=== PATIENT | female | born 1970 | race Caucasian/White ===

== ENCOUNTER 2023-07-18 08:03 | Outpatient (OUT) | payer BC, SELFPAY ==
--- NOTE | 2023-07-18 08:52 | CA_ITS ---
Patient Name: KWAKU VEGA MR#: [id number] : 1970 Exam Date: 07/18/2023 Ordering Doctor: VISHAL GALAVIZ CNP ECHOCARDIOGRAM REPORT PROCEDURE: CA ECHO DOPPLER COMPLETE INDICATIONS: Palpitations, aortic insufficiency, diabetes COMPARISON: None. DESCRIPTION: COMPLETE ECHOCARDIOGRAM Real-time transthoracic echocardiography with 2D, M-mode, spectral and color flow Doppler performed. QUALITY: Technical quality was good. 63 , 130#, BSA LEFT VENTRICLE: Normal chamber size. Normal left ventricular wall thickness. LV EF: Global left ventricular systolic function is hyperdynamic; visually estimated ejection fraction 65 to 70%. No segmental wall motion abnormalities. DIASTOLIC: Normal diastolic function. ATRIAL SEPTUM: Visually appears intact. LEFT ATRIUM: Normal chamber size. RIGHT ATRIUM: Normal chamber size. RIGHT VENTRICLE: Normal chamber size. Normal right ventricular systolic function. TRICUSPID VALVE: Normal mobility and thickness. No stenosis with trivial regurgitation. No evidence of pulmonary hypertension. RVSP 21 mmHg MITRAL VALVE: Mildly thickened with normal mobility. No evidence of mitral valve stenosis. There is no mitral annular calcification. No mitral regurgitation. AORTIC VALVE: Normal trileaflet appearance. No visible sclerosis. Normal leaflet mobility. No evidence of aortic valve stenosis. Trivial to mild aortic regurgitation. AORTIC ROOT: Normal diameter and appearance. PULMONIC VALVE: Normal thickness and mobility. No stenosis. Trivial regurgitation. PERICARDIUM: No evidence of pericardial effusion. IVC: Collapses with inspirations. IVC is normal in size. CONCLUSION: 1. Global left ventricular systolic function is hyperdynamic; visually estimated ejection fraction 65 to 70% 2. Normal right ventricular size and systolic function 3. Normal diastolic function 4. Trivial to mild aortic valve regurgitation Adult Echocardiography Procedure Report Left Ventricle LVEDD (3.7 - 5.6 cm): 3.42 cm LVESD (2.2 - 4.0 cm): 2.54 cm LVIVS thickness (0.6 - 1.2 cm): 1.12 cm LVPW thickness (0.5 - 1.0 cm): 0.74 cm e': 0.13 m/s E - e': 4.75 LVOT Max Gradient: 2.88 mm[Hg] LVOT Area (cm2): 0.85 m/s Peak Velocity (LVOT): 0.85 m/s Mean Velocity (LVOT): 0.60 m/s LVOT Diameter 2.04 cm Left Atrium LA Volume Index (2D A2C): 21.82 ml/m2 Left Atrium Systolic Dimension: 3.05 cm Mitral Valve MV E to A Ratio: 0.74 Mitral Valve A-Wave Peak Velocity: 0.81 m/s Mitral Valve E-Wave Peak Velocity: 0.60 m/s Right Ventricle Aorta AO Root Diam: 2.96 cm Ascending Ao Diam: 2.59 cm Aortic Valve AoV Area (Peak Real): 1.63 cm2, 1.63 cm2 AoV Area (VTI): 2.08 cm2, 2.08 cm2 Peak Velocity(Antegrade Flow): 1.69 m/s Peak Gradient(Antegrade Flow): 11.43 mm[Hg] Mean Velocity(Antegrade Flow): 1.18 m/s Mean Gradient(Antegrade Flow): 6.36 mm[Hg] Velocity Time Integral: 31.23 cm Tricuspid Valve Peak Velocity (Regurgitant Flow): 2.15 m/s Pulmonic Valve Peak Velocity: 1.10 m/s Peak Gradient: 4.68 mm[Hg], 4.94 mm[Hg] Right Atrium Dictated by: Jessica Clark M.D. on 07/18/2023 at 12:53 Approved by: Jessica Clark M.D. on 07/18/2023 at 12:56
== END 2023-07-18 08:04 | disposition home or self-care (01) ==
LOC: CARD 08:06
PROVIDERS: PCP Family Medicine; Visit Provider Nurse Practitioner Family
DX: R00.2 Palpitations (principal); I35.1 Nonrheumatic aortic (valve) insufficiency
CPT/HCPCS: 93306

== ENCOUNTER 2023-08-12 07:23 | Outpatient (OUT) | payer BC, SELFPAY ==
--- OUTSIDE RECORDS SUMMARY | 2023-08-12 07:27 | XMS_ITS | CCD ---
Author Name Unknown Address [address] [place] [address] Organization [facility] Care Team Providers Care Anthropology And Archeology Instructor Name Role Phone MAGNORON MARTINS Attending Unavailable MOMO HAMPTON Primary Care Unavailable PHYSICIAN, DEFAULT Admitting Unavailable PHYSICIAN, DEFAULT Attending Unavailable PHYSICIAN, DEFAULT Admitting Unavailable PHYSICIAN, DEFAULT Attending Unavailable Aisha Acevedo Unavailable Momo Hampton DO Momo Hampton. Primary Care Provider DO Momo Hampton. Attending Provider DR LIZBET FUENTES V Consulting Unavailable ELAYNE, DR COTTON Admitting Unavailable ELAYNE, DR COTTON Attending Unavailable MEMO, DR MOMO Cervantes Primary Care Unavailable ELAYNE, DR COTTON Consulting Unavailable MEMO, DR MOMO Cervantes Attending Unavailable MEMO, DR MOMO Cervantes Admitting Unavailable MEMO, DR MOMO Cervantes Primary Care Unavailable ZIEBER, DR GOLDEN Johnson Consulting Unavailable MEMO, DR MOMO Cervantes Consulting Unavailable MEMO, DR MOMO Cervantes Attending Unavailable MEMO, DR MOMO Cervantes Admitting Unavailable ZIEBER, DR GOLDEN Johnson Consulting Unavailable MEMO, DR MOMO Cervantes Primary Care Unavailable MEMO, DR MOMO Cervantes Consulting Unavailable MEMO, DR MOMO Cervantes Primary Care Unavailable MISC, DR GUERRA Admitting Unavailable MISC, DR GUERRA Attending Unavailable MOMO HAMPTON Primary Care Physician DO Momo Hampton Primary Care Provider DO Momo Hampton Attending Provider [phone] Memo, Momo M. Admitting Unavailable Memo, Momo M. Primary Care Unavailable Memo, Momo M. Attending Unavailable ChaRobert guilloryal Admitting Unavailable Chaban Kamal Attending Unavailable Memo, Momo M. Primary Care Unavailable Memo, Momo M. Admitting Unavailable Memo, Momo M. Primary Care Unavailable Memo, Momo M. Attending Unavailable ELLIS VAUGHN Attending Unavailable VISHAL GALAVIZ Attending Unavailable Spasic, Maik VBryce Attending UnavailDev Natarajan Attending Unavailable WITHELLIS BRANTLEY Admitting Unavailable ELLIS VAUGHN Attending Unavailable BERODERICK Denny Attending Unavailable BERODERICK Denny Admitting Unavailable Spasic, Maik V. Admitting Unavailabl e Dejuansic, Maik VBryce Attending UnavailLEE Guaman Attending UnavailNisha Lei Attending Unavailable Leroy Storey Attending Unavailable LEE DELONG Attending Unavailabl pilar Allergies Allergy Classification Reported Allergen(s) Allergy Type Date of Onset Reaction(s) Facility (20 sources) Dust Propensity to adverse reactions Unknown [employer] [facility] Other (20 sources) Sulfamethoxazole / Trimethoprim Drug Allergy rash [employer] Other (20 sources) Sulfonamides (Antibiotic) Drug allergy hives [employer] [facility] [employer] Other (20 sources) dogs, cats, mold Propensity to adverse reactions Unknown [employer] Other (4 sources) Sulfonamides (Antibiotic); Translations: [Sulfa (Sulfonamide Antibiotics)] Allergy to substance 02-14-20 03 [facility] (2 sources) Sulfonamides (Antibiotic) Drug allergy (disorder) 11-22-19 15 [facility] Repository (9 sources) Sulfamethoxazole; Translations: [sulfamethoxazole] Drug Allergy Eruption of skin (disorder) [facility] (1 source) SULFOIL; Translations: [SULFOIL] Propensity to adverse reactions to drug (disorder) 11-10-19 23 [facility] Repository Medications Current Medications Medication Drug Class(es) Dates Sig (Normalized) Sig (Original) 24 hr amphetamine aspartate 5 mg / amphetamine sulfate 5 mg / dextroamphetamine saccharate 5 mg / dextroamphetamine sulfate 5 mg extended release oral capsule (20 sources) Central Nervous System Stimulant Start: 12-20-2022 Adderall XR 20 MG 1 capsule every morning Orally Once a day for 30 days Jul, Active Start: 02-02-2022 take 1 capsule by [facility] every twenty-four hours Amphetamine-Dextroamphet ER 20 MG 1 capsule in the morning Orally Once a day for 30 days Mar, Not-Taking Start: 01-07-2022 Adderall XR 20 MG 1 capsule every morning Orally Once a day for 30 days Jan, Active Start: 12-07-2021 Adderall XR 20 MG 1 capsule every morning Orally Once a day for 30 days December, Active Start: 11-10-2021 Adderall XR 20 MG 1 capsule every morning Orally Once a day for 30 days Nov, Active Start: 10-09-2021 Adderall XR 20 MG 1 capsule every morning Orally Once a day for 30 days Oct, Active Start: 09-14-2021 Adderall XR 20 MG 1 capsule every morning Orally Once a day for 30 days Sep, Active Start: 08-11-2021 Adderall XR 20 MG 1 capsule every morning Orally Once a day for 30 days Aug, Active Start: 07-13-2021 Adderall XR 20 MG 1 capsule every morning Orally Once a day for 30 days Jul, Active Start: 06-16-2021 Adderall XR 20 MG 1 capsule every morning Orally Once a day for 30 days Jun, Active Ascorbic Acid (9 sources) Vitamin C Start: 05-26-2019 Vitamin C 50 m g, Chewed, Daily, 500mg, Refills(s) 0, Prophylaxis Start Date: 05/26/19 Status: Ordered take 1 capsule by [facility] every twenty-four hours Vitamin C 500 MG 1 capsule Orally daily Active atorvastatin 20 mg oral tablet (20 sources) HMG-CoA Reductase Inhibitor Start: 05-26-2019 take 1 tablet by mouth once daily atorvastatin 20 mg Tab 20 mg = 1 tab(s), Oral, Daily, Refills(s) 0, High cholesterol Start Date: 05/26/19 Status: Ordered clobetasol propionate 0.25 mg/ml topical cream (8 sources) Corticosteroid Start: 11-17-2020 clobetasol 0.025% topical cream Topical, BID, Refill(s) 0 Start Date: 11/17/20 Status: Ordered 24 hr dexmethylphenidate hydrochloride 15 mg extended release oral capsule (10 sources) Central Nervous System Stimulant Start: 01-26-2023 take 1 capsule by mouth every twenty-four hours Focalin XR 15 MG 1 capsule in the morning Orally Once a day for 30 days Jan, Active Start: 12-30-2022 take 1 capsule by mo [facility] every twenty-four hours Focalin XR 15 MG 1 capsule in the morning Orally Once a day for 30 days December, Active Elderberry preparation (20 sources) Start: 12-20-2022 elderberry Ref ill(s) 0 Start Date: 12/20/22 Status: Ordered Elderberry Activ e eletriptan 40 mg oral tablet (8 sources) Serotonin-1b and Serotonin-1d Receptor Agonist Start: 05-26-2019 Relpax 40 mg Tab 40 mg = 1 tab(s), Oral, Refills(s) 0, Prophylaxis Start Date: 05/26/19 Status: Ordered estradiol 0.1 mg/ml vaginal cream (8 sources) Estrogen Start: 11-09-2021 estradiol 0.1 mg/g Vag Crm 1 gm, Vaginal, MonThu, 42.5 gm, Refill(s) 3, [facility], 160, cm, 11/09/21 16:31:00 EDT, Height/Length Dosing, 58, kg, 11/09/21 16:31:00 EDT, Weight Dosing Start Date: 11/09/21 Status: Ordered fluconazole 150 mg oral tablet (20 sources) Azole Antifungal Start: 12-20-2022 Diflucan 150 mg Tab Oral, Refills(s) 0 Start Date: 12/20/22 Status: Ordered Start: 10-26-2013 take 1 tablet by keo every twenty-four hours Diflucan 150 MG 1 tablet Orally Once a day for 2 day(s) Oct, Active fluticasone propionate 0.05 mg/actuat metered dose nasal spray (20 sources) Corticosteroid Start: 12-20-2022 fluticasone Na alan 0.05 mg/inh [place] Refill(s) 0, Nasal Start Date: 12/20/22 Status: Ordered Start: 04-26-2014 take 2 spray(s) nasa l route once daily as needed Fluticasone Propionate 50 MCG/ACT 2 spray in each nostril Nasally Once a day prn for 30 days Apr, Active Start: 04-26-2014 take 2 spray(s) nasa l route once daily as needed Fluticasone Propionate 50 MCG/ACT 2 spray in each nostril Nasally Once a day prn for 30 days Apr, Active fluticasone 0.05 mg/inh Nasal [place] (8 sources) Start: 11-17-2020 fluticasone 0.05 mg/inh Nasal [place] Daily, Refill(s) 0 Start Date: 11/17/20 Status: Ordered lisinopril 2.5 mg oral tablet (20 sources) Angiotensin Converting Enzyme Inhibitor Start: 05-26-2019 take 1 tablet by mouth once daily lisinopril 2.5 mg Tab See Instructions, tab(s) mg Oral Daily, Refills(s) 0, High blood pressure Start Date: 05/26/19 Status: Ordered Magnesium (20 sources) take 1 tablet by mouth twice daily Magnesium 500 MG 1 tablet with a meal Orally BID for 30 day(s) Active magnesium oxide 250 mg oral tablet (8 sources) Start: 05-26-2019 take 2 tablets by mouth once daily magnesium oxide 250 mg oral tablet 500 mg = 2 tab(s), Oral, Daily, Refills(s) 0, Prophylaxis Start Date: 05/26/19 Status: Ordered metFORMIN hydrochloride 1000 mg oral tablet (20 sources) Biguanide Start: 05-26-2019 take 1 tablet by mouth twice daily metformin 1000 mg Tab 1,000 mg = 1 tab(s), Oral, BID, Refills(s) 0, Blood glucose Start Date: 05/26/19 Status: Ordered 24 hr methylphenidate hydrochloride 27 mg extended release oral tablet (10 sources) Central Nervous System Stimulant Start: 12-20-2022 Start: 12-20-2022 take 1 tablet by keo th once daily in the morning methylphenidate 27 mg/24 hr ER Tab 30 EA, TAKE 1 TABLET BY MOUTH EVERY DAY IN THE MORNING FOR 30 DAYS, Refills(s) 0 Start Date: 12/20/22 Status: Ordered Start: 12-07-2022 take 1 tablet by keo th every twenty-four hours Concerta 27 MG 1 tablet in the morning Orally Once a day for 30 days December, Active Start: 11-10-2022 take 1 tablet by keo th every twenty-four hours Concerta 27 MG 1 tablet in the morning Orally Once a day for 30 days Nov, Active Start: 10-14-2022 take 1 tablet by keo th every twenty-four hours Concerta 27 MG 1 tablet in the morning Orally Once a day for 30 days Oct, Active methylPREDNISolone 4 mg oral tablet (1 source) Corticosteroid Start: 12-20-2022 End: 12-26-2022 Medrol Dosepack 4 mg Tab = 1 packet(s), Oral, As Directed, as directed on package labeling, X 6 day(s), # 21 tab(s), Refills(s) 0, Pharmacy: [facility]/pharmacy #[id number], 161, cm, 12/20/22 12:08:00 EDT, Height/Length Dosing, 56, kg, 12/20/22 12:08:00 EDT, Weight Dosing Start Date: 12/20/22 Stop Date: 12/26/22 Status: Ordered montelukast 10 mg oral tablet (20 sources) Leukotriene Receptor Antagonist Start: 12-20-2011 take 1 tablet by mouth once daily Singulair 10 mg Tab 10 mg = 1 tab(s), Oral, Daily, Refills(s) 0, Allergy symptoms Start Date: 05/26/19 Status: Ordered Multivitamin preparation (3 sources) take 1 tablet by mouth once daily Multivitamin - 1 tablet Orally Once a day Active Multivitamins and Minerals (8 sources) Start: 05-26-2019 take 1 tablet by mouth once daily Multivitamins and Minerals 1 tab, Oral, Daily, Refill(s) 0, Prophylaxis Start Date: 05/26/19 Status: Ordered naproxen 500 mg delayed release oral tablet (1 source) Nonsteroidal Anti-inflammatory Drug Start: 12-20-2022 End: 01-04-2023 take 1 tablet by mouth twice daily naproxen 500 mg oral enteric coated tablet 500 mg = 1 tab(s), Oral, BID, may sub non ec if needed, X 15 day(s), # 30 tab(s), Refills(s) 0, Pharmacy: [facility]/pharmacy #[id number], 161, cm, 12/20/22 12:08:00 EDT, Height/Length Dosing, 56, kg, 12/20/22 12:08:00 EDT, Weight Dosing Start Date: 12/20/22 Stop Date: 01/04/23 Status: Ordered predniSONE 20 mg oral tablet (3 sources) Start: 02-26-2015 predniSONE 20 MG as directed with food or milk Orally 3 poq day x 3 days, 2 po qday x 3 days, 1 po qday x 3 days for 9 day(s) Feb, Active suvorexant 10 mg oral tablet (20 sources) Orexin Receptor Antagonist Start: 11-07-2020 take 1 tablet by mouth once daily at bedtime Belsomra 10 mg oral tablet 10 mg = 1 tab(s), Oral, Once a day (at bedtime), Refills(s) 0 Start Date: 11/07/20 Status: Ordered topiramate 200 mg oral tablet (20 sources) Start: 12-14-2019 take 1 tablet by mouth twice daily Topamax 200 MG 1 tablet Orally twice daily for 90 day(s) December, Active Start: 05-26-2019 take 2 tablets by [facility] twice daily Topamax 100 mg Tab 200 mg, Oral, BID, Refills(s) 0, Migraine headache Start Date: 05/26/19 Status: Ordered Vitamin C 500 MG (20 sources) take 1 capsule by [facility] once daily Vitamin C 500 MG 1 capsule Orally daily Active Vitamin C 500 MG Orally Active Vitamin D 125 MCG (5000 UT) (20 sources) Vitamin D 125 MC G (5000 UT) as directed Orally daily Active Vitamin D 125 MC G (5000 UT) as directed Orally Active Completed/Discontinued Medications Medication Drug Class(es) Dates Sig (Normalized) Sig (Original) [id number] 200 actuat albuterol 0.09 mg/actuat metered dose inhaler (20 sources) beta2-Adrenergic Agonist take 1 puff(s) by inhalation every four hours as needed Albuterol Sulfate HFA 108 (90 Base) MCG/ACT 1 puff as needed Inhalation every 4 hrs Not-Taking take 1 puff(s) by in halation every four hours as needed Albuterol Sulfate HFA 108 (90 Base) MCG/ACT 1 puff as needed Inhalation every 4 hrs Not-Taking 1.5 ml fremanezumab-vfrm 150 mg/ml prefilled syringe (20 sources) inject 1.5 mL by subcutaneous injection every month Ajovy 225 MG/1.5ML 1.5 ml Subcutaneous monthly Not-Taking Advil (20 sources) Nonsteroidal Anti-inflammatory Drug Start: 2015 Advil 200 mg, Oral, 2-3 tabs prn, Refills(s) 0, Pain Start Date: 10/01/15 Status: Ordered take 1 tablet by keo th three times daily at mealtime as needed Ibuprofen 200 MG 1 tablet with food or milk as needed Orally Three times a day Active promethazine hydrochloride 25 mg oral tablet (20 sources) Phenothiazine take 1 tablet by mouth every four to six hours as needed for nausea Promethazine HCl 25 MG 1 tablet Orally q 4-6 hrs. prn/nausea for 90 day(s) Not-Taking take 1 tablet by keo th every four to six hours as needed for nausea Promethazine HCl 25 MG 1 tablet Orally q 4-6 hrs. prn/nausea for 90 day(s) Not-Taking triamcinolone acetonide 40 mg/ml injectable suspension (15 sources) Corticosteroid Start: 11-22-2022 Kenalog-40 Nov, 40 mg vitamin b12 100 mg extended release oral tablet (20 sources) Vitamin B12 Start: 05-26-2019 take 100 mg by mouth once daily Vitamin B12 1,000 mcg, Oral, Daily, 100mg, Refills(s) 0 Start Date: 05/26/19 Status: Ordered take 1 mL under the tongue once daily Vitamin B12 3000 MCG/ML 1 ML Sublingual Once a day Active take 1 mL under the tongue once daily Vitamin B12 3000 MCG/ML 1 ML Sublingual Daily Active Problems Active Problems Problem Classification Problem Date Documented Date Episodic/Chronic Abdominal pain (16 sources) Abdominal pain; Translations: [Pain in female pelvis] 11-09-2021 Episodic Anxiety disorders (20 sources) Mixed anxiety and depressive disorder; Translations: [Other specified anxiety disorders] Chronic Benign neoplasm of uterus (8 sources) Uterine leiomyoma 02-11-2014 Episodic Cardiac dysrhythmias (2 sources) Cardiac arrhythmia, unspecified; Translations: [Cardiac arrhythmia, unspecified] Onset: 06-22-2023 Chronic Cardiac dysrhythmias (2 sources) Palpitations; Translations: [Palpitations] Onset: 06-22-2023 Episodic Conditions associated with dizziness or vertigo (2 sources) Dizziness and giddiness; Translations: [Dizziness and giddiness] Onset: 06-22-2023 Episodic Diabetes mellitus without complication (20 sources) Type 2 diabetes mellitus well controlled; Translations: [Type 2 diabetes mellitus without complications] Onset: 09-14-2021 Resolved: 01-14-2022 Chronic Disorders of lipid metabolism (10 sources) Hyperlipidemia; Translations: [Mixed hyperlipidemia] Onset: 11-04-2022 11-17-2020 Chronic Disorders usually diagnosed in infancy, childhood, or adolescence (20 sources) Disorders of attention and motor control; Translations: [Other specified behavioral and emotional disorders with onset usually occurring in childhood and adolescence] Onset: 08-11-2021 Resolved: 02-02-2022 Chronic Esophageal disorders (20 sources) Gastroesophageal reflux disease; Translations: [Gastro-esophageal reflux disease without esophagitis] Chronic Genitourinary symptoms and ill-defined conditions (9 sources) History of urinary tract infection; Translations: [Personal history of urinary (tract) infections] Onset: 11-15-2022 Episodic Headache; including migraine (20 sources) Migraine without aura, not refractory ; Translations: [Migraine without aura, not intractable, without status migrainosus] Onset: 09-14-2021 Resolved: 10-02-2021 Chronic Heart valve disorders (3 sources) Nonrheumatic aortic (valve) insufficiency; Translations: [Nonrheumatic aortic (valve) insufficiency] Onset: 09-19-2018 Chronic Heart valve disorders (8 sources) Heart murmur 05-26-2019 Episodic Immunizations and screening for infectious disease (1 source) Encounter for immunization Episodic Malaise and fatigue (2 sources) Other fatigue; Translations: [Other fatigue] Onset: 06-22-2023 Episodic Neoplasms of unspecified nature or uncertain behavior (8 sources) Neoplasm of pituitary gland 02-11-2014 Episodic Other and unspecified benign neoplasm (1 source) Melanocytic nevi, unspecified; Translations: [Melanocytic nevi, unspecified] Onset: 05-16-2023 Episodic Other ear and sense organ disorders (1 source) Otalgia, left ear; Translations: [Otalgia of left ear] Onset: 04-04-2023 Episodic Other female genital disorders (1 source) Superficial pain on intercourse; Translations: [Superficial (introital) dyspareunia] Onset: 11-15-2022 Chronic Other female genital disorders (8 sources) Dyspareunia 11-09-2021 Chronic Other lower respiratory disease (20 sources) Nodule of lung; Translations: [Solitary pulmonary nodule] Episodic Other lower respiratory disease (1 source) Other nonspecific abnormal finding of lung field Episodic Other nervous system disorders (8 sources) H/O: migraine 02-11-2014 Episodic Other nutritional; endocrine; and metabolic disorders (1 source) Overweight in adulthood with body mass index of 25 or more but less than 30; Translations: [Body mass index (BMI) 25.0-25.9, adult] Onset: 08-03-2023 Episodic Other screening for suspected conditions (not mental disorders or infectious disease) (10 sources) Abnormal findings on diagnostic imaging of heart and coronary circulation; Translations: [Encounter for screening for osteoporosis] Onset: 09-19-2018 Episodic Other skin disorders (1 source) Actinic keratosis Episodic Other upper respiratory disease (20 sources) Seasonal allergy; Translations: [Other seasonal allergic rhinitis] Chronic Other upper respiratory disease (2 sources) Other seasonal allergic rhinitis Onset: 03-25-2022 Resolved: 03-25-2022 Chronic Residual codes; unclassified (20 sources) Sleep apnea; Translations: [Sleep apnea, unspecified] Chronic Residual codes; unclassified (20 sources) Insomnia; Translations: [Insomnia, unspecified] Episodic Residual codes; unclassified (7 sources) Insomnia, unspecified Onset: 08-06-2021 Resolved: 02-09-2022 Episodic Spondylosis; intervertebral disc disorders; other back problems (1 source) Lumbago with sciatica; Translations: [Lumbago with sciatica, right side] Onset: 12-20-2022 Episodic Unclassified (1 source) Family hx of ischem heart dis and oth dis of the circ sys Onset: 09-19-2018 Unclassified (1 source) Pain in left shoulder; Translations: [Pain in left shoulder] Onset: 08-19-2022 Viral infection (1 source) Viral disease; Translations: [Viral infection, unspecified] Onset: 08-03-2023 Episodic Past or Other Problems Problem Classification Problem Date Documented Da te Episodic/Chronic Complications of surgical procedures or medical care (2 sources) Hypotension due to drugs; Translations: [Hypotension due to drugs] Onset: 11-09-2022 Episodic Other lower respiratory disease (2 sources) Solitary pulmonary nodule; Translations: [Solitary pulmonary nodule] Onset: 06-30-2021 Resolved: 06-30-2021 Episodic Other lower respiratory disease (1 source) Shortness of breath Onset: 08-27-2021 Resolved: 08-27-2021 Episodic Other non-traumatic joint disorders (5 sources) Pain in right elbow; Translations: [PAIN IN RIGHT ELBOW] Onset: 03-03-2022 Resolved: 03-03-2022 Episodic Other non-traumatic joint disorders (4 sources) Pain in left shoulder; Translations: [PAIN IN LEFT SHOULDER] Onset: 08-02-2022 Episodic Residual codes; unclassified (1 source) Family history of malignant neoplasm of breast; Translations: [FAMILY HX MALIG NEOPLASM OF BREAST] Onset: 01-18-2022 Episodic Residual codes; unclassified (1 source) Family history of malignant neoplasm of trachea, bronchus and lung; Translations: [FAM HX MALIG NEOPLSM TRACH BRON LNG] Onset: 01-18-2022 Episodic Unclassified (3 sources) Attention Deficit Disorder 314.00 Viral infection (1 source) COVID-19 Onset: 08-27-2021 Resolved: 08-27-2021 Results Test Name Value Interpretation Reference Range Facility Family Medicine Office/Clini c Noteon 08-03-2023 Family Medicine Office/Clinic Note Chief Complaint Current pt cough, sore throat, BA, LOMBARDO, fatigue, Left ear pain, Sinus congestion HPI Staff Sue, 53 yo female here today with sore throat, body aches Symptoms began yesterday Complains of cough, sore throat, body aches, headache, runny/stuffy nose, left ear pain, fatigue, 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 Substitutions may have occurred due to the inherent limitations of voice recognition and artificial intelligence software. Staff hpi reviewed. rm 4 PT is a 53yoF complaint of cough sore throat and body aches s/s began yesterday. Took vitamin C. was an outbreak of RSV at the correction she works at [employer] before quarantine due to spreading. [facility] was also exposed to COVID and strep at work. Patient has no other complaints or concerns. Patient with allergy to sulfa. Review of Systems PHQ Score Initial Depression Screen Score: 0 SCORE Physical Exam Vitals & Measurements T: 36.5 ?C(Oral) HR: 78(Peripheral) BP: 110/70 SpO2: 98% HT: 63 in HT: 159 cm WT: 64 kg WT: 140.8 lb BMI: 25.32 General - alert no acute distress Skin - warm dry Head -normocephalic atraumatic ENT-TMs clear pearly pérez-white bilaterally no pharyngeal erythema or exudates Cardiovascular - regular rate regular rhythm Respiratory - lungs clear to auscultation, non-labored respirations, breath sounds equal Assessment/Plan 1. Viral illness (B34.9: Viral infection, unspecified) Pt tested negative for both strep and covid. Discussed findings are consistent with a viral illness. Patient was provided with a work note. 2. Sore throat (J02.9: Acute pharyngitis, unspecified) Same as above. 3. Viral URI with cough (J06.9: Acute upper respiratory infection, unspecified) Same as above. Ordered: Group A Strep by PCR 4. BMI 25.0-25.9,adult (Z68.25: Body mass index [BMI] 25.0-25.9, adult) The standard range for ages 18 and older is >=18.5 and < 25 kg/m2. Your BMI today was above this range, this falls in the overweight to obese category and there are medical benefits to weight loss. We can offer counselling, referral, and/or medical support in addressing this problem. Your BMI and weight management will be followed at subsequent visits. Follow-up With When Contact Information MOMO HAMPTON DO, [facility] [address] [place] [address]- Additional Instructions: Patient Education Upper Respiratory Infection, Adult, Usda-su-Mehh Problem List/Past Medical History Ongoing Abdominal pain in female Diabetes--NIDDM Dyspareunia Female pelvic pain H/O: migraine Heart murmur History of recurrent UTI (urinary tract infection) Hyperlipidemia Pituitary tumor Uterine fibroids Historical Migraine Procedure/Surgical History Cystoscopy (12/16/2020), Colonoscopy (11/07/2020), breast biopsy, left (11/2018), robotic assisted hysterectomy, bilateral salpingectomy (02/22/2014), section, D&C - Dilatation and curettage, LUMBAR FUSION, Tonsillectomy. Medications Adderall XR 20 mg Cap-ER Advil, 200 mg, Oral atorvastatin 20 mg Tab, 20 mg= 1 tab(s), Oral, Daily Belsomra 10 mg oral tablet, 10 mg= 1 tab(s), Oral, Once a day (at bedtime) clobetasol 0.025% topical cream, Topical, BID elderberry estradiol 0.1 mg/g Vag Crm, 1 gm, Vaginal, MonThu, 3 refills fluticasone 0.05 mg/inh Nasal [place], Daily, Not taking fluticasone Nasal 0.05 mg/inh [place], Not taking magnesium oxide 250 mg oral tablet, 500 mg= 2 tab(s), Oral, Daily metformin 1000 mg Tab, 1000 mg= 1 tab(s), Oral, BID Multivitamins and Minerals, 1 tab, Oral, Daily Relpax 40 mg Tab, 40 mg= 1 tab(s), Oral Singulair 10 mg Tab, 10 mg= 1 tab(s), Oral, Daily Topamax 100 mg Tab, 200 mg, Oral, BID Vitamin B12, 1000 mcg, Oral, Daily Vitamin C, 50 mg, Chewed, Daily Allergies sulfamethoxazole (Rash) Social History Alcohol - Denies Alcohol Use, 02/11/2014 Substance Abuse - Denies Substance Abuse, 02/11/2014 Tobacco - Denies Tobacco Use, 02/11/2014 Never (less than 100 in lifetime) Tobacco Use:. Never Smokeless Tobacco Use:., 08/03/2023 Never (less than 100 in lifetime) Tobacco Use:., 10/16/2020 Never (less than 100 in lifetime) Tobacco Use:. Never Smokeless Tobacco Use:., 10/12/2020 Never (less than 100 in lifetime) Tobacco Use:. Ready to change: No. Household tobacco concerns: No., 05/26/2019 Family History Alcoholism: Father and Brother. Diabetes mellitus type 1: Mother. Hypertension: Mother and Father. Lung cancer: Mother. Immunizations Vaccine Date Status influenza virus vaccine, inactivated 05/16/2023 Recorded influenza virus vaccine, inactivated 06/05/2022 Recorded zoster vaccine, inactivated 03/25/2022 Recorded zoster vaccine, inactiva (more content not included)... Normal [facility] Comment on above: Result Comment: Elec tronically Signed By: Maik Yoon PA-C, V.\.sugar\Date and Time Signed: 08/03/23 09:57 EST Grp A Strp PCRon 08-03-2023 Grp A Strp Intrl Ctrl Pass Normal Fis her [facility] Comment on above: Performed By: #### 1 [id number] ####[facility] [id number] [place] [address] S. pyogenes DNA ZUNILDA+probe Ql (Throat) Negative Normal [facility] Comment on above: Result Comment: Test ing performed using DNA amplification. Performed By: #### 1 [id number] ####[facility] [id number] [place] [address] Patient Educationon 08-03-20 23 Patient Education Infectious Disease Upper Respiratory Infection, Adult An upper respiratory infection (URI) affects the nose, throat, and upper airways that lead to the lungs. The most common type of URI is often called the common cold. URIs usually get better on their own, without medical treatment. What are the causes? A URI is caused by a germ (virus). You may catch these germs by: ? Breathing in droplets from an infected person's cough or sneeze. ? Touching something that has the germ on it (is contaminated) and then touching your mouth, nose, or eyes. What increases the risk? You are more likely to get a URI if: ? You are very young or very old. ? You have close contact with others, such as at work, school, or a health care facility. ? You smoke. ? You have long-term (chronic) heart or lung disease. ? You have a weakened disease-fighting system (immune system). ? You have nasal allergies or asthma. ? You have a lot of stress. ? You have poor nutrition. What are the signs or symptoms? ? Runny or stuffy (congested) nose. ? Cough. ? Sneezing. ? Sore throat. ? Headache. ? Feeling tired (fatigue). ? Fever. ? Not wanting to eat as much as usual. ? Pain in your forehead, behind your eyes, and over your cheekbones (sinus pain). ? Muscle aches. ? Redness or irritation of the eyes. ? Pressure in the ears or face. How is this treated? URIs usually get better on their own within 7?10 days. Medicines cannot cure URIs, but your doctor may recommend certain medicines to help relieve symptoms, such as: ? Axmd-nre-vfjlsax cold medicines. ? Medicines to reduce coughing (cough suppressants). Coughing is a type of defense against infection that helps to clear the nose, throat, windpipe, and lungs (respiratory system). Take these medicines only as told by your doctor. ? Medicines to lower your fever. Follow these instructions at home: Activity ? Rest as needed. ? If you have a fever, stay home from work or school until your fever is gone, or until your doctor says you may return to work or school. ? You should stay home until you cannot spread the infection anymore (you are not contagious). ? Your doctor may have you wear a face mask so you have less risk of spreading the infection. Relieving symptoms ? Rinse your mouth often with salt water. To make salt water, dissolve ??1 tsp (3?6 g) of salt in 1 cup (237 mL) of warm water. ? Use a cool-mist humidifier to add moisture to the air. This can help you breathe more easily. Eating and drinking ? Drink enough fluid to keep your pee (urine) pale yellow. ? Eat soups and other clear broths. General instructions ? Take fkvj-wit-isppsob and prescription medicines only as told by your doctor. ? Do not smoke or use any products that contain nicotine or tobacco. If you need help quitting, ask your doctor. ? Avoid being where people are smoking (avoid secondhand smoke). ? Stay up to date on all your shots (immunizations), and get the flu shot every year. ? Keep all follow-up visits. How to prevent the spread of infection to others ? Wash your hands with soap and water for at least 20 seconds. If you cannot use soap and water, use hand blasting machine operator. ? Avoid touching your mouth, face, eyes, or nose. ? Cough or sneeze into a tissue or your sleeve or elbow. Do not cough or sneeze into your hand or into the air. Contact a doctor if: ? You are getting worse, not better. ? You have any of these: ? A fever or chills. ? Brown or red mucus in your nose. ? Yellow or brown fluid (discharge)coming from your nose. ? Pain in your face, especially when you bend forward. ? Swollen neck glands. ? Pain when you swallow. ? White areas in the back of your throat. Get help right away if: ? You have shortness of breath that gets worse. ? You have very bad or constant: ? Headache. ? Ear pain. ? Pain in your forehead, behind your eyes, and over your cheekbones (sinus pain). ? Chest pain. ? You have long-lasting (chronic) lung disease along with any of these: ? Making high-pitched whistling sounds when you breathe, most often when you breathe out (wheezing). ? Long-lasting cough (more than 14 days). ? Coughing up blood. ? A change in your usual mucus. ? You have a stiff neck. ? You have changes in your: ? Vision. ? Hearing. ? Thinking. ? Mood. These symptoms may be an emergency. Get help right away. Call 911. ? Do not wait to see if the symptoms will go away. ? Do not drive yourself to the hospital. Summary ? An upper respiratory infection (URI) is caused by a germ (virus). The most common type of URI is often called the common cold. ? URIs usually get better within 7?10 days. ? Take cwsy-csf-pvnxahb and prescription medicines only as told by your doctor. This information is not intended to replace advice given to you by your health care (more content not included)... Normal [facility] Patient Letter FTon 2022 Patient Letter [facility] [address], [place] [address] August 03, 2023 SUE SALCIDO [address] [place] [address] : 1970 Please excuse SUE SALCIDO from work . Date and/or Time of Absence: From: 08/03 To: 08/05 May return to work on: 08/06 Restrictions: None Comments: Please excuse due to an acute illness. Provider Signature: Raymond Yoon PA-C [facility] [address] [place] [address] [facility] 36on 07-23-2023 36 Please let patient know her ECHO showed no significant findings for a cause for her sx's. She may be a little on the dry side, encourage her to increase her fluid intake. Her aortic valve is mildly Leaky . Follow-up as planned. Thanks Arleen [facility] Telephoneon 07-23-2023 Telephone [id number] Soni Salcidoody 1970 F Date Provider Department Center 07/23/2023 VISHAL ROSENBERG [facility]. No family history on file [facility] A1C HEMOGLOBINon 07-15-2023 HbA1c (Bld) [Mass fraction] 5.5 % [employer] Other HbA1c (Bld) [Mass fraction]o n 07-15-2023 A1C HEMOGLOBIN [facility] Other Office Visiton 06-22-2023 Follow-up visit [id number] GarySue 1970 F Date Provider Department [place] 06/22/2023 VISHAL ROSENBERG TY Maldonado [facility] No family history on file Level of Service:54525 [place] OFFICE/OUTPATIENT ESTABLISHED MOD MDM 30-39 MIN Reason for Visit and Comments: Follow-up [092372] - Blood pressure. Heart rate racing. Fatigued, fast heart rate, dizziness. Normal [facility] Ralf 05-16-2023 L Specimen: [id number] Received: 05/17/23 Status: TEMITOPE Rutledge Num: [id number] Spec Type: Surgical Subm Dr: Momo Hampton DO Tissues: A Skin-Other than Cyst, tag, debridement or plastic repair (RT KNEE) Procedures: Darrin WEKES/Ata L4 Age/ Patient Sex Location Account Attending Physician Sue Salcido 53/F OR [id number] Momo Hampton DO SPEC NUM: [id number] RECD: 05/17/23 STATUS: TEMITOPE PAULSONJose NUM: [id number] BRENDAN: 05/16/[address]: Momo Hampton DO ENTERED: 05/17/[address]: SPEC TYPE: Surgical DEPT: S ORDERED: MICKY Gross/Micro L4 ORDERED: MICKY Gross/Micro L4 Pathological Diagnosis Skin, medial right knee, punch biopsy: - Chronic and small verruca vulgaris - No evidence of malignancy, active viral activity, or any high-grade squamous dysplasia identified Clinical Information Mole medial right knee Gross Description Received in formalin labeled with the patient's name, date of and mole Punch medial right knee is a 0.5 x 0.5 x 0.2 cm serrano-white skin with a central 0.4 x 0.3 cm serrano-white papilliferous lesion. The specimen is inked and bisected. Entirely submitted in one cassette labeled A1. Microscopic Description One H E slide reviewed. The microscopic examination confirms the diagnosis. Specimen: [id number] Received: 05/17/23 Status: TEMITOPE [place]ledge Num: [id number] Spec Type: Surgical Subm Dr: Momo Hampton DO Tissues: A Skin-Other than Cyst, tag, debridement or plastic repair (RT KNEE) Procedures: Darrin WEEKS/Micro L4 Patient: Sue Salcido [id number] (Continued) Specimen: [id number] Received: 05/17/23 (Continued) Signed (signatur e on file) Craig House MD 05/18/23 1512 Specimen: [id number] Received: 05/17/23 Status: TEMITOPE Paulsonjose Num: [id number] Spec Type: Surgical Subm Dr: Momo Hampton DO Tissues: A Skin-Other than Cyst, tag, debridement or plastic repair (RT KNEE) Procedures: Darrin WEEKS/Ata Kumar Patient: Sue Salcido [id number] (Continued) Specimen: [id number] Received: 05/17/23 (Continued) CPT Codes 59376 Specimen: [id number] Received: 05/17/23 Status: TEMITOPE Aamir Num: [id number] Spec Type: Surgical Subm Dr: Momo Hampton DO Tissues: A Skin-Other than Cyst, tag, debridement or plastic repair (RT KNEE) Procedures: Darrin WEEKS/Ata L4 Patient: Sue Salcido [id number] (Continued) Signed (signatur e on file) Craig House MD 05/18/23 5547 [facility] Family Medicine Office/Clini c Noteon 04-04-2023 Family Medicine Office/Clinic Note Chief Complaint EST left ear pain HPI Staff 53 year old female presents with left side ear pain Fevers: no Sinus congestion: yes Sneezing: no Ear pain: left Ear itching, popping, fullness, ringing, muffled hearing:popping Ear drainage: no Sore throat: no Ear pain worse with chewing: yes DIfficulty hearing: yes History of Present Illness I have reviewed and verified the staff HPI to be accurate for this encounter. Portions of this record have been created with voice recognition software. Occasional wrong-word or ?tvmkm-g-gowx? substitutions may have occurred due to the inherent limitations of voice recognition software. 53 yo female presents with cc of ear pain. Pt states left ear pain. Patient states that she was coloring her hair x3 days ago on Tuesday at home. States she has colored her hair for several years. [place] that she got some color in the top of the external ear in which she states she had washed out with a washcloth. She states after that she felt maybe she got some water in the left ear in which she stated discomfort she noted on Tuesday. She states today more left ear pain and discomfort and popping when she is chewing and muffled hearing. She denies any draining from the left ear fever or chills. She denies any other URI symptoms such as rhinorrhea congestion or sore throat. She denies sticking any Q-tips in your ears. She states she did put some hydrogen peroxide in the left ear without relief. She has no other concerns at this time. Review of Systems PHQ Score Initial Depression Screen Score: 0 ROS negative unless otherwise stated in HPI. Physical Exam Vitals & Measurements T: 36.4 ?C(Oral) HR: 76(Peripheral) BP: 100/78 SpO2: 99% HT: 63 in HT: 159 cm WT: 61 kg WT: 134.2 lb BMI: 24.13 General: Well developed, well nourished, in no acute distress Eyes: not assessed Ears: Bilateral tympanic membranes are within normal limits no erythema or bulging. There is minimal clear fluid behind the left TM. Bilateral external auditory canals are within normal limits no erythema or edema. Nose: No deformity, discharge, inflammation, or lesions Mouth: No tonsillar erythema or exudate. No signs of peritonsillar abscess. No trismus or drooling. Neck: not assessed Lungs: Lung sounds are clear bilaterally. No wheezing rhonchi or crackles on exam. Cardio: S1, S2, regular rhythm. No murmurs gallops or rubs. Abdomen: not assessed Musculoskeletal: not assessed Extremity: not assessed Neurologic: not assessed Skin: No rashes, ulcerations, or suspicious lesions Mental Status: Alert and oriented x3. Normal mood and affect Assessment/Plan I spoke with patient regarding the possible eustachian tube dysfunction discussed use of fluticasone or Flonase. Patient notes that she does have a generic nasal spray at home that she would prefer to use. Discussed close follow-up and return if needed for any worsening or concerning symptoms. 1. Otalgia of left ear (H92.02: Otalgia, left ear) Please follow closely with your primary care provider in 3 to 5 days. Contact their office for morning to schedule follow-up appointment. You were seen and evaluated in convenient care today in regards to left-sided ear pain. No concern for infection at this time you may continue txim-nlg-jkowkwv nasal spray at home such as fluticasone or rsdp-fgj-fuwxval Flonase to see if this helps with eustachian tube dysfunction. And continue to monitor. Develop any worsening left-sided ear pain drainage from the left ear fever or any other worsening or concerning symptoms he should call the primary care provider or return for reevaluation. Follow-up With When Contact Information MOMO HAMPTON DO, [address] [place] [address] [address]- Additional Instructions: Patient Education Earache, Adult Problem List/Past Medical History Ongoing Abdominal pain in female Diabetes--NIDDM Dyspareunia Female pelvic pain H/O: migraine Heart murmur History of recurrent UTI (urinary tract infection) Hyperlipidemia Pituitary tumor Uterine fibroids Historical Migraine Procedure/Surgical History Cystoscopy (12/16/2020), Colonoscopy (11/07/2020), breast biopsy, left (11/2018), robotic assisted hysterectomy, bilateral salpingectomy (02/22/2014), section, D&C - Dilatation and curettage, LUMBAR FUSION, Tonsillectomy. Medications Adderall XR 20 mg Cap-ER Advil, 200 mg, Oral atorvastatin 20 mg Tab, 20 mg= 1 tab(s), Oral, Daily Belsomra 10 mg oral tablet, 10 mg= 1 tab(s), Oral, Once a day (at bedtime) clobetasol 0.025% topical cream, Topical, BID Concerta 27 mg/24 hr Tab-ER Diflucan 150 mg Tab elderberry estradiol 0.1 mg/g Vag Crm, 1 gm, Vaginal, MonThu, 3 refills fluticasone 0.05 mg/inh Nasal [place], Daily fluticasone Nasal 0.05 mg/inh [place] magnesium oxide 250 mg oral tablet, 500 mg= 2 tab(s), Oral, Daily metformin 1000 mg Tab, 1000 mg= 1 tab(s), Oral, BID methylphenidate 27 mg/24 hr ER Tab Multivita (more content not included)... Normal [facility] Comment on above: Result Comment: Elec tronically Signed By: Raleigh HOWARD, Leroy Pham\.br\Date and Time Signed: 04/04/23 17:43 EDT Patient Educationon 04-04-20 Patient Education ENT Earache, Adult An earache, or ear pain, can be caused by many things, including: ? An infection. ? Ear wax buildup. ? Ear pressure. ? Something in the ear that should not be there (foreign body). ? A sore throat. ? Tooth problems. ? Jaw problems. Treatment of the earache will depend on the cause. If the cause is not clear or cannot be determined, you may need to watch your symptoms until your earache goes away or until a cause is found. Follow these instructions at home: Medicines ? Take or apply qlgg-neu-ujnfteb and prescription medicines only as told by your health care provider. ? If you were prescribed an antibiotic medicine, use it as told by your health care provider. Do not stop using the antibiotic even if you start to feel better. ? Do not put anything in your ear other than medicine that is prescribed by your health care provider. Managing pain If directed, apply heat to the affected area as often as told by your health care provider. Use the heat source that your health care provider recommends, such as a moist heat pack or a heating pad. ? Place a towel between your skin and the heat source. ? Leave the heat on for 20?30 minutes. ? Remove the heat if your skin turns bright red. This is especially important if you are unable to feel pain, heat, or cold. You may have a greater risk of getting burned. If directed, put ice on the affected area as often as told by your health care provider. To do this: ? Put ice in a plastic bag. ? Place a towel between your skin and the bag. ? Leave the ice on for 20 minutes, 2?3 times a day. General instructions ? Pay attention to any changes in your symptoms. ? Try resting in an upright position instead of lying down. This may help to reduce pressure in your ear and relieve pain. ? Chew gum if it helps to relieve your ear pain. ? Treat any allergies as told by your health care provider. ? Drink enough fluid to keep your urine pale yellow. ? It is up to you to get the results of any tests that were done. Ask your health care provider, or the department that is doing the tests, when your results will be ready. ? Keep all follow-up visits as told by your health care provider. This is important. Contact a health care provider if: ? Your pain does not improve within 2 days. ? Your earache gets worse. ? You have new symptoms. ? You have a fever. Get help right away if you: ? Have a severe headache. ? Have a stiff neck. ? Have trouble swallowing. ? Have redness or swelling behind your ear. ? Have fluid or blood coming from your ear. ? Have hearing loss. ? Feel dizzy. Summary ? An earache, or ear pain, can be caused by many things. ? Treatment of the earache will depend on the cause. Follow recommendations from your health care provider to treat your ear pain. ? If the cause is not clear or cannot be determined, you may need to watch your symptoms until your earache goes away or until a cause is found. ? Keep all follow-up visits as told by your health care provider. This is important. This information is not intended to replace advice given to you by your health care provider. Make sure you discuss any questions you have with your health care provider. Document Revised: 02/29/2020 Document Reviewed: 03/01/2020 [employer] Patient Education ? 2022 [employer] [facility] A1C HEMOGLOBINon 01-14-2023 HbA1c (Bld) [Mass fraction] 5.4 % [employer] Other HbA1c (Bld) [Mass fraction]o n 01-14-2023 A1C HEMOGLOBIN [employer] Other Family Medicine Office/Clini c Noteon 12-20-2022 Family Medicine Office/Clinic Note Chief Complaint EST back/hip pain right side HPI Staff Pt 52 yo female presents with back/hip pain Symptoms began: yesterday Injury?- planting veliz twisted back Location- right side Characteristics- shooting, sharp pain Aggravators- taking deep breathe, moving Relief- when sitting Severity- 05/17 Hx of back issues- yes had back surgery Numbness/Tingling- no Weakness- no Treatment- advil this morning, ice History of Present Illness I have reviewed and verified the staff HPI to be accurate for this encounter. Patient presents in office for concern of right lower back pain. Symptoms started yesterday. Patient states she was planting veliz and twisted her back causing pain. Pain is sharp at times with movement. Pain is better with sitting. Denies numbness or tingling to extremities. Denies loss of bowel or bladder control. Patient has been using Advil, last dose this morning with mild improvement. Has also been using ice. Hx of lumbar fusion. Complains of sharp shooting pain down the right buttock and thigh Review of Systems PHQ Score Initial Depression Screen Score: 0 Physical Exam Vitals & Measurements T: 36.6 ?C(Oral) HR: 68(Peripheral) BP: 116/68 SpO2: 97% HT: 63 in HT: 161 cm WT: 56 kg WT: 123.2 lb BMI: 21.6 General: Well developed, well nourished, in no acute distress Lungs: Normal respiratory effort and clear to auscultation Cardio: regular rate and rhythm, no murmur Musculoskeletal: Patient complains of moderate right lower back pain with palpation. Complains of pain radiating down right buttock and thigh. Positive straight leg raise to right side. No pain over right hip joint. No increased pain with internal and external rotation of hip, abduction. Patient has about 25% decrease in spinal flexion, however this is chronic. Patient denies any significant increased back pain with spinal flexion, extension, lateral rotation/twisting motion. Extremity: No LE edema, normal ROM to extremities x 4. Neurologic: Normal strength to extremities x 4 Skin: No rashes, ulcerations, or suspicious lesions Mental Status: Alert and oriented x3. Normal mood and affect Assessment/Plan 1. Right-sided low back pain with sciatica (M54.41: Lumbago with sciatica, right side) Will treat with naproxen BID, medrol dose pack. Take with food. Do not use with other NSAIDs. May use Tylenol in between if needed. May try heat and gentle stretching as tolerated, topical muscle rub. Avoid strenuous activity until symptoms have completely resolved. Follow-up with PCP if not gradually improving over the next week. Patient verbalized understanding of treatment plan. Orders: methylPREDNISolone, = 1 packet(s), Oral, As Directed, as directed on package labeling, X 6 day(s), # 21 tab(s), Refills(s) 0, Pharmacy: [facility]/pharmacy #[id number], 161, cm, 12/20/22 12:08:00 EDT, Height/Length Dosing, 56, kg, 12/20/22 12:08:00 EDT, Weight Dosing naproxen, 500 mg = 1 tab(s), Oral, BID, may sub non ec if needed, X 15 day(s), # 30 tab(s), Refills(s) 0, Pharmacy: [facility]/pharmacy #[id number], 161, cm, 12/20/22 12:08:00 EDT, Height/Length Dosing, 56, kg, 12/20/22 12:08:00 EDT, Weight Dosing Follow-up With When Contact Information MOMO HAMPTON DO, [facility] [address], [facility] [address] [place] [address]- Additional Instructions: Patient Education Sciatica, Xmtn-xe-Qfmy Problem List/Past Medical History Ongoing Abdominal pain in female Diabetes--NIDDM Dyspareunia Female pelvic pain H/O: migraine Heart murmur History of recurrent UTI (urinary tract infection) Hyperlipidemia Pituitary tumor Uterine fibroids Historical Migraine Procedure/Surgical History Cystoscopy (12/16/2020), Colonoscopy (11/07/2020), breast biopsy, left (11/2018), robotic assisted hysterectomy, bilateral salpingectomy (02/22/2014), section, D&C - Dilatation and curettage, LUMBAR FUSION, Tonsillectomy. Medications Adderall XR 20 mg Cap-ER Advil, 200 mg, Oral atorvastatin 20 mg Tab, 20 mg= 1 tab(s), Oral, Daily Belsomra 10 mg oral tablet, 10 mg= 1 tab(s), Oral, Once a day (at bedtime) clobetasol 0.025% topical cream, Topical, BID Concerta 27 mg/24 hr Tab-ER Diflucan 150 mg Tab elderberry estradiol 0.1 mg/g Vag Crm, 1 gm, Vaginal, MonThu, 3 refills fluticasone 0.05 mg/inh Nasal [place], Daily fluticasone Nasal 0.05 mg/inh [place] magnesium oxide 250 mg oral tablet, 500 mg= 2 tab(s), Oral, Daily Medrol Dosepack 4 mg Tab, 1 packet(s), Oral, As Directed metformin 1000 mg Tab, 1000 mg= 1 tab(s), Oral, BID methylphenidate 27 mg/24 hr ER Tab Multivitamins and Minerals, 1 tab, Oral, Daily naproxen 500 mg oral enteric coated tablet, 500 mg= 1 tab(s), Oral, BID Relpax 40 mg Tab, 40 mg= 1 tab(s), Oral Singulair 10 mg Tab, 10 mg= 1 tab(s), Oral, Daily Topamax 100 mg Tab, 200 mg, Oral, BID Vitamin B12, 1000 mcg, Oral, Daily Vitamin C, 50 mg, Chewed, Daily Allergies sulfamethoxazole (Rash) Social History Alcohol - Denies Alcohol Use, (more content not included)... Normal [facility] Comment on above: Result Comment: Elec tronically Signed By: MAT THRASHER, Nisha Cervantes\.br\Date and Time Signed: 12/20/22 12:51 EDT Patient Educationon 12-21-19 23 Patient Education Orthopedics Sciatica Sciatica is pain, weakness, tingling, or loss of feeling (numbness) along the sciatic nerve. The sciatic nerve starts in the lower back and goes down the back of each leg. Sciatica usually goes away on its own or with treatment. Sometimes, sciatica may come back (recur). What are the causes? This condition happens when the sciatic nerve is pinched or has pressure put on it. This may be the result of: ? A disk in between the bones of the spine bulging out too far (herniated disk). ? Changes in the spinal disks that occur with aging. ? A condition that affects a muscle in the butt. ? Extra bone growth near the sciatic nerve. ? A break (fracture) of the area between your hip bones (pelvis). ? . ? Tumor. This is rare. What increases the risk? You are more likely to develop this condition if you: ? Play sports that put pressure or stress on the spine. ? Have poor strength and ease of movement (flexibility). ? Have had a back injury in the past. ? Have had back surgery. ? Sit for long periods of time. ? Do activities that involve bending or lifting over and over again. ? Are very overweight (obese). What are the signs or symptoms? Symptoms can vary from mild to very bad. They may include: ? Any of these problems in the lower back, leg, hip, or butt: ? Mild tingling, loss of feeling, or dull aches. ? Burning sensations. ? Sharp pains. ? Loss of feeling in the back of the calf or the sole of the foot. ? Leg weakness. ? Very bad back pain that makes it hard to move. These symptoms may get worse when you cough, sneeze, or laugh. They may also get worse when you sit or stand for long periods of time. How is this treated? This condition often gets better without any treatment. However, treatment may include: ? Changing or cutting back on physical activity when you have pain. ? Doing exercises and stretching. ? Putting ice or heat on the affected area. ? Medicines that help: ? To relieve pain and swelling. ? To relax your muscles. ? Shots (injections) of medicines that help to relieve pain, irritation, and swelling. ? Surgery. Follow these instructions at home: Medicines ? Take kwlx-uix-ntviami and prescription medicines only as told by your doctor. ? Ask your doctor if the medicine prescribed to you: ? Requires you to avoid driving or using heavy machinery. ? Can cause trouble pooping (constipation). You may need to take these steps to prevent or treat trouble pooping: ? Drink enough fluids to keep your pee (urine) pale yellow. ? Take hlkv-leq-lwgedce or prescription medicines. ? Eat foods that are high in fiber. These include beans, whole grains, and fresh fruits and vegetables. ? Limit foods that are high in fat and sugar. These include fried or sweet foods. Managing pain ? If told, put ice on the affected area. ? Put ice in a plastic bag. ? Place a towel between your skin and the bag. ? Leave the ice on for 20 minutes, 2?3 times a day. ? If told, put heat on the affected area. Use the heat source that your doctor tells you to use, such as a moist heat pack or a heating pad. ? Place a towel between your skin and the heat source. ? Leave the heat on for 20?30 minutes. ? Remove the heat if your skin turns bright red. This is very important if you are unable to feel pain, heat, or cold. You may have a greater risk of getting burned. Activity ? Return to your normal activities as told by your doctor. Ask your doctor what activities are safe for you. ? Avoid activities that make your symptoms worse. ? Take short rests during the day. ? When you rest for a long time, do some physical activity or stretching between periods of rest. ? Avoid sitting for a long time without moving. Get up and move around at least one time each hour. ? Exercise and stretch regularly, as told by your doctor. ? Do not lift anything that is heavier than 10 lb (4.5 kg) while you have symptoms of sciatica. ? Avoid lifting heavy things even when you do not have symptoms. ? Avoid lifting heavy things over and over. ? When you lift objects, always lift in a way that is safe for your body. To do this, you should: ? Bend your knees. ? Keep the object close to your body. ? Avoid twisting. General instructions ? Stay at a healthy weight. ? Wear comfortable shoes that support your feet. Avoid wearing high heels. ? Avoid sleeping on a mattress that is too soft or too hard. You might have less pain if you sleep on a mattress that is firm enough to support your back. ? Keep all follow-up visits as told by your doctor. This is important. Contact a doctor if: ? You have pain that: ? Wakes you up when you are sleeping. ? Gets worse when you lie down. ? Is worse than the pain you have had in the past. ? Lasts longer than (more content not included)... Normal [facility] T3 Totalon 05-14-2023 T3 [Mass/Vol] 98 ng/dL Invalid Interpretation Code [id number] [facility] [place] Comment on above: Result Comment: Perf ormed at: [facility] [address] [id number] PhD Henny Larios Performed By: #### 1 [id number] ####[facility] [address] [place] [address] Auto Diffon 12-18-2022 Basophils/100 WBC (Bld) 0.7 % Normal 0.0-2.0 [facility] Comment on above: Order Comment: Order Added by Discern Expert. Performed By: #### 2 424564, 9175399, 04101776, 7849907, 2335449, [id number] ####[address] [address] Basophils/Leukocytes Auto (Bld) [Pure # fraction] 0.0 E9/L Normal 0.0-0.2 [facility] Comment on above: Order Comment: Order Added by Discern Expert. Performed By: #### 2 789256, 0101608, 32722030, 1823367, 4505123, [id number] ####[address] [address] Eosinophils/100 WBC (Bld) 5.6 % Normal 0.0-8.0 [facility] Comment on above: Order Comment: Order Added by Discern Expert. Performed By: #### 2 218730, 3373598, 25816746, 0294749, 5339724, 339404600 ####[facility] [address] [place] [address] Eosinophils/Leukocyte s Auto (Bld) [Pure # fraction] 0.2 E9/L Normal 0.0-0.5 [facility] Comment on above: Order Comment: Order Added by Discern Expert. Performed By: #### 2 548092, 4570663, 95345100, 6822506, 5749605, 491054127 ####[address] [address] Lymphocytes/100 WBC (Bld) 24.7 % Normal 14.0-50.0 [facility] [place] Comment on above: Order Comment: Order Added by Discern Expert. Performed By: #### 2 127241, 0817365, 79664419, 2495543, 5336763, 270855188 ####[address] [place] [address] Lymphocytes/Leukocyte s Auto (Bld) [Pure # fraction] 1.0 E9/L Normal 1.0-4.0 [facility] [place] Comment on above: Order Comment: Order Added by Discern Expert. Performed By: #### 2 651371, 5323120, 98133969, 6430430, 9256972, 602039129 ####[address] [address] Monocytes/100 WBC (Bld) 9.5 % Normal 4.0-14.0 [facility] [place] Comment on above: Order Comment: Order Added by Discern Expert. Performed By: #### 2 758721, 7300268, 81556850, 4176595, 3274672, 085925810 ####[address] [address] Monocytes/Leukocytes Auto (Bld) [Pure # fraction] 0.4 E9/L Normal 0.2-1.0 [facility] [place] Comment on above: Order Comment: Order Added by Discern Expert. Performed By: #### 2 144360, 2481132, 62730153, 2307340, 9017010, 024733721 ####[address] [place] [address] Neutrophils/100 WBC (Bld) 59.5 % Normal 36.0-75.0 [facility] [place] Comment on above: Order Comment: Order Added by Discern Expert. Performed By: #### 2 175877, 7797251, 72606303, 5072668, 3493149, 076164226 ####[address] [address] Neutrophils/Leukocyte s Auto (Bld) [Pure # fraction] 2.5 E9/L Normal 2.0-7.5 [facility] [place] Comment on above: Order Comment: Order Added by Discern Expert. Performed By: #### 2 767540, 0163179, 50382625, 0174764, 7728367, 203267626 ####[address] [place] [address] CBC w/ Auto Diffon 3 Erythrocyte distribution width (RBC) [Ratio] 16.9 % High 10.9-14.2 [facility] Comment on above: Performed By: #### 2 349402, 0269428, 87300127, 2661444, 6985371, 954328657 ####[address] [place] [address] Hematocrit (Bld) [Volume fraction] 34.4 % Normal 34.0-46.0 [facility] Comment on above: Performed By: #### 2 340119, 4351148, 46664601, 0003152, 9798677, 007364925 ####[address] [place] [address] Hemoglobin (Bld) [Mass/Vol] 10.9 g/dL Low 12.0-16.0 [facility] Comment on above: Performed By: #### 2 066774, 4523232, 07366039, 5174820, 6563934, 176162585 ####[address] [address] MCH (RBC) [Entitic mass] 25.2 pg Low 27.0-34.0 [facility] Comment on above: Performed By: #### 2 587650, 7650214, 88971227, 2514219, 6013426, 858847986 ####[address] [place] [address] MCHC (RBC) [Mass/Vol] 31.7 g/dL Normal 31.4-36.[address] [facility] Comment on above: Performed By: #### 2 910724, 1251731, 32490597, 1809896, 5334266, 067681075 ####[address] [place] [address] MCV (RBC) [Entitic vol] 79.5 fL Low 80.0-100.0 [facility] Comment on above: Performed By: #### 2 890252, 3858128, 70709318, 8533260, 6339359, 130086533 ####[address] [address] Platelet mean volume (Bld) [Entitic vol] 7.2 fL Normal 6.4-10.8 [facility] Comment on above: Performed By: #### 2 380146, 6453327, 57154506, 4738740, 7625698, 504747051 ####[address] [address] Platelets (Bld) [#/Vol] 308.0 E9/L Normal 150.0-500.0 [facility] [place] Comment on above: Performed By: #### 2 897305, 1293729, 28955871, 9838290, 1727617, 305434532 ####[address] [address] RBC (Bld) [#/Vol] 4.3 E12/L Normal 4.3-5.9 [facility] Comment on above: Performed By: #### 2 505373, 7619088, 47076612, 8000604, 2248166, 619609795 ####[address] [address] WBC corrected for nucl RBC Auto (Bld) [#/Vol] 4.2 E9/L Normal 4.0-11.0 [facility] Comment on above: Performed By: #### 2 381200, 1781469, 59630664, 7898897, 3416551, 278208117 ####[address] [address] CHEMISTRYOrdered By: SYSTEM SYSTEM on 12-18-2022 Albumin [Mass/Vol] 4.4 g/dL Normal 3.3 - 5.0 gm/dL [facility] Albumin/Globulin [Mass ratio] 1.6 {ratio} Normal 1.1 - 2.2 [facility] ALP [Catalytic activity/Vol] 72 [iU]/d Normal 21 - 98 Int._Unit/L [facility] ALT No additional P-5'-P [Catalytic activity/Vol] 28 [iU]/d Normal 6 - 46 Int._Unit/L [facility] Anion gap [Moles/Vol] 8 mmol/L Normal 6 - 16 mEq/L [facility] AST [Catalytic activity/Vol] 28 [iU]/d Normal 5 - 43 Int._Unit/L [facility] Bilirubin [Mass/Vol] 0.2 mg/dL Normal 0.0 - 1 .1 mg/dL [facility] Calcium [Mass/Vol] 9.2 mg/dL Normal 8.9 - 11. 1 mg/dL [facility] Chloride [Moles/Vol] 112 mmol/L High 101 - 1 11 mmol/L [facility] Cholesterol [Mass/Vol] 161 mg/dL Normal 120 - 200 mg/dL [facility] Cholesterol in HDL [Mass/Vol] 73 mg/dL Invalid Interpretation Code [facility] Cholesterol in LDL [Mass/Vol] 68 mg/dL Normal <=129mg/dL [facility] Cholesterol in VLDL [Mass/Vol] 19 mg/dL Normal 7 - 40 mg/dL [facility] CO2 [Moles/Vol] 26 mmol/L Normal 21 - 31 mmol/L [facility] Creatinine [Mass/Vol] 0.7 mg/dL Normal 0.5 - 1.3 mg/dL [facility] Free T4 [Mass/Vol] 0.75 ng/dL Normal 0.58 - 1. 64 ng/dL [facility] GFR/1.73 sq M.predicted among non-blacks MDRD (S/P/Bld) [Vol rate/Area] 103 mL/min/1.73 m2 Normal >=59mL/min/1 .73 m2 [facility] Chem S Globulin (S) [Mass/Vol] 2.8 g/dL Normal 1.4 - 4.0 gm/dL [facility] Glucose [Mass/Vol] 87 mg/dL Normal 55 - 199 mg/dL [facility] Potassium [Moles/Vol] 3.7 mmol/L Normal 3.5 - 5.3 mmol/L [facility] Prolactin [Mass/Vol] 14.03 ng/mL Normal 2.74 - 19.64 ng/mL [facility] Protein [Mass/Vol] 7.2 g/dL Normal 6.0 - 7.8 gm/dL [facility] Sodium [Moles/Vol] 142 mmol/L Normal 135 - 145 mmol/L [facility] Triglyceride [Mass/Vol] 97 mg/dL Normal <=149mg/dL [facility] TSH Qn 2.35 m[IU]/L Normal 0.34 - 5.60 mcIU/mL [facility] Urea nitrogen [Mass/Vol] 14 mg/dL Normal 5 - 21 mg/dL [facility] Urea nitrogen/Creatinine [Mass ratio] 20 mg/mg Normal 10 - 20 [facility] CHEMISTRYOrdered By: Pasha Gray on 12-18-2022 HbA1c (Bld) [Mass fraction] 5.6 % Normal <=5.9% [facility] ChemAutoSS CMPon 12-18-2022 Albumin [Mass/Vol] 4.4 g/dL Normal 3.3-5.0 [facility] Comment on above: Performed By: #### 2 226286, 5406349, 88097640, 4832442, 1867018, 587011055 ####[facility] [address] [place] [address] Albumin/Globulin (S) [Mass conc ratio] 1.6 Normal 1.1-2.2 [facility] Comment on above: Performed By: #### 2 779183, 4644842, 24767482, 9158122, 9225693, 294182574 ####[facility] [address] [place] [address] ALP [Catalytic activity/Vol] 72 Int._Unit/L Normal 21-98 [facility] Comment on above: Performed By: #### 2 194386, 4129099, 50221882, 3744080, 1182192, 053904351 ####[facility] [address] [place] [address] ALT No additional P-5'-P [Catalytic activity/Vol] 28 Int._Unit/L Normal 6-46 [facility] Comment on above: Performed By: #### 2 536159, 9360198, 38112982, 6893548, 9571009, 254183289 ####[facility] [address] [place] [address] Anion gap [Moles/Vol] 8 mmol/L Normal 6-[address] [facility] Comment on above: Performed By: #### 2 540856, 1797588, 58500164, 1937575, 2877972, 337247472 ####[facility] [address] [place] [address] AST [Catalytic activity/Vol] 28 Int._Unit/L Normal 5-43 [facility] Comment on above: Performed By: #### 2 997205, 7932777, 54854771, 6201648, 7367598, 104554149 ####[facility] [address] [place] [address] Bilirubin [Mass/Vol] 0.2 mg/dL Normal 0.0-1.1 [facility] Comment on above: Performed By: #### 2 424630, 9124441, 11816923, 7959081, 0750071, 062990881 ####[facility] [address] [place] [address] Calcium [Mass/Vol] 9.2 mg/dL Normal 8.9-11.1 [facility] Comment on above: Performed By: #### 2 868468, 9487837, 14421563, 8265929, 2457499, 305038630 ####[facility] [address] [place] [address] Chloride [Moles/Vol] 112 mmol/L High 101-111 [facility] Comment on above: Performed By: #### 2 873238, 0514338, 86160744, 1593837, 7860550, 376584819 ####[facility] [address] [place] [address] CO2 [Moles/Vol] 26 mmol/L Normal 21-31 [facility] Comment on above: Performed By: #### 2 171378, 6723222, 32951185, 2009647, 0417126, 985056635 ####[facility] [address] [place] [address] Creatinine [Mass/Vol] 0.7 mg/dL Normal 0.5-1.[address] [facility] Comment on above: Performed By: #### 2 582623, 8018432, 21042104, 3468303, 8523506, 710229386 ####[facility] [address] [place] [address] Globulin (S) [Mass/Vol] 2.8 g/dL Normal 1.4-4.0 [facility] Comment on above: Performed By: #### 2 431913, 1080619, 99049995, 8352885, 3990973, 975462336 ####[facility] [address] [place] [address] Glucose [Mass/Vol] 87 mg/dL Normal 55-199 [facility] Comment on above: Result Comment: If t his glucose result represents a fasting glucose, interpretation should refer to the following reference range: 55-99 mg/dL Performed By: #### 2 599962, 7279894, 12624241, 2888486, 6143718, 991984842 ####[facility] [address] [place] [address] Potassium [Moles/Vol] 3.7 mmol/L Normal 3.5-5.[address] [facility] Comment on above: Performed By: #### 2 239473, 1198726, 40414462, 7330014, 9783178, 527382971 ####[facility] [address] [place] [address] Protein [Mass/Vol] 7.2 g/dL Normal 6.0-7.8 [facility] Comment on above: Performed By: #### 2 553164, 3467159, 06695050, 4073319, 3611292, 521680739 ####[facility] [address] [place] [address] Sodium [Moles/Vol] 142 mmol/L Normal 135-145 [facility] Comment on above: Performed By: #### 2 035147, 2755764, 02826058, 1520993, 0271331, 599741387 ####[facility] [address] [place] [address] Urea nitrogen [Mass/Vol] 14 mg/dL Normal 5-21 [facility] Comment on above: Performed By: #### 2 425165, 8163544, 21068507, 9788258, 4568850, 992965715 ####[facility] [address] [place] [address] Urea nitrogen/Creatinine [Mass ratio] 20 No Units Normal 10-20 [facility] Comment on above: Performed By: #### 2 941342, 2648376, 41429043, 8176007, 2811408, 689841251 ####[facility] [address] [place] [address] Consent for Treatmenton 12-06 Consent for Treatment [id number]:127 Normal [facility] Consent for Treatment [id number]:127 Normal [facility] Free T4on 12-18-2022 Free T4 [Mass/Vol] 0.75 ng/dL Normal 0.58-1.64 [facility] Comment on above: Performed By: #### 2 699592, 4596036, 9723842 ####[facility] [address] [place] [address] HEMATOLOGYOrdered By: SYSTEM SYSTEM on 12-18-2022 Basophils/100 WBC (Bld) 0.7 % Normal 0.0 - 2.0 % [facility] HemeAutoSS Basophils/Leukocytes Auto (Bld) [Pure # fraction] 0.0 E9/L Normal 0.0 - 0.2 E9/L [facility] HemeAutoSS Eosinophils/100 WBC (Bld) 5.6 % Normal 0.0 - 8.0 % [facility] HemeAutoSS Eosinophils/Leukocyte s Auto (Bld) [Pure # fraction] 0.2 E9/L Normal 0.0 - 0.5 E9/L [facility] HemeAutoSS Lymphocytes/100 WBC (Bld) 24.7 % Normal 14.0 - 50.0 % [facility] HemeAutoSS Lymphocytes/Leukocyte s Auto (Bld) [Pure # fraction] 1.0 E9/L Normal 1.0 - 4.0 E9/L [facility] HemeAutoSS Monocytes/100 WBC (Bld) 9.5 % Normal 4.0 - 14.0 % [facility] HemeAutoSS Monocytes/Leukocytes Auto (Bld) [Pure # fraction] 0.4 E9/L Normal 0.2 - 1.0 E9/L [facility] HemeAutoSS Neutrophils/100 WBC (Bld) 59.5 % Normal 36.0 - 75.0 % [facility] HemeAutoSS Neutrophils/Leukocyte s Auto (Bld) [Pure # fraction] 2.5 E9/L Normal 2.0 - 7.5 E9/L [facility] HemeAutoSS HEMATOLOGYOrdered By: Sonia Tomlin on 12-18-2022 Erythrocyte distribution width (RBC) [Ratio] 16.9 % High 10.9 - 14.2 % [facility] HemeAutoSS Hematocrit (Bld) [Volume fraction] 34.4 % Normal 34.0 - 46.0 % [facility] HemeAutoSS Hemoglobin (Bld) [Mass/Vol] 10.9 g/dL Low 12.0 - 16.0 gm/dL [facility] HemeAutoSS MCH (RBC) [Entitic mass] 25.2 pg Low 27.0 - 34.0 pg [facility] HemeAutoSS MCHC (RBC) [Mass/Vol] 31.7 g/dL Normal 31.4 - 36.0 gm/dL [facility] HemeAutoSS MCV (RBC) [Entitic vol] 79.5 fL Low 80.0 - 100.0 fL [facility] HemeAutoSS Platelet mean volume (Bld) [Entitic vol] 7.2 fL Normal 6.4 - 10.8 fL [facility] HemeAutoSS Platelets (Bld) [#/Vol] 308.0 E9/L Normal 150.0 - 500.0 E9/L [facility] HemeAutoSS RBC (Bld) [#/Vol] 4.3 E12/L Normal 4.3 - 5.9 E12/L [facility] HemeAutoSS WBC corrected for nucl RBC Auto (Bld) [#/Vol] 4.2 E9/L Normal 4.0 - 11.0 E9/L [facility] HemeAutoSS [id number] 12-18-2022 HbA1c (Bld) [Mass fraction] 5.6 % Normal <=5.9 [facility] Comment on above: Performed By: #### 2 778614, 9498666, 50568201, 0517580, 2079108, 777322325 ####[facility] [address] [place] [address] Lipid Panelon 12-18-2022 Cholesterol [Mass/Vol] 161 mg/dL Normal 120-200 [facility] Comment on above: Performed By: #### 2 212560, 3349423, 54139700, 9411943, 9351838, 161244862 ####[facility] [address] [place] [address] Cholesterol in HDL [Mass/Vol] 73 mg/dL Invalid Interpretation Code [facility] Comment on above: Result Comment: HDL > or equal to 60 mg/dL: Low cardiovascular risk HDL < 40 mg/dL : High cardiovascular risk Performed By: #### 2 575253, 1038907, 13871951, 9063886, 0750746, 212447437 ####[facility] [address] [place] [address] Cholesterol in LDL [Mass/Vol] 68 mg/dL Normal <=129 [facility] Comment on above: Performed By: #### 2 938181, 0871637, 35070452, 8108748, 9587160, 333075809 ####[facility] [address] [place] [address] Cholesterol in VLDL [Mass/Vol] 19 mg/dL Normal 7-40 [facility] Comment on above: Performed By: #### 2 322821, 5637404, 79199516, 5625212, 1076728, 667513822 ####[facility] [address] [place] [address] Triglyceride [Mass/Vol] 97 mg/dL Normal <=149 [facility] Comment on above: Performed By: #### 2 293096, 1154141, 16087849, 7846814, 7128353, 471217137 ####[facility] [address] [place] [address] Physician Orderon 12-18-2022 Physician Order [id number] [id number]:127 Normal [facility] Physician Order [id number]:127 Normal [facility] Prolactinon 12-18-2022 Prolactin [Mass/Vol] 14.03 ng/mL Normal 2.74-19.[address] [facility] [address] [facility] Comment on above: Performed By: #### 2 [id number], [id number], [id number] ####[facility] [address] [place] [address] TSHon 12-18-2022 TSH Qn 2.35 m[IU]/L Normal 0.34-5.60 [facility] Comment on above: Performed By: #### 2 [id number], [id number], [id number] ####[facility] [address] [place] [address] eGFRon 12-18-2022 GFR/1.73 sq M.predicted among non-blacks MDRD (S/P/Bld) [Vol rate/Area] 103 mL/min/1.73 m2 Normal >=59 [facility] Comment on above: Order Comment: Order added by Discern Expert. Result Comment: Director Voice david kidney disease could be indicated at eGFR's of less than 60 mL/min/1.73m2. Kidney failure is indicated at less than 15 mL/min/1.73m2. Performed By: #### 2 [id number], [id number], [id number], [id number] ####[facility] [address] [place] [address] Office Visiton 11-09-2022 Follow-up visit [id number] Sue Salcido 1970 F Date Provider Department Center 11/09/2022 ELLIS LICONA C[facility] No family history on file Level of Service:30741 [place] OFFICE/OUTPATIENT ESTABLISHED MOD MDM 30-39 MIN Reason for Visit and Comments: Follow-up [804642] Normal [facility] CT chest wo conon 06-18-2022 CT chest wo con [facility] [place] [address] [place], [place] [id number] CT Scan Report Signed Patient: Sue Salcido MR#: [id number] : 1970 Acct:[id number] Age/Sex: 52 / F ADM Date: 06/18/22 Loc: CT Room: Type: [facility] Attending Dr: Aisha Acevedo MD Copies to: Aisha Acevedo MD Ordering Provider: Aisha Acevedo MD Date of Service: 06/18/22 CT/CT chest wo con: F/U NODULES CT chest withoutcontrast TECHNIQUE: Axial imaging with 2-D reconstruction. The CT exam was performed using one or more the following dose reduction techniques: Automated exposure control, adjustment of the MA and/or Kv according to patient size, or use of the iterative reconstruction technique. History: Follow-up bilateral lung nodules. COMPARISON: 06/20/21 No thyroid abnormality Central airway is patent. No esophageal abnormality identified. Heart is not enlarged. No pericardial effusion is seen. Nonenlarged mediastinal lymph nodes identified. No hilar mass or adenopathy is seen. No thoracic aortic aneurysm is seen. Multiple nodular densities of the lungs redemonstrated. 7 mm nodular density of the base of the RIGHT lung base unchanged. No new lung nodules identified. No infiltrate or congestion identified. No pleural effusion identified. No pneumothorax seen. No chest wall abnormality seen. Thoracic spondylosis identified. Images of the upper abdomen are noncontributory. CT/CT chest wo con IMPRESSION: Stable bilateral lung nodules. Impression dictated by: Jae Gorman M.D.06/18/2022 7:48 PM Dictation Location: [place] [address] Transcribed By: [facility] 06/18/221947 Dictated By: Jae Gorman DO 06/18/221942 Signed By: 06/18/221947 [facility] A1C HEMOGLOBINon 01-14-2022 HbA1c (Bld) [Mass fraction] 5.5 % [employer] Other HbA1c (Bld) [Mass fraction]o n 01-14-2022 A1C HEMOGLOBIN [facility] Other MG MAMM SCREEN 3D EDITH CADon 01-14-2022 MG MAMM SCREEN 3D EDITH CAD Patient: SUE SALCIDO Exam Date: 01/14/2022 : 1970 Gender:F Ordering : DR YURY HOLLY [facility] Admission #: [id number] Family : Order #: [id number] CLICK HERE TO VIEW EXAM RADIOLOGY REPORT PROCEDURE: MAMMOGRAM SCREENING 3D BILATERAL CAD COMPARISON: MG MAMM SCREEN 3D EDITH CAD, 09/15/2019. MG MAMM SCREEN 3D EDITH CAD, 11/06/2020. INDICATIONS: Screening mammography Calculator Name NCI Breast Cancer Risk Assessment Tool 5 Year Breast Cancer Risk 1.40% Lifetime Breast Cancer Risk 11.20% Personal Breast Cancer No Personal Ovarian Cancer No Treatments None Family Cancers Aunt-maternal with breast cancer at age 55; Mother with lung cancer at age 65. LOCATION: [facility] BREAST COMPOSITION: Heterogeneously dense,which may obscure small masses. FINDINGS: DIAGNOSTIC CATEGORY 1--NEGATIVE. NO CHANGE FROM COMPARISON ASSESSMENT. Scattered benign-appearing calcifications are present. Scattered benign-appearing lymph nodes are present. RIGHT BREAST: No significant suspicious finding. LEFT BREAST: No significant suspicious finding. RECOMMENDATIONS: ROUTINE MAMMOGRAM AND CLINICAL EVALUATION IN 12 MONTHS. PLEASE NOTE: A NORMAL MAMMOGRAM DOES NOT EXCLUDE THE POSSIBILITY OF BREAST CANCER. A CLINICALLY SUSPICIOUS PALPABLE LUMP SHOULD BE BIOPSIED. Dictated by: Lizbet Fuentes MD on 01/15/2022 at 08:09 Approved by: Lizbet Fuentes MD on 01/15/2022 at 11:10 Normal [facility] XR DEXA BONE DENSITYon 01-14 XR DEXA BONE DENSITY EXAMINATION: XR DEXA BONE DENSITY, 01/14/2022 10:01 AM EDT HISTORY: Screening for osteoporosis COMPARISON: None. TECHNIQUE: Dual-energy X-ray absorptiometry (DEXA) bone density study performed for the axial skeleton. FINDINGS: Total femoral mean bone mineral density measures 1.207 g/sq cm. T score 1.6. WHO classification: Normal Lowest bone mineral density right femoral trochanter measuring 0.868 g/sq cm. T score 0.1. WHO classification: Normal IMPRESSION: Normal bone mineral density. Low fracture risk Electronically authenticated by: LIZBET FUENTES Date: 2022-01-14 12:06 Normal [facility] Q - PROLACTINon 11-27-2021 PROLACTIN 6.6 ng/mL Normal [facility] Manager Comment on above: Order Comment: [facility] Testing performed at: [facility], [address] [place] [address], [address] [place] [address], [phone], Inventory Control Specialist: Hamilton Singh MD [facility] Collection Date/Time: [facility] Results Received Date/Time: [facility] Reported Date/Time: FASTING: UNKNOWN Result Comment: Refe rence Range Males 2.0-18.0 Females Non- 3.0-30.0 10.0-209.0 Postmenopausal 2.0-20.0 Performed By: #### 8 59X, 746X, 3128 #### [facility] [address] [place] [address] Q - T3 TOTALon 11-27-2021 T3, TOTAL 93 ng/dL Normal 76-181 [facility] Manager Comment on above: Order Comment: [facility] performed at: [facility], [address] [place] [address], [address] [place] [address], [phone], Inventory Control Specialist: Hamilton Singh MD [facility] Collection Date/Time: [facility] Results Received Date/Time: [facility] Reported Date/Time: FASTING: UNKNOWN Result Comment: Your request to have a duplicate copy faxed has been acknowledged. Jerrodued to: [id number] Performed By: #### 8 59X, 746X, 3128 #### [facility] [address] [place] [address] Q - TSH and T4,FREEon 2021 Free T4 [Mass/Vol] 1.1 ng/dL Normal 0.8-1.8 [facility] Clearance [facility] Manager Comment on above: Order Comment: [facility] performed at: [employer] [facility], [address] [facility], [address] [place] [address], [phone], Inventory Control Specialist: Hamilton Singh MD [facility] Collection Date/Time: [facility] Results Received Date/Time: [facility] Reported Date/Time: FASTING: UNKNOWN Performed By: #### 8 59X, 746X, 3128 #### [facility] [address] [place] [address] TSH Qn 1.88 m[IU]/L Normal 0.40-4.50 [facility]ance Center Manager Comment on above: Order Comment: [facility] performed at: [employer] [facility], [address] [facility], [address] [place] [address], [address] [place] [address], Inventory Control Specialist: Hamilton Singh MD [facility] Collection Date/Time: [facility] Results Received Date/Time: [facility] Reported Date/Time: FASTING: UNKNOWN Performed By: #### 8 59X, 746X, 3128 #### [facility] [address] [place] [address] A1C HEMOGLOBINon 09-14-2021 HbA1c (Bld) [Mass fraction] 5.5 % [employer] Other HbA1c (Bld) [Mass fraction]o n 09-14-2021 A1C HEMOGLOBIN [facility] Other OBSOLETEon 03-08-2021 OBSOLETE Refill (ENDPMN) ---- SUE SALCIDO ([id number]) 1970 F Date Time Provider Department 03/08/21 STALIN GARCÍA During your visit today, we recorded the following information about you: Karolina Stapleton Ma 03/09/2021 8:02 AM Signed Please advise in coming pharmacy requested refill. Karolina García MD 03/09/2021 8:11 AM Signed Refill NOT appropriate. This was one time medication for dexamethasone suppression test. No need for patient to remain on this medication. Order has been discontinued. Stalin García MD Allergies As of Date: 03/08/2021 Noted Allergy Reaction SULFA (SULFONAMIDE ANTIBIOTICS) 02/13/2003 2 - Rash Date Reviewed: 01/27/2021 Reviewed by: Stalin García MD - Fully Assessed Reason for Visit: Refill Request [94] Prescriptions as of 03/09/2021 - BELSOMRA 10 mg tab Take 1 tablet by mouth at bedtime as needed. - promethazine (PHENERGAN) 25 mg tablet Take 1 tablet by mouth every 8 hours as needed. for nausea. - blood sugar diagnostic (ONE TOUCH ULTRA TEST) test strip by IN VITRO route. - eletriptan (RELPAX) 40 mg tablet Take 1 tablet by mouth as needed. may repeat in 2 hours if necessary - ascorbic acid (VITAMIN C) 500 mg tablet Take 500 mg by mouth once daily. - topiramate (TOPAMAX) 100 mg tablet Take 200 mg by mouth twice daily. - metFORMIN 1,000 mg ORAL tablet Take by mouth. Take one(1) tablet twice daily. - montelukast (SINGULAIR) 10 mg ORAL tablet Take 1 tablet by mouth daily at bedtime. - lancets(ONE TOUCH ULTRASOFT LANCETS) test twice a day Meds Comments as of 07/27/2010: Symbrax 6mg/50mg one time daily PT. STATES SHE NEEDS REFILLS TODAY 07/27/10 NC Problem List As Of Date 03/08/2021 Noted Resolved 1.1 Migraine without aura, not intractable [346*06/17/2008 1.5.1 Chronic migraine [346.71] [G43.719] 06/17/2008 09/23/2008 8.2.5 Combination-analges ic overuse headache [F*06/17/2008 09/23/2008 13.8 Occipital neuralgia [G52.80] [723.8] [M5*06/17/2008 CERVICALGIA [M54.2] 09/23/2008 SLEEP DISTURBANCE NOS [G47.9] 09/23/2008 1.1 Migraine without aura [346.11] [G43.019] 12/11/2008 BENIGN JALEEL PITUITARY [D35.2, D35.3] 12/11/2008 Diabetes mellitus type 2, controlled, without c*06/05/2009 Insomnia [G47.00] 03/24/2010 Elevated blood pressure [URG9509] 03/24/2011 Hyperlipidemia [E78.5] 03/24/2011 Pituitary adenoma [D35.2] 08/15/2013 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] 10/12/2013 Migraines [G43.909] Diabetes (HCC) [E11.9] Pituitary tumor [D49.7] Pain of right sacroiliac joint [M53.3] 09/15/2015 Bilateral low back pain without sciatica [M54.5]09/15/2015 Dry eye syndrome of bilateral lacrimal glands [*12/19/2015 Hyperprolactinemia (HCC) [E22.1] 05/26/2016 Medications Discontinued During This Encounter Prescriptions - dexAMETHasone (DECADRON) 1 mg tablet (Discontinued) Take once at 11 PM for dexamethasone suppression test Encounter Status:Closed by STALIN GARCÍA on 03/09/21 [facility] 02-11-2021 [facility] Telephone ([facility]) ---- SUE SALCIDO ([id number]) 1970 F Date Time Provider Department 02/11/21 STALIN GARCÍA During your visit today, we recorded the following information about you: Rosario Verde 02/11/2021 3:09 PM Signed Received outside labs from Yuriy Duarte Collected/Completed 01/31/21 Scanned directly in to chart from [employer] Available for your review under labs Dated 02/11/21 Last OV: 01/27/21 Future OV: Not scheduled at this time Allergies As of Date: 02/11/2021 Noted Allergy Reaction SULFA (SULFONAMIDE ANTIBIOTICS) 02/13/2003 2 - Rash Date Reviewed: 01/27/2021 Reviewed by: Stalin García MD - Fully Assessed Reason for Visit: Outside Lab Results [753] Prescriptions as of 02/11/2021 - BELSOMRA 10 mg tab Take 1 tablet by mouth at bedtime as needed. - dexAMETHasone (DECADRON) 1 mg tablet Take once at 11 PM for dexamethasone suppression test - promethazine (PHENERGAN) 25 mg tablet Take 1 tablet by mouth every 8 hours as needed. for nausea. - blood sugar diagnostic (ONE TOUCH ULTRA TEST) test strip by IN VITRO route. - eletriptan (RELPAX) 40 mg tablet Take 1 tablet by mouth as needed. may repeat in 2 hours if necessary - ascorbic acid (VITAMIN C) 500 mg tablet Take 500 mg by mouth once daily. - topiramate (TOPAMAX) 100 mg tablet Take 200 mg by mouth twice daily. - metFORMIN 1,000 mg ORAL tablet Take by mouth. Take one(1) tablet twice daily. - montelukast (SINGULAIR) 10 mg ORAL tablet Take 1 tablet by mouth daily at bedtime. - lancets(ONE TOUCH ULTRASOFT LANCETS) test twice a day Meds Comments as of 07/27/2010: Symbrax 6mg/50mg one time daily PT. STATES SHE NEEDS REFILLS TODAY 07/27/10 NC Problem List As Of Date 02/11/2021 Noted Resolved 1.1 Migraine without aura, not intractable [346*06/17/2008 1.5.1 Chronic migraine [346.71] [G43.719] 06/17/2008 09/23/2008 8.2.5 Combination-analges ic overuse headache [F*06/17/2008 09/23/2008 13.8 Occipital neuralgia [G52.80] [723.8] [M5*06/17/2008 CERVICALGIA [M54.2] 09/23/2008 SLEEP DISTURBANCE NOS [G47.9] 09/23/2008 1.1 Migraine without aura [346.11] [G43.019] 12/11/2008 BENIGN JALEEL PITUITARY [D35.2, D35.3] 12/11/2008 Diabetes mellitus type 2, controlled, without c*06/05/2009 Insomnia [G47.00] 03/24/2010 Elevated blood pressure [DSN3018] 03/24/2011 Hyperlipidemia [E78.5] 03/24/2011 Pituitary adenoma [D35.2] 08/15/2013 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] 10/12/2013 Migraines [G43.909] Diabetes (HCC) [E11.9] Pituitary tumor [D49.7] Pain of right sacroiliac joint [M53.3] 09/15/2015 Bilateral low back pain without sciatica [M54.5]09/15/2015 Dry eye syndrome of bilateral lacrimal glands [*12/19/2015 Hyperprolactinemia (HCC) [E22.1] 05/26/2016 Encounter Status:Closed by ROSARIO VERDE on 02/11/21 [facility] 02-02-2021 [facility] ---- SUE SALCIDO ([id number]) 1970 F Date Time Provider Department 02/02/21 STALIN GARCÍA [facility] During your visit today, we recorded the following information about you: Rosario Verde 02/02/2021 4:45 PM Signed Received outside labs from Yuriy Duarte Collected/Completed 01/31/21 Scanned directly in to chart from [employer] Available for your review under labs Dated 02/02/21 Last OV: 01/27/21 Future OV: Not scheduled at this time Stalin García MD 02/03/2021 7:57 AM Signed Rosario Ammon 02/04/2021 10:59 AM Signed Additional lab received. Scanned under labs dated 02/03/21 Stalin García MD 02/04/2021 2:59 PM Signed Allergies As of Date: 02/02/2021 Noted Allergy Reaction SULFA (SULFONAMIDE ANTIBIOTICS) 02/13/2003 2 - Rash Date Reviewed: 01/27/2021 Reviewed by: Stalin García MD - Fully Assessed Reason for Visit: Outside Lab Results [753] Prescriptions as of 02/02/2021 Sig: BELSOMRA 10 MG TABLET Take 1 tablet by mouth at bed* DEXAMETHASONE 1 MG TABLET Take once at 11 PM for dexame* PROMETHAZINE 25 MG TABLET Take 1 tablet by mouth every * BLOOD SUGAR DIAGNOSTIC STRIPS by IN VITRO route. ELETRIPTAN 40 MG TABLET Take 1 tablet by mouth as nee* ASCORBIC ACID (VITAMIN C) 500* Take 500 mg by mouth once anna* TOPIRAMATE 100 MG TABLET Take 200 mg by mouth twice da* METFORMIN 1,000 MG TABLET Take by mouth. Take one(1) t* MONTELUKAST 10 MG TABLET Take 1 tablet by mouth daily * ONETOUCH ULTRASOFT LANCETS test twice a day Problem List As Of Date 02/02/2021 Noted Resolved 1.1 Migraine without aura, not intractable [346*06/17/2008 1.5.1 Chronic migraine [346.71] [G43.719] 06/17/2008 09/23/2008 8.2.5 Combination-analges ic overuse headache [F*06/17/2008 09/23/2008 13.8 Occipital neuralgia [G52.80] [723.8] [M5*06/17/2008 CERVICALGIA [M54.2] 09/23/2008 SLEEP DISTURBANCE NOS [G47.9] 09/23/2008 1.1 Migraine without aura [346.11] [G43.019] 12/11/2008 BENIGN JALEEL PITUITARY [D35.2, D35.3] 12/11/2008 Diabetes mellitus type 2, controlled, without c*06/05/2009 Insomnia [G47.00] 03/24/2010 Elevated blood pressure [RSF0139] 03/24/2011 Hyperlipidemia [E78.5] 03/24/2011 Pituitary adenoma [D35.2] 08/15/2013 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] 10/12/2013 Migraines [G43.909] Diabetes (HCC) [E11.9] Pituitary tumor [D49.7] Pain of right sacroiliac joint [M53.3] 09/15/2015 Bilateral low back pain without sciatica [M54.5]09/15/2015 Dry eye syndrome of bilateral lacrimal glands [*12/19/2015 Hyperprolactinemia (HCC) [E22.1] 05/26/2016 Encounter Status:Closed by ROSARIO VERDE on 02/02/21 [facility] CNCOon 01-27-2021 CNCO Letter Text Normal [facility] CNOVon 01-27-2021 CNOV Office Visit (ENDPMN) ---- SUE SALCIDO ([id number]) 1970 F Date Time Provider Department 01/27/21 11:20 AM STALIN GARCÍA ENDPMN During your visit today, we recorded the following information about you: Temperature Pulse Respiration Blood pressure 98.3 degrees 69/minute 18/minute 95/60 Weight Height 57.2 kg 1.626 m Tania Sierra LPN 01/27/2021 11:26 AM Signed Additional intake questions: Has the patient had fever, nausea, vomiting, diarrhea, constipation, fatigue for > 1 week? No Does the patient have a decreased appetite? No Does patient want to see a Body Shop Mechanic? No (yes to any of above refer patient to schedulers for dietitian appointment) ) Does patient have any new or increased numbness or tingling of extremities? No Is patient interested in fertility information? No Does patient need any prescription refills? No Does patient have an advanced directive in place? No, Patient refused referral to Social Work or Resource Center Electronically Signed By: MALIKA Ochoa MD 01/27/2021 12:00 PM Signed Endocrinology Pituitary Initial Assessment REQUESTING PHYSICIAN: Roderick Dunlap (Ibrahima) [address] [place] [facility] [address] [facility] [id number] My final recommendations will be communicated back to the requesting physician by way of shared Medical record or letter via US mail. Chief Complaint: Pituitary adenoma History of Present Illness Ms. Sue Salcido is a 50 year old female with a past medical history significant for a lung nodule, type 2 DM, HTN and migraines coming today for evaluation of pituitary adenoma. LV with Dr. Ridley in 05/2016. She has a history of pituitary adenoma diagnosed in 1996. She was initially diagnosed when she was unable to get and was found to have prolactin levels in the 90s (no records). Had 1 miscarriage prior to successful then had 2 more first trimester miscarriages. Was found to have a 6 mm pituitary adenoma in 2016. The lesion has grown over the years. More recently, had pituitary 12/29/2020 MRI compared to 10/12/19. Was found to have an enhancing lesion within the right side of the pituitary gland measuring 5 x 8 x 12 mm slightly incresed in size compared to prior study. No suprasella extension or mass effect upon the optic chiasm. Patient Also described the following: Headaches:Yes, visual defects:Yes, blurry vision, increased thirst or urination:Yes,Noctu deondre: Yes, discharge from breast:No, painful breast: No, Breast swelling:No, increased head/hand or shoe size:No Darkening of skin/gums:No, salt craving:No, skin stretch carter:No, easy bruising:No, excess hair growth over face/chin/chest/or abdomen:No,difficul ty raising arms overhead, difficulty getting up from a seated position:No Also has history of type 2 DM: Has type 2 DM and is on metformin. Checks sugars 3 times a week. HbA1c 5.7%. Controlled, no complications Past History, Medications, Allergies Past medical, surgical, family and social histories reviewed with the following changes: Yes. Previous Pituitary Surgery: No Previous Radiotherapy: No Current Outpatient Medications Medication Sig Dispense Refill - BELSOMRA 10 mg tab Take 1 tablet by mouth at bedtime as needed. - promethazine (PHENERGAN) 25 mg tablet Take 1 tablet by mouth every 8 hours as needed. for nausea. - blood sugar diagnostic (ONE TOUCH ULTRA TEST) test strip by IN VITRO route. - eletriptan (RELPAX) 40 mg tablet Take 1 tablet by mouth as needed. may repeat in 2 hours if necessary 27 tablet 3 - ascorbic acid (VITAMIN C) 500 mg tablet Take 500 mg by mouth once daily. - topiramate (TOPAMAX) 100 mg tablet Take 200 mg by mouth twice daily. - metFORMIN 1,000 mg ORAL tablet Take by mouth. Take one(1) tablet twice daily. 180 tablet 4 - montelukast (SINGULAIR) 10 mg ORAL tablet Take 1 tablet by mouth daily at bedtime. 0 - lancets(ONE TOUCH ULTRASOFT LANCETS) test twice a day 3 month supply 12 - zolpidem (AMBIEN) 10 mg Tab Take 10 mg by mouth as needed. (Patient not taking: Reported on 01/27/2021) 0 No current facility-administer ed medications for this visit. ALLERGIES Allergen Reactions - Sulfa (Sulfonamide * Rash Review of Systems PITUITARY:See HPI SYSTEMIC: No fatigue, weight has been stable EYES: Blurry vision Voice: normal HEAD AND NECK: Migraines, headaches RESPIRATORY: normal CARDIOVASCULAR: normal GASTRO-INTESTINAL: normal NEUROLOGICAL: normal MUSCULOSKELETAL: No joint pain, stiffness, swelling, cramping or weakness SKIN: normal PSYCHIATRIC: normal LIBIDO: normal SEXUAL-REPRODUCTIVE : LMP had hysterectomy Easy Bruising See HPI Physical examination BP 95/60 (BP Site: Left Arm, BP Position: Sitting, BP Cuff Size: Regular Adult) Pulse 69 Temp 36.8 ?C (98.3 ?F) (Oral) Resp 18 Ht 162 (more content not included)... Normal [facility] 01-27-2021 [facility] Telephone ([facility] ---- SUE SALCIDO ([id number]) 1970 F Date Time Provider Department 01/27/21 STALIN GARCÍA During your visit today, we recorded the following information about you: Rosario Verde 01/27/2021 2:16 PM Signed Faxed office note to Roderick Dunlap MD at [phone] Allergies As of Date: 01/27/2021 Noted Allergy Reaction SULFA (SULFONAMIDE ANTIBIOTICS) 02/13/2003 2 - Rash Date Reviewed: 01/27/2021 Reviewed by: Stalin García MD - Fully Assessed Reason for Visit: Release Of Medical Records [2017] Cmt: office note to referring physician Prescriptions as of 01/27/2021 Sig: BELSOMRA 10 MG TABLET Take 1 tablet by mouth at bed* DEXAMETHASONE 1 MG TABLET Take once at 11 PM for dexame* PROMETHAZINE 25 MG TABLET Take 1 tablet by mouth every * BLOOD SUGAR DIAGNOSTIC STRIPS by IN VITRO route. ELETRIPTAN 40 MG TABLET Take 1 tablet by mouth as nee* ASCORBIC ACID (VITAMIN C) 500* Take 500 mg by mouth once anna* TOPIRAMATE 100 MG TABLET Take 200 mg by mouth twice da* METFORMIN 1,000 MG TABLET Take by mouth. Take one(1) t* MONTELUKAST 10 MG TABLET Take 1 tablet by mouth daily * ONETOUCH ULTRASOFT LANCETS test twice a day Problem List As Of Date 01/27/2021 Noted Resolved 1.1 Migraine without aura, not intractable [346*06/17/2008 1.5.1 Chronic migraine [346.71] [G43.719] 06/17/2008 09/23/2008 8.2.5 Combination-analges ic overuse headache [F*06/17/2008 09/23/2008 13.8 Occipital neuralgia [G52.80] [723.8] [M5*06/17/2008 CERVICALGIA [M54.2] 09/23/2008 SLEEP DISTURBANCE NOS [G47.9] 09/23/2008 1.1 Migraine without aura [346.11] [G43.019] 12/11/2008 BENIGN JALEEL PITUITARY [D35.2, D35.3] 12/11/2008 Diabetes mellitus type 2, controlled, without c*06/05/2009 Insomnia [G47.00] 03/24/2010 Elevated blood pressure [XQK5602] 03/24/2011 Hyperlipidemia [E78.5] 03/24/2011 Pituitary adenoma [D35.2] 08/15/2013 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] 10/12/2013 Migraines [G43.909] Diabetes (HCC) [E11.9] Pituitary tumor [D49.7] Pain of right sacroiliac joint [M53.3] 09/15/2015 Bilateral low back pain without sciatica [M54.5]09/15/2015 Dry eye syndrome of bilateral lacrimal glands [*12/19/2015 Hyperprolactinemia (HCC) [E22.1] 05/26/2016 Encounter Status:Closed by ROSARIO VERDE on 01/27/21 Normal [facility] OTHER SURGICAL IMAGE -NBNRon 12-29-2020 OTHER SURGICAL IMAGE -NBNR Photographic digital images obtained during surgery [id number] Normal [facility] Vital Signs Date Time Vital Sign Value Performing Clinician Facility 08-03-2023 09:22-0500 Blood Pressure Location ESMOND DELONG [facility] 08-03-2023 09:22-0500 Body temperature 97.7 [degF] ESMOND DELONG [facility] 08-03-2023 09:22-0500 Diastolic blood pressure 70 mm[facility]Hg[facility] [facility] 08-03-2023 09:22-0500 Heart rate 78 /min [facility] 08-03-2023 09:22-0500 SaO2% (BldA) [Mass fraction] 98 % [facility] 08-03-2023 09:22-0500 Systolic blood pressure 110 mm[Hg] KATRINA DELONG [facility] 07-15-2023 08:00-0500 Body height 160.02 cm Momo Memo Other [employer] Other 07-15-2023 08:00-0500 Body mass index (BMI) [Ratio] 24.44 kg/m2 Momo Memo Other [employer] Other 07-15-2023 08:00-0500 Body temperature 98 [degF] Momo Memo Other [employer] Other 07-15-2023 08:00-0500 Body weight 62.6 kg Momo Memo Other [employer] Other 07-15-2023 08:00-0500 Diastolic blood pressure 78 mm[Hg] Momo Memo Other [employer] Other 07-15-2023 08:00-0500 Respiratory rate 20 /min Momo Memo Other [employer] Other 07-15-2023 08:00-0500 SaO2% (BldA) [Mass fraction] 97 % Momo Memo Other [employer] Other 07-15-2023 08:00-0500 Systolic blood pressure 128 mm[Hg] Momo Memo Other [employer] Other 05-16-2023 08:15-0400 Body height 160.02 cm Momo Memo Other [employer] Other 05-16-2023 08:15-0400 Body mass index (BMI) [Ratio] 24.44 kg/m2 Momo Memo Other [employer] Other 05-16-2023 08:15-0400 Body temperature 96.9 [degF] Momo Memo Other [employer] Other 05-16-2023 08:15-0400 Body weight 62.6 kg Momo Memo Other [employer] Other 05-16-2023 08:15-0400 Diastolic blood pressure 70 mm[Hg] Momo Memo Other [employer] Other 05-16-2023 08:15-0400 Respiratory rate 20 /min Momo Memo Other [employer] Other 05-16-2023 08:15-0400 SaO2% (BldA) [Mass fraction] 99 % Momo Meom Other [employer] Other 05-16-2023 08:15-0400 Systolic blood pressure 106 mm[Hg] Momo Memo Other [employer] Other 04-04-2023 17:28-0400 Blood Pressure Location Leroy Raleigh [facility] 04-04-2023 17:28-0400 Body temperature 97.52 [degF] Leroy Raleigh [facility] 04-04-2023 17:28-0400 Diastolic blood pressure 78 mm[Hg] Leroy Raleigh [facility] 04-04-2023 17:28-0400 Heart rate 76 /min Leroy Storey [facility] 04-04-2023 17:28-0400 SaO2% (BldA) [Mass fraction] 99 % Leroy Storey [facility] 04-04-2023 17:28-0400 Systolic blood pressure 100 mm[Hg] Leroy Storey [facility] 01-14-2023 08:00-0400 Body height 160.02 cm Momo Memo Other [employer] Other 01-14-2023 08:00-0400 Body mass index (BMI) [Ratio] 23.56 kg/m2 Momo Memo Other [employer] Other 01-14-2023 08:00-0400 Body temperature 97.2 [degF] Momo Memo Other [employer] Other 01-14-2023 08:00-0400 Body weight 60.33 kg Momo Memo Other [employer] Other 01-14-2023 08:00-0400 Diastolic blood pressure 60 mm[Hg] Momo Memo Other [employer] Other 01-14-2023 08:00-0400 Respiratory rate 20 /min Momo Memo Other [employer] Other 01-14-2023 08:00-0400 SaO2% (BldA) [Mass fraction] 96 % Momo Memo Other [employer] Other 01-14-2023 08:00-0400 Systolic blood pressure 90 mm[Hg] Momo Hampton Other [employer] [facility] [employer] Other 12-20-2022 12:04-0400 Blood Pressure Location Nisha RIVERO [facility] 12-20-2022 12:04-0400 Body temperature 97.88 [degF] Nisha RIVERO [facility] 12-20-2022 12:04-0400 Diastolic blood pressure 68 mm[Hg] Nisha RIVERO [facility] 12-20-2022 12:04-0400 Heart rate 68 /min Nisha RIVERO [facility] 12-20-2022 12:04-0400 SaO2% (BldA) [Mass fraction] 97 % Nisha RIVERO [facility] 12-20-2022 12:04-0400 Systolic blood pressure 116 mm[Hg] Nisha RIVERO [facility] 06-29-2022 10:15-0500 Body height 160.02 cm Aisha Diazkahlil Other [employer] Other 06-29-2022 10:15-0500 Body mass index (BMI) [Ratio] 23.38 kg/m2 Aisha Acevedo Other [employer] Other 06-29-2022 10:15-0500 Body temperature 97.4 [degF] Aisha Acevedo Other [employer] Other 06-29-2022 10:15-0500 Body weight 59.88 kg Aisha Acevedo Other [employer] Other 06-29-2022 10:15-0500 Diastolic blood pressure 64 mm[Hg] Aisha Acevedo Other [employer] Other 06-29-2022 10:15-0500 Respiratory rate 20 /min Aisha Acevedo Other [employer] Other 06-29-2022 10:15-0500 SaO2% (BldA) [Mass fraction] 100 % Aisha Acevedo Other [employer] Other 06-29-2022 10:15-0500 Systolic blood pressure 100 mm[Hg] Aisha Acevedo Other [employer] Other 01-14-2022 09:00-0400 Body height 160.02 cm Momo Memo Other [employer] Other 01-14-2022 09:00-0400 Body mass index (BMI) [Ratio] 23.03 kg/m2 Momo Memo Other [employer] Other 01-14-2022 09:00-0400 Body temperature 98.4 [degF] Momo Memo Other [employer] Other 01-14-2022 09:00-0400 Body weight 58.97 kg Momo Memo Other [employer] Other 01-14-2022 09:00-0400 Diastolic blood pressure 64 mm[Hg] Momo Memo Other [employer] Other 01-14-2022 09:00-0400 Respiratory rate 20 /min Momo Memo Other [employer] Other 01-14-2022 09:00-0400 SaO2% (BldA) [Mass fraction] 98 % Momo Memo Other [employer] Other 01-14-2022 09:00-0400 Systolic blood pressure 98 mm[Hg] Momo Memo Other [employer] Other 09-14-2021 10:00-0500 Body height 160.02 cm Momo Memo Other [employer] Other 09-14-2021 10:00-0500 Body mass index (BMI) [Ratio] 23.73 kg/m2 Momo Memo Other [employer] Other 09-14-2021 10:00-0500 Body temperature 97.7 [degF] Momo Memo Other [employer] Other 09-14-2021 10:00-0500 Body weight 60.78 kg Momo Memo Other [employer] Other 09-14-2021 10:00-0500 Diastolic blood pressure 56 mm[Hg] Momo Memo Other [employer] Other 09-14-2021 10:00-0500 Respiratory rate 20 /min Momo Memo Other [employer] Other 09-14-2021 10:00-0500 SaO2% (BldA) [Mass fraction] 99 % Momo Memo Other [employer] Other 09-14-2021 10:00-0500 Systolic blood pressure 90 mm[Hg] Momo Memo Other [employer] Other 08-27-2021 11:30-0500 Body height 160.02 cm Momo Memo Other [employer] Other 08-27-2021 11:30-0500 Body mass index (BMI) [Ratio] 23.56 kg/m2 Momo Memo Other [employer] Other 08-27-2021 11:30-0500 Body temperature 97.2 [degF] Momo Memo Other [employer] Other 08-27-2021 11:30-0500 Body weight 60.33 kg Momo Memo Other [employer] Other 08-27-2021 11:30-0500 Diastolic blood pressure 64 mm[Hg] Momo Memo Other [employer] Other 08-27-2021 11:30-0500 Respiratory rate 20 /min Momo Memo Other [employer] Other 08-27-2021 11:30-0500 SaO2% (BldA) [Mass fraction] 95 % Momo Memo Other [employer] Other 08-27-2021 11:30-0500 Systolic blood pressure 92 mm[Hg] Momo Memo Other [employer] Other 06-30-2021 10:15-0500 Body height 160.02 cm Aisha Acevedo Other [employer] Other 06-30-2021 10:15-0500 Body mass index (BMI) [Ratio] 23.31 kg/m2 Aisha Acevedo Other [employer] Other 06-30-2021 10:15-0500 Body temperature 96.8 [degF] Aisha Acevedo Other [employer] Other 06-30-2021 10:15-0500 Body weight 59.69 kg Aisha Acevedo Other [employer] Other 06-30-2021 10:15-0500 Diastolic blood pressure 72 mm[Hg] Aisha Acevedo Other [employer] Other 06-30-2021 10:15-0500 Respiratory rate 20 /min Aisha Acevedo Other [employer] Other 06-30-2021 10:15-0500 SaO2% (BldA) [Mass fraction] 99 % Aisha Aecvedo Other [employer] Other 06-30-2021 10:15-0500 Systolic blood pressure 108 mm[Hg] Aisha Acevedo Other [employer] Other Encounters Encounter Date Encounter Type Care Provider Facility Start: 08-03-2023 End: 08-04-2023 ambulatory Maik V. Spasic [facility] Start: 08-03-2023 End: 08-03-2023 Lab Drop off Maik V. Spasic [facility] Start: 08-03-2023 End: 08-03-2023 Patient encounter procedure KATRINA DELONG [facility] Start: 07-15-2023 End: 07-15-2023 ambulatory Momo Memo Other [employer] Other Start: 07-15-2023 Office outpatient visit 15 minutes Momo Memo [facility] Start: 06-22-2023 End: 06-22-2023 ambulatory [facility] Start: 06-15-2023 End: 06-15-2023 ambulatory Momo Memo Other [employer] Other Start: 06-15-2023 Telephone encounter Momo Memo [facility] Start: 05-16-2023 Patient encounter procedure Momo Memo [facility] Start: 05-16-2023 End: 05-16-2023 ambulatory DO Momo M. Memo Work Phone: [employer] Other Start: 05-16-2023 End: 05-16-2023 Departed Referred DO Momo Memo Work Phone: [facility] [place] Work Phone: Start: 05-09-2023 End: 05-09-2023 ambulatory Momo Memo Other [employer] Other Start: 05-09-2023 Telephone encounter Momo Memo [facility] Start: 05-05-2023 End: 05-05-2023 ambulatory Momo Memo Other [employer] Other Start: 05-05-2023 Telephone encounter Momo Memo [facility] Start: 04-27-2023 End: 04-27-2023 ambulatory Momo Memo Other [employer] Other Start: 04-27-2023 Telephone encounter Momo Memo [facility] Start: 04-25-2023 End: 04-25-2023 ambulatory Momo Memo Other [employer] Other Start: 04-25-2023 Telephone encounter Momo Memo [facility] Start: 04-18-2023 End: 04-18-2023 ambulatory Momo Memo Other [employer] Other Start: 04-18-2023 Telephone encounter Momo Memo [facility] Start: 04-04-2023 End: 04-05-2023 ambulatory Leroy Storey Facility:[facility] Start: 04-04-2023 End: 04-04-2023 Patient encounter procedure Leroy Storey [facility] Start: 03-18-2023 End: 03-18-2023 ambulatory Momo Memo Other [employer] Other Start: 03-18-2023 Telephone encounter Momo Memo [facility] Start: 02-21-2023 End: 02-21-2023 ambulatory Momo Memo Other [employer] Other Start: 02-21-2023 Telephone encounter Momo Memo [facility] Start: 02-07-2023 End: 02-07-2023 ambulatory Momo Memo Other [employer] Other Start: 02-07-2023 Telephone encounter Momo Memo [facility] Start: 01-26-2023 End: 01-26-2023 ambulatory Momo Memo Other [employer] Other Start: 01-26-2023 Telephone encounter Momo Memo [facility] Start: 01-14-2023 End: 01-14-2023 ambulatory Momo Memo Other [employer] Other Start: 01-14-2023 Office outpatient visit 15 minutes Momo Memo [facility] Start: 12-20-2022 End: 12-21-2022 ambulatory Nisha RIVERO Facility:[facility] Start: 12-20-2022 End: 12-20-2022 Patient encounter procedure Nisha Helen [facility] Start: 12-18-2022 End: 12-19-2022 ambulatory RODERICK D BEJ Facility[facility] Start: 12-18-2022 End: 12-18-2022 Patient encounter procedure RODERICK D BEJ [facility] Start: 12-07-2022 End: 12-07-2022 ambulatory Momo Memo Other [employer] Other Start: 12-07-2022 Telephone encounter Momo Memo [facility] Start: 11-22-2022 End: 11-22-2022 ambulatory Momo Memo Other [employer] Other Start: 11-22-2022 Telephone encounter Momo Memo [facility] Start: 11-15-2022 End: 11-16-2022 ambulatory Dev MOORE Facility:[facility] Start: 11-15-2022 End: 11-15-2022 Patient encounter procedure Dev MOORE [facility] Start: 11-10-2022 End: 11-10-2022 ambulatory Momo Memo Other [employer] Other Start: 11-10-2022 Telephone encounter Momo Memo [facility] Start: 11-09-2022 End: 11-09-[address] MOMO M MEMO Facility: Start: 10-15-2022 End: 10-15-2022 ambulatory Momo Memo Other [employer] Other Start: 10-15-2022 Telephone encounter Momo Memo [facility] Start: 10-14-2022 End: 10-14-2022 ambulatory Momo Memo Other [employer] Other Start: 10-14-2022 Telephone encounter Momo Memo [facility] Start: 10-11-2022 End: 10-11-2022 ambulatory Momo Memo Other [employer] Other Start: 10-11-2022 Telephone encounter Momo Memo [facility] Start: 09-07-2022 End: 09-07-2022 ambulatory Momo Memo Other [employer] Other Start: 09-07-2022 Telephone encounter Momo Memo [facility] Start: 09-06-2022 End: 09-06-2022 ambulatory Momo Memo Other [employer] Other Start: 09-06-2022 Telephone encounter Momo Memo [facility] Start: 08-19-2022 End: 08-19-2022 ambulatory DO Momo M. Memo Work Phone: [facility] Work Phone: Start: 08-19-2022 End: 08-19-2022 Discharged Recurring DO Momo Memo Work Phone: [facility] Work Phone: Start: 08-13-2022 End: 08-13-2022 ambulatory Momo Memo Other [employer] Other Start: 08-13-2022 Telephone encounter Momo Memo [facility] Start: 08-11-2022 End: 08-11-2022 ambulatory Momo Memo Other [employer] Other Start: 08-11-2022 Telephone encounter Momo Memo [facility] Start: 08-06-2022 End: 08-06-2022 ambulatory Momo Memo Other [employer] Other Start: 08-06-2022 Telephone encounter Momo Memo [facility] Start: 08-02-2022 End: 08-03-[address] MOMO M MEMO Facility: Start: 07-07-2022 End: 07-07-2022 ambulatory Momo Memo Other [employer] Other Start: 07-07-2022 Telephone encounter Momo Memo [facility] Start: 06-29-2022 End: 06-29-2022 ambulatory Kamal Chaban Other [employer] Other Start: 06-29-2022 Office outpatient visit 15 minutes Kamal Chaban [facility] Start: 06-18-2022 End: 06-18-2022 ambulatory Kamal Chaban Facility:[facility] Start: 06-08-2022 End: 06-08-2022 ambulatory Momo Memo Other [employer] Other Start: 06-08-2022 Telephone encounter Momo Memo [facility] Start: 05-10-2022 End: 05-10-2022 ambulatory Momo Memo Other [employer] Other Start: 05-10-2022 Telephone encounter Momo Memo [facility] Start: 04-06-2022 End: 04-06-2022 ambulatory Momo Memo Other [employer] Other Start: 04-06-2022 Telephone encounter Momo Memo [facility] Start: 03-25-2022 End: 03-25-2022 ambulatory Momo Memo Other [employer] Other Start: 03-25-2022 Telephone encounter Momo Memo [facility] Start: 03-11-2022 End: 03-11-2022 ambulatory Momo Memo Other [employer] Other Start: 03-11-2022 Telephone encounter Momo Memo [facility] Start: 03-05-2022 End: 03-05-2022 ambulatory Momo Memo Other [employer] Other Start: 03-05-2022 Telephone encounter Momo Memo [facility] Start: 03-04-2022 End: 03-05-[address] MOMO M MEMO Facility: Start: 03-03-2022 End: 03-03-2022 ambulatory Momo Memo Other [employer] Other Start: 03-03-2022 Telephone encounter Momo Memo [facility] Start: 02-09-2022 End: 02-09-2022 ambulatory Momo Memo Other [employer] Other Start: 02-09-2022 Telephone encounter Momo Memo [facility] Start: 02-02-2022 End: 02-02-2022 ambulatory Momo Memo Other [employer] Other Start: 02-02-2022 Telephone encounter Momo Memo [facility] Start: 01-14-2022 Office outpatient visit 15 minutes Momo Memo [facility] Start: 01-14-2022 End: 01-15-[address] LIZBET Ivey WHITTIER [employer] Other Start: 01-07-2022 End: 01-07-2022 ambulatory Momo Memo Other [employer] Other Start: 01-07-2022 Telephone encounter Momo Memo [facility] Start: 12-07-2021 End: 12-07-2021 ambulatory Momo Memo Other [employer] Other Start: 12-07-2021 Telephone encounter Momo Memo [facility] Start: 11-10-2021 End: 11-10-2021 ambulatory Momo Memo Other [employer] Other Start: 11-10-2021 Telephone encounter Momo Memo [facility] Start: 10-09-2021 End: 10-09-2021 ambulatory Momo Memo Other [employer] Other Start: 10-09-2021 Telephone encounter Momo Memo [facility] Start: 10-02-2021 End: 10-02-2021 ambulatory Momo Memo Other [employer] Other Start: 10-02-2021 Telephone encounter Momo Memo [facility] Start: 09-14-2021 End: 09-14-2021 ambulatory Momo Memo Other [employer] Other Start: 09-14-2021 Office outpatient visit 25 minutes Momo Memo [facility] Start: 08-27-2021 End: 08-27-2021 ambulatory Momo Memo Other [employer] Other Start: 08-27-2021 Office outpatient visit 15 minutes Momo Memo [facility] Start: 08-26-2021 End: 08-26-2021 ambulatory Momo Memo Other [employer] Other Start: 08-26-2021 Telephone encounter Momo Memo [facility] Start: 08-25-2021 End: 08-25-2021 ambulatory Momo Memo Other [employer] Other Start: 08-25-2021 Telephone encounter Momo Memo [facility] Start: 08-11-2021 End: 08-11-2021 ambulatory Momo Memo Other [employer] Other Start: 08-11-2021 Telephone encounter Momo Memo [facility] Start: 08-06-2021 End: 08-06-2021 ambulatory Momo Memo Other [employer] Other Start: 08-06-2021 Telephone encounter Momo Memo [facility] Start: 06-30-2021 End: 06-30-2021 ambulatory Kamal Chaban Other [employer] Other Start: 06-30-2021 Office outpatient visit 15 minutes Kamal Chaban [facility] Start: 11-06-2018 End: 11-07-2018 Patient encounter procedure DEFAULT PHYSICIAN Facility:[facility] Start: 10-30-2018 End: 10-31-2018 Patient encounter procedure DEFAULT PHYSICIAN Facility:[facility] Start: 09-19-2018 Patient encounter procedure RON GRACIA Facility:[id number] Procedures Date Procedure Procedure Detail Performing Clinician Start: 12-16-2020 Cystoscopy Dev STEPHENSON Start: 11-07-2020 Colonoscopy Dev STEPHENSON Start: 11-06-2018 breast biopsy, left Rhonda MOORE Start: 02-22-2014 robotic assisted hysterectomy, bilateral salpingectomy Dev MOORE section Dev GUTIERREZ Dilation and curetta ge of uterus Dev MOORE Comment on above: X2 LUMBAR FUSION Dev MOORE Tonsillectomy Dev MOORE Immunizations Immunization Date Immunization Notes Care Provider Fa viry 05-16-2023 influenza virus vaccine, unspecified formulation KATRINA DELONG [facility] 05-16-2023 influenza, injectabl e, quadrivalent, contains preservative Momo Memo Other [employer] Other 06-05-2022 influenza virus vaccine, unspecified formulation KATRINA SINDI [facility] 06-05-2022 influenza, injectabl e, quadrivalent, preservative free Momo Memo Other [employer] Other 03-25-2022 zoster vaccine recombinant KATRINA SINDI [facility] 01-22-2022 COVID-19 Pfizer Kamal Chaban Other [employer] Other 01-22-2022 SARS-CoV-2 mRNA (pmtarhnhsdw-smym-vlnuc se) vaccine KATRINA DELONG [facility] 01-22-2022 zoster vaccine recombinant KATRINA DELONG [facility] 07-01-2021 Do not use COVID-19 Pfizer 2 dose Momo Memo Other [facility] 06-08-2021 SARS-CoV-2 (COVID-19 ) Ad26 vaccine, recombinant Dev MOORE [facility] 05-22-2021 influenza virus vaccine, unspecified formulation KATRINA DELONG [facility] 05-22-2021 influenza, injectabl e, quadrivalent, contains preservative Momo Memo Other [employer] Other 10-01-2020 COVID-19 Vaccine Pfi zer - Documentation Purposes Only Kamal Chaban Other [facility] 09-10-2020 COVID-19 Vaccine Pfi zer - Documentation Purposes Only Kamal Chaban Other [facility] 05-27-2020 influenza virus vaccine, unspecified formulation KATRINA DELONG [facility] 05-16-2019 influenza virus vaccine, unspecified formulation KATRINA DELONG [facility] 05-16-2019 influenza, injectabl e, quadrivalent, contains preservative Kamal Chaban Other [employer] Other 05-08-2018 influenza, injectabl e, quadrivalent, contains preservative Kamal Chaban Other [employer] Other 05-08-2018 influenza virus vaccine, unspecified formulation KATRINA DELONG [facility] 06-09-2017 influenza virus vaccine, unspecified formulation KATRINA DELONG [facility] 06-09-2017 influenza, injectabl e, quadrivalent, contains preservative Kamal Chaban Other [employer] Other 07-05-2016 influenza virus vaccine, unspecified formulation KATRINA SINDI [facility] 07-05-2016 pneumococcal polysaccharide vaccine, 23 valent KATRINA DELONG [facility] 05-22-2016 pneumococcal conjuga te vaccine, 13 valent Kamal Chaban Other [facility] 05-22-2016 influenza, injectabl e, quadrivalent, contains preservative Kamal Chaban Other [employer] Other 05-22-2016 influenza virus vaccine, unspecified formulation ESMOND SINDI [facility] Payers Date Payer Category Payer Self-pay [id number] 1970 Unknown [id number] 2.16.8 [id number] 1970 Unknown [id number] 2.16.8 [id number] 1969 Unknown [id number] 2.16.8 [id number] 1969 Unknown [id number] 2.16.84 [id number] 1969 Unknown [id number] 2.16.84 [id number] 1969 Unknown [id number] 2.16.84 [id number] 1969 Unknown [id number] 2.16.84 0.1.182770.3.579.2.593 1969 Unknown [id number] 2.16.8 [id number] 1969 Unknown [id number] 2.16.8 40.1.141065.3.579.2.727 1969 Unknown [id number] 2.16.8 40.1.309674.3.579.2.727 1969 Unknown [id number] 2.16.8 40.1.813016.3.579.2.727 1969 Unknown [id number] 2.16.8 40.1.582932.3.579.2.727 1969 Unknown [id number] 2.16.8 40.1.131471.3.579.2.727 1969 Unknown [id number] 2.16.8 40.1.542151.3.579.2.727 1969 Unknown [id number] 2.16.8 40.1.273018.3.579.2.727 1969 Unknown [id number] 2.16.8 40.1.609641.3.579.2.727 1960 Self-pay [id number] 1960 Unknown [id number] Unknown Unknown [id number] 2.16.8 40.1.593260.3.579.2.531 Unknown [id number] 2.16.8 40.1.440193.3.579.2.531 Unknown [id number] 2.16.8 [id number] Social History Date Type Detail Facility Unknown if ever smoked [employer] Other Sex Assigned At [facility] Start: 1970 Sex Assigned At Female [facility] Start: 11-17-2020 End: 08-03-2023 Tobacco smoking status Never smoked tobacco (finding) [facility] Tobacco smoking status Never Robert [facility] Medical Equipment Procedure Code Equipment Code Equipment Origin al Text Equipment Identifier Dates Test Strips as directed Start: 10-14-2020 Functional Status Date Assessment Result Facility 08-03-2023 Functional Status N/A [facility] 04-04-2023 Functional Status N/A [facility] 12-20-2022 Functional Status N/A [facility] Clinical Notes 01-27-2021 to 08-03-2023 Note Date & Type Note Facility 08-03-2023 Hospital Discharg e instructions Patient Education 08/03/2023 09:56:59 Upper Respiratory Infection, Adult, Aapp-si-Nglp Upper Respiratory Infection, Adult An upper respiratory infection (URI) affects the nose, throat, and upper airways that lead to the lungs. The most common type of URI is often called the common cold. URIs usually get better on their own, without medical treatment. What are the causes? A URI is caused by a germ (virus). You may catch these germs by: Breathing in droplets from an infected person's cough or sneeze. Touching something that has the germ on it (is contaminated) and then touching your mouth, nose, or eyes. What increases the risk? You are more likely to get a URI if: You are very young or very old. You have close contact with others, such as at work, school, or a health care facility. You smoke. You have long-term (chronic) heart or lung disease. You have a weakened disease-fighting system (immune system). You have nasal allergies or asthma. You have a lot of stress. You have poor nutrition. What are the signs or symptoms? Runny or stuffy (congested) nose. Cough. Sneezing. Sore throat. Headache. Feeling tired (fatigue). Fever. Not wanting to eat as much as usual. Pain in your forehead, behind your eyes, and over your cheekbones (sinus pain). Muscle aches. Redness or irritation of the eyes. Pressure in the ears or face. How is this treated? URIs usually get better on their own within 7 10 days. Medicines cannot cure URIs, but your doctor may recommend certain medicines to help relieve symptoms, such as: Etaj-xej-jeklprp cold medicines. Medicines to reduce coughing (cough suppressants). Coughing is a type of defense against infection that helps to clear the nose, throat, windpipe, and lungs (respiratory system). Take these medicines only as told by your doctor. Medicines to lower your fever. Follow these instructions at home: Activity Rest as needed. If you have a fever, stay home from work or school until your fever is gone, or until your doctor says you may return to work or school. ?You should stay home until you cannot spread the infection anymore (you are not contagious). ?Your doctor may have you wear a face mask so you have less risk of spreading the infection. Relieving symptoms Rinse your mouth often with salt water. To make salt water, dissolve 1 tsp (3 6 g) of salt in 1 cup (237 mL) of warm water. Use a cool-mist humidifier to add moisture to the air. This can help you breathe more easily. Eating and drinking Drink enough fluid to keep your pee (urine) pale yellow. Eat soups and other clear broths. General instructions Take bzpc-drg-vepwqdq and prescription medicines only as told by your doctor. Do not smoke or use any products that contain nicotine or tobacco. If you need help quitting, ask your doctor. Avoid being where people are smoking (avoid secondhand smoke). Stay up to date on all your shots (immunizations), and get the flu shot every year. Keep all follow-up visits. How to prevent the spread of infection to others Wash your hands with soap and water for at least 20 seconds. If you cannot use soap and water, use hand blasting machine operator. Avoid touching your mouth, face, eyes, or nose. Cough or sneeze into a tissue or your sleeve or elbow. Do not cough or sneeze into your hand or into the air. Contact a doctor if: You are getting worse, not better. You have any of these: ?A fever or chills. ?Brown or red mucus in your nose. ?Yellow or brown fluid (discharge)coming from your nose. ?Pain in your face, especially when you bend forward. ?Swollen neck glands. ?Pain when you swallow. ?White areas in the back of your throat. Get help right away if: You have shortness of breath that gets worse. You have very bad or constant: ?Headache. ?Ear pain. ?Pain in your forehead, behind your eyes, and over your cheekbones (sinus pain). ?Chest pain. You have long-lasting (chronic) lung disease along with any of these: ?Making high-pitched whistling sounds when you breathe, most often when you breathe out (wheezing). ?Long-lasting cough (more than 14 days). ?Coughing up blood. ?A change in your usual mucus. You have a stiff neck. You have changes in your: ?Vision. ?Hearing. ?Thinking. ?Mood. These symptoms may be an emergency. Get help right away. Call 911. Do not wait to see if the symptoms will go away. Do not drive yourself to the hospital. Summary An upper respiratory infection (URI) is caused by a germ (virus). The most common type of URI is often called the common cold. URIs usually get better within 7 10 days. Take nckk-orb-tizncub and prescription medicines only as told by your doctor. This information is not intended to replace advice given to you by your health care provider. Make sure you discuss any questions you have with your health care provider. Document Revised: 02/24/2022 Document Reviewed: 02/24/2022 [employer] Patient Education 2022 [employer]. Follow Up Care 08/03/2023 08:09:22 With:MOMO HAMPTON DO [facility] Address: [address] [place] [phone]- When: Unknown [facility] 07-15-2023 Evaluation note Encounter Date Diagnosis Assessment Notes Jul, Diabetes type 2, controlled (ICD-10 - E11.9) Jul, Attention deficit disorder (ICD-10 - F98.8) [facility] Jul, Other The goal for diabetes is always to maintain an A1c below 7.0, and to be compliant with medication. Of course continue to monitor diet and increase exercise is always suggested. We will continue to monitor. [employer] Other 11-15-[address] [facility] SUBJECTIVE Chief Complaint Patient presents with Follow-up Blood pressure. Heart rate racing. Fatigued, fast heart rate, dizziness. Sue Salcido is a 53 y.o. female here for follow-up. HPI PMHx: AO valve regurg, DM type II, HLD, She c/o worsening fatigue and dizziness/LH. Her HR was running elevated since last week. Symptoms started when she was sitting reading and her HR jumped up to the 135bpm. It came down to 120s, but this lasted for a few hours. Accompanied sx's of palpitations, fatigue, lightheadedness. BP at home running 120s/70s. HR has been running in the 100s on average. She can feel her heart beating faster. Her watch tells her that her heart rhythm is irregular. She denies CP, orthopnea, PND, LE edema, syncope. 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) Sleep disturbance, unspecified Pseudopapilledema Pituitary tumor Pituitary adenoma (CMS/HCC) Pain of right sacroiliac joint Other syndromes affecting cervical region Migraines Abdominal pain in female Abnormal blood chemistry Ataxic gait B12 deficiency Cerebellar tonsillar ectopia (CMS/HCC) Dyspareunia Female pelvic pain Heart murmur History of migraine History of recurrent UTI (urinary tract infection) Intractable migraine without aura and with status migrainosus Uterine leiomyoma Nonrheumatic aortic valve insufficiency Past Medical History: Diagnosis Date Diabetes mellitus type 2, controlled, without complications (CMS/HCC) 06/05/2009 Hyperlipidemia 03/24/2011 Nonrheumatic aortic valve insufficiency 06/22/2023 No family history on file. Social History Tobacco Use Smoking status: Never Smokeless tobacco: Never Substance Use Topics Alcohol use: Never Drug use: Never Allergies Allergen Reactions Sulfa (Sulfonamide Antibiotics) Rash Sulfoil Unknown Review of Systems Constitutional: Positive for malaise/fatigue. Negative for decreased appetite and weight gain. Cardiovascular: Positive for irregular heartbeat and palpitations. Negative for chest pain, dyspnea on exertion, leg swelling, near-syncope, orthopnea, paroxysmal nocturnal dyspnea and syncope. Neurological: Positive for dizziness. OBJECTIVE Visit Vitals BP 124/76 Pulse 99 Ht 1.6 m (5' 3 ) Wt 62.1 kg (136 lb 12.8 oz) SpO2 98% BMI 24.23 kg/m??? Smoking Status Never BSA 1.66 m??? Medications: Current Outpatient Medications: amphetamine-dextroamphetamine XR (Adderall XR) 20 mg 24 hr capsule, TAKE 1 CAPSULE BY MOUTH ONCE DAILY IN THE MORNING, Disp: , Rfl: ascorbic acid (Vitamin C) 100 mg tablet, Take 100 mg by mouth in the morning., Disp: , Rfl: atorvastatin (Lipitor) 20 mg tablet, Take 1 tablet (20 mg) by mouth in the morning., Disp: 90 tablet, Rfl: 3 Belsomra 10 mg tablet, TAKE 1 TABLET BY MOUTH EVERY DAY AT BEDTIME NEEDED FOR 30 DAYS, Disp: , Rfl: calcium citrate-vitamin D2 250 mg-2.5 mcg (100 unit) tablet, Take 1 tablet by mouth in the morning and at bedtime., Disp: , Rfl: clobetasoL 0.025 % cream, Apply topically., Disp: , Rfl: cyanocobalamin/folic acid (vitamin T05-iecsu acid) 1,000-400 mcg lozenge, in the morning., Disp: , Rfl: eletriptan (Relpax) 40 mg tablet, 1 tab PRN migraine, may repeat in 2 hours. No more than 2 per LOMBARDO or 4 per week or 9 per 30 days., Disp: , Rfl: fluticasone (Flonase) 50 mcg/actuation nasal spray, Refill(s) 0, Nasal, Disp: , Rfl: magnesium oxide (Mag-Ox) 250 mg magnesium tablet, Take 500 mg by mouth., Disp: , Rfl: metFORMIN (Glucophage) 1,000 mg tablet, , Disp: , Rfl: montelukast (Singulair) 10 mg tablet, Singulair 10 mg tablet Take 1 tablet as needed by oral route., Disp: , Rfl: tiZANidine (Zanaflex) 4 mg tablet, Take 4 mg by mouth every 6 (six) hours if needed for muscle spasms., Disp: , Rfl: topiramate (Topamax) 100 mg tablet, Take 100 mg by mouth in the morning and at bedtime., Disp: , Rfl: vitamin D3-vitamin K2 5,500-200 unit-mcg tablet, Take 1 tablet by mouth in the morning., Disp: , Rfl: estradiol (Estrace) 0.01 % (0.1 mg/gram) vaginal cream, Insert 1 g into the vagina., Disp: , Rfl: Physical Exam Vitals reviewed. Constitutional: Appearance: Normal appearance. She is normal weight. HENT: Head: Normocephalic and atraumatic. Right Ear: External ear normal. Left Ear: External ear normal. Eyes: Extraocular Movements: Extraocular movements intact. Conjunctiva/sclera: Conjunctivae normal. Pupils: Pupils are equal, round, and reactive to light. Neck: Vascular: No carotid bruit. Cardiovascular: Rate and Rhythm: Normal rate and regul (more content not included)...[facility]11-08-2023 Evaluation note* Encounter Date Diagnosis Assessment Notes Treatment Notes Treatment Clinical Notes Jun, Attention deficit disorder (ICD-10 - F98.8) [facility] [employer] Other 10-09-2023 Evaluation note* Encounter Date Diagnosis Assessment Notes Treatment Notes Treatment Clinical Notes May, Flu vaccine need (ICD-10 - Z23) May, Actinic keratosis (ICD-10 - L57.0) See procedure note [employer] Other 09-18-2023 Evaluation note* Encounter Date Diagnosis Assessment Notes Treatment Notes Treatment Clinical Notes Apr, Seasonal allergies (ICD-10 - J30.2) [employer] Other 09-11-2023 Evaluation note* Encounter Date Diagnosis Assessment Notes Treatment Notes Treatment Clinical Notes Apr, Attention deficit disorder (ICD-10 - F98.8) [employer] Other 08-28-2023 Hospital Discharge instructions Patient Education 04/04/2023 17:43:35 Earache, Adult Earache, Adult An earache, or ear pain, can be caused by many things, including: An infection. Ear wax buildup. Ear pressure. Something in the ear that should not be there (foreign body). A sore throat. Tooth problems. Jaw problems. Treatment of the earache will depend on the cause. If the cause is not clear or cannot be determined, you may need to watch your symptoms until your earache goes away or until a cause is found. Follow these instructions at home: Medicines Take or apply cqya-cdw-xluprlu and prescription medicines only as told by your health care provider. If you were prescribed an antibiotic medicine, use it as told by your health care provider. Do not stop using the antibiotic even if you start to feel better. Do not put anything in your ear other than medicine that is prescribed by your health care provider. Managing pain If directed, apply heat to the affected area as often as told by your health care provider. Use theheat source that your health care provider recommends, such as a moist heat pack or a heating pad. Place a towel between your skin and the heat source. Leave the heat on for 20 30 minutes. Remove the heat if your skin turns bright red. This is especially important if you are unable to feel pain, heat, or cold. You may have a greater risk of getting burned. If directed, put ice on the affected area as often as told by your health care provider. To do this: Put ice in a plastic bag. Place a towel between your skin and the bag. Leave the ice on for 20 minutes, 2 3 times a day. General instructions Pay attention to any changes in your symptoms. Try resting in an upright position instead of lying down. This may help to reduce pressure in your ear and relieve pain. Chew gum if it helps to relieve your ear pain. Treat any allergies as told by your health care provider. Drink enough fluid to keep your urine pale yellow. It is up to you to get the results of any tests that were done. Ask your health care provider, or the department that is doing the tests, when your results will be ready. Keep all follow-up visits as told by your health care provider. This is important. Contact a health care provider if: Your pain does not improve within 2 days. Your earache gets worse. You have new symptoms. You have a fever. Get help right away if you: Have a severe headache. Have a stiff neck. Have trouble swallowing. Have redness or swelling behind your ear. Have fluid or blood coming from your ear. Have hearing loss. Feel dizzy. Summary An earache, or ear pain, can be caused by many things. Treatment of the earache will depend on the cause. Follow recommendations from your health care provider to treat your ear pain. If the cause is not clear or cannot be determined, you may need to watch your symptoms until your earache goes away or until a cause is found. Keep all follow-up visits as told by your health care provider. This is important. This information is not intended to replace advice given to you by your health care provider. Make sure you discuss any questions you have with your health care provider. Document Revised: 02/29/2020 Document Reviewed: 03/01/2020 [employer] Patient Education 2022 [employer]. Follow Up Care 04/04/2023 17:04:30 With:MOMO HAMPTON DO, FAM Address: [address] [place] [address] [phone]- When: Unknown [facility] 08-11-2023 Evaluation note* Encounter Date Diagnosis Assessment Notes Treatment Notes Treatment Clinical Notes Mar, Attention deficit disorder (ICD-10 - F98.8) [employer] Other 07-17-2023 Evaluation note* Encounter Date Diagnosis Assessment Notes Treatment Notes Treatment Clinical Notes Feb, Attention deficit disorder (ICD-10 - F98.8) [employer] Other 07-03-2023 Evaluation note* Encounter Date Diagnosis Assessment Notes Treatment Notes Treatment Clinical Notes Feb, Insomnia (ICD-10 - G47.00) [employer] Other 06-21-2023 Evaluation note* Encounter Date Diagnosis Assessment Notes Treatment Notes Treatment Clinical Notes Jan, Attention deficit disorder (ICD-10 - F98.8) [employer] Other 06-09-2023 Evaluation note* Encounter Date Diagnosis Assessment Notes Treatment Notes Treatment Clinical Notes Jan, Diabetes type 2, controlled (ICD-10 - E11.9) Jan, Other The goal for diabetes is always to maintain an A1c below 7.0, and to be compliant with medication. Of course continue to monitor diet and increase exercise is always suggested. We will continue to monitor. [employer] Other 05-15-2023 Hospital Discharge instructions Patient Education 12/20/2022 12:50:20 Sciatica, Ftvw-xc-Fsva Sciatica Sciatica is pain, weakness, tingling, or loss of feeling (numbness) along the sciatic nerve. The sciatic nerve starts in the lower back and goes down the back of each leg. Sciatica usually goes away on its own or with treatment. Sometimes, sciatica may come back (recur). What are the causes? This condition happens when the sciatic nerve is pinched or has pressure put on it. This may be theresult of: A disk in between the bones of the spine bulging out too far (herniated disk). Changes in the spinal disks that occur with aging. A condition that affects a muscle in the butt. Extra bone growth near the sciatic nerve. A break (fracture) of the area between your hip bones (pelvis). . Tumor. This is rare. What increases the risk? You are more likely to develop this condition if you: Play sports that put pressure or stress on the spine. Have poor strength and ease of movement (flexibility). Have had a back injury in the past. Have had back surgery. Sit for long periods of time. Do activities that involve bending or lifting over and over again. Are very overweight (obese). What are the signs or symptoms? Symptoms can vary from mild to very bad. They may include: Any of these problems in the lower back, leg, hip, or butt: ?Mild tingling, loss of feeling, or dull aches. ?Burning sensations. ?Sharp pains. Loss of feeling in the back of the calf or the sole of the foot. Leg weakness. Very bad back pain that makes it hard to move. These symptoms may get worse when you cough, sneeze, or laugh. They may also get worse when you sitor stand for long periods of time. How is this treated? This condition often gets better without any treatment. However, treatment may include: Changing or cutting back on physical activity when you have pain. Doing exercises and stretching. Putting ice or heat on the affected area. Medicines that help: ?To relieve pain and swelling. ?To relax your muscles. Shots (injections) of medicines that help to relieve pain, irritation, and swelling. Surgery. Follow these instructions at home: Medicines Take rbac-iro-uguckby and prescription medicines only as told by your doctor. Ask your doctor if the medicine prescribed to you: ?Requires you to avoid driving or using heavy machinery. ?Can cause trouble pooping (constipation). You may need to take these steps to prevent or treat trouble pooping: ?Drink enough fluids to keep your pee (urine) pale yellow. ?Take koxn-uzf-pwwjelm or prescription medicines. ?Eat foods that are high in fiber. These include beans, whole grains, and fresh fruits and vegetables. ?Limit foods that are high in fat and sugar. These include fried or sweet foods. Managing pain If told, put ice on the affected area. ?Put ice in a plastic bag. ?Place a towel between your skin and the bag. ?Leave the ice on for 20 minutes, 2 3 times a day. If told, put heat on the affected area. Use the heat source that your doctor tells you to use, suchas a moist heat pack or a heating pad. ?Place a towel between your skin and the heat source. ?Leave the heat on for 20 30 minutes. ?Remove the heat if your skin turns bright red. This is very important if you are unable to feel pain, heat, or cold. You may have a greater risk of getting burned. Activity Return to your normal activities as told by your doctor. Ask your doctor what activities are safe for you. Avoid activities that make your symptoms worse. Take short rests during the day. ?When you rest for a long time, do some physical activity or stretching between periods of rest. ?Avoid sitting for a long time without moving. Get up and move around at least one time each hour. Exercise and stretch regularly, as told by your doctor. Do not lift anything that is heavier than 10 lb (4.5 kg) while you have symptoms of sciatica. ?Avoid lifting heavy things even when you do not have symptoms. ?Avoid lifting heavy things over and over. When you lift objects, always lift in a way that is safe for your body. To do this, you should: ?Bend your knees. ?Keep the object close to your body. ?Avoid twisting. General instructions Stay at a healthy weight. Wear comfortable shoes that support your feet. Avoid wearing high heels. Avoid sleeping on a mattress that is too soft or too hard. You might have less pain if you sleep clarissa mattress that is firm enough to support your back. Keep all follow-up visits as told by your doctor. This is important. Contact a doctor if: You have pain that: ?Wakes you up when you are sleeping. ?Gets worse when you lie down. ?Is worse than the pain you have had in the past. ?Lasts longer than 4 weeks. You lose weight without trying. Get help right away if: You cannot control when you pee (urinate) or poop (have a bowel movement). You have weakness in any of these areas and it gets worse: ?Lower back. ?The area between your hip bones. ?Butt. ?Legs. You have redness or swelling of your back. You have a burning feeling when you pee. Summary Sciatica is pain, weakness, tingling, or loss of feeling (numbness) along the sciatic nerve. This condition happens when the sciatic nerve is pinched or has pressure put on it. Sciatica can cause pain, tingling, or loss of feeling (numbness) in the lower back, legs, hips, andbutt. Treatment often includes rest, exercise, medicines, and putting ice or heat on the affected area. This information is not intended to replace advice given to you by your health care provider. Make sure you discuss any questions you have with your health care provider. Document Revised: 08/13/2019 Document Reviewed: 08/13/2019 [employer] Patient Education 2022 [employer]. Follow Up Care 12/20/2022 11:22:57 With:MOMO HAMPTON DO [facility] Address: [address] [place] [phone]- When: Unknown [facility] 05-13-2023 Evaluation + Plan note Diagnostic Tests Pending * T3 Total 12/18/22 [facility]05-02-2023 Evaluation note* Encounter Date Diagnosis Assessment Notes Treatment Notes Treatment Clinical Notes December, Attention Deficit Disorder (ICD9-CM - 314.00) [employer] Other 04-10-2023 Hospital Discharge instructions Patient Education 11/15/2022 08:45:10 COVID-19 Frequently Asked Questions COVID-19 Frequently Asked Questions COVID-19 (coronavirus disease) is an infection that is caused by a large family of viruses. Some viruses cause illness in people and others cause illness in animals like camels, cats, and bats. In some cases, the viruses that cause illness in animals can spread to humans. Where did the coronavirus come from? In July 2019, [place] told the World Health Organization (WHO) of several cases of lung disease (human respiratory illness). These cases were linked to an open seafood and livestock market in the city of [facility]. The link to the seafood and livestock market suggests that the virus may have spread from animals to humans. However, since that first outbreak in July, the virus has also been shownto spread from person to person. What is the name of the disease and the virus? Disease name Early on, this disease was called novel coronavirus. This is because scientists determined that thedisease was caused by a new (novel) respiratory virus. The World Health Organization (WHO) has now named the disease COVID-19, or coronavirus disease. Virus name The virus that causes the disease is called severe acute respiratory syndrome coronavirus 2 (SARS-CoV-2). More information on disease and virus naming World Health Organization (WHO): www.who.int/emergencies/diseases/ffgfk-ijvagerhcoa-8997/technical-g uidance/jzhrhs-pwb-weagymozirf-disease-(covid-2019)-lhk-igb-hnrxe-agfa-ntnbwr-xw Who is at risk for complications from coronavirus disease? Some people may be at higher risk for complications from coronavirus disease. This includes older adults and people who have chronic diseases, such as heart disease, diabetes, and lung disease. If you are at higher risk for complications, take these extra precautions: Avoid close contact with people who are sick or have a fever or cough. Stay at least 3 6 ft (1 2 m)away from them, if possible. Wash your hands often with soap and water for at least 20 seconds. Avoid touching your face, mouth, nose, or eyes. Keep supplies on hand at home, such as food, medicine, and cleaning supplies. Stay home as much as possible. Avoid social gatherings and travel. How does coronavirus disease spread? The virus that causes coronavirus disease spreads easily from person to person (is contagious). There are also cases of community-spread disease. This means the disease has spread to: People who have no known contact with other infected people. People who have not traveled to areas where there are known cases. It appears to spread from one person to another through droplets from coughing or sneezing. Can I get the virus from touching surfaces or objects? There is still a lot that we do not know about the virus that causes coronavirus disease. Scientists are basing a lot of information on what they know about similar viruses, such as: Viruses cannot generally survive on surfaces for long. They need a human body (host) to survive. It is more likely that the virus is spread by close contact with people who are sick (direct contact), such as through: ?Shaking hands or hugging. ?Breathing in respiratory droplets that travel through the air. This can happen when an infected person coughs or sneezes on or near other people. It is less likely that the virus is spread when a person touches a surface or object that has the virus on it (indirect contact). The virus may be able to enter the body if the person touches a surface or object and then touches his or her face, eyes, nose, or mouth. Can a person spread the virus without having symptoms of the disease? It may be possible for the virus to spread before a person has symptoms of the disease, but this ismost likely not the main way the virus is spreading. It is more likely for the virus to spread by being in close contact with people who are sick and breathing in the respiratory droplets of a sick person's cough or sneeze. What are the symptoms of coronavirus disease? Symptoms vary from person to person and can range from mild to severe. Symptoms may include: Fever. Cough. Tiredness, weakness, or fatigue. Fast breathing or feeling short of breath. These symptoms can appear anywhere from 2 to 14 days after you have been exposed to the virus. If you develop symptoms, call your health care provider. People with severe symptoms may need hospital care. If I am exposed to the virus, how long does it take before symptoms start? Symptoms of coronavirus disease may appear anywhere from 2 to 14 days after a person has been exposed to the virus. If you develop symptoms, call your health care provider. Should I be tested for this virus? Your health care provider will decide whether to test you based on your symptoms, history of exposure, and your risk factors. How does a health care provider test for this virus? Health care providers will collect samples to send for testing. Samples may include: Taking a swab of fluid from the nose. Taking fluid from the lungs by having you cough up mucus (sputum) into a sterile cup. Taking a blood sample. Taking a stool or urine sample. Is there a treatment or vaccine for this virus? Currently, there is no vaccine to prevent coronavirus disease. Also, there are no medicines like antibiotics or antivirals to treat the virus. A person who becomes sick is given supportive care, which means rest and fluids. A person may also relieve his or her symptoms by using suhi-ber-ldnpiyi medicines that treat sneezing, coughing, and runny nose. These are the same medicines that a person takes for the common cold. If you develop symptoms, call your health care provider. People with severe symptoms may need hospital care. What can I do to protect myself and my family from this virus? You can protect yourself and your family by taking the same actions that you would take to prevent the spread of other viruses. Take the following actions: Wash your hands often with soap and water for at least 20 seconds. If soap and water are not available, use alcohol-based hand blasting machine operator. Avoid touching your face, mouth, nose, or eyes. Cough or sneeze into a tissue, sleeve, or elbow. Do not cough or sneeze into your hand or the air. ?If you cough or sneeze into a tissue, throw it away immediately and wash your hands. Disinfect objects and surfaces that you frequently touch every day. Avoid close contact with people who are sick or have a fever or cough. Stay at least 3 6 ft (1 2 m)away from them, if possible. Stay home if you are sick, except to get medical care. Call your health care provider before you get medical care. Make sure your vaccines are up to date. Ask your health care provider what vaccines you need. What should I do if I need to travel? Follow travel recommendations from your local health authority, the CDC, and WHO. Travel information and advice Centers for Disease Control and Prevention (CDC): www.cdc.gov/coronavirus/2019-ncov/travelers/index.html World Health Organization (WHO): www.who.int/emergencies/diseases/apxit-uvegbfqupwy-6972/travel-advice Know the risks and take action to protect your health You are at higher risk of getting coronavirus disease if you are traveling to areas with an outbreak or if you are exposed to travelers from areas with an outbreak. Wash your hands often and practice good hygiene to lower the risk of catching or spreading the virus. What should I do if I am sick? General instructions to stop the spread of infection Wash your hands often with soap and water for at least 20 seconds. If soap and water are not available, use alcohol-based hand blasting machine operator. Cough or sneeze into a tissue, sleeve, or elbow. Do not cough or sneeze into your hand or the air. If you cough or sneeze into a tissue, throw it away immediately and wash your hands. Stay home unless you must get medical care. Call your health care provider or local health authority before you get medical care. Avoid public areas. Do not take public transportation, if possible. If you can, wear a mask if you must go out of the house or if you are in close contact with someonewho is not sick. Keep your home clean Disinfect objects and surfaces that are frequently touched every day. This may include: ?Counters and tables. ?Doorknobs and light switches. ?Sinks and faucets. ?Electronics such as phones, remote controls, keyboards, computers, and tablets. Wash dishes in hot, soapy water or use a undercollar maker. Air-dry your dishes. Wash laundry in hot water. Prevent infecting other household members Let healthy household members care for children and pets, if possible. If you have to care for children or pets, wash your hands often and wear a mask. Sleep in a different bedroom or bed, if possible. Do not share personal items, such as razors, toothbrushes, deodorant, xie, brushes, towels, and washcloths. Where to find more information Centers for Disease Control and Prevention (CDC) Information and news updates: www.cdc.gov/coronavirus/2019-ncov World Health Organization (WHO) Information and news updates: www.who.int/emergencies/diseases/gkars-wixkjiwfrtm-3772 Coronavirus health topic: www.who.int/health-topics/coronavirus Questions and answers on COVID-19: www.who.int/news-room/q-a-detail/l-c-ejdsmmvestijo Global tracker: [employer] (AAP) Information for families: www.healthychildren.org/[place]/health-issues/conditions/chest-lungs/Pages /6607-Rixaj-Hguvsemxjfy.aspx The coronavirus situation is changing rapidly. Check your local health authority website or the [facility]and WHO websites for updates and news. When should I contact a health care provider? Contact your health care provider if you have symptoms of an infection, such as fever or cough, andyou: ?Have been near anyone who is known to have coronavirus disease. ?Have come into contact with a person who is suspected to have coronavirus disease. ?Have traveled outside of the country. When should I get emergency medical care? Get help right away by calling your local emergency services (911 in the [place] if you have: ?Trouble breathing. ?Pain or pressure in your chest. ?Confusion. ?Blue-tinged lips and fingernails. ?Difficulty waking from sleep. ?Symptoms that get worse. Let the emergency medical personnel know if you think you have coronavirus disease. Summary A new respiratory virus is spreading from person to person and causing COVID-19 (coronavirus disease). The virus that causes COVID-19 appears to spread easily. It spreads from one person to another through droplets from coughing or sneezing. Older adults and those with chronic diseases are at higher risk of disease. If you are at higher risk for complications, take extra precautions. There is currently no vaccine to prevent coronavirus disease. There are no medicines, such as antibiotics or antivirals, to treat the virus. You can protect yourself and your family by washing your hands often, avoiding touching your face, and covering your coughs and sneezes. This information is not intended to replace advice given to you by your health care provider. Make sure you discuss any questions you have with your health care provider. Document Released: 11/20/2019 Document Revised: 11/20/2019 Document Reviewed: 11/20/2019 [employer] Patient Education 2019 [employer] Follow Up Care 11/09/2021 17:07:47 With:TERESA JIMENEZ, Dev Johnson, URL Address: [facility] [address] [place]án [place] [address]- When: Unknown [facility] [place] 04-10-2023 NotePulmonary Medicine COVID-19 Frequently Asked Questions COVID-19 (coronavirus disease) is an infection that is caused by a large family of viruses. Some viruses cause illness in people and others cause illness in animals like camels, cats, and bats. In some cases, the viruses that cause illness in animals can spread to humans. Where did the coronavirus come from? In July 2019, [place] told the World Health Organization (WHO) of several cases of lung disease (human respiratory illness). These cases were linked to an open seafood and livestock market in the city of [facility]. The link to the seafood and livestock market suggests that the virus may have spread from animals to humans. However, since that first outbreak in July, the virus has also been shownto spread from person to person. What is the name of the disease and the virus? Disease name Early on, this disease was called novel coronavirus. This is because scientists determined that thedisease was caused by a new (novel) respiratory virus. The World Health Organization (WHO) has now named the disease COVID-19, or coronavirus disease. Virus name The virus that causes the disease is called severe acute respiratory syndrome coronavirus 2 (SARS-CoV-2). More information on disease and virus naming World Health Organization (WHO): www.who.int/emergencies/diseases/ufkmc-pdmjcjybzrk-5410/technical-g uidance/kkizat-hya-qdwnvjvswuc-disease-(covid-2019)-xpo-dsh-pqjsk-btql-bmfgna-xz Who is at risk for complications from coronavirus disease? Some people may be at higher risk for complications from coronavirus disease. This includes older adults and people who have chronic diseases, such as heart disease, diabetes, and lung disease. If you are at higher risk for complications, take these extra precautions: ? Avoid close contact with people who are sick or have a fever or cough. Stay at least 3?6 ft (1?2 m) away from them, if possible. ? Wash your hands often with soap and water for at least 20 seconds. ? Avoid touching your face, mouth, nose, or eyes. ? Keep supplies on hand at home, such as food, medicine, and cleaning supplies. ? Stay home as much as possible. ? Avoid social gatherings and travel. How does coronavirus disease spread? The virus that causes coronavirus disease spreads easily from person to person (is contagious). There are also cases of community-spread disease. This means the disease has spread to: ? People who have no known contact with other infected people. ? People who have not traveled to areas where there are known cases. It appears to spread from one person to another through droplets from coughing or sneezing. Can I get the virus from touching surfaces or objects? There is still a lot that we do not know about the virus that causes coronavirus disease. Scientists are basing a lot of information on what they know about similar viruses, such as: ? Viruses cannot generally survive on surfaces for long. They need a human body (host) to survive. ? It is more likely that the virus is spread by close contact with people who are sick (direct contact), such as through: ? Shaking hands or hugging. ? Breathing in respiratory droplets that travel through the air. This can happen when an infected person coughs or sneezes on or near other people. ? It is less likely that the virus is spread when a person touches a surface or object that has thevirus on it (indirect contact). The virus may be able to enter the body if the person touches a surface or object and then touches his or her face, eyes, nose, or mouth. Can a person spread the virus without having symptoms of the disease? It may be possible for the virus to spread before a person has symptoms of the disease, but this ismost likely not the main way the virus is spreading. It is more likely for the virus to spread by being in close contact with people who are sick and breathing in the respiratory droplets of a sick person's cough or sneeze. What are the symptoms of coronavirus disease? Symptoms vary from person to person and can range from mild to severe. Symptoms may include: ? Fever. ? Cough. ? Tiredness, weakness, or fatigue. ? Fast breathing or feeling short of breath. These symptoms can appear anywhere from 2 to 14 days after you have been exposed to the virus. If you develop symptoms, call your health care provider. People with severe symptoms may need hospital care. If I am exposed to the virus, how long does it take before symptoms start? Symptoms of coronavirus disease may appear anywhere from 2 to 14 days after a person has been exposed to the virus. If you develop symptoms, call your health care provider. Should I be tested for this virus? Your health care provider will decide whether to test you based on your symptoms, history of exposure, and your risk factors. How does a health care provider test for this virus? Health care providers will collect samples to send for testing. Samples may in (more content not included)...[facility] [place]04-05-2023 Evaluation note* Encounter Date Diagnosis Assessment Notes Treatment Notes Treatment Clinical Notes Nov, Insomnia (ICD-10 - G47.00) Nov, Attention Deficit Disorder (ICD9-CM - 314.00) [employer] Other 04-04-2023 NoteCardiology Clinic Note Subjective Sue Salcido is a 52 y.o. year old female patient being seen follow-up hyperlipidemia, type 2 diabetes mellitus, and mild aortic valve regurgitation, seen in follow-up. She reports she is doing well without specific cardiac concerns. She is hypertensive here today, home blood pressure log reviewed, systolic running in the 90s to low 100s. Reports occasional lightheadedness, attributed to diabetes and usually drinks orange juice. Denies chest pain, dyspnea on exertion, palpitations or extremity edema. 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) Sleep disturbance, unspecified Pseudopapilledema Pituitary tumor Pituitary adenoma (CMS/HCC) Pain of right sacroiliac joint Other syndromes affecting cervical region Migraines No family history on file. HPI Ms. Salcido is a 51 yo with known AO valve regurg, DM. She presents to cardiology clinic for routine follow-up. Patient states that she has not been doing well from a cardiac standpoint. She adamantly denies any chest pain or shortness of breath. She denies any lower extreme edema, orthopnea, or paroxysmal nocturnal dyspnea. Patient states that she had COVID in July 2021. She had some residual shortness of breath shortly thereafter, but that has completely resolved. ROS Objective Visit Vitals BP 87/59 (BP Location: Left arm, Patient Position: Sitting, BP Cuff Size: Adult) Pulse 71 Wt 60.3 kg (133 lb) SpO2 96% BMI 23.56 kg/m??? BSA 1.64 m??? Physical Exam General: Awake, alert, inNAD Pulm: Breath sounds clear to ascultation bilaterally with no wheeze, crackles or rhonchi Cards: Regular rate and rhythm, S1, S2. No S3 or S4 gallop. Murmur: none Abd: Soft, Nontender, physiologic bowel sounds are present Extr: Lower extremity edema: None. DP pulses:2+ Skin: warm, dry, well perfused Neuro: A&Ox3, No gross deficits Allergies Allergies Allergen Reactions Sulfoil Medications Current Outpatient Medications: amphetamine-dextroamphetamine XR (Adderall XR) 20 mg 24 hr capsule, TAKE 1 CAPSULE BY MOUTH ONCE DAILY IN THE MORNING, Disp: , Rfl: ascorbic acid (Vitamin C) 100 mg tablet, Take 100 mg by mouth in the morning., Disp: , Rfl: atorvastatin (Lipitor) 20 mg tablet, , Disp: , Rfl: Belsomra 10 mg tablet, TAKE 1 TABLET BY MOUTH EVERY DAY AT BEDTIME NEEDED FOR 30 DAYS, Disp: , Rfl: calcium citrate-vitamin D2 250 mg-2.5 mcg (100 unit) tablet, Take 1 tablet by mouth in the morning and at bedtime., Disp: , Rfl: metFORMIN (Glucophage) 1,000 mg tablet, , Disp: , Rfl: tiZANidine (Zanaflex) 4 mg tablet, Take 4 mg by mouth every 6 (six) hours if needed for muscle spasms., Disp: , Rfl: topiramate (Topamax) 100 mg tablet, Take 100 mg by mouth in the morning and at bedtime., Disp: , Rfl: vitamin D3-vitamin K2 5,500-200 unit-mcg tablet, Take 1 tablet by mouth in the morning., Disp: , Rfl: Recent Labs No recent labs, obtain labs. Imaging and other tests Echo: 05/27/2021 Left ventricle: Normal chamber size. Normal left ventricular wall thickness. No regional wall motion abnormalities. Visual LVEF 60 to 65%. Normal diastolic function. Atrial septum: Inadequately seen Left atrium: Normal chamber size Right atrium: Normal chamber size. Right ventricle: Normal chamber size. Normal right ventricular systolic function. Tricuspid valve: Normal mobility and thickness. No stenosis with trivial regurgitation. No evidence of pulmonary pretension. RVSP 24 mmHg. Mitral valve: Mildly thickened with normal mobility. No evidence of mitral valve stenosis. Trivial mitral regurgitation. Aortic valve: Normal trileaflet appearance. No evidence of aortic valve stenosis. Aortic valve is mildly sclerotic. Jet/LVOT ratio 22%, vena contractor 0.3 cm. Mild aortic regurgitation. Aortic root: Normal diameter and appearance. Pulmonic valve: Normal thickness and mobility. No stenosis. Trivial regurgitation. Pericardium: No evidence of pericardial effusion Echo: 06/26/2019 Left Ventricle: Global left ventricular systolic function is normal (Visually estimated EF 55%). Normal diastolic function. The left ventricle is normal size. No regional wall motion abnormality. Left ventricular wall thickness is normal. Right Ventricle: The right ventricle is normal in size. Normal right ventricular systolic function. Doppler studies suggest normal right sided pressures. Left Atrium: The left atrium is normal in size. Right Atrium: The right atrium is normal in size. The IVC is normal sized. There is inspiratory collapse of the IVC. Mitral Valve: Th (more content not included)...[facility]04-04-2023 NotePt is here for year F/U pt has no Concerns at this time. Review of Systems Neurological: Positive for headaches. All other systems reviewed and are negative.[facility] 10-14-2022 Evaluation note* Encounter Date Diagnosis Assessment Notes Treatment Notes Treatment Clinical Notes Oct, Attention Deficit Disorder (ICD9-CM - 314.00) [employer] Other 03-06-2023 Evaluation note* Encounter Date Diagnosis Assessment Notes Treatment Notes Treatment Clinical Notes Oct, Attention deficit disorder (ICD-10 - F98.8) [employer] Other 01-31-2023 Evaluation note* Encounter Date Diagnosis Assessment Notes Treatment Notes Treatment Clinical Notes Aug, Migraine without aura and without status migrainosus, not intractable (ICD-10 - G43.009) [employer] Other 01-30-2023 Evaluation note* Encounter Date Diagnosis Assessment Notes Treatment Notes Treatment Clinical Notes Aug, Attention deficit disorder (ICD-10 - F98.8) [employer] Other 01-04-2023 Evaluation note* Encounter Date Diagnosis Assessment Notes Treatment Notes Treatment Clinical Notes Aug, Insomnia (ICD-10 - G47.00) [employer] Other 12-30-2022 Evaluation note* Encounter Date Diagnosis Assessment Notes Treatment Notes Treatment Clinical Notes Jul, Attention deficit disorder (ICD-10 - F98.8) [employer] Other 12-26-2022 NotePROCEDURE: XR SHOULDER LT 2V or > HISTORY: Pain of left shoulder joint after falling COMPARISON: None. FINDINGS: BONES:No fracture, acute abnormality, or significant arthropathy. SOFT TISSUES:No visible soft tissue swelling. EFFUSION:None visible. OTHER: Negative. IMPRESSION: 1. No acute bone abnormality or significant degenerative changes. Electronically authenticated by: GOLDEN ZAVALA Date: 2022-08-02 16:[address] [place], [place] [address]-30-2022 Evaluation note* Encounter Date Diagnosis Assessment Notes Treatment Notes Treatment Clinical Notes Jun, Attention deficit disorder (ICD-10 - F98.8) [employer] Other 11-22-2022 Evaluation note* Encounter Date Diagnosis Assessment Notes Treatment Notes Treatment Clinical Notes Jun, Lung nodules (ICD-10 - R91.8) Discussed CT findings, the stability noted over 2-year follow-up, and asked her to report any new onset and persistent respiratory symptoms including persistent cough, low-grade fevers, night sweats, hemoptysis, pleuritic pain, etc. otherwise no need for routine CT at this point will follow-up as needed [employer] Other 11-01-2022 Evaluation note* Encounter Date Diagnosis Assessment Notes Treatment Notes Treatment Clinical Notes Jun, Attention deficit disorder (ICD-10 - F98.8) [employer] Other 10-03-2022 Evaluation note* Encounter Date Diagnosis Assessment Notes Treatment Notes Treatment Clinical Notes May, Insomnia (ICD-10 - G47.00) [employer] Other 10-03-2022 Evaluation note* Encounter Date Diagnosis Assessment Notes Treatment Notes Treatment Clinical Notes May, Insomnia (ICD-10 - G47.00) May, Attention deficit disorder (ICD-10 - F98.8) [employer] Other 08-18-2022 Evaluation note* Encounter Date Diagnosis Assessment Notes Treatment Notes Treatment Clinical Notes Mar, Seasonal allergies (ICD-10 - J30.2) [employer] Other 07-29-2022 NotePROCEDURE: XR ELBOW RT MIN 3 VIEWS HISTORY: Pain of right elbow joint since falling 3 days ago COMPARISON: None. FINDINGS: BONES:No fracture, acute abnormality, or significant arthropathy. SOFT TISSUES:No visible soft tissue swelling. EFFUSION:None visible. OTHER: Negative. IMPRESSION: 1. No acute bone abnormality. Electronically authenticated by: GOLDEN ZAVALA Date: 2022-03-05 08:14[facility]07-27-2022 Evaluation note* Encounter Date Diagnosis Assessment Notes Treatment Notes Treatment Clinical Notes Feb, Right elbow pain (ICD-10 - M25.521) [employer] Other 07-05-2022 Evaluation note* Encounter Date Diagnosis Assessment Notes Treatment Notes Treatment Clinical Notes Feb, Insomnia (ICD-10 - G47.00) [employer] Other 06-28-2022 Evaluation note* Encounter Date Diagnosis Assessment Notes Treatment Notes Treatment Clinical Notes Jan, Attention deficit disorder (ICD-10 - F98.8) [employer] Other 06-09-2022 Evaluation note* Encounter Date Diagnosis Assessment Notes Treatment Notes Treatment Clinical Notes Jan, Diabetes type 2, controlled (ICD-10 - E11.9) Jan, Other The goal for diabetes is always to maintain an A1c below 7.0, and to be compliant with medication. Of course continue to monitor diet and increase exercise is always suggested. We will continue to monitor. [employer] Other 06-02-2022 Evaluation note* Encounter Date Diagnosis Assessment Notes Treatment Notes Treatment Clinical Notes Jan, Attention deficit disorder (ICD-10 - F98.8) [employer] Other 05-02-2022 Evaluation note* Encounter Date Diagnosis Assessment Notes Treatment Notes Treatment Clinical Notes December, Attention deficit disorder (ICD-10 - F98.8) [employer] Other 04-05-2022 Evaluation note* Encounter Date Diagnosis Assessment Notes Treatment Notes Treatment Clinical Notes Nov, Attention deficit disorder (ICD-10 - F98.8) [employer] Other 03-04-2022 Evaluation note* Encounter Date Diagnosis Assessment Notes Treatment Notes Treatment Clinical Notes Oct, Attention deficit disorder (ICD-10 - F98.8) [employer] Other 02-25-2022 Evaluation note* Encounter Date Diagnosis Assessment Notes Treatment Notes Treatment Clinical Notes Sep, Migraine without aura and without status migrainosus, not intractable (ICD-10 - G43.009) [employer] Other 02-07-2022 Evaluation note* Encounter Date Diagnosis Assessment Notes Treatment Notes Treatment Clinical Notes Sep, Diabetes type 2, controlled (ICD-10 - E11.9) Continued excellent control. No other change today. Sep, Attention deficit disorder (ICD-10 - F98.8) E Rx sent. No other change today. Sep, Migraine without aura and without status migrainosus, not intractable (ICD-10 - G43.009) Pt to call Neuro for review of site reaction with migraine injection. I do not know if there is a potential for site reaction issues with this medication. This is something that really needs to be discussed with neurology. She voices agreement and understanding. Sep, Other The goal for diabetes is always to maintain an A1c below 7.0, and to be compliant with medication. Of course continue to monitor diet and increase exercise is always suggested. We will continue to monitor. [employer] Other 01-20-2022 Evaluation note* Encounter Date Diagnosis Assessment Notes Treatment Notes Treatment Clinical Notes Aug, COVID (ICD-10 - U07.1) She wonders how long this is going to potentially last, this shortness of breath. I described the patient that this is very unclear, and could last for days if not weeks. Aug, Shortness of breath (ICD-10 - R06.02) Lengthy discussion with patient today. Certainly I feel that the ER did an excellent job with their work-up. Therefore, since her work is ok with surgical mask (vs N95) then will write note to allow just that - continue with albuterol moving forward. Certainly call with any change. Any further significant shortness of breath, especially if sudden onset, would necessitate return to the ER. [employer] Other 01-04-2022 Evaluation note* Encounter Date Diagnosis Assessment Notes Treatment Notes Treatment Clinical Notes Aug, Attention deficit disorder (ICD-10 - F98.8) [employer] Other 12-30-2021 Evaluation note* Encounter Date Diagnosis Assessment Notes Treatment Notes Treatment Clinical Notes Jul, Insomnia (ICD-10 - G47.00) [employer] Other 11-23-2021 Evaluation note* Encounter Date Diagnosis Assessment Notes Treatment Notes Treatment Clinical Notes Jun, Nodule of right lung (ICD-10 - R91.1) Discussed CT findings at length again today, we we will obtain another follow-up CT in a year and if that shows no change she will need no further routine surveillance CT testing. [employer] Other 06-22-2021 NoteHNO ID: [id number] Author: Stalin García MD Service: ? Author Type: Physician Type: Progress Notes Filed: 01/27/2021 12:00 PM Note Text: Endocrinology Pituitary Initial Assessment REQUESTING PHYSICIAN: Roderick Dunlap (Joan) [address] [place] [address] My final recommendations will be communicated back to the requesting physician by way of shared Medical record or letter via US mail. Chief Complaint: Pituitary adenoma History of Present Illness Ms. Sue Salcido is a 50 year old female with a past medical history significant for a lung nodule, type 2 DM, HTN and migraines coming today for evaluation of pituitary adenoma. LV with Dr. Ridley in 05/2016. She has a history of pituitary adenoma diagnosed in 1996. She was initially diagnosed when she was unable to get and was found to have prolactin levels in the 90s (no records). Had 1 miscarriage prior to successful then had 2 more first trimester miscarriages. Was found to have a 6 mm pituitary adenoma in 2016. The lesion has grown over the years. More recently, had pituitary 12/29/2020 MRI compared to 10/12/19. Was found to have an enhancing lesion within the right side of the pituitary gland measuring 5 x 8 x 12 mm slightly incresed in size compared to prior study. No suprasella extension or mass effect upon the optic chiasm. Patient Also described the following: Headaches:Yes, visual defects:Yes, blurry vision, increased thirst or urination:Yes,Nocturia: Yes, discharge from breast:No, painful breast: No, Breast swelling:No, increased head/hand or shoe size:No Darkening of skin/gums:No, salt craving:No, skin stretch carter:No, easy bruising:No, excess hair growth over face/chin/chest/or abdomen:No,difficulty raising arms overhead, difficulty getting up from a seated position:No Also has history of type 2 DM: Has type 2 DM and is on metformin. Checks sugars 3 times a week. HbA1c 5.7%. Controlled, no complications Past History, Medications, Allergies Past medical, surgical, family and social histories reviewed with the following changes: Yes. Previous Pituitary Surgery: No Previous Radiotherapy: No Current Outpatient Medications Medication Sig Dispense Refill - BELSOMRA 10 mg tab Take 1 tablet by mouth at bedtime as needed. - promethazine (PHENERGAN) 25 mg tablet Take 1 tablet by mouth every 8 hours as needed. for nausea. - blood sugar diagnostic (ONE TOUCH ULTRA TEST) test strip by IN VITRO route. - eletriptan (RELPAX) 40 mg tablet Take 1 tablet by mouth as needed. may repeat in 2 hours if necessary 27 tablet 3 - ascorbic acid (VITAMIN C) 500 mg tablet Take 500 mg by mouth once daily. - topiramate (TOPAMAX) 100 mg tablet Take 200 mg by mouth twice daily. - metFORMIN 1,000 mg ORAL tablet Take by mouth. Take one(1) tablet twice daily. 180 tablet 4 - montelukast (SINGULAIR) 10 mg ORAL tablet Take 1 tablet by mouth daily at bedtime. 0 - lancets(ONE TOUCH ULTRASOFT LANCETS) test twice a day 3 month supply 12 - zolpidem (AMBIEN) 10 mg Tab Take 10 mg by mouth as needed. (Patient not taking: Reported on 01/27/2021) 0 No current facility-administered medications for this visit. ALLERGIES Allergen Reactions - Sulfa (Sulfonamide * Rash Review of Systems PITUITARY:See HPI SYSTEMIC: No fatigue, weight has been stable EYES: Blurry vision Voice: normal HEAD AND NECK: Migraines, headaches RESPIRATORY: normal CARDIOVASCULAR: normal GASTRO-INTESTINAL: normal NEUROLOGICAL: normal MUSCULOSKELETAL: No joint pain, stiffness, swelling, cramping or weakness SKIN: normal PSYCHIATRIC: normal LIBIDO: normal SEXUAL-REPRODUCTIVE: LMP had hysterectomy Easy Bruising See HPI Physical examination BP 95/60 (BP Site: Left Arm, BP Position: Sitting, BP Cuff Size: Regular Adult) Pulse 69 Temp 36.8 ?C (98.3 ?F) (Oral) Resp 18 Ht 162.6 cm (5' 4 ) Wt 57.2 kg (126 lb) LMP 02/24/2011 SpO2 100% BMI 21.63 kg/m? General appearance: NAD, conversant Eyes: anicteric sclerae, moist conjunctivae; no lid-lag; PERRLA HENT: Atraumatic; oropharynx clear with moist mucous membranes and no mucosal ulcerations; normal hard and soft palate Neck: Trachea midline; FROM, supple, no thyromegaly or lymphadenopathy Lungs: CTA, with normal respiratory effort and no intercostal retractions CV: RRR, no MRGs Abdomen: Soft, non-tender; no masses or HSM Extremities: No peripheral edema or extremity lymphadenopathy Skin: Normal temperature, turgor and texture; no rash, ulcers or subcutaneous nodules Psych: Appropriate affect, alert and oriented to person, place and time Previous Data Previous MRI/CT Scan: Yes, Date and Description: As below. Reviewed and uploaded images 05/25/16: MRI PITUITARY: IMPRESSION: Persistent 6 mm relatively hypoenhancing nodule within the right aspect of the pituitary gland suggesting pituitary mi (more content not included)... [facility] No data available for this section [facility] [employer] evaluation noteNo InformationNort [employer] Other Evaluation noteNo assessment information available [facility] Work Phone: [employer] general Narrative - Reported* Type Description Date Medical History DM II Medical History ADD Medical History Migraines Medical History Depression Medical History Brain Tumor - Pitutary Medical History HyperChol Medical History Hypothyroid Medical History heart murmur and dysrhythmia Surgical History Heel Spur - Left 2010 Surgical History Back Surgery 2007 Surgical History Tonsils childhood Surgical History KATIE - ovaries remain 02/2014 Surgical History D&C Surgical History spine surgery Hospitalization History Back Surgery Hospitalization History Hysterectomy 2013 [employer] Other [facility] general Narrative - Reported* Type Description Date Medical History DM II Medical History ADD Medical History Migraines Medical History Depression Medical History Brain Tumor - Pitutary Medical History HyperChol Medical History Hypothyroid Medical History heart murmur and dysrhythmia Medical History covid 07/2021 Surgical History Heel Spur - Left 2010 Surgical History Back Surgery 2007 Surgical History Tonsils childhood Surgical History KATIE - ovaries remain 02/2014 Surgical History D&C Surgical History spine surgery Hospitalization History Back Surgery Hospitalization History Hysterectomy 2013 [employer] Other Hospital Discharge instructions No data available for this section [facility] No data available for this section [facility] Summary Purpose Family History No Family History Records FoundNo Family History Records FoundNo Family History Records FoundNo Family History Records FoundNo Family History Records FoundNo Family History Records FoundNo Family History Records Found No data available for this section No data available for this section No data available for this section No Family History Records Found Advance Directives No Advanced Directives Records Found Advance Directive Response Recorded Date/ Time Advance Directives No October 31 12:49pm Chief Complaint and Reason for Visit Chief Complaint L shoulder pain Additional Source Comments INFORMATION SOURCE (unrecogn ized section and content) DATE CREATED AUTHOR 09/26/2018 [facility] DATE CREATED AUTHOR AUTHOR'S ORGANIZ ATION 11/09/2018 [facility] DATE CREATED AUTHOR AUTHOR'S ORGANIZ ATION 09/01/2021 [facility] DATE CREATED AUTHOR AUTHOR'S ORGANIZ ATION 12/01/2021 [facility] dical Specialist DATE CREATED AUTHOR AUTHOR'S ORGANIZ ATION 11/12/2022 [facility] DATE CREATED AUTHOR AUTHOR'S ORGANIZ ATION 05/20/2023 [facility] DATE CREATED AUTHOR AUTHOR'S ORGANIZ ATION 07/25/2023 [facility] DATE CREATED AUTHOR AUTHOR'S ORGANIZ ATION 08/04/2023 [facility] REASON FOR VISIT (unrecogniz ed section and content) 6 month f/u Lung NodulesRefi ll BelsomraRefill AdderallClinical [facility]ness[facility] follow up for post covid hypoxia6 month Follow up, [facility] Topamaxrefill adderallrefill adderallrefill- Adderallfollow up r/s x 1refill- Adderallrefill adderal faileddisregardrefill belsomraClinical Acute IllnessXR Result Requestrefill- AdderallRefill- Singularrefill adderallrefi adderall ,belsomraRefills Multirefill adderral1 yr f/u Lung NoduleRefill- Adderallrefill Adderallrefill belsomrarefill metforminrefill adderallrefill topamaxrefill adderallAdderall ShortageMethylphenidate ER reqrefill belsomraClinical Acute Illnessrefill concerta6 month Follow upRefill Focalinrefill belsomrarefill adderallRefill- AdderallRefill AdderallRefill Singulairflu shotappt requestAppointment Reqlook at [facility] on right knee (medial) thinks it's getting bigger- present since summer (february), flu shotrefill adderall6 month Follow up, A1C, pt requesting refill of adderall RAAD haley, pt reports she currently has heart monitor- ordered by [facility] Cardio- High HR on her watch, and BP high/ lightheaded and sleeping more than usual- 30 day monitor -- has 1 more week to complete this monitor and has echo scheduled this tuesday- follows up with them 09/01/23 Care Teams (unrecognized sec tion and content) Team Status: Active Member Role Status Dates Momo Hampton , DO Primary Care Provider Active Team Status: Inactive Member Role Status Dates Momo Hampton , DO Primary Care Provider, Attending Provider Active Goals (unrecognized section and content) Goals may be documented in a n alternate section FOR RECORDS PERTAINING TO PATIENTS WHO ARE OR HAVE BEEN ENROLLED IN A CHEMICAL DEPENDENCY/SUBSTANCEABUSE PROGRAM, SOME INFORMATION MAY BE OMITTED. This clinical summary was aggregated from multiple sources. Caution should be exercised in using it in the provision of clinical care. This summary normalizes information from multiple sources, and as a consequence, information in this document may materially change the coding, format and clinical context of patient data. In addition, data may be omitted in some cases. CLINICAL DECISIONS SHOULD BE BASED ON THE PRIMARY CLINICAL RECORDS. [employer] provides no warranty or guarantee of the accuracy or completeness of information in this document.
[2023-08-12 07:46] LABS: Basophils Absolute Auto 0.1 10^3/uL (0.0-0.1); Eosinophils Absolute Auto 0.4 10^3/uL (0.0-0.7); Eosinophils Percent Auto 5.2 % (0.9-7.0); Hematocrit 38.1 % (36.0-48.0); Hemoglobin 11.7 g/dL (12.0-16.0); Immature Granulocytes Abs Auto 0.05 10^3/uL (0.00-0.03); Immature Granulocytes Pct Auto 0.7 % (0.0-0.5); Lymphocytes Absolute Auto 1.6 10^3/uL (1.2-3.8); Lymphocytes Percent Auto 23.8 % (20.5-60.0); Mean Corpuscular HGB Conc 30.7 g/dL (29.9-35.2); Mean Corpuscular Hemoglobin 25.9 pg (26.7-34.0); Mean Corpuscular Volume 84.3 fL (81.0-99.0); Mean Platelet Volume 8.5 fL (9.5-13.5); Monocytes Absolute Auto 0.6 10^3/uL (0.3-0.8); Monocytes Percent Auto 8.1 % (1.7-12.0); Neutrophils Absolute Auto 4.2 10^3/uL (1.4-6.5); Neutrophils Percent Auto 61.2 % (43.0-75.0); Platelet Count 327 10^3/uL (150-450); Red Blood Count 4.52 10^6/uL (4.20-5.40); Red Cell Distribution Width 13.5 % (11.0-15.0); White Blood Count 6.9 10^3/uL (4.0-11.0)
[2023-08-12 13:11] LABS: Alanine Aminotransferase 33 U/L (14-59); Albumin Globulin Ratio 0.9; Albumin Level 3.6 g/dL (3.4-5.0); Alkaline Phosphatase 104 U/L (46-116); Anion Gap 8.9; Aspartate Amino Transferase 18 U/L (15-37); BUN Creatinine Ratio 18.1; Bilirubin Total 0.3 mg/dL (0.2-1.0); Calcium 9.4 mg/dL (8.5-10.1); Carbon Dioxide 28.7 mmol/L (21.0-32.0); Chloride 100 mmol/L (98-107); Chol HDL Ratio 2.9; Cholesterol 184 mg/dL (<=200); Estimated GFR (African America >60 (>=60); Estimated GFR (Non-African Ame >60 (>=60); Globulin 3.9 g/dL; Glucose 91 mg/dL (74-106); HDL Cholesterol 64 mg/dL (40-60); Potassium 3.6 mmol/L (3.5-5.1); Sodium 134 mmol/L (136-145); TSH W/ REFLEX FT4 3.401 uIU/mL (0.358-3.740); Total Protein 7.5 g/dL (6.4-8.2); Triglycerides 120 mg/dL (<=150)
== END 2023-08-12 07:24 | disposition home or self-care (01) ==
LOC: LAB 07:24
PROVIDERS: PCP Family Medicine; Visit Provider Nurse Practitioner Family
DX: R00.2 Palpitations (principal); R42 Dizziness and giddiness; I47.10 Supraventricular tachycardia, unspecified; R53.83 Other fatigue; E78.2 Mixed hyperlipidemia
CPT/HCPCS: 36415; 80053; 80061; 82607; 84443; 85025

== ENCOUNTER 2023-10-11 08:55 | Emergency (ER) | payer BC, SELFPAY ==
[2023-10-11 09:16] VITALS: BP 103/77; PULSE 74; RESP 18; TEMP 36.4; O2SAT 97; BMI 24.8
--- NOTE | 2023-10-11 09:31 | ECG_ITS ---
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
[2023-10-11 09:49] LABS: Basophils Absolute Auto 0.1 10^3/uL (0.0-0.1); Basophils Percent Auto 1.1 % (0.2-2.0); Eosinophils Absolute Auto 0.3 10^3/uL (0.0-0.7); Eosinophils Percent Auto 5.5 % (0.9-7.0); Hematocrit 35.5 % (36.0-48.0); Lymphocytes Absolute Auto 1.3 10^3/uL (1.2-3.8); Lymphocytes Percent Auto 22.7 % (20.5-60.0); Mean Corpuscular Hemoglobin 25.8 pg (26.7-34.0); Mean Corpuscular Volume 83.3 fL (81.0-99.0); Mean Platelet Volume 8.5 fL (9.5-13.5); Monocytes Absolute Auto 0.6 10^3/uL (0.3-0.8); Monocytes Percent Auto 10.9 % (1.7-12.0); Neutrophils Absolute Auto 3.3 10^3/uL (1.4-6.5); Neutrophils Percent Auto 59.8 % (43.0-75.0); Platelet Count 271 10^3/uL (150-450); Red Blood Count 4.26 10^6/uL (4.20-5.40); Red Cell Distribution Width 14.6 % (11.0-15.0); White Blood Count 5.6 10^3/uL (4.0-11.0)
[2023-10-11 10:15] LABS: Anion Gap 12.7; BUN Creatinine Ratio 15.2; Calcium 8.6 mg/dL (8.5-10.1); Carbon Dioxide 26.3 mmol/L (21.0-32.0); Chloride 103 mmol/L (98-107); Estimated GFR (African America >60 (>=60); Estimated GFR (Non-African Ame >60 (>=60); Glucose 94 mg/dL (74-106); Magnesium 1.9 mg/dL (1.8-2.4); Sodium 138 mmol/L (136-145); Troponin I High Sensitivity <4.0 pg/mL (4.0-51.3)
[2023-10-11 10:21] VITALS: BP 106/88; PULSE 70; RESP 18; O2SAT 99
[2023-10-11] MEDS: MAGNESIUM SULFATE IN WATER 2 GM/50 ML PREMIX IV (10:45)
[2023-10-11] MEDS: 0.9 % SODIUM CHLORIDE 1,000 ML 999 ML IV (10:46)
--- NOTE | 2023-10-11 19:20 | ED.GENADUL1 ---
HPI - General Adult General Chief complaint: Dizziness Stated complaint: HIGH HEART RATE Time Seen by Provider: 10/11/23 09:30 Source: patient Mode of arrival: walk-in History of Present Illness HPI narrative: 53-year-old female to the emergency department she complained of episode of elevated heart rate today while work. Patient reports she has been having episodes where her heart rate becomes elevated between 120s and a hundred and eighty. She's been told it was paroxysmal supraventricular tachycardia after wearing a Holter monitor. She is placed on diltiazem. She follows cardiology for this. She had an episode at work today and was directed by the nurse to come to the emergency department. Symptoms terminated prior to arrival. She is back at her baseline health. She denies any chest pain or shortness of breath. Related Data Home Medications Medication Instructions Recorded Confirmed atorvastatin 20 mg tablet 20 mg PO Q24H 10/11/23 10/11/23 clobetasol 0.05 % topical cream 1 applic topical Q12H 10/11/23 10/11/23 dextroamphetamine-amphetamine ER 20 mg PO Q24H 10/11/23 10/11/23 20 mg 24hr capsule,extend release diltiazem HCl 240 mg 240 mg PO Q24H 10/11/23 10/11/23 capsule,extended release 24 hr suvorexant 10 mg tablet (Belsomra) 10 mg PO Q24H 10/11/23 10/11/23 Allergies Allergy/AdvReac Type Severity Reaction Status Date / Time Sulfa (Sulfonamide AdvReac Severe Rash Verified 10/11/23 09:19 Antibiotics) Review of Systems ROS Status of ROS 10 or more systems reviewed and unremarkable except as noted in history and below Exam Narrative Exam Narrative: VITALS: I have reviewed the triage vital signs. GENERAL: Well developed, well appearing adult in no acute distress. NEURO: Alert and oriented. Moves all extremities. Face is symmetric and expressive. EYES: PERRL. No scleral icterus or conjunctival injection. No discharge. HENT: Normocephalic, atraumatic. Hearing is grossly intact. Nares grossly patent and without discharge. Mucous membranes moist. NECK: No JVD. Patient moves neck without restriction. CARDIO: Rhythm regular. Normal rate. No murmur, rub, or gallop. Pulses equal bilaterally in the upper and lower extremity. No lower extremity edema. PULM: Lungs clear to auscultation in all ramos. No wheezes, rales, or rhonchi. No conversational dyspnea. No splinting, stridor, or accessory muscle use. GI/: Abdomen is soft and non-tender. Normoactive bowel sounds. EXTREMITIES: Symmetric muscle bulk. No joint swelling. No clubbing, cyanosis, or deformity. SKIN: Warm and dry. Normal turgor. No rash or lesions appreciated. PSYCH: Mood, affect, and interaction is appropriate to the setting. Constitutional Vital Signs, click to edit/add: Last Vital Signs Temp 97.6 F 10/11/23 09:16 Pulse 70 10/11/23 10:21 Resp 18 10/11/23 10:21 BP 106/88 10/11/23 10:21 Pulse Ox 99 10/11/23 10:21 O2 Del Method Room Air 10/11/23 09:16 Course Vital Signs Vital signs: Vital Signs Temperature 97.6 F 10/11/23 09:16 Pulse Rate 74 10/11/23 09:16 Respiratory Rate 18 10/11/23 09:16 Blood Pressure 103/77 10/11/23 09:16 Pulse Oximetry 97 10/11/23 09:16 Oxygen Delivery Method Room Air 10/11/23 09:16 Temperature 97.6 F 10/11/23 09:16 Pulse Rate 70 10/11/23 10:21 Respiratory Rate 18 10/11/23 10:21 Blood Pressure 106/88 10/11/23 10:21 Pulse Oximetry 99 10/11/23 10:21 Oxygen Delivery Method Room Air 10/11/23 09:16 Medical Decision Making [facility] Narrative Medical decision making narrative: Well-appearing 53-year-old female to the emergency department With chief complaint of resolved episode of tachycardia. Vital stable, the patient is afebrile. Currently symptomatically. Basic labs are ordered. EKG without evidence of ischemia. CBC and chemistry aren't acute findings. Troponin is negat Her magnesium was optimized.sharif. Discussed findings with the patient. She'll follow-up with her vision rehabilitation therapist. Return precautions were discussed. All questions were answered. Patient was discharged home. Medical Records Medical records reviewed: Yes I reviewed the patient's medical records Lab Data Lab results reviewed: Yes I reviewed the patient's lab results Labs: Lab Results 10/11/23 Range/Units 09:38 WBC 5.6 (4.0-11.0) 10^3/uL RBC 4.26 (4.20-5.40) 10^6/uL Hgb 11.0 L (12.0-16.0) g/dL Hct 35.5 L (36.0-48.0) % MCV 83.3 (81.0-99.0) fL MCH 25.8 L (26.7-34.0) pg MCHC 31.0 (29.9-35.2) g/dL RDW 14.6 (11.0-15.0) % Plt Count 271 (150-450) 10^3/uL MPV 8.5 L (9.5-13.5) fL Neut % (Auto) 59.8 (43.0-75.0) % Lymph % (Auto) 22.7 (20.5-60.0) % [place] % (Auto) 10.9 (1.7-12.0) % Eos % (Auto) 5.5 (0.9-7.0) % Baso % (Auto) 1.1 (0.2-2.0) % Neut # (Auto) 3.3 (1.4-6.5) 10^3/uL Lymph # (Auto) 1.3 (1.2-3.8) 10^3/uL [place] # (Auto) 0.6 (0.3-0.8) 10^3/uL Eos # (Auto) 0.3 (0.0-0.7) 10^3/uL Baso # (Auto) 0.1 (0.0-0.1) 10^3/uL Abs Immat Gran (auto) 0.00 (0.00-0.03) 10^3/uL Imm/Tot Granulo (auto) 0.0 (0.0-0.5) % Sodium 138 (136-145) mmol/L Potassium 4.0 (3.5-5.1) mmol/L Chloride 103 (98-107) mmol/L Carbon Dioxide 26.3 (21.0-32.0) mmol/L Anion Gap 12.7 BUN 14.0 (7.0-18.0) mg/dL Creatinine 0.92 (0.55-1.02) mg/dL Est GFR ( Amer) >60 (>=60) Est GFR (Non-Af Amer) >60 (>=60) BUN/Creatinine Ratio 15.2 Glucose 94 (74-106) mg/dL Calcium 8.6 (8.5-10.1) mg/dL Magnesium 1.9 (1.8-2.4) mg/dL Troponin I High Sens <4.0 L (4.0-51.3) pg/mL ECG Data Attestation: I personally reviewed and interpreted this ECG as follows: (NSR. NO STEMI. NORMAL QTC. ) Discharge Plan Discharge Chief Complaint: Dizziness Clinical Impression: Paroxysmal supraventricular tachycardia Patient Disposition: Home, Self-Care Time of Disposition Decision: 11:27 Condition: Good Mode of Transportation: Private Vehicle Prescriptions / Home Meds: No Action atorvastatin 20 mg tablet 20 mg PO Q24H clobetasol 0.05 % cream 1 applic TOPICAL Q12H dextroamphetamine-amphetamine 20 mg capsule,extended release 24hr 20 mg PO Q24H Hold Instructions: TOLD NOT TO TAKE diltiazem HCl 240 mg capsule,extended release 24hr 240 mg PO Q24H Belsomra 10 mg tablet 10 mg PO Q24H Instructions: Supraventricular Tachycardia (ED) Additional Instructions: CALL YOUR [facility] AVIATION SURVIVAL TECHNICIAN TO ARRANGE FOR FOLLOW-UP. Referrals: MOMO SANCHEZ [Primary Care Provider] - 1 week Discharge Date/Time: 10/11/23 11:38 Stand Alone Forms: Portal Instructions
== END 2023-10-11 11:38 | disposition home or self-care (01) ==
PROVIDERS: Emergency Provider Student in an Organized Health Care Education/Training Program; PCP Family Medicine
DX: I47.10 Supraventricular tachycardia, unspecified (principal)
CPT/HCPCS: 36415; 80048; 83735; 84484; 85025; 93005; 96365; 99284

== ENCOUNTER 2024-01-30 07:19 | Outpatient (OUT) | payer BC, SELFPAY ==
--- OUTSIDE RECORDS SUMMARY | 2024-01-30 07:24 | XMS_ITS | CCD ---
Author Organization [facility] Care Team Providers Care Checkman Name Role Phone RON GRACIA Attending Unavailable MOMO HAMPTON Primary Care Unavailable PHYSICIAN, DEFAULT Admitting Unavailable PHYSICIAN, DEFAULT Attending Unavailable PHYSICIAN, DEFAULT Admitting Unavailable PHYSICIAN, DEFAULT Attending Unavailable Aisha Acevedo Unavailable Momo Hampton DO Momo Hampton Primary Care Provider DO Momo Hampton. Attending Provider DR LIZBET CESPEDES V Consulting Unavailable JOSE, DR COTTON Admitting Unavailable JOSE, DR COTTON Attending Unavailable MEMO, DR MOMO Cervantes Primary Care Unavailable JOSE, DR COTTON Consulting Unavailable MEMO, DR MOMO [...] Momo Hampton Primary Care Provider DO Momo Hampton. Attending Provider [phone] Memo, Momo M. Admitting Unavailable Memo, Momo M. Primary Care Unavailable Memo, Momo M. Attending Unavailable ChaRobert guilloryal Admitting Unavailable Chaban Kamal Attending Unavailable Memo, Momo M. Primary Care Unavailable Memo, Momo M. Admitting Unavailable Memo, Momo M. Primary Care Unavailable Memo, Momo M. Attending Unavailable Shekhar Rubio Attending Unavailable Suzie García Attending Unavailable Nisha RIVERO Attending Unavailable Car Maik VBryce Attending Unavailabl LEE Edmondson Attending Unavailabl Leroy Fields Attending Unavailable LEE DELONG Attending Unavailabl Dev Bazan Attending Unavailable Yury Garcia Referring Unavailable JoseYury Attending Unavailable Jose, Yury J Admitting Unavailable BERODERICK Denny Attending Unavailable BERODERICK Denny Admitting Unavailable WITHEREANNE-MARIE POLLARDMITH Admitting Unavailable WITHEREANNE-MARIE POLLARDMITSlick Attending Unavailable Spasic, Maik VBryce Attending Unavailabl e Spasic Maik V. Admitting Unavailabl e BERODERICK Denny Attending Unavailable PARESH BILLY Attending Unavailable PARESH BILLY Attending Unavailable PARESH BILLY Attending Unavailable CHLOÉ, EHAB Referring Unavailable PARESH BILLY Referring Unavailable KAYODE PARKER Attending Unavailable VISHAL ZHANG Attending Unavailable ELTAHAWY, EH Attending Unavailable ELTAHAWY, EHAB Admitting Unavailable VISHAL ZHANG Attending Unavailable Allergies Allergy Classification Reported Allergen(s) Allergy Type Date of Onset Reaction(s) Facility (20 sources) Dust Propensity to adverse reactions Unknown [employer] Other (20 sources) Sulfamethoxazole / Trimethoprim Drug Allergy rash [employer] Other (20 sources) Sulfonamides (Antibiotic) Drug allergy hives [employer] Other (20 sources) dogs, cats, mold Propensity to adverse reactions Unknown [employer] Other (4 sources) Sulfonamides (Antibiotic); Translations: [Sulfa (Sulfonamide Antibiotics)] Allergy to substance 02-14-20 03 [facility] (2 sources) Sulfonamides (Antibiotic) Drug allergy (disorder) 11-22-19 15 [facility] Repository (11 sources) Sulfamethoxazole; Translations: [sulfamethoxazole] Drug Allergy Eruption of skin (disorder) [facility] (1 source) SULFOIL; Translations: [SULFOIL] Propensity to adverse reactions to drug (disorder) 11-10-19 [facility] Repository Medications Current Medications Medication Drug Class(es) Dates Sig (Normalized) Sig (Original) 24 hr amphetamine aspartate 5 mg / amphetamine sulfate 5 mg / dextroamphetamine saccharate 5 mg / dextroamphetamine sulfate 5 mg extended release oral capsule (20 sources) Central Nervous System Stimulant Start: 12-20-2022 Adderall XR 20 MG 1 capsule every morning Orally Once a day for 30 days Aug, Active Start: 02-02-2022 take 1 capsule by [facility] every twenty-four hours Amphetamine-Dextroamphet ER 20 [...] for 30 days Jun, Active Ascorbic Acid (13 sources) Vitamin C Start: 05-26-2019 Vitamin C 50 m g, Chewed, Daily, 500mg, Refills(s) 0, Prophylaxis Start Date: 05/26/19 Status: Ordered take 1 capsule by [facility] every twenty-four hours Vitamin C 500 MG 1 capsule Orally daily Active atorvastatin 20 mg oral tablet (20 sources) HMG-CoA Reductase Inhibitor Start: 05-26-2019 take 1 tablet by mouth once daily atorvastatin 20 mg Tab 20 mg = 1 tab(s), Oral, Daily, Refills(s) 0, High cholesterol Start Date: 05/26/19 Status: Ordered clobetasol propionate 0.25 mg/ml topical cream (10 sources) Corticosteroid Start: 11-17-2020 clobetasol 0.025% topical [...] Active Start: 12-30-2022 take 1 capsule by [facility] every twenty-four hours Focalin XR 15 MG 1 capsule in the morning Orally Once a day for 30 days December, Active DilTIAZem (Eqv-Cardizem CD) 120 mg/24 hours oral capsule, extended release (2 sources) Start: 08-16-2023 DilTIAZem (Eqv -Cardizem CD) 120 mg/24 hours oral capsule, extended release Refills(s) 0 Start Date: 08/16/23 Status: Ordered Elderberry preparation (20 sources) Start: 12-20-2022 elderberry Ref ill(s) 0 Start Date: 12/20/22 Status: Ordered Elderberry Activ e eletriptan 40 mg oral tablet (10 sources) Serotonin-1b and Serotonin-1d Receptor Agonist Start: 05-26-2019 Relpax 40 mg Tab 40 mg = 1 tab(s), Oral, Refills(s) 0, Prophylaxis Start Date: 05/26/19 Status: Ordered estradiol 0.1 mg/ml vaginal cream (10 sources) Estrogen Start: 11-09-2021 estradiol 0.1 mg/g Vag Crm 1 gm, Vaginal, MonThu, 42.5 gm, Refill(s) 3, [facility], 160, cm, 11/09/21 16:31:00 EDT, Height/Length Dosing, 58, kg, 11/09/21 16:31:00 EDT, Weight Dosing Start Date: 11/09/21 Status: Ordered fluconazole 150 mg oral tablet (20 sources) Azole Antifungal Start: 12-20-2022 Diflucan 150 mg Tab Oral, Refills(s) 0 Start Date: 12/20/22 Status: Ordered Start: 10-26-2013 take 1 tablet by keo th every twenty-four hours Diflucan 150 MG 1 tablet Orally Once a day for 2 day(s) Oct, Active fluticasone propionate 0.05 mg/actuat metered dose nasal spray (20 sources) Corticosteroid Start: 12-20-2022 fluticasone Na alan 0.05 mg/inh [facility] Refill(s) 0, Nasal Start Date: 12/20/22 Status: [...] days Apr, Active fluticasone 0.05 mg/inh Nasal [place] (10 sources) Start: 11-17-2020 fluticasone 0.05 mg/inh Nasal [place] Daily, Refill(s) 0 Start Date: 11/17/20 Status: [...] Active magnesium oxide 250 mg oral tablet (10 sources) Start: 05-26-2019 take 2 tablets by [...] # 21 tab(s), Refills(s) 0, Pharmacy: [facility]/pharmacy #[id number], 161, cm, 12/20/22 12:08:00 EDT, Height/Length [...] Start Date: 05/26/19 Status: Ordered Multivitamin preparation (5 sources) take 1 tablet by mouth once daily Multivitamin - 1 tablet Orally Once a day Active Multivitamins and Minerals (10 sources) Start: 05-26-2019 take 1 tablet by [...] # 30 tab(s), Refills(s) 0, Pharmacy: [facility]/pharmacy #[id number], 161, cm, 12/20/22 12:08:00 EDT, Height/Length [...] Active Start: 05-26-2019 take 2 tablets by [facility] twice daily Topamax 100 mg Tab 200 mg, Oral, BID, Refills(s) 0, Migraine headache Start Date: 05/26/19 Status: Ordered Vitamin C 500 MG (20 sources) take 1 capsule by mo [facility] once daily Vitamin C 500 MG 1 capsule Orally daily Active Vitamin C 500 MG Orally Active Vitamin D 125 MCG (5000 UT) (20 sources) Vitamin D 125 MC G (5000 UT) as directed Orally daily Active Vitamin D 125 MC G (5000 UT) as directed Orally Active Completed/Discontinued Medications Medication Drug Class(es) Dates Sig (Normalized) Sig (Original) [id number] 200 actuat albuterol 0.09 mg/actuat metered dose [...] Status: Ordered take 1 tablet by keo three times daily at mealtime as needed [...] Not-Taking triamcinolone acetonide 40 mg/ml injectable suspension (17 sources) Corticosteroid Start: 11-22-2022 Kenalog-40 Nov, 40 [...] Problem Date Documented Date Episodic/Chronic Abdominal pain (20 sources) Abdominal pain; Translations: [Pain in female pelvis] 11-09-2021 Episodic Anxiety disorders (20 sources) Mixed anxiety and depressive disorder; Translations: [Other specified anxiety disorders] Chronic Benign neoplasm of uterus (10 sources) Uterine leiomyoma 02-11-2014 Episodic Cardiac dysrhythmias (2 sources) Cardiac arrhythmia, unspecified; Translations: [Cardiac arrhythmia, unspecified] Onset: 06-22-2023 Chronic Diabetes mellitus without complication (20 sources) Type 2 diabetes mellitus well controlled; Translations: [Type 2 diabetes mellitus without complications] Onset: 09-14-2021 Resolved: 01-14-2022 Chronic Disorders of lipid metabolism (12 sources) Hyperlipidemia; Translations: [Mixed hyperlipidemia] Onset: 11-04-2022 [...] esophagitis] Chronic Genitourinary symptoms and ill-defined conditions (11 sources) History of urinary tract infection; Translations: [Personal history of urinary (tract) infections] Onset: 11-15-2022 Episodic Headache; including migraine (20 sources) Migraine without aura, not refractory ; Translations: [Migraine without aura, not intractable, without status migrainosus] Onset: 09-14-2021 Resolved: 10-02-2021 Chronic Heart valve disorders (3 sources) Nonrheumatic aortic (valve) insufficiency; Translations: [Nonrheumatic aortic (valve) insufficiency] Onset: 09-19-2018 Chronic Heart valve disorders (10 sources) Heart murmur 05-26-2019 Episodic Immunizations and screening for infectious disease (1 source) Encounter for immunization Episodic Neoplasms of unspecified nature or uncertain behavior (10 sources) Neoplasm of pituitary gland 02-11-2014 Episodic [...] Onset: 11-15-2022 Chronic Other female genital disorders (10 sources) Dyspareunia 11-09-2021 Chronic Other lower respiratory disease (20 sources) Nodule of lung; Translations: [Solitary pulmonary nodule] Episodic Other lower respiratory disease (1 source) Other nonspecific abnormal finding of lung field Episodic Other nervous system disorders (10 sources) H/O: migraine 02-11-2014 Episodic Other nutritional; endocrine; and metabolic disorders (1 source) Overweight in adulthood with body mass index of 25 or more but less than 30; Translations: [Body mass index (BMI) 25.0-25.9, adult] Onset: 08-03-2023 Episodic Other screening for suspected conditions (not mental disorders or infectious disease) (12 sources) Abnormal findings on diagnostic imaging of [...] Translations: [Insomnia, unspecified] Episodic Residual codes; unclassified (8 sources) Insomnia, unspecified Onset: 08-06-2021 Resolved: 02-09-2022 Episodic Spondylosis; intervertebral disc disorders; other back problems (1 source) Lumbago with sciatica; Translations: [Lumbago with sciatica, right side] Onset: 12-20-2022 Episodic Unclassified (1 source) Family hx of ischem heart dis and oth dis of the circ sys Onset: 09-19-2018 Unclassified (1 source) Pain in left shoulder; Translations: [Pain in left shoulder] Onset: 08-19-2022 Unclassified (1 source) Other supraventricular tachycardia; Translations: [Other supraventricular tachycardia] Onset: 12-20-2023 Unclassified (1 source) Supraventricular tachycardia, unspecified; Translations: [Supraventricular tachycardia, unspecified] Onset: 10-18-2023 Viral infection (1 source) Viral disease; Translations: [Viral infection, unspecified] Onset: 08-03-2023 Episodic Past or Other Problems Problem Classification Problem Date Documented Date Episodic/Chronic Cardiac dysrhythmias (4 sources) Tachycardia, unspecified; Translations: [Palpitations] Onset: 08-11-2023 Episodic Conditions associated with dizziness or vertigo (2 sources) Dizziness and giddiness; Translations: [Dizziness and giddiness] Onset: 08-11-2023 Episodic Malaise and fatigue (2 sources) Other fatigue; Translations: [Other fatigue] Onset: 08-11-2023 Episodic Other lower respiratory disease (2 sources) [...] Unclassified (3 sources) Attention Deficit Disorder 314.00 Unclassified (1 source) Other supraventricular tachycardia; Translations: [Other supraventricular tachycardia] Onset: 12-20-2023 Unclassified (1 source) Supraventricular tachycardia, unspecified; Translations: [Supraventricular tachycardia, unspecified] Onset: 10-18-2023 Viral infection (1 source) COVID-19 Onset: 08-27-2021 Resolved: 08-27-2021 Results Test Name Value Interpretation Reference Range Facility Office Visiton 12-20-2023 Follow-up visit [id number] Sue Vega 1970 F Date Provider Department Center 12/20/2023 Corie-PARESH BILLY [facility]ARD [facility] No family history on file Level of Service:01187 [place] OFFICE/OUTPATIENT ESTABLISHED LOW MDM 20 MIN Normal [facility] ANEJelani 11-10-2023 ANES Attestation signed by Jessica Clark MD at 11/10/2023 8:52 AM Jessica Clark MD, MPH, [facility], [facility], [facility] Interventional Cardiology Pager Email: [email or web address] Patient: Sue Vega Procedure Information Date/Time: 11/10/23829 Procedure: Coronary angiography (Left) Location: [facility] / [facility] (Cath) Providers: Jessica Clark MD Clinical information reviewed: Allergies Meds OB Status Physical Exam Airway Mallampati: II TM distance: >3 FB Neck ROM: full Cardiovascular Rhythm: regular Dental Pulmonary Abdominal Anesthesia Plan ASA 2 other (Subconscious sedation. ) Additional Equipment Requests Normal [facility] HPon 11-10-2023 HP Attestation signed by Jessica Clark MD at 11/10/2023 8:52 AM Jessica Calrk MD, MPH, [facility], [facility], [facility] Interventional Cardiology Pager Email: [email or web address] H&P reviewed. The patient was examined and there are no changes to the H&P. Will proceed with coronary angiogram for positive stress test with apical reversible perfusion defect. Diana Holman MD Manufacturing Design Engineer - PGY5 [facility] Gillian 11-10-2023 CATHLEEN RN educated pt on d/c instructions. RN encouraged pt to voice any questions or concerns. Pt verbalizes no questions or concerns at this time. [facility] 11-01-2023 [facility] Electrophysiology Consult Note Reason for visit: SVT 11/01/23 Patient here for follow up stress test performed at [facility]. She presented to [facility] ED on 10/10 for elevated heart rate in the 120's. Still denies chest pain and SOB. Dizziness/lightheade dness is improving she says. Patient underwent a treadmill stress test on 10/18/2023 she exercised for total of 8 minutes by Brock protocol and achieved a maximal heart rate of 146 bpm or 87% of the maximal predicted heart rate the test was terminated due to dyspnea and there was appropriate heart rate response with appropriate blood pressure response the EKG did not show any evidence of ischemia however there was evidence of perfusion defects that was noted on the stress test which during the test is positive. Prior HPI: Sue Vega is a 53 y.o. year old with past medical history of aortic valve regurgitation, type 2 diabetes, hyperlipidemia, palpitations. she has been seen previously in our clinic for complaints of palpitations. She has had monitors placed and notes that she had some SVT episodes and sinus tahcycardia she was on Adderall and stopped taking but continues to feel tachycardic. she was started on diltiazem previously, this did not seem to resolve the tachycardia although she states she feels better on diltiazem despite heart rate still being in the 120s. Kayode started her on Corlanor which she could not afford. she categorically noted the first episode a number tenths when while she was sitting the tachycardia started. most of the time these episodes are sporadic and short. they seem to be more symptomatic for her at nighttime. event monitor placed from 06/22/2023 to 07/22/2023 revealed episodes of nonsustained atrial tachycardia that are symptomatic. no episodes of A-fib or other ventricular arrhythmias were noted PMH: Past Medical History: Diagnosis Date Diabetes mellitus type 2, controlled, without complications ([facility]) 06/05/2009 Hyperlipidemia 03/24/2011 Nonrheumatic aortic valve insufficiency 06/22/2023 PSH: No past surgical history on file. SH: Social Determinants of Health Tobacco Use: Low Risk (06/22/2023) Patient History Smoking Tobacco Use: Never Smokeless Tobacco Use: Never Passive Exposure: Not on file Alcohol Use: Not on file Financial Resource Strain: Not on file Food Insecurity: Not on file Transportation Needs: Not on file Physical Activity: Not on file Stress: Not on file Social Connections: Not on file Intimate Partner Violence: Unknown (09/29/2023) [place] Safety & Environment Fear of Current or Ex-Partner: Not on file Emotionally Abused: Not on file Physically Abused: Not on file Sexually Abused: Not on file Physically or Sexually Abused: Not on file Depression: Not on file Housing Stability: Not on file Utilities: Not on file Allergies: Allergies Allergen Reactions Sulfa (Sulfonamide Antibiotics) Rash Sulfoil Unknown Weight: 65.3kg Visit Vitals BP 140/66 (BP Location: Left arm, Patient Position: Sitting) Pulse 79 Ht 1.6 m (5' 3 ) Wt 65.3 kg (144 lb) SpO2 99% BMI 25.51 kg/m??? Smoking Status Never BSA 1.7 m??? Meds: Current Outpatient Medications on File Prior to Visit Medication Sig Dispense Refill ascorbic acid (Vitamin C) 100 mg tablet Take 100 mg by mouth in the morning. atorvastatin (Lipitor) 20 mg tablet Take 1 tablet (20 mg) by mouth in the morning. 90 tablet 3 Belsomra 10 mg tablet TAKE 1 TABLET BY MOUTH EVERY DAY AT BEDTIME NEEDED FOR 30 DAYS calcium citrate-vitamin D2 250 mg-2.5 mcg (100 unit) tablet Take 1 tablet by mouth in the morning and at bedtime. cyanocobalamin/folic acid (vitamin Z79-oigfv acid) 1,000-400 mcg lozenge in the morning. dilTIAZem CD (Cardizem CD) 120 mg 24 hr capsule Take 1 capsule (120 mg) by mouth in the morning. 30 capsule 0 dilTIAZem CD (Cartia XT) 240 mg 24 hr capsule Take 1 capsule (240 mg) by mouth in the morning. 90 capsule 3 eletriptan (Relpax) 40 mg tablet 1 tab PRN migraine, may repeat in 2 hours. No more than 2 per LOMBARDO or 4 per week or 9 per 30 days. fluticasone (Flonase) 50 mcg/actuation nasal spray Refill(s) 0, Nasal magnesium oxide (Mag-Ox) 250 mg magnesium tablet Take 500 mg by mouth. metFORMIN (Glucophage) 1,000 mg tablet Take 1,000 mg by mouth with breakfast and with evening meal. montelukast (Singulair) 10 mg tablet Singulair 10 mg tablet Take 1 tablet as needed by oral route. tiZANidine (Zanaflex) 4 mg tablet Take 4 mg by mouth every 6 (six) hours if needed for muscle spasms. topiramate (Topamax) 100 mg tablet Take 200 mg by mouth in the morning and at bedtime. dilTIAZem CD (Cardizem CD) 120 mg 24 hr capsule Take 1 capsule (120 mg) by mouth in the morning. 90 capsule 3 ivabradine (Corlanor) 5 mg tablet Take 1 tablet (5 mg) by mouth in the morning and at bedtime. 60 tablet 0 ivabradine (Corlanor) 5 mg tablet Take 1 tablet (5 mg) by mouth in the morning and at bedtime. (more content not included)... Normal [facility] Office Visiton 11-01-2023 Follow-up visit [id number] Sue Vega 1970 F Date Provider Department Center 11/01/2023 PARESH JOHNS [facility] No family history on file Level of Service:87969 [place] OFFICE/OUTPATIENT ESTABLISHED LOW MDM 20 MIN Normal [facility] Orders Onlyon 11-01-2023 Orders Only [id number] Sue Vega 1970 F Date Provider Department [place] 11/01/2023 CESAR HUNTER [facility] Erica [facility] No family history on file Normal [facility] MA Mamm Screen w/CAD if perf and 3D Bilon 09-30-2023 MA Mamm Screen w/CAD if perf and 3D Luis Exam Date/Time: 09/29/2023 08:26 EST Reason for Exam: SCREENING Report [facility] [phone] IMPRESSION: BIRADS 1 NEGATIVE, NORMAL INTERVAL FOLLOW-UP Follow-up: 12 MONTH RECALL Density: Scattered tissue. Vascular calcifications: Absent. EXAM: MA Mamm Screen w/CAD if perf and 3D Luis DATE: 09/29/2023 7:01 AM CLINICAL HISTORY: SCREENING. COMPARISONS: 11/06/2020, 09/15/2019, 11/14/2018, and 08/29/2014. TECHNIQUE: Routine full-field digital mammograms and 3D breast tomosynthesis of both breasts were obtained. FINDINGS: There are no developing masses, suspicious microcalcifications, or areas of architectural distortion identified on the current study. No significant changes are identified from the prior studies, given differences in technique and positioning. Dense Breast: No. CAD analysis was performed and used in the interpretation. Board Certified Radiologists. Accredited by the ACR and FDA. MAMMOGRAPHY IS VERY IMPORTANT TO YOUR HEALTH. THE CURRENT [employer]ISH [employer] OF [employer] AND N[employer]IVE CANC[employer] NETWORK GUIDELINES RECOMMENDS ANNUAL MAMMOGRAPHY BEGINNING AT AGE 40. THIS FACILITY UTILIZES A REMINDER SYSTEM TO ENSURE ALL PATIENTS RECEIVE REMINDER NOTIFICATIONS AT THE APPROPRIATE TIME BASED ON THE RECOMMENDATIONS OF THIS EXAM. Report Ordering Provider: Yury Garcia FINAL REPORT Dictated: 09/30/2023 4:34 pm Elieser Bains MD Signed (Electronic Signature): 09/30/2023 4:34 pm Signed by: Elieser Bains MD Transcribed by: XIMENA Technologist: [facility] Assessment: BI-RADS Category 1-Negative Recommendation: Normal interval follow-up Normal [facility] Consent for Treatmenton 09-09 Consent for Treatment [id number] #[id number] Normal [facility] Office Visiton 09-27-2023 Follow-up visit [id number] Sue Vega 1970 F Date Provider Department Center 09/27/2023 PARESH JOHNS CARD [facility] No family history on file Level of Service:33489 [place] OFFICE/OUTPATIENT NEW MODERATE MDM 45 MINUTES Normal [facility] Physician Orderon 09-21-2023 Physician Order [id number] #[id number] Normal [facility] C Urineon 09-09-2023 Bacteria identified Cx Nom (U) Microbiology PROCEDURE: Urine Culture [R1] SOURCE: U CleanCatch BODY SITE: COLLECTED DATE/TIME: 09/06/2023 19:39 EST RECEIVED DATE/TIME: 09/06/2023 20:23 EST START DATE/TIME: 09/06/2023 20:23 EST FREE TEXT SOURCE: Carlos Beavers DO, DO, John FINAL REPORTS Final Report [] Verified Date/Time: 09/09/2023 13:09 EST 10,000 cfu/ml Streptococcus agalactiae (Group B) Presumptive isolated. Penicillin is the drug of choice for Beta Hemolytic Streptococci Isolates. Routine susceptibility testing on Beta Hemolytic Streptococcus isolates is no longer performed. Susceptibilities will continue to be performed on Isolates from sterile body fluids and serious wound infections. 2,000 cfu/ml Mixed skin contaminants Performing Locations R1: This test was performed at: [facility], [address] [place] [address], [id number] , , Normal [facility] Comment on above: Performed By: #### 2 [id number] #### [facility] [address] [place] [address] XR Chest Single Viewon 09-07 XR Chest Single View Exam Date/Time: 09/06/2023 19:20 EST Reason for Exam: Chest pain Report IMPRESSION: LEFT LUNG BASE INFILTRATE AND/OR ATELECTASIS. EXAM: XR Chest Single View History: Chest pain Technique: Portable AP view of the chest. Comparison: 08/25/2021 Findings: The cardiomediastinal silhouette is within normal limits. Small patchy left lung base opacities. No pneumothorax or pleural effusion. No acute osseous abnormality. Ordering Provider: Shekhar Rubio FINAL REPORT Dictated: 09/07/2023 9:39 am Rosalino Hawthorne DO Signed (Electronic Signature): 09/07/2023 9:39 am Signed by: Rosalino Hawthorne DO Transcribed by: XIMENA Technologist: SANDRA Technical Comments Radiation Dose: Ka,r in mGy = n/a DAP = n/a Normal [facility] BMPon 09-06-2023 Anion gap [Moles/Vol] 10 mmol/L Normal 6-16 [facility] Comment on above: Performed By: #### 2 [id number] #### [facility] [address] [place] [address] BUN/Creat Ratio 22 No Units High 10-20 [facility] Comment on above: Performed By: #### 2 [id number] #### [facility] [facility] [address] [place] [address] Calcium [Mass/Vol] 8.9 mg/dL Normal 8.9-11.1 [facility] Comment on above: Performed By: #### 2 [id number], [id number], [id number] #### [facility] [address] [place] [address] Chloride [Moles/Vol] 105 mmol/L Normal 101-111 [facility] Comment on above: Performed By: #### 2 572578, [id number], [id number] #### [facility] [address] [place] [address] CO2 [Moles/Vol] 28 mmol/L Normal 21-31 [facility] Comment on above: Performed By: #### 2 107049, [id number], 8845106 #### [facility] [address] [place] [address] Creatinine [Mass/Vol] 1.0 mg/dL Normal 0.5-1.3 [facility] Comment on above: Performed By: #### 2 218536, 7650508, 3243392 #### [facility] [address] [place] [address] Glucose [Mass/Vol] 92 mg/dL Normal 55-199 [facility] Comment on above: Performed By: #### 2 267582, 2739443, 2692580 #### [facility] [address] [place] [address] Potassium [Moles/Vol] 3.7 mmol/L Normal 3.5-5.3 [facility] Comment on above: Performed By: #### 2 495984, 1837127, 1397290 #### [facility] [address] [place] [address] Sodium [Moles/Vol] 139 mmol/L Normal 135-145 [facility] Comment on above: Performed By: #### 2 701410, 1538139, 1477886 #### [facility] [address] [place] [address] Urea nitrogen [Mass/Vol] 22 mg/dL High 5-21 [facility] Comment on above: Performed By: #### 2 504603, 3494618, 0936808 #### [facility] [address] [place] [address] CBC w/ Auto Diffon 4 Basophil Absolute 0.1 E9/L Normal 0.0-0.2 [facility] Comment on above: Performed By: #### 2 847840, 0131000, 9789549 #### [facility] [address] [place] [address] Basophils/100 WBC (Bld) 0.8 % Normal 0.0-2.0 [facility] Comment on above: Performed By: #### 2 518857, 5942669, 5876614 #### [facility] [address] [place] [address] Eos Absolute 0.3 E9/L Normal 0.0-0.5 [facility] Comment on above: Performed By: #### 2 300004, 1161849, 3268832 #### [facility] [address] [place] [address] Eosinophils/100 WBC (Bld) 3.9 % Normal 0.0-8.0 [facility] Comment on above: Performed By: #### 2 872497, 2468513, 1195688 #### [facility] [address] [place] [address] Erythrocyte distribution width (RBC) [Ratio] 15.1 % High 10.9-14.2 [facility] Comment on above: Performed By: #### 2 155621, 8993787, 1266391 #### [facility] [address] [place] [address] Hematocrit (Bld) [Volume fraction] 35.0 % Normal 34.0-46.0 [facility] Comment on above: Performed By: #### 2 620861, 6713137, 3762642 #### [facility] [address] [place] [address] Hemoglobin (Bld) [Mass/Vol] 11.1 g/dL Low 12.0-16.0 [facility] Comment on above: Performed By: #### 2 752755, 4203110, 5670735 #### [facility] [address] [place] [address] Lymph Absolute 1.6 E9/L Normal 1.0-4.0 [facility] Comment on above: Performed By: #### 2 474088, 7651763, 6129764 #### [facility] [address] [place] [address] Lymphocytes/100 WBC (Bld) 25.6 % Normal 14.0-50.0 [facility] Comment on above: Performed By: #### 2 455667, 3559835, 7266794 #### [facility] [address] [place] [address] MCH (RBC) [Entitic mass] 25.5 pg Low 27.0-34.0 [facility] Comment on above: Performed By: #### 2 376769, 8409747, 5842942 #### [facility] [address] [place] [address] MCHC (RBC) [Mass/Vol] 31.5 g/dL Normal 31.4-36.0 [facility] Comment on above: Performed By: #### 2 476663, 2785582, 8641663 #### [facility] [address] [place] [address] MCV (RBC) [Entitic vol] 80.8 fL Normal 80.0-100.0 [facility] Comment on above: Performed By: #### 2 263240, 1851435, 2757459 #### [facility] [address] [place] [address] [place] Absolute 0.6 E9/L Normal 0.2-1.0 [facility] Comment on above: Performed By: #### 2 947729, 0994175, 8355882 #### [facility] [address] [place] [address] Monocytes/100 WBC (Bld) 9.7 % Normal 4.0-14.0 [facility] Comment on above: Performed By: #### 2 035083, 7776568, 6018096 #### [facility] [address] [place] [address] Neutro Absolute 3.8 E9/L Normal 2.0-7.5 [facility] Comment on above: Performed By: #### 2 911270, 6753373, 5284402 #### [facility] [address] [place] [address] Neutro Auto 60.0 % Normal 36.0-75.0 [facility] Comment on above: Performed By: #### 2 860080, 9488165, 2720437 #### [facility] [address] [place] [address] Platelet 351.0 E9/L Normal 150.0-500.0 [facility] Comment on above: Performed By: #### 2 191716, 6615729, 8612350 #### [facility] [address] [place] [address] Platelet mean volume (Bld) [Entitic vol] 6.3 fL Low 6.4-10.8 [facility] Comment on above: Performed By: #### 2 854071, 3173100, 7759015 #### [facility] [address] [place] [address] RBC 4.4 E12/L Normal 4.3-5.9 [facility] Comment on above: Performed By: #### 2 017766, 4400021, 2563414 #### [facility] [address] [place] [address] WBC 6.4 E9/L Normal 4.0-11.0 [facility] Comment on above: Performed By: #### 2 894175, 0343950, 5445832 #### [facility] [address] [place] [address] Consent for Treatmenton 08-10 Consent for Treatment [id number] #1.00TIFF Normal [facility] Discharge Instructionson Discharge Instructions [id number] 9#1.00TIFF Normal [facility] ED Clinical Summaryon 2023 ED Clinical Summary [address] [address] ED Clinical Summary Person Information [facility]: [facility] Age[facility] 53 Years : 1970 Sex: Female Language: Monegasque PCP: MOMO HAMPTON DO Marital Status: Visit Id: Visit Reason: Palpitations; VERY HIGH HEART RATE Speciality: Acuity: 3 Enc Type: Emergency Med Service: Emergency Arrival: 09/06/2023 18:41:15 Discharge: 09/06/2023 20:48:48 LOS: 000 02:07 Checkin: 09/06/2023 18:41:15 Checkout: 09/06/2023 20:48:48 Dispo Type: Home (Routine DC) EVENTS: Event Name Event Status Request Date/Time Start Date/Time Complete Date/Time Arrive Complete 09/06/2023 18:41:15 09/06/2023 18:41:15 09/06/2023 18:41:15 Document Home Meds Request 09/06/2023 18:41:15 Triage Complete 09/06/2023 18:41:15 09/06/2023 18:54:43 09/06/2023 18:54:43 Registration Complete 09/06/2023 18:44:55 09/06/2023 18:44:55 09/06/2023 18:44:55 Reg Complete Request 09/06/2023 18:44:55 Reg Bed Request Complete 09/06/2023 18:44:55 09/06/2023 18:44:55 09/06/2023 18:44:55 Bed Assign Complete 09/06/2023 18:50:57 09/06/2023 18:50:57 09/06/2023 18:50:57 Dr Exam Complete 09/06/2023 18:50:57 09/06/2023 19:05:03 09/06/2023 19:05:03 RN Exam Complete 09/06/2023 18:50:57 09/06/2023 19:35:26 09/06/2023 19:35:26 EKG Complete 09/06/2023 18:53:10 09/06/2023 19:12:03 Pending Labs Request 09/06/2023 18:53:10 Lab Complete 09/06/2023 18:53:10 09/06/2023 19:44:49 Patient Care Request 09/06/2023 18:53:10 RT Request 09/06/2023 18:53:10 X-Ray Complete 09/06/2023 18:53:10 09/06/2023 19:06:00 09/06/2023 19:20:25 Pending Labs Complete 09/06/2023 18:53:35 09/06/2023 20:14:39 Lab Complete 09/06/2023 18:53:35 09/06/2023 20:14:39 Urine Collect Complete 09/06/2023 18:53:35 09/06/2023 20:14:39 Registration Request 09/06/2023 19:05:03 Wet Read Request 09/06/2023 19:20:25 Pending Labs Complete 09/06/2023 19:26:34 09/06/2023 19:26:34 09/06/2023 19:44:49 Lab Complete 09/06/2023 19:26:34 09/06/2023 19:26:34 09/06/2023 19:44:49 Pending Labs Complete 09/06/2023 19:27:35 09/06/2023 19:27:35 09/06/2023 19:27:35 Pending Labs Complete 09/06/2023 19:37:54 09/06/2023 19:37:54 09/06/2023 20:31:13 Pending Labs Inlab 09/06/2023 20:03:49 09/06/2023 20:03:49 Lab Inlab 09/06/2023 20:03:49 09/06/2023 20:03:49 Discharge Complete 09/06/2023 20:34:41 09/06/2023 20:48:55 09/06/2023 20:48:55 Transfer Complete 09/06/2023 20:48:55 09/06/2023 20:48:55 09/06/2023 20:48:55 ADDRESS: [address] [id number] PHYS DOC NOTES: MEDICAL INFORMATION: Prescriptions Given: Medications to Continue with No Changes Other Medications amphetamine-dextroam phetamine (Adderall XR 20 mg Cap-ER) Oral. ascorbic acid (Vitamin C) 50 Milligram Chewed every day. 500mg. atorvastatin (atorvastatin 20 mg Tab) 1 Tablets By Mouth every day. clobetasol topical (clobetasol 0.025% topical cream) Topical 2 times a day. cyanocobalamin (Vitamin B12) 1,000 Microgram By Mouth every day. 100mg. diltiazem (DilTIAZem (Eqv-Cardizem CD) 120 mg/24 hours oral capsule, extended release) elderberry eletriptan (Relpax 40 mg Tab) 1 Tablets By Mouth. estradiol topical (estradiol 0.1 mg/g Vag Crm) 1 Gram Vaginal Tuesday & . Refills: 3. fluticasone nasal (fluticasone 0.05 mg/inh Nasal [place]) every day. fluticasone nasal (fluticasone Nasal 0.05 mg/inh [facility]) Nasal. ibuprofen (Advil) 200 Milligram By Mouth. 2-3 tabs prn. magnesium oxide (magnesium oxide 250 mg oral tablet) 2 Tablets By Mouth every day. metformin (metformin 1000 mg Tab) 1 Tablets By Mouth 2 times a day. montelukast (Singulair 10 mg Tab) 1 Tablets By Mouth every day. multivitamin with minerals (Multivitamins and Minerals) 1 tab By Mouth every day. suvorexant (Belsomra 10 mg oral tablet) 1 Tablets By Mouth once a day (at bedtime). topiramate (Topamax 100 mg Tab) 200 Milligram By Mouth 2 times a day. PATIENT EDUCATION INFORMATION: Instructions: Palpitations Follow up: With: Address: When: MOMO HAMPTON [address] [place], [place] [id number] [facility] (1) In 3 days DIAGNOSIS: Palpitations Normal [facility] ED Note-Physicianon 09-06-19 ED Note-Physician Basic Information Time Seen: Shekhar Rubio DO 09/06/2023 19:05 Chief Complaint Pt has heart paliptations. pt says heart rate has been fluctuating. History of Present Illness HPI: Patient is a 53-year-old female past medical history of diabetes, migraines, hyperlipidemia who presents the ED for palpitations. Patient states that throughout the day today her heart rate has gone up and she can feel like her heart is racing and multiple times at the day her heart rate was 120s. She denies any chest pain or shortness of breath during these episodes. She states that these episodes often happen while she was at rest. She otherwise has been feeling well lately and denies any recent illness or injury. ROS: Pertinent review of systems conducted and is negative except as noted above. Physical exam: General: nontoxic appearing and in no distress HEENT: Mucous membranes moist Neuro: awake and alert Neck: supple, trachea midline Card: Heart regular rate and rhythm no murmur Resp: Lungs clear to auscultation no wheeze or rhonchi Abd: Soft and nondistended. No tenderness to palpation with no rebound or guarding. Ext: No gross deformity or edema Physical Exam Vitals & Measurements T: 36.9 ?C(Oral) HR: 101(Peripheral) RR: 18 BP: 106/62 SpO2: 99% HT: 160 cm WT: 66.5 kg BMI: 25.98 Medical Decision Making MEDICAL DECISION MAKING Number and Complexity of Problems Differential Diagnosis: [] [facility] Data External documents reviewed: N/A My EKG interpretation: Noted in chart if applicable My CT interpretation: N/A My X-ray interpretation: Noted in chart if applicable My Ultrasound interpretation: N/A Decision rules/scores evaluated: N/A Discussed with: N/A Treatment and Disposition ED Course: Is well-appearing in no distress. EKG is obtained and shows sinus rhythm with a rate of 80 bpm. Will obtain a cardiac workup here in the ED and the patient was placed on the monitor. Workup is overall reassuring. While in the ED her heart rate averaged between 75 and 85. She remained in normal sinus rhythm. She remained in symptomatic care in the ED. I discussed results with her at bedside. We discussed the plan of discharge with close follow-up with her primary care physician. Discussed return precautions. Patient states understanding agreement this plan was discharged stable condition. Shared decision making: As above Code status: N/A Assessment/Plan Palpitations (R00.2: Palpitations) Orders: Basic Metabolic Panel CBC w/ Auto Diff ECG 12 Lead Adult ED Cardiac Monitoring eGFR Extra SST Tube Oxygen Saturation Oxygen Therapy PT & PTT Saline Lock Insert Troponin 0 Hr. Troponin 3 Hr. Troponin 6 Hr. Troponin 9 Hr. TSH With T4fr Reflex XR Chest Single View Disposition Plan Discharge Prescription List Prescriptions No active prescription medications Follow-up With When Contact Information MOMO MEMO In 3 days [address] [place] [address] [facility] (1) Additional Instructions: Patient Education Palpitations Problem List/Past Medical History Ongoing Abdominal pain in female Diabetes--NIDDM Dyspareunia Female pelvic pain H/O: migraine Heart murmur History of recurrent UTI (urinary tract infection) Hyperlipidemia Pituitary tumor Uterine fibroids Historical Migraine Procedure/Surgical History Cystoscopy (12/16/2020), Colonoscopy (11/07/2020), breast biopsy, left (11/2018), robotic assisted hysterectomy, bilateral salpingectomy (02/22/2014), section, D&C - Dilatation and curettage, LUMBAR FUSION, Tonsillectomy. Medications Inpatient No active inpatient medications Home Adderall XR 20 mg Cap-ER, Not taking Advil, 200 mg, Oral atorvastatin 20 mg Tab, 20 mg= 1 tab(s), Oral, Daily Belsomra 10 mg oral tablet, 10 mg= 1 tab(s), Oral, Once a day (at bedtime) clobetasol 0.025% topical cream, Topical, BID DilTIAZem (Eqv-Cardizem CD) 120 mg/24 hours oral capsule, extended release elderberry estradiol 0.1 mg/g Vag Crm, 1 gm, Vaginal, MonThu, 3 refills fluticasone 0.05 mg/inh Nasal [place], Daily fluticasone Nasal 0.05 mg/inh [facility] magnesium oxide 250 mg oral tablet, 500 [...] lifetime) Tobacco Use:. Never Smokeless Tobacco Use:., 08/16/2023 Never (less than 100 in lifetime) Tobacco Use:. Never Smokeless Tobacco Use:., 08/03/2023 Never (less than 100 in lifetime) Tobacco Use:., 10/16/2020 Never (more content not included)... Normal [facility] Comment on above: Result Comment: Elec tronically Signed By: Shekhar Rubio DO\.br\Date and Time Signed: 09/06/23 20:35 EST ED Patient Education Noteon 09-06-2023 ED Patient Education Note Emergency Medicine Palpitations Palpitations are feelings that your heartbeat is irregular or is faster than normal. It may feel like your heart is fluttering or skipping a beat. Palpitations may be caused by many things, including smoking, caffeine, alcohol, stress, and certain medicines or drugs. Most causes of palpitations are not serious. However, some palpitations can be a sign of a serious problem. Further tests and a thorough medical history will be done to find the cause of your palpitations. Your provider may order tests such as an ECG, labs, an echocardiogram, or an ambulatory continuous ECG monitor. Follow these instructions at home: Pay attention to any changes in your symptoms. Let your health care provider know about them. Take these actions to help manage your symptoms: Eating and drinking Follow instructions from your health care provider about eating or drinking restrictions. You may need to avoid foods and drinks that may cause palpitations. These may include: ? Caffeinated coffee, tea, soft drinks, and energy drinks. ? Chocolate. ? Alcohol. ? Diet pills. Lifestyle ? Take steps to reduce your stress and anxiety. Things that can help you relax include: ? Yoga. ? Mind-body activities, such as deep breathing, meditation, or using words and images to create positive thoughts (guided imagery). ? Physical activity, such as swimming, jogging, or walking. Tell your health care provider if your palpitations increase with activity. If you have chest pain or shortness of breath with activity, do not continue the activity until you are seen by your health care provider. ? Biofeedback. This is a method that helps you learn to use your mind to control things in your body, such as your heartbeat. ? Get plenty of rest and sleep. Keep a regular bed time. ? Do not use drugs, including cocaine or ecstasy. Do not use marijuana. ? Do not use any products that contain nicotine or tobacco. These products include cigarettes, chewing tobacco, and vaping devices, such as e-cigarettes. If you need help quitting, ask your health care provider. General instructions ? Take bqdb-icp-vmahzve and prescription medicines only as told by your health care provider. ? Keep all follow-up visits. This is important. These may include visits for further testing if palpitations do not go away or get worse. Contact a health care provider if: ? You continue to have a fast or irregular heartbeat for a long period of time. ? You notice that your palpitations occur more often. Get help right away if: ? You have chest pain or shortness of breath. ? You have a severe headache. ? You feel dizzy or you faint. These symptoms may represent a serious problem that is an emergency. Do not wait to see if the symptoms will go away. Get medical help right away. Call your local emergency services (911 in the [place] Do not drive yourself to the hospital. Summary ? Palpitations are feelings that your heartbeat is irregular or is faster than normal. It may feel like your heart is fluttering or skipping a beat. ? Palpitations may be caused by many things, including smoking, caffeine, alcohol, stress, certain medicines, and drugs. ? Further tests and a thorough medical history may be done to find the cause of your palpitations. ? Get help right away if you faint or have chest pain, shortness of breath, severe headache, or dizziness. This information is not intended to replace advice given to you by your health care provider. Make sure you discuss any questions you have with your health care provider. Document Revised: 12/16/2021 Document Reviewed: 12/16/2021 Elsevier Patient Education ? 2022 [employer] Normal [facility] ED Patient Summaryon 024 ED Patient Summary [place] [id number] Patient Discharge Instructions Person Information Name: SUE VEGA Age: 53 Years Arrival Date: 09/06/2023 18:41:15 Discharge Diagnosis: Palpitations Primary Care Physician: MOMO HAMPTON DO Provider Information Primary Provider: Shekhar Rubio DO Advanced Mechanic General Operational Test:None The exam and treatment you received in the Emergency Department were for an urgent problem and are not intended as complete care. It is important that you follow up with a doctor, nurse practitioner, or physician?s assistant program director for ongoing care. If your symptoms become worse or you do not improve as expected and you are unable to reach your usual health care provider, you should return to the Emergency Department. We are available 24 hours a day. SUE VEGA has been given the following list of patient education materials, prescriptions and follow-up instructions: Follow-up Instructions: With: Address: When: MOMO HAMPTON [address] [place], [place] [id number] Business (1) In 3 days In the event that this physician does not participate in your insurance network, please consult with your insurance company to find a nearby participating provider. Patient Education Materials: Palpitations A MESSAGE TO ALL PATIENTS REGARDING OPIOIDS PRESCRIPTION OPIOIDS: WHAT YOU NEED TO KNOW Prescription opioids can be used to help relieve hkpgkmsd-xp-nmgdvl pain and are often prescribed following a surgery or injury, or for certain health conditions. These medications can be an important part of the treatment but also come with serious risks. It is important to work with your healthcare provider to make sure you are getting the safest, most effective care. WHAT ARE THE RISKS AND SIDE EFFECTS OF OPIOID USE? Prescription opioids carry serious risks of addiction and overdose, especially with prolonged use. An opioid overdose, often marked by slowed breathing, can cause sudden . The use of prescription opioids can have a number of side effects as well, even when taken as directed: ? Tolerance?meaning you might need to take more of the medication for the same pain relief ? Physical dependence?meaning you have symptoms of withdrawal when a medication is stopped ? Increased sensitivity to pain ? Constipation ? Nausea, vomiting, and dry mouth ? Sleepiness and dizziness ? Confusion ? Depression ? Low levels of testosterone that can result in lower sex drive, energy, and strength ? Itching and sweating RISKS ARE GREATER WITH: ? History of drug misuse, substance use disorder, or overdose ? Mental health conditions (such as depression or anxiety) ? Sleep apnea ? Older age (65 years and older) ? Avoid alcohol while taking prescription opioids. Also, unless specifically advised by your health care provider, medications to avoid include: ? Benzodiazepines (such as Xanax or Valium) ? Muscle relaxants (such as Soma or Flexeril) ? Hypnotics (such as Ambien or Lunesta) ? Other prescription opioids KNOW YOUR OPTIONS Talk to your health care provider about ways to manage your pain that don?t involve prescription opioids. Some of these options may actually work better and have fewer risks and side effects. Options may include: ? Pain relievers such as acetaminophen, ibuprofen, and naproxen ? Some medication that are also used for depression or seizures ? Physical therapy and exercise ? Cognitive behavioral therapy, a psychological, goal-directed approach, in which patients learn how to modify physical, behavioral, and emotional triggers of pain and stress. IF YOU ARE PRESCRIBED OPIOIDS FOR PAIN: ? Never take opioids in greater amounts or more often than prescribed. ? Follow up with your primary health care provider. o Work together to create a plan on how to manage your pain. o Talk about ways to help manage your pain that don?t involve prescription opioids. o Talk about any and all concerns and side effects. ? Help prevent misuse and abuse o Never sell or share prescription opioids. o Never use another person?s prescription opioids. ? Store prescription opioids in a secure place and out of reach of others (this may include visitors, children, friends, and family). ? Safely dispose of unused prescription opioids: Find your community drug take-back program or your pharmacy mail-back program, or flush them down the toilet, following guidance from the Food and Drug Administration (www.fda.gov/Drugs/R esourcesForYou). ? Visit www.cdc.gov/drugover dose to learn about the risks of opioids abuse and overdose. ? If you believe you may be struggling with addiction, tell your health child care supervisor and ask for guidance or call SAM[employer]?S National Helpline at 6-882-300-HELP. v Source: [place] Department of Health and Human Services/Adrianne (more content not included)... Normal [facility] Monitor Recordon 09-06-2023 Monitor Record [id number] 0#1.00TIFF Normal [facility] Office Visiton 09-06-2023 Follow-up visit [id number] Sue Vega Estrellita 1970 F Date Provider Department Center 09/06/2023 1596-[facility] No family history on file Level of Service:17955 [place] OFFICE/OUTPATIENT ESTABLISHED MOD MDM 30 MIN Normal [facility] PT & PTTon 09-06-2023 aPTT Coag (PPP) [Time] 32.3 second(s) Normal 25.1-36.5 [facility] Comment on above: Result Comment: Para meter 15 days - 4 weeks 1 - 5 months 6 - 11 months 1 - 5 years 6 - 10 years 11 - 17 years PTT Mean: 35.4 (27.6-45.6) Mean: 33.5 (24.8-40.7) Mean: 32.4 (25.1-40.7) Mean: 31.6 (24.0-39.2) Mean: 31.6 (26.9-38.7) Mean: 31.0 (24.6-38.4) Pediatric Reference ranges were obtained from a study by Grover Mendez et al. prepared from 1437 samples obtained at 7 different centers using the same coagulation reagent and instrumentation as [facility]. Currently there are no coagulation studies available worldwide for children to 14 days, and no normal ranges. Heparin therapeutic range (represented by Anti-Factor Xa activity of 0.2 - 0.4 U/mL) corresponds to PTT of 56.6 - 109.0 sec. Performed By: #### 2 [id number], [id number], [id number] #### [facility] [address] [place] [address] INR Coag (PPP) [Relative time] 1.0 {INR} Invalid Interpretation Code [facility] Comment on above: Result Comment: INR results are specifically intended to assess patients stabilized on long-term Anticoagulation therapy suggested INR?s ?Less Intensive Anticoagulation? 2.0 ? 3.0 Conventional Range 3.0 ? 4.5 Performed By: #### 2 [id number], [id number], [id number] #### [facility] [address] [place] [address] PT Coag (PPP) [Time] 10.5 second(s) Normal 9.4-12.5 [facility] Comment on above: Result Comment: 15 d ays - 4 weeks 1 - 5 months 6 -11 months 1 ? 5 years 6 ? 10 years 11 -17 years Mean: 11.2 (9.5 ? 12.6) Mean: 11.0 (9.7 ? 12.8) Mean: 11.0 (9.8 ? 13.0) Mean: 11.3 (9.9 ? 13.4) Mean: 11.7 (10.0 ? 14.6) Mean: 11.8 (10.0 - 14.1) Pediatric Reference ranges were obtained from a study by Grover Mendez et al. prepared from 1437 samples obtained at 7 different centers using the same coagulation reagent and instrumentation as [facility]. Currently there are no coagulation studies available worldwide for children to 14 days, and no normal ranges. Performed By: #### 2 [id number], [id number], [id number] #### [facility] [address] [place] [address] TSH With T4fr Reflexon 09-06 TSH Qn 4.13 m[IU]/L Normal 0.34-5.60 [facility] Comment on above: Performed By: #### 2 824449, [id number], [id number] #### [facility] [address] [place] [address] Troponin 0 Hr.on 09-06-2023 Troponin 3.40 pg/mL Low 10.10-27.10 [facility] Comment on above: Result Comment: The 95% CI (Confidence Interval) PPV (Positive Predictive Value) for myocardial infarction in females is 38 pg/mL, in males 51 pg/mL. The results should be used in conjunction with clinical conditions of myocardial infarction. (Access High Sensitivity Troponin I Instructions For Use, Abhijit Charis, March 2018) Performed By: #### 2 528014, [id number], [id number] #### [facility] [address] [place] [address] UA With Cult Reflexon 2023 Bacteria LM Ql (Urine sed) TRACE Normal Trace [facility] Comment on above: Performed By: #### 2 062095, 8307489, [id number] #### [facility] [address] [place] [address] Bilirubin Ql (U) Negative Normal Negative [facility] Comment on above: Performed By: #### 2 151360, [id number], [id number] #### [facility] [address] [place] [address] Clarity (U) CLEAR Normal Clear [facility] Comment on above: Performed By: #### 2 488955, 8297527, [id number] #### [facility] [address] [place] [address] Color (U) YELLOW Normal Yellow [facility] Comment on above: Performed By: #### 2 914081, 2298190, 1060716 #### [facility] [address] [place] [address] Epithelial cells.squamous LM.HPF (Urine sed) [#/Area] 0-2 Normal 0-2 [facility] Comment on above: Performed By: #### 2 108862, 4398288, [id number] #### [facility] [address] [place] [address] Glucose Test strip (U) [Mass/Vol] Negative Normal Negative [facility] Comment on above: Performed By: #### 2 035695, [id number], [id number] #### [facility] [address] [place] [address] Hemoglobin Ql (U) TRACE Abnormal Negative [facility] Comment on above: Performed By: #### 2 812830, 9010611, 6003417 #### [facility] [address] [place] [address] Ketones (U) [Mass/Vol] Negative Normal Negative [facility] Comment on above: Performed By: #### 2 785745, 3607237, 4040270 #### [facility] [address] [place] [address] [place].plasma/Lith[place] m.RBC (Bld) [Mass ratio] 0-3 Normal 0-3 [facility] Comment on above: Performed By: #### 2 139353, 8583705, 9371818 #### [facility] [address] [place] [address] Nitrite Ql (U) Negative Normal Negative [facility] Comment on above: Performed By: #### 2 460048, 6166000, 4798655 #### [facility] [address] [place] [address] pH (U) 6.0 [pH] Invalid Interpretation Code 5.0-9.0 [facility] Comment on above: Performed By: #### 2 324759, 3570554, 4696035 #### [facility] [address] [place] [address] Protein (U) [Mass/Vol] Negative Normal Negative [facility] Comment on above: Performed By: #### 2 939296, 3951341, 9413452 #### [facility] [address] [place] [address] Specific gravity (U) [Rel density] 1.015 Invalid Interpretation Code 1.005-1.030 [facility] Comment on above: Performed By: #### 2 941469, 2018271, [id number] #### [facility] [address] [place] [address] Type of Urine collection method Clean Catch Normal [facility] Comment on above: Performed By: #### 2 093941, 7615997, 1643236 #### [facility] [address] [place] [address] Urobilinogen Qn (U) 0.2 {Paul'U}/dL Normal 0.0-1.0 [facility] Comment on above: Performed By: #### 2 233305, 3547138, 9395664 #### [facility] [address] [place] [address] WBC Auto Ql (U) 2+ Abnormal Negative [facility] Comment on above: Performed By: #### 2 558836, 2373042, 3132844 #### [facility] [address] [place] [address] WBC LM.HPF (Urine sed) [#/Area] 6-15 Abnormal 0-5 [facility] Comment on above: Performed By: #### 2 236881, 5458425, 9658967 #### [facility] [address] [place] [address] eGFRon 09-06-2023 eGFR 67 mL/min/1.73 m2 Normal >=59 [facility] Comment on above: Order Comment: Order added by Discern Expert. Performed By: #### 2 502863, 4860987, 0732655 #### [facility] [address] [place] [address] 36on 08-22-2023 36 Please let her know her labs showed no significant abnormalities. Her hgb was mildly low at 11.7 which is actually improved form 10.9 in December. Kidney and liver function were normal along with b12. Her thyroid function was also normal. Cholesterol levels look good too. Follow-up with PCP for further investigation for causes of fatigue. Consider sleep apnea/possible sleep study. Thanks! Normal [facility] Telephoneon 08-22-2023 Telephone [id number] Sue Vega 1970 F Date Provider Department [facility] No family history on file Normal [facility] Ambulatory Visit Summaryon 0 08-16-2023 Ambulatory Visit Summary SUE VEGA :1970 Visit Date:08/16/2023 Ambulatory Visit Instructions Your Diagnosis Migraine Your Care Team Attending Physician - Suzie García CNP Primary Care Physician - MOMO HAMPTON DO This Is Your Medications List amphetamine-dextroam phetamine (Adderall XR 20 mg Cap-ER) ascorbic acid (Vitamin C) atorvastatin (atorvastatin 20 mg Tab) clobetasol topical (clobetasol 0.025% topical cream) cyanocobalamin (Vitamin B12) diltiazem (DilTIAZem (Eqv-Cardizem CD) 120 mg/24 hours oral capsule, extended release) elderberry eletriptan (Relpax 40 mg Tab) estradiol topical (estradiol 0.1 mg/g Vag Crm) fluticasone nasal (fluticasone 0.05 mg/inh Nasal [place]) fluticasone nasal (fluticasone Nasal 0.05 mg/inh [facility]) ibuprofen (Advil) magnesium oxide (magnesium oxide 250 mg oral tablet) metformin (metformin 1000 mg Tab) montelukast (Singulair 10 mg Tab) multivitamin with minerals (Multivitamins and Minerals) suvorexant (Belsomra 10 mg oral tablet) topiramate (Topamax 100 mg Tab) Procedures Performed Cystoscopy (12/16/2020), Colonoscopy (11/07/2020), breast biopsy, left (11/2018), robotic assisted hysterectomy, bilateral salpingectomy (02/22/2014), section, D&C - Dilatation and curettage, LUMBAR FUSION, Tonsillectomy. Discharge Vitals Temperature (Oral) 36.6 ?C Heart Rate (Peripheral) 63 Blood Pressure 128/78 Height 160 cm Height 63 in Weight 66.1 kg Weight 145.42 lb BMI 25.82 Medications What How Much When Instructions Unchanged amphetamine-dextroam phetamine (Adderall XR 20 mg Cap-ER) Oral Unchanged ascorbic acid (Vitamin C) 50 Milligram Chewed Every day 500mg Unchanged atorvastatin (atorvastatin 20 mg Tab) 1 Tablets By Mouth Every day Unchanged clobetasol topical (clobetasol 0.025% topical cream) Topical 2 times a day Unchanged cyanocobalamin (Vitamin B12) 1,000 Microgram By Mouth Every day 100mg Unchanged diltiazem (DilTIAZem (Eqv-Cardizem CD) 120 mg/ 24 hours oral capsule, extended release) Unchanged elderberry Unchanged eletriptan (Relpax 40 mg Tab) 1 Tablets By Mouth Unchanged estradiol topical (estradiol 0.1 mg/ g Vag Crm) 1 Gram Vaginal Tuesday & Unchanged fluticasone nasal (fluticasone 0.05 mg/ inh Nasal [place]) Every day Unchanged fluticasone nasal (fluticasone Nasal 0.05 mg/ inh [facility]) Nasal Unchanged ibuprofen (Advil) 200 Milligram By Mouth 2-3 tabs prn Unchanged magnesium oxide (magnesium oxide 250 mg oral tablet) 2 Tablets By Mouth Every day Unchanged metformin (metformin 1000 mg Tab) 1 Tablets By Mouth 2 times a day Unchanged montelukast (Singulair 10 mg Tab) 1 Tablets By Mouth Every day Unchanged multivitamin with minerals (Multivitamins and Minerals) 1 tab By Mouth Every day Unchanged suvorexant (Belsomra 10 mg oral tablet) 1 Tablets By Mouth Once a day (at bedtime) Unchanged topiramate (Topamax 100 mg Tab) 200 Milligram By Mouth 2 times a day Allergies sulfamethoxazole (Rash) Problems Ongoing - Any problem that you are currently receiving treatment for. Abdominal pain in female Diabetes--NIDDM Dyspareunia Female pelvic pain H/O: migraine Heart murmur History of recurrent UTI (urinary tract infection) Hyperlipidemia Pituitary tumor Uterine fibroids Historical - Any problem that you are no longer receiving treatment for. Migraine Patient Survey You may receive a survey via text or e-mail asking about your office visit. Please share your experience with us by completing your survey. We appreciate your feedback and thank you for choosing us for your care. Normal [facility] Consenton 08-16-2023 Consent [phone] [id number] #[id number] Normal [facility] Family Medicine Office/Clini c Noteon 08-16-2023 Family Medicine Office/Clinic Note Chief Complaint migraine HPI Staff 53 yr old female here for migraine and upset stomach. Started on Tuesday and also had one yesterday and then today. hx of migraines. History of Present Illness Sue presents today for migraine headache which started Tuesday, went away after taking her triptan medication. Then came back yesterday, took another triptan, and now her migraine is back this morning. Has FMLA for migraines but needs more relief now. Migraine is located left occipital. No vision changes. No N/V right now. No sensitivity to light and sound. Tylenol makes her headaches worse. She has a f/u with Neurology, Dr. Lira next month. Denies N/V now. Review of Systems PHQ Score Initial Depression Screen Score: 0 SCORE Constitutional: no fever, no chills, no sweats, no weakness, no fatigue, no body aches. Skin: no jaundice, no rash, no skin lesions, no petechiae. Eyes: no eye irritation, no eye drainage, no blurry vision, no double vision, no loss of vision, no foreign body sensation. Ears: no ear pain, no __ ear drainage, no_ itching, no_ tinnitus, no _ popping, no _ muffled hearing. Nose: no rhinorrhea, no nasal congestion, no bloody noses, no upper dental pain. Throat: no pain, no difficulty swallowing, no laryngitis, no hoarseness. Respiratory: no shortness of breath, no cough, no orthopnea, no wheezing. Cardiovascular: no chest pain, no palpitations, no edema. Gastrointestinal: no nausea, no vomiting, no diarrhea, no bleeding, no abdominal pain. Neurovascular: no numbness, no tingling, reports headaches, no dizziness. Psychological: see depression screen. Physical Exam Vitals & Measurements T: 36.6 ?C(Oral) HR: 63(Peripheral) BP: 128/78 SpO2: 98% HT: 63 in HT: 160 cm WT: 66.1 kg WT: 145.42 lb BMI: 25.82 General: well developed, well groomed, well nourished, in no acute distress. Head: normocephalic, atraumatic. Eyes: pupils equal, round, reactive to light. Conjunctivae normal and sclera clear. Extraocular movement intact. Ears: bilateral external canals intact , no discharge. Bilateral tympanic membrane pearly pérez and intact, light reflex present. No pain with manipulation of tragus and pinna bilaterally. Hearing grossly normal to conversational speech. Mouth: mucous membranes pink, moist and intact. No facial droop. Neck: supple, no masses palpable. Trachea midline. Lungs: normal respiratory effort. Lungs clear and equal to auscultation throughout all ramos anterior and posterior. Cardiovascular: S1 and S2 present, with regular rate and rhythm. No murmur. Skin: [place], warm and dry. No rashes, ulcerations, or suspicious lesions noted on visible/exposed skin. Mental status: alert and oriented x 3. Normal mood and affect, normal behavior for age. Assessment/Plan Migraine (G43.909: Migraine, unspecified, not intractable, without status migrainosus) Will treat acute migraine with 30 mg Toradol IM. Push fluids, rest. F/u with PCP/Neurology PRN. Work note provided per request. Avoid known triggers. Ordered: ketorolac, 30 mg = 1 mL, Injection, IntraMuscular, Once, Stop date 08/16/23 11:36:00 EST, Routine, Start date 08/16/23 11:36:00 EST, 08/16/23 11:36:00 EST Follow-up With When Contact Information Suzie García CNP Only if needed Additional Instructions: Patient Education Migraine Headache Problem List/Past Medical History Ongoing Abdominal pain in female Diabetes--NIDDM Dyspareunia Female pelvic pain H/O: migraine Heart murmur History of recurrent UTI (urinary tract infection) Hyperlipidemia Pituitary tumor Uterine fibroids Historical Migraine Procedure/Surgical History Cystoscopy (12/16/2020), Colonoscopy (11/07/2020), breast biopsy, left (11/2018), robotic assisted hysterectomy, bilateral salpingectomy (02/22/2014), section, D&C - Dilatation and curettage, LUMBAR FUSION, Tonsillectomy. Medications Adderall XR 20 mg Cap-ER, Not taking Advil, 200 mg, Oral atorvastatin 20 mg Tab, 20 mg= 1 tab(s), Oral, Daily Belsomra 10 mg oral tablet, 10 mg= 1 tab(s), Oral, Once a day (at bedtime) clobetasol 0.025% topical cream, Topical, BID DilTIAZem (Eqv-Cardizem CD) 120 mg/24 hours oral capsule, extended release elderberry estradiol 0.1 mg/g Vag Crm, 1 gm, Vaginal, MonThu, 3 refills fluticasone 0.05 mg/inh Nasal [place], Daily fluticasone Nasal 0.05 mg/inh [facility] magnesium oxide 250 mg oral tablet, 500 [...] Never (less than 100 in lifetime) Tobacco (more content not included)... Normal [facility] Comment on above: Result Comment: Mary da silvaally Signed By: Suzie García CNP.sugar\Date and Time Signed: 08/16/23 12:08 EST Patient Educationon 08-16-19 Patient Education Neurology Migraine Headache A migraine headache is an intense, throbbing pain on one side or both sides of the head. Migraine headaches may also cause other symptoms, such as nausea, vomiting, and sensitivity to light and noise. A migraine headache can last from 4 hours to 3 days. Talk with your doctor about what things may bring on (trigger) your migraine headaches. What are the causes? The exact cause of this condition is not known. However, a migraine may be caused when nerves in the brain become irritated and release chemicals that cause inflammation of blood vessels. This inflammation causes pain. This condition may be triggered or caused by: ? Drinking alcohol. ? Smoking. ? Taking medicines, such as: ? Medicine used to treat chest pain (nitroglycerin). ? control pills. ? Estrogen. ? Certain blood pressure medicines. ? Eating or drinking products that contain nitrates, glutamate, aspartame, or tyramine. Aged cheeses, chocolate, or caffeine may also be triggers. ? Doing physical activity. Other things that may trigger a migraine headache include: ? Menstruation. ? . ? Hunger. ? Stress. ? Lack of sleep or too much sleep. ? Weather changes. ? Fatigue. What increases the risk? The following factors may make you more likely to experience migraine headaches: ? Being a certain age. This condition is more common in people who are 25?55 years old. ? Being female. ? Having a family history of migraine headaches. ? Being . ? Having a mental health condition, such as depression or anxiety. ? Being obese. What are the signs or symptoms? The main symptom of this condition is pulsating or throbbing pain. This pain may: ? Happen in any area of the head, such as on one side or both sides. ? Interfere with daily activities. ? Get worse with physical activity. ? Get worse with exposure to bright lights or loud noises. Other symptoms may include: ? Nausea. ? Vomiting. ? Dizziness. ? General sensitivity to bright lights, loud noises, or smells. Before you get a migraine headache, you may get warning signs (an aura). An aura may include: ? Seeing flashing lights or having blind spots. ? Seeing bright spots, halos, or zigzag lines. ? Having tunnel vision or blurred vision. ? Having numbness or a tingling feeling. ? Having trouble talking. ? Having muscle weakness. Some people have symptoms after a migraine headache (postdromal phase), such as: ? Feeling tired. ? Difficulty concentrating. How is this diagnosed? A migraine headache can be diagnosed based on: ? Your symptoms. ? A physical exam. ? Tests, such as: ? CT scan or an MRI of the head. These imaging tests can help rule out other causes of headaches. ? Taking fluid from the spine (lumbar puncture) and analyzing it (cerebrospinal fluid analysis, or CSF analysis). How is this treated? This condition may be treated with medicines that: ? Relieve pain. ? Relieve nausea. ? Prevent migraine headaches. Treatment for this condition may also include: ? Acupuncture. ? Lifestyle changes like avoiding foods that trigger migraine headaches. ? Biofeedback. ? Cognitive behavioral therapy. Follow these instructions at home: Medicines ? Take bspd-orp-vgersks and prescription medicines only as told by your health care provider. ? Ask your health care provider if the medicine prescribed to you: ? Requires you to avoid driving or using heavy machinery. ? Can cause constipation. You may need to take these actions to prevent or treat constipation: ? Drink enough fluid to keep your urine pale yellow. ? Take ekmd-jkf-fkzmydm or prescription medicines. ? Eat foods that are high in fiber, such as beans, whole grains, and fresh fruits and vegetables. ? Limit foods that are high in fat and processed sugars, such as fried or sweet foods. Lifestyle ? Do not drink alcohol. ? Do not use any products that contain nicotine or tobacco, such as cigarettes, e-cigarettes, and chewing tobacco. If you need help quitting, ask your health care provider. ? Get at least 8 hours of sleep every night. ? Find ways to manage stress, such as meditation, deep breathing, or yoga. General instructions ? Keep a journal to find out what may trigger your migraine headaches. For example, write down: ? What you eat and drink. ? How much sleep you get. ? Any change to your diet or medicines. ? If you have a migraine headache: ? Avoid things that make your symptoms worse, such as bright lights. ? It may help to lie down in a dark, quiet room. ? Do not drive or use heavy machinery. ? Ask your health care provider what activities are safe for you while you are experiencing symptoms. ? Keep all follow-up visits as told by your health care provider. This is important. Contact a health care provider if: ? You develop symptoms that are different or (more content not included)... Normal [facility] Provider Letteron 08-16-2023 Provider Letter [address] [place] [address] [id number] August 16, 2023 SUE VEGA [address] [place] [address] : 1970 To Whom It May Concern, Please excuse the above patient from work. Date of Illness: 08/16/23 for acute migraine headache. Sincerely, Suzie García, MSN, SURGICAL ASST, CROP DUSTER-C Normal [facility]. org [facility] Office Visiton 08-11-2023 Follow-up visit [id number] Sue Vega 1970 F Date Provider Department Center 08/11/2023 VISHAL ROSENBERG CARD [facility] No family history on file Level of Service:31608 [place] OFFICE/OUTPATIENT ESTABLISHED MOD MDM 30 MIN Reason for Visit and Comments: Dizziness [066998] Palpitations [673236] Normal [facility] Family Medicine Office/Clini c Noteon 08-03-2023 Family Medicine Office/Clinic Note Chief Complaint Current pt cough, sore throat, BA, LOMBARDO, fatigue, Left ear pain, Sinus congestion HPI Staff Sue, 53 yo female here today with sore throat, body aches Symptoms began yesterday Complains of cough, sore throat, body aches, headache, runny/stuffy nose, left ear pain, fatigue, 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 Substitutions may have occurred due to the inherent limitations of voice recognition and artificial intelligence software. Staff hpi reviewed. rm 4 PT is a 53yoF complaint of cough sore throat and body aches s/s began yesterday. Took vitamin C. was an outbreak of RSV at the senior care she works at [employer] before quarantine due to spreading. [facility] was also exposed to COVID and [...] With When Contact Information MOMO HAMPTON DO, [facility] [address] [facility], [facility] [address] [place] [address]- Additional Instructions: Patient Education Upper Respiratory Infection, Adult, Gwti-[id number] Problem List/Past Medical History Ongoing Abdominal pain [...] MonThu, 3 refills fluticasone 0.05 mg/inh Nasal [place], Daily, Not taking fluticasone Nasal 0.05 mg/inh [facility], Not taking magnesium oxide 250 mg oral [...] vaccine, inactiva (more content not included)... Normal [facility] Comment on above: Result Comment: Elec tronically Signed By: Car HOWARD, Maik Wallace\.br\Date and Time Signed: 08/03/23 09:57 EST Grp A Strp PCRon 08-03-2023 Grp A Strp Intrl Ctrl Pass Normal [facility] Comment on above: Performed By: #### 2 [id number], [id number], [id number] #### [facility] [address] [place] [address] S. pyogenes DNA ZUNILDA+probe Ql (Throat) Negative Normal [facility] Comment on above: Result Comment: Test ing performed using DNA amplification. Performed By: #### 2 959162, [id number], [id number] #### [facility] [address] [place] [address] Patient Educationon 08-03-20 23 Patient Education Infectious [...] to help relieve symptoms, such as: ? Mnph-ida-imfwlax cold medicines. ? Medicines to reduce coughing [...] other clear broths. General instructions ? Take rbla-twr-fyzmbuy and prescription medicines only as told by [...] cannot use soap and water, use hand heating and ventilating worker. ? Avoid touching your mouth, face, eyes, [...] get better within 7?10 days. ? Take kxds-agb-jvrqcux and prescription medicines only as told by your doctor. This information is not intended to replace advice given to you by your health care (more content not included)... Normal [facility] Patient Letter FTon 2022 Patient Letter [facility] [address], [place] [address] August 03, 2023 SUE VEGA [address] [place] [address] : 1970 Please excuse SUE VEGA from work . Date and/or Time of Absence: From: 08/03 To: 08/05 May return to work on: 08/06 Restrictions: None Comments: Please excuse due to an acute illness. Provider Signature: Raymond Yoon PA-C [facility] [address] [place] [address] [facility] 36on 07-23-2023 36 Please let patient know her ECHO showed no significant findings for a cause for her sx's. She may be a little on the dry side, encourage her to increase her fluid intake. Her aortic valve is mildly Leaky . Follow-up as planned. Thanks Arleen [facility] Telephoneon 07-23-2023 Telephone [id number] Sue Vega 1970 F Date Provider Department Center 07/23/2023 VISHAL ROSENBERG Saurabh . No family history on file [facility] A1C HEMOGLOBINon 07-15-2023 HbA1c (Bld) [Mass fraction] 5.5 % [employer] Other HbA1c (Bld) [Mass fraction]o n 07-15-2023 A1C HEMOGLOBIN [facility] [employer] Other Office Visiton 06-22-2023 Follow-up visit [id number] Sue Vega 1970 F Date Provider Department [place] 06/22/2023 VISHAL ROSENBERG TY Maldonado [facility] No family history on file Level of Service:93972 [place] OFFICE/OUTPATIENT ESTABLISHED MOD MDM 30-39 MIN Reason for Visit and Comments: Follow-up [898939] - Blood pressure. Heart rate racing. Fatigued, fast heart rate, dizziness. Normal [facility] Ralf 05-16-2023 L Specimen: [id number] Received: 05/17/23 Status: TEMITOPE Gee Num: [id number] Spec Type: Surgical Subm Dr: Momo Hampton DO Tissues: A Skin-Other than Cyst, tag, debridement or plastic repair (RT KNEE) Procedures: Darrin WEEKS/Ata L4 Age/ Patient Sex Location Account Attending Physician Sue Vega 53/Cal MEEHAN [id number] Momo Hampton DO SPEC NUM: [id number] RECD: 05/17/23 STATUS: TEMITOPE GEE NUM: [id number] BRENDAN: 05/16/[address] [facility] DR: Momo Hampton DO ENTERED: 05/17/[address] [facility] [address]: SPEC TYPE: Surgical DEPT: S ORDERED: MICKY, Gross/Micro L4 ORDERED: HE, Gross/Micro L4 Pathological Diagnosis Skin, medial right [...] The microscopic examination confirms the diagnosis. Specimen: [id number] Received: 05/17/23 Status: TEMITOPE Aamir Num: [id number] Spec Type: Surgical Subm Dr: Momo Hampton DO Tissues: A Skin-Other than Cyst, tag, debridement or plastic repair (RT KNEE) Procedures: Darrin WEEKS/Aat L4 Patient: Sue Vega [id number] (Continued) Specimen: [id number] Received: 05/17/23 (Continued) Signed (signature on file) Craig House MD 05/18/23 1512 Specimen: [id number] Received: 05/17/23 Status: TEMITOPE Aamir Num: [id number] Spec Type: Surgical Subm Dr: Momo Hampton DO Tissues: A Skin-Other than Cyst, tag, debridement or plastic repair (RT KNEE) Procedures: Darrin WEEKS/Ata Kumar Patient: Sue Vega [id number] (Continued) Specimen: [id number] Received: 05/17/23 (Continued) CPT Codes 87832 Specimen: [id number] Received: 05/17/23 Status: TEMITOPE Gee Num: [id number] Spec Type: Surgical Subm Dr: Momo Hampton DO Tissues: A Skin-Other than Cyst, tag, debridement or plastic repair (RT KNEE) Procedures: Darrin WEEKS/Ata Kumar Patient: Sue Vega [id number] (Continued) Signed (signature on file) Craig House MD 05/18/23 1512 [facility] Family Medicine Office/Clini c Noteon 04-04-2023 [...] with voice recognition software. Occasional wrong-word or ?hwgix-j-quae? substitutions may have occurred due to the inherent limitations of voice recognition software. 53 yo female presents with cc of ear pain. Pt states left ear pain. Patient states that she was coloring her hair x3 days ago on Tuesday at home. States she has colored her hair for several years. [place] that she got some color in the [...] infection at this time you may continue tpsz-qmk-nhnibyz nasal spray at home such as fluticasone or iuqe-ghh-pmdvcqf Flonase to see if this helps with eustachian tube dysfunction. And continue to monitor. Develop any worsening left-sided ear pain drainage from the left ear fever or any other worsening or concerning symptoms he should call the primary care provider or return for reevaluation. Follow-up With When Contact Information MOMO HAMPTON DO, [address] [address]- Additional Instructions: Patient Education Earache, Adult Problem [...] MonThu, 3 refills fluticasone 0.05 mg/inh Nasal [place], Daily fluticasone Nasal 0.05 mg/inh [facility] magnesium oxide 250 mg oral tablet, 500 mg= 2 tab(s), Oral, Daily metformin 1000 mg Tab, 1000 mg= 1 tab(s), Oral, BID methylphenidate 27 mg/24 hr ER Tab [employer] (more content not included)... Normal [facility] Comment on above: Result Comment: Elec tronically [...] at home: Medicines ? Take or apply iooa-gqt-vhyhfxv and prescription medicines only as told by [...] provider. Document Revised: 02/29/2020 Document Reviewed: 03/01/2020 Elsevier Patient Education ? 2022 [employer] Normal [facility] A1C HEMOGLOBINon 01-14-2023 HbA1c (Bld) [Mass fraction] 5.4 % [employer] [facility] [employer] Other HbA1c (Bld) [Mass fraction]o n 01-14-2023 A1C HEMOGLOBIN [facility] [employer] Other Family Medicine Office/Clini c Noteon 12-20-2022 [...] # 21 tab(s), Refills(s) 0, Pharmacy: [facility]/pharmacy #[id number], 161, cm, 12/20/22 12:08:00 EDT, Height/Length Dosing, 56, kg, 12/20/22 12:08:00 EDT, Weight Dosing naproxen, 500 mg = 1 tab(s), Oral, BID, may sub non ec if needed, X 15 day(s), # 30 tab(s), Refills(s) 0, Pharmacy: [facility]/pharmacy #[id number], 161, cm, 12/20/22 12:08:00 EDT, Height/Length Dosing, 56, kg, 12/20/22 12:08:00 EDT, Weight Dosing Follow-up With When Contact Information MOMO HAMPTON DO, [facility] [address] [facility], [facility] [address] [place] [address]- Additional Instructions: Patient Education Sciatica, Rjti-rr-Btdn Problem List/Past Medical History Ongoing Abdominal pain [...] MonThu, 3 refills fluticasone 0.05 mg/inh Nasal [place], Daily fluticasone Nasal 0.05 mg/inh [facility] magnesium oxide 250 mg oral tablet, 500 [...] Alcohol Use, (more content not included)... Normal [facility] Comment on above: Result Comment: Elec tronically Signed By: Nisha RIVERO CNP\.sugar\Date and Time Signed: 12/20/22 12:51 EDT Patient Educationon 12-21-19 Patient Education Orthopedics Sciatica Sciatica is pain, [...] these instructions at home: Medicines ? Take sarr-ums-nvgteul and prescription medicines only as told by your doctor. ? Ask your doctor if the medicine prescribed to you: ? Requires you to avoid driving or using heavy machinery. ? Can cause trouble pooping (constipation). You may need to take these steps to prevent or treat trouble pooping: ? Drink enough fluids to keep your pee (urine) pale yellow. ? Take solw-pvr-nkzyrit or prescription medicines. ? Eat foods that [...] longer than (more content not included)... Normal [facility] T3 Totalon 12-19-2022 T3 [Mass/Vol] 98 ng/dL Invalid Interpretation Code [id number] [facility] Comment on above: Result Comment: Perf ormed at: [facility] [id number] [place], [place] [id number] PhD Henny Larios Performed By: #### 2 913908, 0620935, [id number] #### [facility] [address] [place] [address] Auto Diffon 12-18-2022 Basophils/100 WBC (Bld) 0.7 % Normal 0.0-2.0 [facility] Comment on above: Order Comment: Order Added by Discern Expert. Performed By: #### 2 924730, 6590315, 6916447 #### [facility] [address] [place] [address] Basophils/Leukocytes Auto (Bld) [Pure # fraction] 0.0 E9/L Normal 0.0-0.2 [facility] Comment on above: Order Comment: Order Added by Discern Expert. Performed By: #### 2 676810, 1415373, 4961253 #### [facility] [address] [place] [address] Eosinophils/100 WBC (Bld) 5.6 % Normal 0.0-8.0 [facility] Comment on above: Order Comment: Order Added by Discern Expert. Performed By: #### 2 453739, 7566185, 0298181 #### [facility] [address] [place] [address] Eosinophils/Leukocyte s Auto (Bld) [Pure # fraction] 0.2 E9/L Normal 0.0-0.5 [facility] Comment on above: Order Comment: Order Added by Discern Expert. Performed By: #### 2 689850, 1065003, 1425192 #### [facility] [address] [place] [address] Lymphocytes/100 WBC (Bld) 24.7 % Normal 14.0-50.0 [facility] Comment on above: Order Comment: Order Added by Discern Expert. Performed By: #### 2 254732, 0942609, 7361332 #### [facility] [address] [place] [address] Lymphocytes/Leukocyte s Auto (Bld) [Pure # fraction] 1.0 E9/L Normal 1.0-4.0 [facility] Comment on above: Order Comment: Order Added by Discern Expert. Performed By: #### 2 724101, 0985643, 0899758 #### [facility] [address] [place] [address] Monocytes/100 WBC (Bld) 9.5 % Normal 4.0-14.0 [facility] Comment on above: Order Comment: Order Added by Discern Expert. Performed By: #### 2 207196, 2365321, 3377258 #### [facility] [address] [place] [address] Monocytes/Leukocytes Auto (Bld) [Pure # fraction] 0.4 E9/L Normal 0.2-1.0 [facility] Comment on above: Order Comment: Order Added by Discern Expert. Performed By: #### 2 649398, 9015956, 0526583 #### [facility] [address] [place] [address] Neutrophils/100 WBC (Bld) 59.5 % Normal 36.0-75.0 [facility] Comment on above: Order Comment: Order Added by Discern Expert. Performed By: #### 2 462259, 5423566, 3699776 #### [facility] [address] [place] [address] Neutrophils/Leukocyte s Auto (Bld) [Pure # fraction] 2.5 E9/L Normal 2.0-7.5 [facility] Comment on above: Order Comment: Order Added by Discern Expert. Performed By: #### 2 865044, 5954925, 4774689 #### [facility] [address] [place] [address] CBC w/ Auto Diffon 3 Erythrocyte distribution width (RBC) [Ratio] 16.9 % High 10.9-14.2 [facility] Comment on above: Performed By: #### 2 490139, 8153147, 5916810 #### [facility] [address] [place] [address] Hematocrit (Bld) [Volume fraction] 34.4 % Normal 34.0-46.0 [facility] Comment on above: Performed By: #### 2 402103, 0221856, 5182420 #### [facility] [address] [place] [address] Hemoglobin (Bld) [Mass/Vol] 10.9 g/dL Low 12.0-16.0 [facility] Comment on above: Performed By: #### 2 803885, 7849810, 1791982 #### [facility] [address] [place] [address] MCH (RBC) [Entitic mass] 25.2 pg Low 27.0-34.0 [facility] Comment on above: Performed By: #### 2 016003, 8546034, 5604560 #### [facility] [address] [place] [address] MCHC (RBC) [Mass/Vol] 31.7 g/dL Normal 31.4-36.0 [facility] Comment on above: Performed By: #### 2 008402, 1151553, 1954590 #### [facility] [address] [place] [address] MCV (RBC) [Entitic vol] 79.5 fL Low 80.0-100.0 [facility] Comment on above: Performed By: #### 2 832812, 7604201, 5414638 #### [facility] [address] [place] [address] Platelet mean volume (Bld) [Entitic vol] 7.2 fL Normal 6.4-10.8 [facility] Comment on above: Performed By: #### 2 280191, 1241685, 4824534 #### [facility] [address] [place] [address] Platelets (Bld) [#/Vol] 308.0 E9/L Normal 150.0-500.0 [facility] Comment on above: Performed By: #### 2 050054, 0891176, 9090713 #### [facility] [address] [place] [address] RBC (Bld) [#/Vol] 4.3 E12/L Normal 4.3-5.9 [facility] Comment on above: Performed By: #### 2 587370, 8705263, 2362532 #### [facility] [address] [place] [address] WBC corrected for nucl RBC Auto (Bld) [#/Vol] 4.2 E9/L Normal 4.0-11.0 [facility] Comment on above: Performed By: #### 2 345384, 2377721, 8518938 #### [facility] [address] [place] [address] CHEMISTRYOrdered By: SYSTEM SYSTEM on 12-18-2022 Albumin [Mass/Vol] 4.4 g/dL Normal 3.3 - 5.0 gm/dL FT Remisol Albumin/Globulin [Mass ratio] 1.6 {ratio} Normal [...] 103 mL/min/1.73 m2 Normal >=59mL/min/1 .73 m2 FT Chem S Globulin (S) [Mass/Vol] 2.8 g/dL [...] ratio] 20 mg/mg Normal 10 - 20 [facility] Remisol CHEMISTRYOrdered By: Pasha Gray on 12-18-2022 HbA1c (Bld) [Mass fraction] 5.6 % Normal <=5.9% [facility] ChemAutoSS CMPon 12-18-2022 Albumin [Mass/Vol] 4.4 g/dL Normal 3.3-5.0 [facility] Comment on above: Performed By: #### 2 354285, 8440968, 5916527 #### [facility] [address] [place] [address] Albumin/Globulin (S) [Mass conc ratio] 1.6 Normal 1.1-2.2 [facility] Comment on above: Performed By: #### 2 540271, 7111553, 8685501 #### [facility] [address] [place] [address] ALP [Catalytic activity/Vol] 72 Int._Unit/L Normal 21-98 [facility] Comment on above: Performed By: #### 2 206295, 3212232, 5171858 #### [facility] [address] [place] [address] ALT No additional P-5'-P [Catalytic activity/Vol] 28 Int._Unit/L Normal 6-46 [facility] Comment on above: Performed By: #### 2 002254, 8646863, 3399517 #### [facility] [address] [place] [address] Anion gap [Moles/Vol] 8 mmol/L Normal 6-16 [facility] Comment on above: Performed By: #### 2 575315, 2236854, 6725192 #### [facility] [address] [place] [address] AST [Catalytic activity/Vol] 28 Int._Unit/L Normal 5-43 [facility] Comment on above: Performed By: #### 2 537956, 9678003, 5997413 #### [facility] [address] [place] [address] Bilirubin [Mass/Vol] 0.2 mg/dL Normal 0.0-1.1 [facility] Comment on above: Performed By: #### 2 040526, 8266553, 8039875 #### [facility] [address] [place] [address] Calcium [Mass/Vol] 9.2 mg/dL Normal 8.9-11.1 [facility] Comment on above: Performed By: #### 2 151541, 7893320, 9801533 #### [facility] [address] [place] [address] Chloride [Moles/Vol] 112 mmol/L High 101-111 [facility] Comment on above: Performed By: #### 2 340769, 6367572, 8247488 #### [facility] [address] [place] [address] CO2 [Moles/Vol] 26 mmol/L Normal 21-31 [facility] Comment on above: Performed By: #### 2 629603, 7235689, 0226955 #### [facility] [address] [place] [address] Creatinine [Mass/Vol] 0.7 mg/dL Normal 0.5-1.3 [facility] Comment on above: Performed By: #### 2 985958, 9044288, 6205765 #### [facility] [address] [place] [address] Globulin (S) [Mass/Vol] 2.8 g/dL Normal 1.4-4.0 [facility] Comment on above: Performed By: #### 2 801105, 9137322, 1348925 #### [facility] [address] [place] [address] Glucose [Mass/Vol] 87 mg/dL Normal 55-199 [facility] Comment on above: Result Comment: If t his glucose result represents a fasting glucose, interpretation should refer to the following reference range: 55-99 mg/dL Performed By: #### 2 322833, 0216872, 7142240 #### [facility] [address] [place] [address] Potassium [Moles/Vol] 3.7 mmol/L Normal 3.5-5.3 [facility] Comment on above: Performed By: #### 2 972440, 3529230, 9428378 #### [facility] [address] [place] [address] Protein [Mass/Vol] 7.2 g/dL Normal 6.0-7.8 [facility] Comment on above: Performed By: #### 2 690973, 6797822, 1297712 #### [facility] [address] [place] [address] Sodium [Moles/Vol] 142 mmol/L Normal 135-145 [facility] Comment on above: Performed By: #### 2 193951, 0971705, 3775433 #### [facility] [address] [place] [address] Urea nitrogen [Mass/Vol] 14 mg/dL Normal 5-21 [facility] Comment on above: Performed By: #### 2 201555, 6808707, 3323440 #### [facility] [address] [place] [address] Urea nitrogen/Creatinine [Mass ratio] 20 No Units Normal 10-20 [facility] Comment on above: Performed By: #### 2 784648, 2215831, 8344746 #### [facility] [address] [place] [address] Consent for Treatmenton 12-06 Consent for Treatment [id number] #1.00CD:127 Normal [facility] Consent for Treatment [id number] #1.00CD:127 Normal [facility] Free T4on 12-18-2022 Free T4 [Mass/Vol] 0.75 ng/dL Normal 0.58-1.64 [facility] Comment on above: Performed By: #### 2 547309, 6968999, 1892474 #### [facility] [address] [place] [address] HEMATOLOGYOrdered By: SYSTEM SYSTEM on 12-18-2022 Basophils/100 [...] 79.5 fL Low 80.0 - 100.0 fL FT [employer] Platelet mean volume (Bld) [Entitic vol] 7.2 fL Normal 6.4 - 10.8 fL [facility] [employer]eAutoSS Platelets (Bld) [#/Vol] 308.0 E9/L Normal 150.0 - 500.0 E9/L FT [employer]eAutoSS RBC (Bld) [#/Vol] 4.3 E12/L Normal 4.3 - 5.9 E12/L [facility] HemeAutoSS WBC corrected for nucl RBC Auto (Bld) [#/Vol] 4.2 E9/L Normal 4.0 - 11.0 E9/L [facility] [employer]eAutoSS [id number] 12-18-2022 HbA1c (Bld) [Mass fraction] 5.6 % Normal <=5.9 [facility] Comment on above: Performed By: #### 2 398290, 9300999, 4853313 #### [facility] [address] [place] [address] Lipid Panelon 12-18-2022 Cholesterol [Mass/Vol] 161 mg/dL Normal 120-200 [facility] Comment on above: Performed By: #### 2 445953, 3217031, 4916789 #### [facility] [address] [place] [address] Cholesterol in HDL [Mass/Vol] 73 mg/dL Invalid Interpretation Code [facility] Comment on above: Result Comment: HDL > or equal to 60 mg/dL: Low cardiovascular risk HDL < 40 mg/dL : High cardiovascular risk Performed By: #### 2 897681, 2171898, 6978535 #### [facility] [address] [place] [address] Cholesterol in LDL [Mass/Vol] 68 mg/dL Normal <=129 [facility] Comment on above: Performed By: #### 2 226568, 8371097, 0858853 #### [facility] [address] [place] [address] Cholesterol in VLDL [Mass/Vol] 19 mg/dL Normal 7-40 [facility] Comment on above: Performed By: #### 2 847124, 1317427, 9682066 #### [facility] [address] [place] [address] Triglyceride [Mass/Vol] 97 mg/dL Normal <=149 [facility] Comment on above: Performed By: #### 2 326835, 3715424, 2813693 #### [facility] [address] [place] [address] Physician Orderon 12-18-2022 Physician Order [id number] #1.00CD:127 Normal [facility] Physician Order [id number] #1.00CD:127 Normal [facility] Prolactinon 12-18-2022 Prolactin [Mass/Vol] 14.03 ng/mL Normal 2.74-19.64 [facility] Comment on above: Performed By: #### 2 244305, 6126458, 2541716 #### [facility] [address] [place] [address] TSHon 12-18-2022 TSH Qn 2.35 m[IU]/L Normal 0.34-5.60 [facility] Comment on above: Performed By: #### 2 401045, 0374935, 5052843 #### [facility] [address] [place] [address] eGFRon 12-18-2022 GFR/1.73 sq M.predicted among non-blacks MDRD (S/P/Bld) [Vol rate/Area] 103 mL/min/1.73 m2 Normal >=59 [facility] Comment on above: Order Comment: Order added by Discern Expert. Result Comment: [employer]os[employer]dnance Specialist david kidney disease could be indicated at eGFR's of less than 60 mL/min/1.73m2. Kidney failure is indicated at less than 15 mL/min/1.73m2. Performed By: #### 2 624099, 5083149, 3842304 #### [facility] [address] [place] [address] CT chest wo conon 06-18-2022 CT chest wo con [facility] Main [place] [address] [place] [address] [address] Scan Report Signed Patient: Sue Vega MR#: [id number] : 1970 Acct:[id number] Age/Sex: 52 / F ADM Date: 06/18/22 Loc: CT Room: Type: [facility] Attending Dr: Aisha Acevedo MD Copies to: [...] Jae Gorman M.D.06/18/2022 7:48 PM Dictation Location: [place] [address] Transcribed By: [facility] 06/18/221947 Dictated By: Jae Gorman DO 06/18/221942 Signed By: 06/18/221947 [facility] A1C HEMOGLOBINon 01-14-2022 HbA1c (Bld) [Mass fraction] 5.5 % [employer] Other HbA1c (Bld) [Mass fraction]o n 01-14-2022 A1C HEMOGLOBIN [employer] Other MG MAMM SCREEN 3D LUIS CADon 01-14-2022 MG MAMM SCREEN 3D LUIS CAD Patient: SUE VEGA Exam Date: 01/14/2022 : 1970 Gender:F Ordering : DR YURY GARCIA [facility] Admission #: [id number] Family : Order #: [id number] CLICK HERE TO VIEW EXAM RADIOLOGY REPORT PROCEDURE: MAMMOGRAM SCREENING 3D BILATERAL CAD COMPARISON: MG MAMM SCREEN 3D LUIS CAD, 09/15/2019. MG MAMM SCREEN 3D LUIS CAD, 11/06/2020. INDICATIONS: Screening mammography Calculator Name NCI Breast Cancer Risk Assessment Tool 5 Year Breast Cancer Risk 1.40% Lifetime Breast Cancer Risk 11.20% Personal Breast Cancer No Personal Ovarian Cancer No Treatments None Family Cancers Aunt-maternal with breast cancer at age 55; Mother with lung cancer at age 65. LOCATION: [facility] BREAST COMPOSITION: Heterogeneously dense,which may obscure [...] LUMP SHOULD BE BIOPSIED. Dictated by: Lizbet Cespedes MD on 01/15/2022 at 08:09 Approved by: Lizbet Cespedes MD on 01/15/2022 at 11:10 [facility] XR DEXA BONE DENSITYon 01-14 XR DEXA BONE DENSITY EXAMINATION: XR DEX A BONE DENSITY, 01/14/2022 10:01 AM EDT HISTORY: [...] Low fracture risk Electronically authenticated by: LIZBET CESPEDES Date: 2022-01-14 12:06 Normal [facility] Q - PROLACTINon 11-27-2021 PROLACTIN 6.6 ng/mL Normal [facility] Comment on above: Order Comment: [facility] performed at: [facility], [address], [address] [place], [place] [address], [id number], International Operations Manager: Hamilton Singh MD [facility] Collection Date/Time: [facility] Results Received Date/Time: [facility] Reported Date/Time: FASTING: UNKNOWN Result Comment: Refe rence Range Males 2.0-18.0 Females Non- 3.0-30.0 10.0-209.0 Postmenopausal 2.0-20.0 Performed By: #### 8 59X, 746X, 3128 #### [facility] Default [address] [place] [address] Q - T3 TOTALon 11-27-2021 T3, TOTAL 93 ng/dL Normal 76-181 [facility] Comment on above: Order Comment: [facility] Testing performed at: [facility], [address], [address] [place] [address], [place], [address], International Operations Manager: Hamilton Singh MD [facility] Collection Date/Time: [facility] Results Received Date/Time: [facility] Reported Date/Time: FASTING: UNKNOWN Result Comment: Your request to have a duplicate copy faxed has been acknowledged. Queued to: [id number] Performed By: #### 8 59X, 746X, 3128 #### [facility] Default [address] [place] [address] Q - TSH and T4,FREEon 2021 Free T4 [Mass/Vol] 1.1 ng/dL Normal 0.8-1.8 [facility] Comment on above: Order Comment: [facility] Testing performed at: [facility], [address], [address] [facility], [place], [address], International Operations Manager: Hamilton Singh MD [facility] Date/Time: [facility] Results Received Date/Time: [facility] Reported Date/Time: FASTING: UNKNOWN Performed By: #### 8 59X, 746X, 3128 #### [facility] [address] [place] [address] TSH Qn 1.88 m[IU]/L Normal 0.40-4.50 [facility] Comment on above: Order Comment: [facility] Testing performed at: Q, [facility], [address] [facility], [address] [place] [address], [address], International Operations Manager: Hamilton Singh MD [facility] Date/Time: [facility] Results Received Date/Time: [facility] Reported Date/Time: FASTING: UNKNOWN Performed By: #### 8 59X, 746X, 3128 #### [facility] Default [address] [place] [address] A1C HEMOGLOBINon 09-14-2021 HbA1c (Bld) [Mass fraction] 5.5 % [employer] Other HbA1c (Bld) [Mass fraction]o n 09-14-2021 A1C HEMOGLOBIN [facility] [employer] Other OBSOLETEon 03-08-2021 OBSOLETE Refill (ENDPMN) SUE VEGA ([id number]) 1970 F Date Time Provider Department 03/08/21 STALIN GARCÍA During your visit today, we recorded the following information about you: Karolina Stapleton Ma 03/09/2021 8:02 AM Signed Please advise in coming pharmacy requested refill. Karolnia García MD 03/09/2021 8:11 AM Signed Refill [...] Chronic migraine [346.71] [G43.719] 06/17/2008 09/23/2008 8.2.5 Combination-analgesi c overuse headache [F*06/17/2008 09/23/2008 13.8 Occipital neuralgia [G52.80] [723.8] [M5*06/17/2008 CERVICALGIA [M54.2] 09/23/2008 SLEEP DISTURBANCE NOS [G47.9] 09/23/2008 1.1 Migraine without aura [346.11] [G43.019] 12/11/2008 BENIGN JALEEL PITUITARY [D35.2, D35.3] 12/11/2008 Diabetes mellitus type 2, controlled, without c*06/05/2009 Insomnia [G47.00] 03/24/2010 Elevated blood pressure [[id number]] 03/24/2011 Hyperlipidemia [E78.5] 03/24/2011 Pituitary adenoma [D35.2] [...] Encounter Status:Closed by STALIN GARCÍA on 03/09/21 [facility] ([id number]) 1970 F Date Time Provider Department 02/11/21 STALIN GARCÍA [facility] During your visit today, we recorded the following information about you: Rosario Briggs 02/11/2021 3:09 PM Signed Received outside labs from Yuriy Duarte Collected/Completed 01/31/21 Scanned directly in to chart from [employer] Available for your review under labs Dated [...] PT. STATES SHE NEEDS REFILLS TODAY 07/27/10 [place] Problem List As Of Date 02/11/2021 Noted Resolved 1.1 Migraine without aura, not intractable [346*06/17/2008 1.5.1 Chronic migraine [346.71] [G43.719] 06/17/2008 09/23/2008 8.2.5 Combination-analgesi c overuse headache [F*06/17/2008 09/23/2008 13.8 Occipital neuralgia [G52.80] [723.8] [M5*06/17/2008 CERVICALGIA [M54.2] 09/23/2008 SLEEP DISTURBANCE NOS [G47.9] 09/23/2008 1.1 Migraine without aura [346.11] [G43.019] 12/11/2008 BENIGN JALEEL PITUITARY [D35.2, D35.3] 12/11/2008 Diabetes mellitus type 2, controlled, without c*06/05/2009 Insomnia [G47.00] 03/24/2010 Elevated blood pressure [[id number]] 03/24/2011 Hyperlipidemia [E78.5] 03/24/2011 Pituitary adenoma [D35.2] 08/15/2013 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] 10/12/2013 Migraines [G43.909] Diabetes (HCC) [E11.9] Pituitary tumor [D49.7] Pain of right sacroiliac joint [M53.3] 09/15/2015 Bilateral low back pain without sciatica [M54.5]09/15/2015 Dry eye syndrome of bilateral lacrimal glands [*12/19/2015 Hyperprolactinemia (HCC) [E22.1] 05/26/2016 Encounter Status:Closed by ROSARIO BRIGGS on 02[facility]11[facility]21 [facility] CNP[facility] Telephone ([facility]) SUE VEGA ([id number]) 1970 F Date Time Provider Department 02/02/21 STALIN GARCÍA [facility] During your visit today, we recorded the following information about you: Rosario Briggs 02/02/2021 4:45 PM Signed Received outside labs from Yuriy Duarte Collected/Completed 01/31/21 Scanned directly in to chart from [employer] Available for your review under labs Dated 02/02/21 Last OV: 01/27/21 Future OV: Not scheduled at this time Stalin García MD 02/03/2021 7:57 AM Signed Rosario Briggs 02/04/2021 10:59 AM Signed Additional lab received. 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] 10/12/2013 Migraines [G43.909] Diabetes (HCC) [E11.9] Pituitary tumor [D49.7] Pain of right sacroiliac joint [M53.3] 09/15/2015 Bilateral low back pain without sciatica [M54.5]09/15/2015 Dry eye syndrome of bilateral lacrimal glands [*12/19/2015 Hyperprolactinemia (HCC) [E22.1] 05/26/2016 Encounter Status:Closed by ROSARIO BRIGGS on 02/02/21 Normal [facility] CNCOon 01-27-2021 CNCO Letter Text Normal [facility] CNOVon 01-27-2021 CNOV Office Visit (ENDPMN) SUE VEGA ([id number]) 1970 F Date Time Provider Department 01/27/21 11:20 AM STALIN GARCÍA [facility] During your visit today, we recorded the [...] No Does patient want to see a Hotel Operation Manager? No (yes to any of above refer [...] Initial Assessment REQUESTING PHYSICIAN: Roderick Dunlap (Joan) [address] [place] [address] My final recommendations will be communicated back to the requesting physician by way of shared Medical record or letter via US mail. Chief Complaint: Pituitary adenoma History of Present Illness Ms. Sue Vega is a 50 year old female with [...] have a 6 mm pituitary adenoma in 2015. The lesion has grown over the years. [...] visual defects:Yes, blurry vision, increased thirst or urination:Yes,Noctur ia: Yes, discharge from breast:No, painful breast: No, Breast swelling:No, increased head/hand or shoe size:No Darkening of skin/gums:No, salt craving:No, skin stretch carter:No, easy bruising:No, excess hair growth over face/chin/chest/or abdomen:No,difficult y raising arms overhead, difficulty getting up from [...] taking: Reported on 01/27/2021) 0 No current facility-administere d medications for this visit. ALLERGIES Allergen Reactions [...] Ht 162 (more content not included)... Normal [facility] Aureliano 01-27-2021 [facility] Telephone ([facility]) SUE VEGA ([id number]) 1970 F Date Time Provider Department 01/27/21 STALIN GARCÍA [facility] During your visit today, we recorded the following information about you: Rosario Mourapascual 01/27/2021 2:16 PM Signed Faxed office note to Roderick Dunlap MD at [phone] Allergies As of Date: 01/27/2021 Noted Allergy [...] Chronic migraine [346.71] [G43.719] 06/17/2008 09/23/2008 8.2.5 Combination-analgesi c overuse headache [F*06/17/2008 09/23/2008 13.8 Occipital neuralgia [G52.80] [723.8] [M5*06/17/2008 CERVICALGIA [M54.2] 09/23/2008 SLEEP DISTURBANCE NOS [G47.9] 09/23/2008 1.1 Migraine without aura [346.11] [G43.019] 12/11/2008 BENIGN JALEEL PITUITARY [D35.2, D35.3] 12/11/2008 Diabetes mellitus type 2, controlled, without c*06/05/2009 Insomnia [G47.00] 03/24/2010 Elevated blood pressure [[id number]] 03/24/2011 Hyperlipidemia [E78.5] 03/24/2011 Pituitary adenoma [D35.2] 08/15/2013 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] 10/12/2013 Migraines [G43.909] Diabetes (HCC) [E11.9] Pituitary tumor [D49.7] Pain of right sacroiliac joint [M53.3] 09/15/2015 Bilateral low back pain without sciatica [M54.5]09/15/2015 Dry eye syndrome of bilateral lacrimal glands [*12/19/2015 Hyperprolactinemia (HCC) [E22.1] 05/26/2016 Encounter Status:Closed by ROSARIO BRIGGS on 01/27/21 Normal [facility] OTHER SURGICAL IMAGE -NBNRon 12-29-2020 OTHER SURGICAL IMAGE -NBNR Photographic digital images obtained during surgery [id number] Normal [facility] Vital Signs Date Time Vital Sign Value Performing Clinician Facility 08-16-2023 10:38-0500 Blood Pressure Location Suzie Ricky [facility] 08-16-2023 10:38-0500 Body temperature 97.88 [degF] Suzie García [facility] 08-16-2023 10:38-0500 Diastolic blood pressure 78 mm[Hg] Suzie García [facility] 08-16-2023 10:38-0500 Heart rate 63 /min Suzie García [facility] 08-16-2023 10:38-0500 SaO2% (BldA) [Mass fraction] 98 % Suzie García [facility] 08-16-2023 10:38-0500 Systolic blood pressure 128 mm[Hg] Suzie García [facility] 08-03-2023 09:22-0500 Blood Pressure Location KATRINA DELONG [facility] 08-03-2023 09:22-0500 Body temperature 97.7 [degF] KATRINA DELONG [facility] 08-03-2023 09:22-0500 Diastolic blood pressure 70 mm[Hg] KATRINA SINDI [facility] 08-03-2023 09:22-0500 Heart rate 78 /min [facility] 08-03-2023 09:22-0500 SaO2% (BldA) [Mass fraction] 98 % [facility] 08-03-2023 09:22-0500 Systolic blood pressure 110 mm[Hg] [facility] 07-15-2023 08:00-0500 Body height 160.02 cm Momo Memo Other [employer] [facility] [employer] Other 07-15-2023 08:00-0500 Body mass index (BMI) [Ratio] 24.44 kg/m2 [employer] Other [employer] Other 07-15-2023 08:00-0500 Body temperature 98 [degF] Momo Mem[employer] Other [employer] Other 07-15-2023 08:00-0500 Body weight 62.6 kg Momo Memo Other [employer] Other 07-15-2023 08:00-0500 Diastolic blood pressure 78 mm[Hg] Momo Memo Other [employer] Other 07-15-2023 08:00-0500 Respiratory rate 20 /min Momo Memo Other [employer] Other 07-15-2023 08:00-0500 SaO2% (BldA) [Mass fraction] 97 % [employer] Other [employer] Other 07-15-2023 08:00-0500 Systolic blood pressure 128 mm[Hg] Mom[employer] Other [employer] Other 05-16-2023 08:15-0400 Body height 160.02 cm Momo Mem[employer] Other [employer] Other 05-16-2023 08:15-0400 Body mass index (BMI) [Ratio] 24.44 kg/m2 [employer] Other [employer] Other 05-16-2023 08:15-0400 Body temperature 96.9 [degF] Momo Mem[employer] Other [employer] Other 05-16-2023 08:15-0400 Body weight 62.6 kg Momo Memo Other [employer] Other 05-16-2023 08:15-0400 Diastolic blood pressure 70 mm[Hg] Momo Memo Other [employer] Other 05-16-2023 08:15-0400 Respiratory rate 20 /min Mom[employer] Mem[employer] Other [employer] Other 05-16-2023 08:15-0400 SaO2% (BldA) [Mass fraction] 99 % Mom[employer] Other [employer] Other 05-16-2023 08:15-0400 Systolic blood pressure 106 mm[Hg] Mom[employer] Other [employer] Other 04-04-2023 17:28-0400 Blood Pressure Location Leroy Quach [facility] 04-04-2023 17:28-0400 Body temperature 97.52 [degF] Leroy Storey [facility] 04-04-2023 17:28-0400 Diastolic blood pressure 78 mm[Hg] Leroy Storey [facility] 04-04-2023 17:28-0400 Heart rate 76 /min Leroy Storey [facility] 04-04-2023 17:28-0400 SaO2% (BldA) [Mass fraction] 99 % Leroy Storey [facility] 04-04-2023 17:28-0400 Systolic blood pressure 100 mm[Hg] Leroy Storey [facility] 01-14-2023 08:00-0400 Body height 160.02 cm Momo [employer] Other [employer] Other 01-14-2023 08:00-0400 Body mass index (BMI) [Ratio] 23.56 kg/m2 [employer] Other [employer] Other 01-14-2023 08:00-0400 Body temperature 97.2 [degF] [employer] Other [employer] Other 01-14-2023 08:00-0400 Body weight 60.33 kg Momo Memo Other [employer] Other 01-14-2023 08:00-0400 Diastolic blood pressure 60 mm[Hg] Momo Memo Other [employer] Other 01-14-2023 08:00-0400 Respiratory rate 20 /min Momo [employer] Other [employer] Other 01-14-2023 08:00-0400 SaO2% (BldA) [Mass fraction] 96 % [employer] Other [employer] Other 01-14-2023 08:00-0400 Systolic blood pressure 90 mm[Hg] [employer] Other [employer] [facility] [employer] Other 12-20-2022 12:04-0400 Blood Pressure Location Nisha RIVERO [facility] 12-20-2022 12:04-0400 Body temperature 97.88 [degF] Nisha MAT [facility] 12-20-2022 12:04-0400 Diastolic blood pressure 68 mm[Hg] Nisha RIVERO [facility] 12-20-2022 12:04-0400 Heart rate 68 /min Nisha RIVERO [facility] 12-20-2022 12:04-0400 SaO2% (BldA) [Mass fraction] 97 % Nisha RIVERO [facility] 12-20-2022 12:04-0400 Systolic blood pressure 116 mm[Hg] Nisha RIVERO [facility] 06-29-2022 10:15-0500 Body height 160.02 cm Aisha Diazkahlil Other [employer] Other 06-29-2022 10:15-0500 Body mass index (BMI) [Ratio] 23.38 kg/m2 Aisha Acevedo Other [employer] Other 06-29-2022 10:15-0500 Body temperature 97.4 [degF] Aisha Acevedo Other [employer] Other 06-29-2022 10:15-0500 Body weight 59.88 kg Aisha Acevedo Other [employer] Other 06-29-2022 10:15-0500 Diastolic blood pressure 64 mm[Hg] Aisha Acevedo Other [employer] Other 06-29-2022 10:15-0500 Respiratory rate 20 /min Aisha Acevedo Other [employer] Other 06-29-2022 10:15-0500 SaO2% (BldA) [Mass fraction] 100 % Aisha Acevedo Other [employer] Other 06-29-2022 10:15-0500 Systolic blood pressure 100 mm[Hg] Aisha Acevedo Other [employer] Other 01-14-2022 09:00-0400 Body height 160.02 cm Momo Memo Other [employer] Other 01-14-2022 09:00-0400 Body mass index (BMI) [Ratio] 23.03 kg/m2 [employer] Other [employer] Other 01-14-2022 09:00-0400 Body temperature 98.4 [degF] Momo Memo Other [employer] Other 01-14-2022 09:00-0400 Body weight 58.97 kg Momo Memo Other [employer] Other 01-14-2022 09:00-0400 Diastolic blood pressure 64 mm[Hg] Momo Memo Other [employer] Other 01-14-2022 09:00-0400 Respiratory rate 20 /min Momo Memo Other [employer] Other 01-14-2022 09:00-0400 SaO2% (BldA) [Mass fraction] 98 % Momo Memo Other [employer] Other 01-14-2022 09:00-0400 Systolic blood pressure 98 mm[Hg] Momo Memo Other [employer] Other 09-14-2021 10:00-0500 Body height 160.02 cm Momo Memo Other [employer] Other 09-14-2021 10:00-0500 Body mass index (BMI) [Ratio] 23.73 kg/m2 Momo Memo Other [employer] Other 09-14-2021 10:00-0500 Body temperature 97.7 [degF] Momo Memo Other [employer] Other 09-14-2021 10:00-0500 Body weight 60.78 kg Momo Memo Other [employer] Other 09-14-2021 10:00-0500 Diastolic blood pressure 56 mm[Hg] Momo Memo Other [employer] Other 09-14-2021 10:00-0500 Respiratory rate 20 /min Momo Memo Other [employer] Other 09-14-2021 10:00-0500 SaO2% (BldA) [Mass fraction] 99 % Momo Memo Other [employer] Other 09-14-2021 10:00-0500 Systolic blood pressure 90 mm[Hg] Momo Memo Other [employer] Other 08-27-2021 11:30-0500 Body height 160.02 cm Momo Memo Other [employer] Other 08-27-2021 11:30-0500 Body mass index (BMI) [Ratio] 23.56 kg/m2 Momo Memo Other [employer] Other 08-27-2021 11:30-0500 Body temperature 97.2 [degF] Momo Memo Other [employer] Other 08-27-2021 11:30-0500 Body weight 60.33 kg Momo Memo Other [employer] Other 08-27-2021 11:30-0500 Diastolic blood pressure 64 mm[Hg] Momo Memo Other [employer] Other 08-27-2021 11:30-0500 Respiratory rate 20 /min Momo Memo Other [employer] Other 08-27-2021 11:30-0500 SaO2% (BldA) [Mass fraction] 95 % Momo Memo Other [employer] Other 08-27-2021 11:30-0500 Systolic blood pressure 92 mm[Hg] Momo Hampton Other [employer] Other 06-30-2021 10:15-0500 Body height 160.02 cm Aisha Acevedo Other [employer] Other 06-30-2021 10:15-0500 Body mass index (BMI) [Ratio] 23.31 kg/m2 Aisha Diazban Other [employer] Other 06-30-2021 10:15-0500 Body temperature 96.8 [degF] Aisha Diazban Other [employer] Other 06-30-2021 10:15-0500 Body weight 59.69 kg Aisha Diazban Other [employer] Other 06-30-2021 10:15-0500 Diastolic blood pressure 72 mm[Hg] Aisha Diazban Other [employer] Other 06-30-2021 10:15-0500 Respiratory rate 20 /min Aisha Diazban Other [employer] Other 06-30-2021 10:15-0500 SaO2% (BldA) [Mass fraction] 99 % Aisha Diazban Other [employer] Other 06-30-2021 10:15-0500 Systolic blood pressure 108 mm[Hg] Aisha Diazban Other [employer] Other Encounters Encounter Date Encounter Type Care Provider Facility Start: 12-20-2023 End: 12-20-2023 [facility] Start: 11-10-2023 End: [facility] Start: 11-08-2023 End: 11-08-2023 ambulatory RODERICK Julian JEREMY Not Available Start: 11-01-2023 End: 11-01-2023 ambulatory [facility] Start: 10-18-2023 End: 10-19-2023 ambulatory [facility] Start: 09-29-2023 End: 09-30-2023 ambulatory Yury Denisha Plasenciae Facility:[facility] Start: 09-29-2023 End: 09-29-2023 Patient encounter procedure Yury Garcia [facility] Start: 09-27-2023 End: 09-27-2023 ambulatory [facility] Start: 09-06-2023 End: 09-06-2023 Emergency department patient visit Shekhar Rubio Facility:[facility] Start: 09-06-2023 End: 09-06-2023 ambulatory [facility] Start: 09-05-2023 End: 09-05-2023 ambulatory Momo Memo Other [facility] [employer] Other Start: 09-05-2023 Telephone encounter Momo Memo [facility] Start: 08-16-2023 Telephone encounter Momo Memo [facility] [place] Start: 08-16-2023 End: 08-16-2023 ambulatory Suzie García [employer] [facility] [employer] Other Start: 08-16-2023 End: 08-16-2023 Patient encounter procedure Suzie García [facility] Start: 08-11-2023 End: 08-11-2023 ambulatory VISHAL ZHANG [facility] Start: 08-03-2023 End: 08-04-2023 ambulatory Maik V. Spasic Facility:[facility] Start: 08-03-2023 End: 08-03-2023 Lab Drop off Maik V. Spasic [facility] Start: 08-03-2023 End: 08-03-2023 Patient encounter procedure KATRINA DELONG [facility] Start: 07-15-2023 End: 07-15-2023 ambulatory Momo Memo Other [employer] Other Start: 07-15-2023 Office outpatient visit 15 minutes Momo Memo [facility] Start: 06-22-2023 End: [facility]: [facility]-15-[facility] End: 06-15-2023 ambulatory Momo Memo Other [employer] Other Start: 06-15-2023 Telephone encounter Momo Memo [facility] Start: 05-16-2023 Patient encounter procedure Momo Memo [facility] Start: 05-16-2023 End: 05-16-2023 ambulatory DO Momo M. Memo Work Phone: [employer] Other Start: 05-16-2023 End: 05-16-2023 Departed Referred DO Momo Memo Work Phone: [facility] [place] Work Phone: Start: 05-09-2023 End: 05-09-2023 ambulatory Momo Memo Other [employer] Other Start: 05-09-2023 Telephone encounter Momo Memo [facility] Start: 05-05-2023 End: 05-05-2023 ambulatory Momo Memo Other [employer] Other Start: 05-05-2023 Telephone encounter Momo Memo [facility] Start: 04-27-2023 End: 04-27-2023 ambulatory Momo Memo Other [employer] Other Start: 04-27-2023 Telephone encounter Momo Memo [facility] Start: 04-25-2023 End: 04-25-2023 ambulatory Momo Memo Other [employer] Other Start: 04-25-2023 Telephone encounter Momo Memo [facility] Start: 04-18-2023 End: 04-18-2023 ambulatory Momo Memo Other [employer] Other Start: 04-18-2023 Telephone encounter Momo Memo [facility] Start: 04-04-2023 End: 04-05-2023 ambulatory Leroy Storey Facility:[facility] Start: 04-04-2023 End: 04-04-2023 Patient encounter procedure Leroy Storey [facility] Start: 03-18-2023 End: 03-18-2023 ambulatory Momo Memo Other [employer] Other Start: 03-18-2023 Telephone encounter Momo Memo [facility] Start: 02-21-2023 End: 02-21-2023 ambulatory Momo Memo Other [employer] Other Start: 02-21-2023 Telephone encounter Momo Memo [facility] Start: 02-07-2023 End: 02-07-2023 ambulatory Momo Memo Other [employer] Other Start: 02-07-2023 Telephone encounter Momo Memo [facility] Start: 01-26-2023 End: 01-26-2023 ambulatory Momo Memo Other [employer] Other Start: 01-26-2023 Telephone encounter Momo Memo [facility] Start: 01-14-2023 End: 01-14-2023 ambulatory Momo Memo Other [employer] Other Start: 01-14-2023 Office outpatient visit 15 minutes Momo Memo [facility] Start: 12-20-2022 End: 12-21-2022 ambulatory Nisha RIVERO Facility:[facility] Start: 12-20-2022 End: 12-20-2022 Patient encounter procedure Nisha RIVERO [facility] Start: 12-18-2022 End: 12-19-2022 ambulatory RODERICK D BEJ Facility:[facility] Start: 12-18-2022 End: 12-18-2022 Patient encounter procedure RODERICK D BEDenisha [facility] Start: 12-07-2022 End: 12-07-2022 ambulatory Momo Memo Other [employer] Other Start: 12-07-2022 Telephone encounter Momo Memo [facility] Start: 11-22-2022 End: 11-22-2022 ambulatory Momo Memo Other [employer] Other Start: 11-22-2022 Telephone encounter Momo Memo [facility] Start: 11-15-2022 End: 11-16-2022 ambulatory Dev MOORE Facility:[facility] Start: 11-15-2022 End: 11-15-2022 Patient encounter procedure Dev Johnson TER[facility] Start: 11-10-2022 End: 11-10-2022 ambulatory Momo Memo Other [employer] Other Start: 11-10-2022 Telephone encounter Momo Memo [facility] Start: 11-09-[address] MOMO HAMPTON Facil ity:H1 Start: 10-15-2022 End: 10-15-2022 ambulatory Momo Memo Other [employer] Other Start: 10-15-2022 Telephone encounter Momo Memo [facility] Start: 10-14-2022 End: 10-14-2022 ambulatory Momo Memo Other [employer] Other Start: 10-14-2022 Telephone encounter Momo Memo [facility] Start: 10-11-2022 End: 10-11-2022 ambulatory Momo Memo Other [employer] Other Start: 10-11-2022 Telephone encounter Momo Memo [facility] Start: 09-07-2022 End: 09-07-2022 ambulatory Momo Memo Other [employer] Other Start: 09-07-2022 Telephone encounter Momo Memo [facility] Start: 09-06-2022 End: 09-06-2022 ambulatory Momo Memo Other [employer] Other Start: 09-06-2022 Telephone encounter Momo Memo [facility] Start: 08-19-2022 End: 08-19-2022 ambulatory DO Momo M. Memo Work Phone: [facility] Work Phone: Start: 08-19-2022 End: 08-19-2022 Discharged Recurring DO Momo Memo Work Phone: [facility] [place] Work Phone: Start: 08-13-2022 End: 08-13-2022 ambulatory Momo Memo Other [employer] Other Start: 08-13-2022 Telephone encounter Momo Memo [facility] Start: 08-11-2022 End: 08-11-2022 ambulatory Momo Memo Other [employer] Other Start: 08-11-2022 Telephone encounter Momo Memo [facility] Start: 08-06-2022 End: 08-06-2022 ambulatory Momo Memo Other [employer] Other Start: 08-06-2022 Telephone encounter Momo Memo [facility] Start: 08-02-2022 End: 08-03-[address] MOMO M MEMO Facility: Start: 07-07-2022 End: 07-07-2022 ambulatory Momo Memo Other [employer] Other Start: 07-07-2022 Telephone encounter Momo Memo [facility] Start: 06-29-2022 End: 06-29-2022 ambulatory Kamwanda Chaban Other [employer] Other Start: 06-29-2022 Office outpatient visit 15 minutes Kamal Curtis [facility] Start: 06-18-2022 End: 06-18-2022 ambulatory Kamal Chaban Facility:[facility] Start: 06-08-2022 End: 06-08-2022 ambulatory Momo Memo Other [employer] Other Start: 06-08-2022 Telephone encounter Momo Memo [facility] Start: 05-10-2022 End: 05-10-2022 ambulatory Momo Memo Other [employer] Other Start: 05-10-2022 Telephone encounter Momo Memo [facility] Start: 04-06-2022 End: 04-06-2022 ambulatory Momo Memo Other [employer] Other Start: 04-06-2022 Telephone encounter Momo Memo [facility] Start: 03-25-2022 End: 03-25-2022 ambulatory Momo Memo Other [employer] Other Start: 03-25-2022 Telephone encounter Momo Memo [facility] Start: 03-11-2022 End: 03-11-2022 ambulatory Momo Memo Other [employer] Other Start: 03-11-2022 Telephone encounter Momo Memo [facility] Start: 03-05-2022 End: 03-05-2022 ambulatory Momo Memo Other [employer] Other Start: 03-05-2022 Telephone encounter Momo Memo [facility] Start: 03-04-2022 End: 03-05-[address] BARR M MEMO Facility: Start: 03-03-2022 End: 03-03-2022 ambulatory Momo Memo Other [employer] Other Start: 03-03-2022 Telephone encounter Momo Memo [facility] Start: 02-09-2022 End: 02-09-2022 ambulatory Momo Memo Other [employer] Other Start: 02-09-2022 Telephone encounter Momo Memo [facility] Start: 02-02-2022 End: 02-02-2022 ambulatory Momo Memo Other [employer] Other Start: 02-02-2022 Telephone encounter Momo Memo [facility] Start: 01-14-2022 Office outpatient visit 15 minutes Momo Memo [facility] Start: 01-14-2022 End: 01-15-[address] LIZBET Ivey [place] [employer] Other Start: 01-07-2022 End: 01-07-2022 ambulatory Momo Memo Other [employer] Other Start: 01-07-2022 Telephone encounter Momo Memo [facility] Start: 12-07-2021 End: 12-07-2021 ambulatory Momo Memo Other [employer] Other Start: 12-07-2021 Telephone encounter Momo Memo [facility] Start: 11-10-2021 End: 11-10-2021 ambulatory Momo Memo Other [employer] Other Start: 11-10-2021 Telephone encounter Momo Memo [facility] Start: 10-09-2021 End: 10-09-2021 ambulatory Momo Memo Other [employer] Other Start: 10-09-2021 Telephone encounter Momo Memo [facility] Start: 10-02-2021 End: 10-02-2021 ambulatory Momo Memo Other [employer] Other Start: 10-02-2021 Telephone encounter Momo Memo [facility] Start: 09-14-2021 End: 09-14-2021 ambulatory Momo Memo Other [employer] Other Start: 09-14-2021 Office outpatient visit 25 minutes Momo Memo [facility] Start: 08-27-2021 End: 08-27-2021 ambulatory Momo Memo Other [employer] Other Start: 08-27-2021 Office outpatient visit 15 minutes Momo Memo [facility] Start: 08-26-2021 End: 08-26-2021 ambulatory Momo Memo Other [employer] Other Start: 08-26-2021 Telephone encounter Momo Memo [facility] Start: 08-25-2021 End: 08-25-2021 ambulatory Momo Memo Other [employer] Other Start: 08-25-2021 Telephone encounter Momo Memo [facility] Start: 08-11-2021 End: 08-11-2021 ambulatory Momo Memo Other [employer] Other Start: 08-11-2021 Telephone encounter Momo Memo [facility] Start: 08-06-2021 End: 08-06-2021 ambulatory Momo Memo Other [employer] Other Start: 08-06-2021 Telephone encounter Momo Memo [facility] [place] Start: 06-30-2021 End: 06-30-2021 ambulatory Aisha Acevedo Other [employer] Other Start: 06-30-2021 Office outpatient visit 15 minutes Aisha Acevedo [facility] Start: 11-06-2018 End: 11-07-2018 Patient encounter procedure DEFAULT PHYSICIAN Facility:[facility] Start: 10-30-2018 End: 10-31-2018 Patient encounter procedure DEFAULT PHYSICIAN Facility:[facility] Start: 09-19-2018 Patient encounter procedure RON GRACIA Facility:[id number] Procedures Date Procedure Procedure Detail Performing Clinician Start: 12-16-2020 Cystoscopy Dev YVETTE STEPHENSON Start: 11-07-2020 Colonoscopy Dev STEPHENSON Start: 11-06-2018 breast biopsy, left Rhonda erin MOORE Start: 02-22-2014 robotic assisted hysterectomy, bilateral salpingectomy Dev MOORE section Dev BILL GUTIERREZ Dilation and curetta ge of uterus Dev MOORE Comment on above: X2 LUMBAR FUSION Dev MOORE Tonsillectomy Dev MOORE Immunizations Immunization Date Immunization Notes Care Provider Chan baires 05-16-2023 influenza virus vaccine, unspecified formulation KATRINA DELONG [facility] 05-16-2023 influenza, injectabl e, quadrivalent, contains preservative Momo Memo Other [employer] Other 06-05-2022 influenza virus vaccine, unspecified formulation KATRINA DELONG [facility] 06-05-2022 influenza, injectabl e, quadrivalent, preservative free Momo Memo Other [employer] Other 03-25-2022 zoster vaccine recombinant KATRINA DELONG [facility] 01-22-2022 COVID-19 Pfizer Aisha Acevedo Other [employer] Other 01-22-2022 SARS-CoV-2 mRNA (bechfmzicux-kuqg-kaore se) vaccine KATRINA DELONG [facility] 01-22-2022 zoster vaccine recombinant KATRINA FITZPATRICKTIZ [facility] 07-01-2021 Do not use COVID-19 Pfizer 2 dose Momo Memo Other [facility] 06-08-2021 SARS-CoV-2 (COVID-19 ) Ad26 vaccine, recombinant Dev MOORE [facility] 05-22-2021 influenza virus vaccine, unspecified formulation KATRINA DELONG [facility] 05-22-2021 influenza, injectabl e, quadrivalent, contains preservative Momo Memo Other [employer] Other 10-01-2020 COVID-19 Vaccine Pfi zer - Documentation Purposes Only Aisha Acevedo Other [facility] 09-10-2020 COVID-19 Vaccine Pfi zer - Documentation Purposes Only Aisha Acevedo Other [facility] 05-27-2020 influenza virus vaccine, unspecified formulation KATRINA DELONG [facility] 05-16-2019 influenza virus vaccine, unspecified formulation KATRINA DELONG [facility] 05-16-2019 influenza, injectabl e, quadrivalent, contains preservative Kamal Chaban Other [employer] Other 05-08-2018 influenza, injectabl e, quadrivalent, contains preservative Kamal Chaban Other [employer] Other 05-08-2018 influenza virus vaccine, unspecified formulation KATRINA DELONG [facility] 06-09-2017 influenza virus vaccine, unspecified formulation KATRINA DELONG [facility] 06-09-2017 influenza, injectabl e, quadrivalent, contains preservative Kamal Chaban Other [employer] Other 07-05-2016 influenza virus vaccine, unspecified formulation KATRINA DELONG [facility] 07-05-2016 pneumococcal polysaccharide vaccine, [address] [facility] 05-22-2016 pneumococcal conjuga te vaccine, 13 valent Kamal Chaban Other [facility] 05-22-2016 influenza, injectabl e, quadrivalent, contains preservative Kamal Chaban Other [employer] Other 05-22-2016 influenza virus vaccine, unspecified formulation KATRINA DELONG [facility] Payers Date Payer Category Payer Self-pay [id number] 1970 Unknown [id number] 2.16.8 [id number] 1970 Unknown [id number] 2.16.8 40.1.971563.3.579.2.647 1969 Unknown [id number] 2.16.8 40.1.500062.3.579.2.647 1969 Unknown [id number] 2.16.84 0.1.201092.3.579.2.593 1969 Unknown [id number] 2.16.84 0.1.400701.3.579.2.593 1969 Unknown [id number] 2.16.84 0.1.643628.3.579.2.593 1969 Unknown [id number] 2.16.84 0.1.808749.3.579.2.593 1969 Unknown [id number] 2.16.8 40.1.400021.3.579.2.72 1969 Unknown [id number] 2.16.8 40.1.164078.3.579.2.72 1969 Unknown [id number] 2.16.8 40.1.067453.3.579.2.72 1969 Unknown [id number] 2.16.8 40.1.758471.3.579.2.72 1969 Unknown [id number] 2.16.8 40.1.211534.3.579.2.72 1969 Unknown [id number] 2.16.8 40.1.511682.3.579.2.72 1969 Unknown [id number] 2.16.8 40.1.255913.3.579.2.72 1969 Unknown [id number] 2.16.8 40.1.221447.3.579.2.72 1969 Unknown [id number] 2.16.8 40.1.028556.3.579.2.72 1969 Unknown [id number] 2.16.8 40.1.198785.3.579.2.72 1969 Unknown [id number] 2.16.8 40.1.693102.3.579.2.727 1969 Unknown [id number] 2.16.8 40.1.927767.3.579.2.727 1969 Unknown [id number] 2.16.84 0.1.369051.3.579.2.1259 1960 Self-pay [id number] 1960 Unknown [id number] Unknown Unknown [id number] 2.16.8 40.1.714690.3.579.2.531 Unknown [id number] 2.16.8 40.1.780426.3.579.2.531 Unknown [id number] 2.16.8 40.1.372457.3.579.2.531 Social History Date Type Detail Facility Unknown if ever smoked [employer] Other Sex Assigned At [facility] Start: 1970 Sex Assigned At Female [facility] Start: 11-17-2020 End: 08-16-2023 Tobacco smoking status Never smoked tobacco (finding) [facility] Tobacco smoking status Never [facility] Medical Equipment Procedure Code Equipment Code Equipment Origin al Text Equipment Identifier Dates Test Strips as directed Start: 10-14-2020 Functional Status Date Assessment Result Facility 08-16-2023 Functional Status N/A [facility] 08-03-2023 Functional Status N/A [facility] 04-04-2023 Functional Status N/A [facility] 12-20-2022 Functional Status N/A [facility] Clinical Notes 01-27-2021 to 12-20-2023 Note Date & Type Note Facility 12-20-2023 Note [facility] Consult Note Reason for visit: SVT 12/20/23 Patient here for follow up heart cath on 11/10/[address] Clark which revealed normal coronaries. Hasn't had recent episodes of palpitations. Denies chest pain and SOB. Still gets lightheaded a lot. Wants to know if she can go back to cardio. 11/01/23 Patient here for follow up stress test performed at [facility]. She presented to [facility] ED on 10/10 for elevated heart rate in the 120's. Still denies chest pain and SOB. Dizziness/lightheadedness is improving she says. Patient underwent a treadmill stress test on 10/18/2023 she exercised for total of 8 minutes by Brock protocol and achieved a maximal heart rate of 146 bpm or 87% of the maximal predicted heart rate the test was terminated due to dyspnea and there was appropriate heart rate response with appropriate blood pressure response the EKG did not show any evidence of ischemia however there was evidence of perfusion defects that was noted on the stress test which during the test is positive. Prior HPI: Sue Vega is a 53 y.o. year old with past medical history of aortic valve regurgitation, type 2 diabetes, hyperlipidemia, palpitations. she has been seen previously in our clinic for complaints of palpitations. She has had monitors placed and notes that she had some SVT episodes and sinus tahcycardia she was on Adderall and stopped taking but continues to feel tachycardic. she was started on diltiazem previously, this did not seem to resolve the tachycardia although she states she feels better on diltiazem despite heart rate still being in the 120s. Kayode started her on Corlanor which she could not afford. she categorically noted the first episode a number tenths when while she was sitting the tachycardia started. most of the time these episodes are sporadic and short. they seem to be more symptomatic for her at nighttime. event monitor placed from 06/22/2023 to 07/22/2023 revealed episodes of nonsustained atrial tachycardia that are symptomatic. no episodes of A-fib or other ventricular arrhythmias were noted PMH: Past Medical History: Diagnosis Date Diabetes mellitus type 2, controlled, without complications ([facility]) 06/05/2009 Hyperlipidemia 03/24/2011 Nonrheumatic aortic valve insufficiency 06/22/2023 PSH: No past surgical history on file. SH: Social Determinants of Health Tobacco Use: Low Risk (06/22/2023) Patient History Smoking Tobacco Use: Never Smokeless Tobacco Use: Never Passive Exposure: Not on file Alcohol Use: Not on file Financial Resource Strain: Not on file Food Insecurity: Not on file Transportation Needs: Not on file Physical Activity: Not on file Stress: Not on file Social Connections: Not on file Intimate Partner Violence: Unknown (09/29/2023) [place] Safety & Environment Fear of Current or Ex-Partner: Not on file Emotionally Abused: Not on file Physically Abused: Not on file Sexually Abused: Not on file Physically or Sexually Abused: Not on file Depression: Not on file Housing Stability: Not on file Utilities: Not on file Allergies: Allergies Allergen Reactions Sulfa (Sulfonamide Antibiotics) Rash Sulfoil Unknown Weight: 67.1kg Visit Vitals BP 107/70 (BP Location: Left arm, Patient Position: Sitting) Pulse 97 Ht 1.6 m (5' 3 ) Wt 67.1 kg (148 lb) SpO2 97% BMI 26.22 kg/m??? OB Status Hysterectomy Smoking Status Never BSA 1.73 m??? Meds: Current Outpatient Medications on File Prior to Visit Medication Sig Dispense Refill ascorbic acid (Vitamin C) 100 mg tablet Take 100 mg by mouth in the morning. atorvastatin (Lipitor) 20 mg tablet Take 1 tablet (20 mg) by mouth in the morning. 90 tablet 3 Belsomra 10 mg tablet TAKE 1 TABLET BY MOUTH EVERY DAY AT BEDTIME NEEDED FOR 30 DAYS calcium citrate-vitamin D2 250 mg-2.5 mcg (100 unit) tablet Take 1 tablet by mouth in the morning and at bedtime. cyanocobalamin/folic acid (vitamin T83-juogm acid) 1,000-400 mcg lozenge in the morning. dilTIAZem CD (Cartia XT) 240 mg 24 hr capsule Take 1 capsule (240 mg) by mouth in the morning. 90 capsule 3 eletriptan (Relpax) 40 mg tablet 1 tab PRN migraine, may repeat in 2 hours. No more than 2 per LOMBARDO or 4 per week or 9 per 30 days. fluticasone (Flonase) 50 mcg/actuation nasal spray Refill(s) 0, Nasal magnesium oxide (Mag-Ox) 250 mg magnesium tablet Take 500 mg by mouth. metFORMIN (Glucophage) 1,000 mg tablet Take 1,000 mg by mouth with breakfast and with evening meal. tiZANidine (Zanaflex) 4 mg tablet Take 4 mg by mouth every 6 (six) hours if needed for muscle spasms. topiramate (Topamax) 100 mg tablet Take 200 mg by mouth in the morning and at bedtime. dilTIAZem CD (Cardizem CD) 120 mg 24 hr capsule Take 1 capsule (120 mg) by mouth in the morning. (Patient not taking: Reported on 11/10/2023) 30 capsule 0 dilTIAZem CD (Cardizem CD) 120 mg 24 hr capsule Take 1 capsule (120 mg) by mouth in the (more content not included)... [facility] 11-10-2023 Note Cardiovascular Labor atory Report FINAL IMPRESSIONS: Angiographically nonobstructive coronary arteries Sluggish coronary flow consistent with COLEMAN II flow suggestive of endothelial dysfunction Normal global left ventricular systolic function by noninvasive imaging RECOMMENDATIONS: Aggressive cardiovascular risk factor modification Consider aspirin and high intensity statin +/- an angiotensin-converting enzyme inhibitor given suggestion of endothelial dysfunction Follow-up with Dr. Billy in the [facility] PROCEDURES: Ultrasound-guided access to the left radial artery, bilateral selective coronary angiography via a left radial approach METHODS: After risks, benefits, and alternatives were explained, written informed consent was obtained. The patient was prepped and draped in usual sterile fashion over the left wrist. Local infiltration anesthesia was achieved of the left wrist. Using a micropuncture kit, access to the left radial artery was obtained. A 6 Brazilian glide sheath was inserted without difficulty. Bilateral selective coronary angiography was performed using JR 4.0 and JL 4.0 catheters. After reviewing the images, it was elected to conclude the procedure. The catheters were removed. The radial sheath was removed with application of a TR band per protocol to achieve optimal hemostasis. FINDINGS: Hemodynamics: AO 125/83 [98] LEFT VENTRICULOGRAPHY: This was not performed. Ejection fraction is 65-70% by prior echocardiogram CORONARY ARTERIES: Left main coronary artery: This arises from the left coronary cusp and trifurcates into the left anterior descending, ramus intermedius, and left circumflex coronary arteries. It is free of significant stenosis. Left anterior descending coronary artery: This is angiographically nonobstructive. It has COLEMAN II flow in the mid to distal portion of the vessel suggestive of endothelial dysfunction. Ramus intermedius: This is a moderate size vessel that is angiographically nonobstructive. Left circumflex coronary artery: This is angiographically nonobstructive. Right coronary artery: This arises from the right coronary cusp, it is a dominant vessel giving rise to the posterior descending and posterolateral branches. It shows sluggish flow consistent with COLEMAN II flow in the mid to distal portion. No significant stenoses are seen. INDICATIONS: Abnormal stress test, supraventricular tachycardia [facility] 11-01-2023 Note [place] [facility] Consult Note Reason for visit: SVT 11/01/23 Patient here for follow up stress test performed at [facility]. She presented to [facility] ED on 10/10 for elevated heart rate in the 120's. Still denies chest pain and SOB. Dizziness/lightheadedness is improving she says. Patient underwent a treadmill stress test on 10/18/2023 she exercised for total of 8 minutes by Brock protocol and achieved a maximal heart rate of 146 bpm or 87% of the maximal predicted heart rate the test was terminated due to dyspnea and there was appropriate heart rate response with appropriate blood pressure response the EKG did not show any evidence of ischemia however there was evidence of perfusion defects that was noted on the stress test which during the test is positive. Prior HPI: Sue Vega is a 53 y.o. year old with past medical history of aortic valve regurgitation, type 2 diabetes, hyperlipidemia, palpitations. she has been seen previously in our clinic for complaints of palpitations. She has had monitors placed and notes that she had some SVT episodes and sinus tahcycardia she was on Adderall and stopped taking but continues to feel tachycardic. she was started on diltiazem previously, this did not seem to resolve the tachycardia although she states she feels better on diltiazem despite heart rate still being in the 120s. Kayode started her on Corlanor which she could not afford. she categorically noted the first episode a number tenths when while she was sitting the tachycardia started. most of the time these episodes are sporadic and short. they seem to be more symptomatic for her at nighttime. event monitor placed from 06/22/2023 to 07/22/2023 revealed episodes of nonsustained atrial tachycardia that are symptomatic. no episodes of A-fib or other ventricular arrhythmias were noted PMH: Past Medical History: Diagnosis Date Diabetes mellitus type 2, controlled, without complications ([facility]) 06/05/2009 Hyperlipidemia 03/24/2011 Nonrheumatic aortic valve insufficiency 06/22/2023 PSH: No past surgical history on file. SH: Social Determinants of Health Tobacco Use: Low Risk (06/22/2023) Patient History Smoking Tobacco Use: Never Smokeless Tobacco Use: Never Passive Exposure: Not on file Alcohol Use: Not on file Financial Resource Strain: Not on file Food Insecurity: Not on file Transportation Needs: Not on file Physical Activity: Not on file Stress: Not on file Social Connections: Not on file Intimate Partner Violence: Unknown (09/29/2023) [place] Safety & [place] Fear of Current or Ex-Partner: Not on file Emotionally Abused: Not on file Physically Abused: Not on file Sexually Abused: Not on file Physically or Sexually Abused: Not on file Depression: Not on file Housing Stability: Not on file Utilities: Not on file Allergies: Allergies Allergen Reactions Sulfa (Sulfonamide Antibiotics) Rash Sulfoil Unknown Weight: 65.3kg Visit Vitals BP 140/66 (BP Location: Left arm, Patient Position: Sitting) Pulse 79 Ht 1.6 m (5' 3 ) Wt 65.3 kg (144 lb) SpO2 99% BMI 25.51 kg/m??? Smoking Status Never BSA 1.7 m??? Meds: Current Outpatient Medications on File Prior to Visit Medication Sig Dispense Refill ascorbic acid (Vitamin C) 100 mg tablet Take 100 mg by mouth in the morning. atorvastatin (Lipitor) 20 mg tablet Take 1 tablet (20 mg) by mouth in the morning. 90 tablet 3 Belsomra 10 mg tablet TAKE 1 TABLET BY MOUTH EVERY DAY AT BEDTIME NEEDED FOR 30 DAYS calcium citrate-vitamin D2 250 mg-2.5 mcg (100 unit) tablet Take 1 tablet by mouth in the morning and at bedtime. cyanocobalamin/folic acid (vitamin H58-mvnlr acid) 1,000-400 mcg lozenge in the morning. dilTIAZem CD (Cardizem CD) 120 mg 24 hr capsule Take 1 capsule (120 mg) by mouth in the morning. 30 capsule 0 dilTIAZem CD (Cartia XT) 240 mg 24 hr capsule Take 1 capsule (240 mg) by mouth in the morning. 90 capsule 3 eletriptan (Relpax) 40 mg tablet 1 tab PRN migraine, may repeat in 2 hours. No more than 2 per LOMBARDO or 4 per week or 9 per 30 days. fluticasone (Flonase) 50 mcg/actuation nasal spray Refill(s) 0, Nasal magnesium oxide (Mag-Ox) 250 mg magnesium tablet Take 500 mg by mouth. metFORMIN (Glucophage) 1,000 mg tablet Take 1,000 mg by mouth with breakfast and with evening meal. montelukast (Singulair) 10 mg tablet Singulair 10 mg tablet Take 1 tablet as needed by oral route. tiZANidine (Zanaflex) 4 mg tablet Take 4 mg by mouth every 6 (six) hours if needed for muscle spasms. topiramate (Topamax) 100 mg tablet Take 200 mg by mouth in the morning and at bedtime. dilTIAZem CD (Cardizem CD) 120 mg 24 hr capsule Take 1 capsule (120 mg) by mouth in the morning. 90 capsule 3 ivabradine (Corlanor) 5 mg tablet Take 1 tablet (5 mg) by mouth in the morning and at bedtime. 60 tablet 0 ivabradine (Corlanor) 5 mg tablet Take 1 tablet (5 mg) by mouth in the morning and at bedtime. (more content not included)... [facility] 09-27-2023 Note [facility] Consult Note Reason for visit: SVT HPI: Sue Vega is a 53 y.o. year old with past medical history of aortic valve regurgitation, type 2 diabetes, hyperlipidemia, palpitations. she has been seen previously in our clinic for complaints of palpitations. She has had monitors placed and notes that she had some SVT episodes and sinus tahcycardia she was on Adderall and stopped taking but continues to feel tachycardic. she was started on diltiazem previously, this did not seem to resolve the tachycardia although she states she feels better on diltiazem despite heart rate still being in the 120s. Kayode started her on Corlanor which she could not afford. she categorically noted the first episode a number tenths when while she was sitting the tachycardia started. most of the time these episodes are sporadic and short. they seem to be more symptomatic for her at nighttime. event monitor placed from 06/22/2023 to 07/22/2023 revealed episodes of nonsustained atrial tachycardia that are symptomatic. no episodes of A-fib or other ventricular arrhythmias were noted PMH: Past Medical History: Diagnosis Date Diabetes mellitus type 2, controlled, without complications ([facility]) 06/05/2009 Hyperlipidemia 03/24/2011 Nonrheumatic aortic valve insufficiency 06/22/2023 PSH: No past surgical history on file. SH: Social Determinants of Health Tobacco Use: Low Risk (06/22/2023) Patient History Smoking Tobacco Use: Never Smokeless Tobacco Use: Never Passive Exposure: Not on file Alcohol Use: Not on file Financial Resource Strain: Not on file Food Insecurity: Not on file Transportation Needs: Not on file Physical Activity: Not on file Stress: Not on file Social Connections: Not on file Intimate Partner Violence: Not on file Depression: Not on file Housing Stability: Not on file Utilities: Not on file Allergies: Allergies Allergen Reactions Sulfa (Sulfonamide Antibiotics) Rash Sulfoil Unknown Weight: 65.3kg Visit Vitals BP 106/74 (BP Location: Right arm, Patient Position: Sitting) Pulse 81 Ht 1.6 m (5' 3 ) Wt 65.3 kg (144 lb) SpO2 98% BMI 25.51 kg/m??? Smoking Status Never BSA 1.7 m??? Meds: Current Outpatient Medications on File Prior to Visit Medication Sig Dispense Refill ascorbic acid (Vitamin C) 100 mg tablet Take 100 mg by mouth in the morning. atorvastatin (Lipitor) 20 mg tablet Take 1 tablet (20 mg) by mouth in the morning. 90 tablet 3 Belsomra 10 mg tablet TAKE 1 TABLET BY MOUTH EVERY DAY AT BEDTIME NEEDED FOR 30 DAYS calcium citrate-vitamin D2 250 mg-2.5 mcg (100 unit) tablet Take 1 tablet by mouth in the morning and at bedtime. cyanocobalamin/folic acid (vitamin O94-cazgd acid) 1,000-400 mcg lozenge in the morning. dilTIAZem CD (Cartia XT) 240 mg 24 hr capsule Take 1 capsule (240 mg) by mouth in the morning. 90 capsule 3 eletriptan (Relpax) 40 mg tablet 1 tab PRN migraine, may repeat in 2 hours. No more than 2 per LOMBARDO or 4 per week or 9 per 30 days. fluticasone (Flonase) 50 mcg/actuation nasal spray Refill(s) 0, Nasal magnesium oxide (Mag-Ox) 250 mg magnesium tablet Take 500 mg by mouth. metFORMIN (Glucophage) 1,000 mg tablet Take 1,000 mg by mouth with breakfast and with evening meal. montelukast (Singulair) 10 mg tablet Singulair 10 mg tablet Take 1 tablet as needed by oral route. tiZANidine (Zanaflex) 4 mg tablet Take 4 mg by mouth every 6 (six) hours if needed for muscle spasms. topiramate (Topamax) 100 mg tablet Take 200 mg by mouth in the morning and at bedtime. dilTIAZem CD (Cardizem CD) 120 mg 24 hr capsule Take 1 capsule (120 mg) by mouth in the morning. 30 capsule 0 dilTIAZem CD (Cardizem CD) 120 mg 24 hr capsule Take 1 capsule (120 mg) by mouth in the morning. 90 capsule 3 ivabradine (Corlanor) 5 mg tablet Take 1 tablet (5 mg) by mouth in the morning and at bedtime. 60 tablet 0 ivabradine (Corlanor) 5 mg tablet Take 1 tablet (5 mg) by mouth in the morning and at bedtime. 60 tablet 11 No current facility-administered medications on file prior to visit. ROS: Review of Systems Constitutional: Positive for malaise/fatigue. Cardiovascular: Positive for palpitations. Respiratory: Positive for shortness of breath. All other systems reviewed and are negative. Physical Exam: Constitutional General Appearance: well-nourished, well-developed, appears stated age Level of Distress: comfortable Psychiatric Mental Status: alert, normal affect Orientation: oriented to time, place, and person Insight: good judgement Eyes Lids and Conjunctivae: non-injected, no xanthelasma ENMT Ears: no lesions on external ear Nose: no lesions on external nose Oropharynx: no cyanosis, no pallor Neck Neck: supple, trachea midline Carotid Arteries: bilateral normal upstroke, no bruits Jugular Veins: normal jugular venous pressure Thyroid: not enlarged Lungs Respiratory Effort: unlabored (more content not included)... [facility] 09-06-2023 Note [facility]rophys[facility] Consult Note Reason for visit: IST vs SVT HPI: Sue Vega is a 53 y.o. year old with past medical history of aortic valve regurgitation, type 2 diabetes, hyperlipidemia, palpitations. she has been seen previously in our clinic for complaints of palpitations. She has had monitors placed and notes that she had some SVT episodes and sinus tahcycardia she was on Adderall and stopped taking but continues to feel tachycardic. she was started on diltiazem previously, this did not seem to resolve the tachycardia although she states she feels better on diltiazem despite heart rate still being in the 120s PMH: Past Medical History: Diagnosis Date Diabetes mellitus type 2, controlled, without complications ([facility]) 06/05/2009 Hyperlipidemia 03/24/2011 Nonrheumatic aortic valve insufficiency 06/22/2023 PSH: No past surgical history on file. SH: Social Determinants of Health Tobacco Use: Low Risk (06/22/2023) Patient History Smoking Tobacco Use: Never Smokeless Tobacco Use: Never Passive Exposure: Not on file Alcohol Use: Not on file Financial Resource Strain: Not on file Food Insecurity: Not on file Transportation Needs: Not on file Physical Activity: Not on file Stress: Not on file Social Connections: Not on file Intimate Partner Violence: Not on file Depression: Not on file Housing Stability: Not on file Utilities: Not on file Allergies: Allergies Allergen Reactions Sulfa (Sulfonamide Antibiotics) Rash Sulfoil Unknown Weight: 64.9kg Visit Vitals BP 114/68 (BP Location: Left arm, Patient Position: Sitting) Pulse (!) 122 Ht 1.6 m (5' 3 ) Wt 64.9 kg (143 lb) SpO2 99% BMI 25.33 kg/m??? Smoking Status Never BSA 1.7 m??? Meds: Current Outpatient Medications on File Prior to Visit Medication Sig Dispense Refill ascorbic acid (Vitamin C) 100 mg tablet Take 100 mg by mouth in the morning. atorvastatin (Lipitor) 20 mg tablet Take 1 tablet (20 mg) by mouth in the morning. 90 tablet 3 Belsomra 10 mg tablet TAKE 1 TABLET BY MOUTH EVERY DAY AT BEDTIME NEEDED FOR 30 DAYS calcium citrate-vitamin D2 250 mg-2.5 mcg (100 unit) tablet Take 1 tablet by mouth in the morning and at bedtime. cyanocobalamin/folic acid (vitamin K80-czctp acid) 1,000-400 mcg lozenge in the morning. dilTIAZem CD (Cardizem CD) 120 mg 24 hr capsule Take 1 capsule (120 mg) by mouth in the morning. 90 capsule 3 eletriptan (Relpax) 40 mg tablet 1 tab PRN migraine, may repeat in 2 hours. No more than 2 per LOMBARDO or 4 per week or 9 per 30 days. fluticasone (Flonase) 50 mcg/actuation nasal spray Refill(s) 0, Nasal magnesium oxide (Mag-Ox) 250 mg magnesium tablet Take 500 mg by mouth. metFORMIN (Glucophage) 1,000 mg tablet Take 1,000 mg by mouth with breakfast and with evening meal. montelukast (Singulair) 10 mg tablet Singulair 10 mg tablet Take 1 tablet as needed by oral route. tiZANidine (Zanaflex) 4 mg tablet Take 4 mg by mouth every 6 (six) hours if needed for muscle spasms. topiramate (Topamax) 100 mg tablet Take 200 mg by mouth in the morning and at bedtime. amphetamine-dextroamphetamine XR (Adderall XR) 20 mg 24 hr capsule TAKE 1 CAPSULE BY MOUTH ONCE DAILY IN THE MORNING dilTIAZem CD (Cardizem CD) 120 mg 24 hr capsule Take 1 capsule (120 mg) by mouth in the morning. 30 capsule 0 No current facility-administered medications on file prior to visit. ROS: Cardio Basic Cardiovascular Symptoms: no lightheadedness, no leg edema, no syncope, no orthopnea, no PND, no claudication, Constitutional Constitutional: no fever, no night sweats, no significant weight gain, no significant weight loss, no exercise intolerance Eyes Eyes: no dry eyes, no irritation, no vision change ENMT Ears: no difficulty hearing, no ear pain Nose: no frequent nosebleeds, Mouth/Throat: no sore throat, no bleeding gums, no snoring, no dry mouth, no mouth ulcers, no oral abnormalities, no teeth problems Respiratory Respiratory: no cough, no wheezing, no coughing up blood, no sleep apnea Musculoskeletal Musculoskeletal: no muscle aches, no muscle weakness, joint pain+, no back pain, no swelling in the extremities Integumentary Skin no rash, no ulcer, no varicosities, no discoloration, no pruritus Neurologic Neurologic: no loss of consciousness, no weakness, no numbness, no seizures, no dizziness, no headaches Psychiatric Psych: no depression, feeling safe in relationship, no alcohol abuse, Hematologic/Lymphatic Hematologic/Lymphatic no swollen glands, no bruising Physical Exam: Constitutional General Appearance: well-nourished, well-developed, appears stated age Level of Distress: comfortable Psychiatric Mental Status: alert, normal affect Orientation: oriented to time, place, and person Insight: good judgement Eyes Lids and Conjunctivae: non-injected, no xanthelasma ENMT Ears: no lesions on external ear Nose: no lesions on family reunification specialist (more content not included)... [facility] 09-06-2023 Note Patient here for fol low up SVT per Vishal Zhang, [employer]. Had echo in Jul 2023, and labs 2 weeks ago. Arleen started her on diltiazem at last apt, and she said palpitations have resolved. BP has been better. Still gets lightheaded at times. Denies chest pain and SOB. Review of Systems Constitutional: Positive for diaphoresis and malaise/fatigue. Respiratory: Positive for cough. Neurological: Positive for dizziness and light-headedness. All other systems reviewed and are negative. [facility] 09-05-2023 Evaluation note Encounter Date Diagnosis Assessment Notes Aug, Attention deficit disorder (ICD-10 - F98.8) [facility] Other 01-09-2024 Hospital Discharge instructions Patient Education 08/16/2023 12:08:19 Migraine Headache Migraine Headache A migraine headache is an intense, throbbing pain on one side or both sides of the head. Migraine headaches may also cause other symptoms, such as nausea, vomiting, and sensitivity to light and noise. A migraine headache can last from 4 hours to 3 days. Talk with your doctor about what things may bring on (trigger) your migraine headaches. What are the causes? The exact cause of this condition is not known. However, a migraine may be caused when nerves in the brain become irritated and release chemicals that cause inflammation of blood vessels. This inflammation causes pain. This condition may be triggered or caused by: Drinking alcohol. Smoking. Taking medicines, such as: ?Medicine used to treat chest pain (nitroglycerin). ? control pills. ?Estrogen. ?Certain blood pressure medicines. Eating or drinking products that contain nitrates, glutamate, aspartame, or tyramine. Aged cheeses,chocolate, or caffeine may also be triggers. Doing physical activity. Other things that may trigger a migraine headache include: Menstruation. . Hunger. Stress. Lack of sleep or too much sleep. Weather changes. Fatigue. What increases the risk? The following factors may make you more likely to experience migraine headaches: Being a certain age. This condition is more common in people who are 25 55 years old. Being female. Having a family history of migraine headaches. Being . Having a mental health condition, such as depression or anxiety. Being obese. What are the signs or symptoms? The main symptom of this condition is pulsating or throbbing pain. This pain may: Happen in any area of the head, such as on one side or both sides. Interfere with daily activities. Get worse with physical activity. Get worse with exposure to bright lights or loud noises. Other symptoms may include: Nausea. Vomiting. Dizziness. General sensitivity to bright lights, loud noises, or smells. Before you get a migraine headache, you may get warning signs (an aura). An aura may include: Seeing flashing lights or having blind spots. Seeing bright spots, halos, or zigzag lines. Having tunnel vision or blurred vision. Having numbness or a tingling feeling. Having trouble talking. Having muscle weakness. Some people have symptoms after a migraine headache (postdromal phase), such as: Feeling tired. Difficulty concentrating. How is this diagnosed? A migraine headache can be diagnosed based on: Your symptoms. A physical exam. Tests, such as: ?CT scan or an MRI of the head. These imaging tests can help rule out other causes of headaches. ?Taking fluid from the spine (lumbar puncture) and analyzing it (cerebrospinal fluid analysis, or CSF analysis). How is this treated? This condition may be treated with medicines that: Relieve pain. Relieve nausea. Prevent migraine headaches. Treatment for this condition may also include: Acupuncture. Lifestyle changes like avoiding foods that trigger migraine headaches. Biofeedback. Cognitive behavioral therapy. Follow these instructions at home: Medicines Take wufc-iic-puhxyhl and prescription medicines only as told by your health care provider. Ask your health care provider if the medicine prescribed to you: ?Requires you to avoid driving or using heavy machinery. ?Can cause constipation. You may need to take these actions to prevent or treat constipation: ?Drink enough fluid to keep your urine pale yellow. ?Take wgqk-tdd-zaoptlp or prescription medicines. ?Eat foods that are high in fiber, such as beans, whole grains, and fresh fruits and vegetables. ?Limit foods that are high in fat and processed sugars, such as fried or sweet foods. Lifestyle Do not drink alcohol. Do not use any products that contain nicotine or tobacco, such as cigarettes, e- cigarettes, and chewing tobacco. If you need help quitting, ask your health care provider. Get at least 8 hours of sleep every night. Find ways to manage stress, such as meditation, deep breathing, or yoga. General instructions Keep a journal to find out what may trigger your migraine headaches. For example, write down: ?What you eat and drink. ?How much sleep you get. ?Any change to your diet or medicines. If you have a migraine headache: ?Avoid things that make your symptoms worse, such as bright lights. ?It may help to lie down in a dark, quiet room. ?Do not drive or use heavy machinery. ?Ask your health care provider what activities are safe for you while you are experiencing symptoms. Keep all follow-up visits as told by your health care provider. This is important. Contact a health care provider if: You develop symptoms that are different or more severe than your usual migraine headache symptoms. You have more than 15 headache days in one month. Get help right away if: Your migraine headache becomes severe. Your migraine headache lasts longer than 72 hours. You have a fever. You have a stiff neck. You have vision loss. Your muscles feel weak or like you cannot control them. You start to lose your balance often. You have trouble walking. You faint. You have a seizure. Summary A migraine headache is an intense, throbbing pain on one side or both sides of the head. Migraines may also cause other symptoms, such as nausea, vomiting, and sensitivity to light and noise. This condition may be treated with medicines and lifestyle changes. You may also need to avoid certain things that trigger a migraine headache. Keep a journal to find out what may trigger your migraine headaches. Contact your health care provider if you have more than 15 headache days in a month or you develop symptoms that are different or more severe than your usual migraine headache symptoms. This information is not intended to replace advice given to you by your health care provider. Make sure you discuss any questions you have with your health care provider. Document Revised: 11/16/2019 Document Reviewed: 09/06/2019 [employer] Patient Education 2022 [employer]. Follow Up Care 08/16/2023 09:27:09 With:Suzie García CNP Address: When: only if needed [facility] 01-09-2024 Evaluation note* Encounter Date Diagnosis Assessment Notes Treatment Notes Treatment Clinical Notes Aug, Insomnia (ICD-10 - G47.00) [facility] Other 01-04-2024 NotePatient here for follow up 30 day event monitor and echo. C/o increased dizziness and hypertension lately. She has felt a lot of racing but no irregular beats. C/o increased fatigue and diaphoresis. She was sent home from work yesterday due to symptoms. She was sick over [place]. Review of Systems Constitutional: Positive for diaphoresis and malaise/fatigue. Cardiovascular: Positive for palpitations ( racing ). Respiratory: Positive for cough. Neurological: Positive for dizziness and light-headedness. All other systems reviewed and are negative.[facility] SUBJECTIVE Chief Complaint Patient presents with Dizziness Palpitations Sue Vgea is a 53 y.o. female here for follow-up. HPI PMHx: AO valve regurg, DM type II, HLD 08/11/2023 She c/o worsening fatigue and dizziness/LH. She had an episode of dizziness/LH while at work yesterday. She works at the [employer]. An RN checked her BP, it was 130s/80s, HR was 120s. She felt like she was going to pass out. She was sent home. Initial vitals in clinic today showed HR in the 130s then improved to 100s. She has stopped taking Adderall. She denies CP, orthopnea, PND, LE edema, [...] Diabetes mellitus type 2, controlled, without complications ([facility]) 06/05/2009 Hyperlipidemia 03/24/2011 Nonrheumatic aortic valve insufficiency 06/22/2023 No family history on file. Social History Tobacco Use Smoking status: Never Smokeless tobacco: Never Substance Use Topics Alcohol use: Never Drug use: Never Allergies Allergen Reactions Sulfa (Sulfonamide Antibiotics) Rash Sulfoil Unknown Review of Systems Constitutional: Positive for diaphoresis and malaise/fatigue. Negative for decreased appetite and weight gain. Cardiovascular: Positive for irregular heartbeat and palpitations. Negative for chest pain, dyspnea on exertion, leg swelling, near-syncope, orthopnea, paroxysmal nocturnal dyspnea and syncope. Neurological: Positive for dizziness and light-headedness. OBJECTIVE Visit Vitals BP 130/80 (BP Location: Left arm, Patient Position: Sitting) Pulse 101 Ht 1.6 m (5' 3 ) Wt 64.4 kg (142 lb) SpO2 99% BMI 25.15 kg/m??? Smoking Status Never BSA 1.69 m??? Medications: Current Outpatient Medications: ascorbic acid (Vitamin C) 100 mg tablet, [...] morning and at bedtime., Disp: , Rfl: cyanocobalamin/folic acid (vitamin M02-szist acid) 1,000-400 mcg lozenge, in the morning., [...] , Rfl: metFORMIN (Glucophage) 1,000 mg tablet, Take 1,000 mg by mouth with breakfast and with evening meal., Disp: , Rfl: montelukast (Singulair) 10 mg tablet, Singulair 10 mg tablet Take 1 tablet as needed by oral route., Disp: , Rfl: tiZANidine (Zanaflex) 4 mg tablet, Take 4 mg by mouth every 6 (six) hours if needed for muscle spasms., Disp: , Rfl: topiramate (Topamax) 100 mg tablet, Take 200 mg by mouth in the morning and at bedtime., Disp: , Rfl: amphetamine-dextroamphetamine XR (Adderall XR) 20 mg 24 hr capsule, TAKE 1 CAPSULE BY MOUTH ONCE DAILY IN THE MORNING, Disp: , Rfl: dilTIAZem CD (Cardizem CD) 120 mg 24 hr capsule, Take 1 capsule (120 mg) by mouth in the morning., Disp: 30 capsule, Rfl: 0 dilTIAZem CD (Cardizem CD) 120 mg 24 hr capsule, Take 1 capsule (120 mg) by mouth in the morning., Disp: 90 capsule, Rfl: 3 Physical Exam Vitals reviewed. Constitutional: Appearance: Normal appearance. She is normal weight. HENT: Head: Normocephalic and atraumatic. Right Ear: External ear normal. Left Ear: External ear normal. Eyes: Extraocular Movements: Extraocular movements intact. Conjunctiva/sclera: Conjunctivae normal. Pupils: Pupils are equal, round, and reactive to light. Neck: Vascular: No carotid bruit. Cardiovascular: Rate and Rhythm: Normal rate and regular rhythm. Pulses: No (more content not included)...[facility] 08-03-2023 Hospital Discharge instructions Patient Education 08/03/2023 09:56:59 Upper Respiratory Infection, Adult, [id number] Upper Respiratory Infection, Adult An upper respiratory [...] contaminated) and then touching your mouth, nose, oreyes. What increases the risk? You are more [...] medicines to help relieve symptoms, such as: Cutn-mww-lbrzent cold medicines. Medicines to reduce coughing (cough suppressants). Coughing is a type of defense against infection that helps to clear the nose, throat, windpipe, and lungs (respiratory system). Take these medicinesonly as told by your doctor. Medicines to [...] (3 6 g) of salt in 1 cup(237 mL) of warm water. Use a cool-mist humidifier to add moisture to the air. This can help you breathe more easily. Eating and drinking Drink enough fluid to keep your pee (urine) pale yellow. Eat soups and other clear broths. General instructions Take jegr-qef-fqnxoel and prescription medicines only as told by [...] cannot use soap and water, use hand heating and ventilating worker. Avoid touching your mouth, face, eyes, or [...] get better within 7 10 days. Take bxon-bre-sokozgg and prescription medicines only as told by your doctor. This information is not intended to replace advice given to you by your health care provider. Make sure you discuss any questions you have with your health care provider. Document Revised: 02/24/2022 Document Reviewed: 02/24/2022 [employer] Patient Education 2022 [employer]. Follow Up Care 08/03/2023 08:09:22 With:MOMO HAMPTON DO [facility] Address: [address] [place] [address] [address] [place] [address]- When: Unknown [facility] 12-08-2023 Evaluation note* Encounter Date Diagnosis Assessment Notes Treatment Notes Treatment Clinical Notes Jul, Diabetes type 2, controlled (ICD-10 - E11.9) Jul, Attention deficit disorder (ICD-10 - F98.8) [facility] Jul, Other The goal for diabetes is always to maintain an A1c below 7.0, and to be compliant with medication. Of course continue to monitor diet and increase exercise is always suggested. We will continue to monitor. [facility] Other 11-15-2023 [facility]Cardi[facility] SUBJECTIVE Chief Complaint Patient presents with Follow-up Blood pressure. Heart rate racing. Fatigued, fast heart rate, dizziness. Sue Vega is a 53 y.o. female here for [...] topically., Disp: , Rfl: cyanocobalamin/folic acid (vitamin G42-iphpw acid) 1,000-400 mcg lozenge, in the morning., [...] Normal rate and regul (more content not included)...[facility]11-[facility] Evaluation note* Encounter Date Diagnosis Assessment Notes Treatment Notes Treatment Clinical Notes Jun, Attention deficit disorder (ICD-10 - F98.8) [facility] Other 10-09-2023 Evaluation note* Encounter Date Diagnosis Assessment Notes Treatment Notes Treatment Clinical Notes May, Flu vaccine need (ICD-10 - Z23) May, Actinic keratosis (ICD-10 - L57.0) See procedure note [facility] [facility] [employer] Other 09-18-2023 Evaluation note* Encounter Date Diagnosis Assessment Notes Treatment Notes Treatment Clinical Notes Apr, Seasonal allergies (ICD-10 - J30.2) [facility] [facility] Other 09-11-2023 Evaluation note* Encounter Date Diagnosis Assessment Notes Treatment Notes Treatment Clinical Notes Apr, Attention deficit disorder (ICD-10 - F98.8) [facility] [facility] [facility] [employer] Other 08-28-2023 Hospital Discharge instructions Patient Education [...] instructions at home: Medicines Take or apply ktgt-oql-popbfzy and prescription medicines only as told by [...] provider. Document Revised: 02/29/2020 Document Reviewed: 03/01/2020 [employer] Patient Education 2022 SendUs. Follow Up Care 04/04/2023 17:04:30 With:MOMO HAMPTON DO, FAM Address: [facility] [address] [address]- When: Unknown [facility] 08-11-2023 Evaluation note* Encounter Date Diagnosis Assessment Notes Treatment Notes Treatment Clinical Notes Mar, Attention deficit disorder (ICD-10 - F98.8) [facility] [facility] Other 07-17-2023 Evaluation note* Encounter Date Diagnosis Assessment Notes Treatment Notes Treatment Clinical Notes Feb, Attention deficit disorder (ICD-10 - F98.8) [facility] Other 07-03-2023 Evaluation note* Encounter Date Diagnosis Assessment Notes Treatment Notes Treatment Clinical Notes Feb, Insomnia (ICD-10 - G47.00) [facility] Other 06-21-2023 Evaluation note* Encounter Date Diagnosis Assessment Notes Treatment Notes Treatment Clinical Notes Jan, Attention deficit disorder (ICD-10 - F98.8) [facility] [facility] Other 06-09-2023 Evaluation note* Encounter Date Diagnosis Assessment Notes Treatment Notes Treatment Clinical Notes Jan, Diabetes type 2, controlled (ICD-10 - E11.9) Jan, Other The goal for diabetes is always to maintain an A1c below 7.0, and to be compliant with medication. Of course continue to monitor diet and increase exercise is always suggested. We will continue to monitor. [facility] [facility] Other 05-15-2023 Hospital Discharge instructions Patient Education 12/20/2022 12:50:20 Sciatica, Amoq-sh-Efoj Sciatica Sciatica is pain, weakness, tingling, or [...] Follow these instructions at home: Medicines Take hpoe-dqh-glzhwwz and prescription medicines only as told by your doctor. Ask your doctor if the medicine prescribed to you: ?Requires you to avoid driving or using heavy machinery. ?Can cause trouble pooping (constipation). You may need to take these steps to prevent or treat trouble pooping: ?Drink enough fluids to keep your pee (urine) pale yellow. ?Take iibq-rsl-xjjdpjn or prescription medicines. ?Eat foods that are [...] provider. Document Revised: 08/13/2019 Document Reviewed: 08/13/2019 Elsevier Patient Education 2022 SendUs. Follow Up Care 12/20/2022 11:22:57 With:MOMO HAMPTON DO, FAM Address: [facility] [address] [address]- When: Unknown [facility] 05-13-2023 Evaluation + Plan note Diagnostic Tests Pending * T3 Total 12/18/22 [facility]05-02-2023 Evaluation note* Encounter Date Diagnosis Assessment Notes Treatment Notes Treatment Clinical Notes December, Attention Deficit Disorder (ICD9-CM - 314.00) [facility] [facility] [employer] Other 04-10-2023 Hospital Discharge instructions Patient Education [...] the coronavirus come from? In July 2019, [place] told the World Health Organization (WHO) of several cases of lung disease (human respiratory illness). These cases were linked to an open seafood and livestock market in the [facility]. The link to the seafood and livestock [...] and virus naming World Health Organization (WHO): www.who.int/emergencies/diseases/efpmh-xdqkvyzfrtf-0020/technical-g uidance/rkqcdm-lbm-ndzqqbjzkxy-disease-(covid-2019)-gvo-qgc-obagu-acml-pnyoch-vk Who is at risk for complications from [...] relieve his or her symptoms by using abnj-gxf-hepmxft medicines that treat sneezing, coughing, and runny [...] water are not available, use alcohol-based hand heating and ventilating worker. Avoid touching your face, mouth, nose, or [...] Prevention (CDC): www.cdc.gov/coronavirus/2019-ncov/travelers/index.html World Health Organization (WHO): www.who.int/emergencies/diseases/pzahf-mwmscldgrlc-1027/travel-advice Know the risks and take action to [...] water are not available, use alcohol-based hand heating and ventilating worker. Cough or sneeze into a tissue, sleeve, [...] in hot, soapy water or use a special education instructor. Air-dry your dishes. Wash laundry in hot [...] Health Organization (WHO) Information and news updates: www.who.int/emergencies/diseases/dcfdy-sgvyzauxhpq-6600 Coronavirus health topic: www.who.int/health-topics/coronavirus Questions and answers on COVID-19: www.who.int/news-room/q-a-detail/k-b-rlusjuynyrigq Global tracker: who.[employer] [place] [employer] (AAP) Information for families: www.healthychildren.org/[place]/health-issues/conditions/chest-lungs/Pages /2019-Eksff-Fddjutjaout.aspx The coronavirus situation is changing rapidly. Check your local health authority website or the CDCand WHO websites for updates and news. When [...] 11/20/2019 Document Revised: 11/20/2019 Document Reviewed: 11/20/2019 [employer] Patient Education 2019 SendUs. Follow Up Care 11/09/2021 17:07:47 With:TERESA JIMENEZ, Dev Johnson, URL Address: [facility] [address], [place] [address]- When: Unknown [facility] 04-10-2023 NotePulmonary Medicine COVID-19 Frequently Asked Questions COVID-19 (coronavirus disease) is an infection that is caused by a large family of viruses. Some viruses cause illness in people and others cause illness in animals like camels, cats, and bats. In some cases, the viruses that cause illness in animals can spread to humans. Where did the coronavirus come from? In July 2019, [place] told the World Health Organization (WHO) of several cases of lung disease (human respiratory illness). These cases were linked to an open seafood and livestock market in [place] [facility]. The link to the seafood and livestock [...] and virus naming World Health Organization (WHO): www.who.int/emergencies/diseases/clzvz-tvsbsjwmpss-4996/technical-g uidance/pfnauw-mum-gubhxnwtlfr-disease-(covid-2019)-fjz-loh-gufdu-kwmm-nozdur-kw Who is at risk for complications from [...] testing. Samples may in (more content not included)...[facility]04-05-2023 Evaluation note* Encounter Date Diagnosis Assessment Notes Treatment Notes Treatment Clinical Notes Nov, Insomnia (ICD-10 - G47.00) Nov, Attention Deficit Disorder (ICD9-CM - 314.00) [facility] [facility] Other 03-09-2023 Evaluation note* Encounter Date Diagnosis Assessment Notes Treatment Notes Treatment Clinical Notes Oct, Attention Deficit Disorder (ICD9-CM - 314.00) [facility] [facility] [employer] Other 03-06-2023 Evaluation note* Encounter Date Diagnosis Assessment Notes Treatment Notes Treatment Clinical Notes Oct, Attention deficit disorder (ICD-10 - F98.8) [facility] [facility] [employer] Other 01-31-2023 Evaluation note* Encounter Date Diagnosis Assessment Notes Treatment Notes Treatment Clinical Notes Aug, Migraine without aura and without status migrainosus, not intractable (ICD-10 - G43.009) [facility] [facility] Other 01-30-2023 Evaluation note* Encounter Date Diagnosis Assessment Notes Treatment Notes Treatment Clinical Notes Aug, Attention deficit disorder (ICD-10 - F98.8) [facility] [facility] [facility] Other 01-04-2023 Evaluation note* Encounter Date Diagnosis Assessment Notes Treatment Notes Treatment Clinical Notes Aug, Insomnia (ICD-10 - G47.00) [facility] [facility] Other 12-30-2022 Evaluation note* Encounter Date Diagnosis Assessment Notes Treatment Notes Treatment Clinical Notes Jul, Attention deficit disorder (ICD-10 - F98.8) [facility] Other 12-26-2022 NotePROCEDURE: XR SHOULDER LT 2V or > HISTORY: Pain of left shoulder joint after falling COMPARISON: None. FINDINGS: BONES:No fracture, acute abnormality, or significant arthropathy. SOFT TISSUES:No visible soft tissue swelling. EFFUSION:None visible. OTHER: Negative. IMPRESSION: 1. No acute bone abnormality or significant degenerative changes. Electronically authenticated by: GOLDEN ZAVALA Date: 2022-08-02 16:[address] [place], [place] [address]11-30-2022 Evaluation note* Encounter Date Diagnosis Assessment Notes Treatment Notes Treatment Clinical Notes Jun, Attention deficit disorder (ICD-10 - F98.8) [facility] Other 11-22-2022 Evaluation note* Encounter Date Diagnosis [...] at this point will follow-up as needed [facility] [facility] Other 11-01-2022 Evaluation note* Encounter Date Diagnosis Assessment Notes Treatment Notes Treatment Clinical Notes Jun, Attention deficit disorder (ICD-10 - F98.8) [facility] [facility] [employer] Other 10-03-2022 Evaluation note* Encounter Date Diagnosis Assessment Notes Treatment Notes Treatment Clinical Notes May, Insomnia (ICD-10 - G47.00) [facility] [facility] [employer] Other 10-03-2022 Evaluation note* Encounter Date Diagnosis Assessment Notes Treatment Notes Treatment Clinical Notes May, Insomnia (ICD-10 - G47.00) May, Attention deficit disorder (ICD-10 - F98.8) [facility] [facility] [employer] Other 08-18-2022 Evaluation note* Encounter Date Diagnosis Assessment Notes Treatment Notes Treatment Clinical Notes Mar, Seasonal allergies (ICD-10 - J30.2) [facility] Other 07-29-2022 NotePROCEDURE: XR ELBOW RT MIN 3 VIEWS HISTORY: Pain of right elbow joint since falling 3 days ago COMPARISON: None. FINDINGS: BONES:No fracture, acute abnormality, or significant arthropathy. SOFT TISSUES:No visible soft tissue swelling. EFFUSION:None visible. OTHER: Negative. IMPRESSION: 1. No acute bone abnormality. Electronically authenticated by: GOLDEN ZAVALA Date: 2022-03-05 08:14[facility]07-27-2022 Evaluation note* Encounter Date Diagnosis Assessment Notes Treatment Notes Treatment Clinical Notes Feb, Right elbow pain (ICD-10 - M25.521) [facility] [facility] [employer] Other 07-05-2022 Evaluation note* Encounter Date Diagnosis Assessment Notes Treatment Notes Treatment Clinical Notes Feb, Insomnia (ICD-10 - G47.00) [facility] [facility] Other 06-28-2022 Evaluation note* Encounter Date Diagnosis Assessment Notes Treatment Notes Treatment Clinical Notes Jan, Attention deficit disorder (ICD-10 - F98.8) [facility] [facility] [employer] Other 06-09-2022 Evaluation note* Encounter Date Diagnosis Assessment Notes Treatment Notes Treatment Clinical Notes Jan, Diabetes type 2, controlled (ICD-10 - E11.9) Jan, Other The goal for diabetes is always to maintain an A1c below 7.0, and to be compliant with medication. Of course continue to monitor diet and increase exercise is always suggested. We will continue to monitor. [facility] [facility] Other 06-02-2022 Evaluation note* Encounter Date Diagnosis Assessment Notes Treatment Notes Treatment Clinical Notes Jan, Attention deficit disorder (ICD-10 - F98.8) [facility] [facility] Other 05-02-2022 Evaluation note* Encounter Date Diagnosis Assessment Notes Treatment Notes Treatment Clinical Notes December, Attention deficit disorder (ICD-10 - F98.8) [facility] [facility] [facility] [employer] Other 04-05-2022 Evaluation note* Encounter Date Diagnosis Assessment Notes Treatment Notes Treatment Clinical Notes Nov, Attention deficit disorder (ICD-10 - F98.8) [facility] Other 03-04-2022 Evaluation note* Encounter Date Diagnosis Assessment Notes Treatment Notes Treatment Clinical Notes Oct, Attention deficit disorder (ICD-10 - F98.8) [facility] [facility] [employer] Other 02-25-2022 Evaluation note* Encounter Date Diagnosis Assessment Notes Treatment Notes Treatment Clinical Notes Sep, Migraine without aura and without status migrainosus, not intractable (ICD-10 - G43.009) [facility] [facility] Other 02-07-2022 Evaluation note* Encounter Date Diagnosis [...] always suggested. We will continue to monitor. [facility] Other 01-20-2022 Evaluation note* Encounter Date Diagnosis [...] onset, would necessitate return to the ER. [facility] Other 01-04-2022 Evaluation note* Encounter Date Diagnosis Assessment Notes Treatment Notes Treatment Clinical Notes Aug, Attention deficit disorder (ICD-10 - F98.8) [facility] [facility] [employer] Other 12-30-2021 Evaluation note* Encounter Date Diagnosis Assessment Notes Treatment Notes Treatment Clinical Notes Jul, Insomnia (ICD-10 - G47.00) [facility] Other 11-23-2021 Evaluation note* Encounter Date Diagnosis Assessment Notes Treatment Notes Treatment Clinical Notes Jun, Nodule of right lung (ICD-10 - R91.1) Discussed CT findings at length again today, we we will obtain another follow-up CT in a year and if that shows no change she will need no further routine surveillance CT testing. [facility] [facility] Other 06-22-2021 NoteHNO ID: [id number] Author: Stalin García MD Service: ? Author Type: Physician Type: Progress Notes Filed: 01/27/2021 12:00 PM Note Text: Endocrinology Pituitary Initial Assessment REQUESTING PHYSICIAN: Roderick Dunlap (DrIbrahima) [address] [place] [address] My final recommendations will be communicated back to the requesting physician by way of shared Medical record or letter via [place] mail. Chief Complaint: Pituitary adenoma History of Present Illness Ms. Sue Vega is a 50 year old female with [...] suggesting pituitary mi (more content not included)... [facility] No data available for this section [facility] noteNo InformationNort [employer] Other Evaluation noteNo assessment information available [facility] Work Phone: [facility] general Narrative - Reported* Type Description Date [...] History Back Surgery Hospitalization History Hysterectomy 2013 [facility] Other [facility] general Narrative - Reported* Type Description Date [...] History Back Surgery Hospitalization History Hysterectomy 2013 [facility] Other Hospital Discharge instructions No data available for this section [facility] No data available for this section [facility] Summary Purpose Family History No Family History Records FoundNo Family History Records FoundNo Family History Records FoundNo Family History Records FoundNo Family History Records FoundNo Family History Records Found No data available for this section No data available for this section No data available for this section No data available for this section No data available for this section No Family History Records FoundNo Family History Records FoundNo Family History Records Found Advance Directives No Advanced Directives Records Found Advance Directive Response Recorded Date/ Time Advance Directives No October 31, 021 12:49pm Chief Complaint and Reason for Visit Chief Complaint L shoulder pain Additional Source Comments INFORMATION SOURCE (unrecogn ized section and content) DATE CREATED AUTHOR 09/26/2018 [facility] DATE CREATED AUTHOR AUTHOR'S ORGANIZ ATION 11/09/2018 [facility] DATE CREATED AUTHOR AUTHOR'S ORGANIZ ATION 09/01/2021 [facility] DATE CREATED AUTHOR AUTHOR'S ORGANIZ ATION 12/01/2021 [facility] dical Specialist DATE CREATED AUTHOR AUTHOR'S ORGANIZ ATION 11/12/2022 [facility] DATE CREATED AUTHOR AUTHOR'S ORGANIZ ATION 05/20/2023 [facility] DATE CREATED AUTHOR AUTHOR'S ORGANIZ ATION 10/06/2023 [facility] DATE CREATED AUTHOR AUTHOR'S ORGANIZ ATION 11/09/2023 [facility] dical Specialists EPIC DATE CREATED AUTHOR AUTHOR'S ORGANIZ ATION 12/21/2023 [facility] REASON FOR VISIT (unrecogniz ed section and content) 6 month f/u Lung NodulesRefi ll BelsomraRefill AdderallClinical [facility]IN[facility] ER follow up for post covid [...] up, A1C, pt requesting refill of adderall [facility], pt reports she currently has heart monitor- ordered by [facility] Cardio- High HR on her watch, and BP high/ lightheaded and sleeping more than usual- 30 day monitor -- has 1 more week to complete this monitor and has echo scheduled this tuesday- follows up with them 09/01/23refill belsomrarefill adderall Care Teams (unrecognized sec tion and content) Team Status: Active Member Role Status Dates Momo Hampton , Primary Care Provider Active Team Status: Inactive [...] BE BASED ON THE PRIMARY CLINICAL RECORDS. [employer] provides no warranty or guarantee of the accuracy or completeness of information in this document.
[2024-01-30 08:32] LABS: Thyroid Stimulating Hormone 2.629 uIU/mL (0.358-3.740)
[2024-01-30 09:16] LABS: Free T4 0.77 ng/dL (0.76-1.46)
[2024-01-31 06:10] LABS: Prolactin 14.9 ng/mL (3.6-25.2)
[2024-01-31 08:12] LABS: Triiodothyronine (T3) 102 ng/dL (71-180)
== END 2024-01-30 07:20 | disposition home or self-care (01) ==
LOC: LAB 07:21
PROVIDERS: PCP Family Medicine; Visit Provider Psychiatry & Neurology Neurology
DX: G62.9 Polyneuropathy, unspecified (principal); R79.89 Other specified abnormal findings of blood chemistry; G60.9 Hereditary and idiopathic neuropathy, unspecified; Z11.3 Encounter for screening for infections with a predominantly sexual mode of transmission; E53.1 Pyridoxine deficiency; I70.91 Generalized atherosclerosis; D51.9 Vitamin B12 deficiency anemia, unspecified; M79.10 Myalgia, unspecified site; E78.5 Hyperlipidemia, unspecified
CPT/HCPCS: 36415; 84146; 84439; 84443; 84480

== ENCOUNTER 2024-06-13 08:45 | Outpatient (OUT) | payer BC, SELFPAY ==
--- NOTE | 2024-06-13 08:55 | CA_ITS ---
Patient Name: KWAKU VEGA MR#: [id number] : 1970 Exam Date: 06/13/2024 Ordering Doctor: VISHAL GALAVIZ CNP ECHOCARDIOGRAM REPORT PROCEDURE: CA ECHO DOPPLER COMPLETE INDICATIONS: Palpitations, SVT COMPARISON: None. DESCRIPTION: COMPLETE ECHOCARDIOGRAM Real-time transthoracic echocardiography with 2D, M-mode, spectral and color flow Doppler performed. QUALITY: Technical quality was good. LEFT VENTRICLE: Normal chamber size. Normal left ventricular wall thickness. Global left ventricular systolic function is normal. Calculated left ventricular ejection fraction is 65%.No wall motion abnormalities. LV EF: DIASTOLIC: Normal diastolic function. ATRIAL SEPTUM: LEFT ATRIUM: Normal chamber size. RIGHT ATRIUM: Normal chamber size. RIGHT VENTRICLE: Normal chamber size. Normal right ventricular systolic function. TRICUSPID VALVE: Normal mobility and thickness. No stenosis with trivial regurgitation. No evidence of pulmonary hypertension.RVSP 24mmHg MITRAL VALVE: Normal mobility and thickness. No evidence of mitral valve stenosis. There is no mitral annular calcification. Trivial mitral regurgitation. AORTIC VALVE: Normal trileaflet appearance. No visible sclerosis. Normal leaflet mobility. No evidence of aortic valve stenosis. Mild aortic regurgitation. AORTIC ROOT: Normal diameter and appearance. PULMONIC VALVE: Normal thickness and mobility. No stenosis. Trivial regurgitation. PERICARDIUM: No evidence of pericardial effusion. IVC: Collapes with inspirations. Normal size. PLEURA: CONCLUSION: Normal left ventricular size wall thickness. Global left ventricular systolic function is normal. Calculated left ventricular ejection fraction is 65%.No wall motion abnormalities. Normal diastolic function. Mild aortic insufficiency Trivial Mitral and tricuspid regurgitation Normal right ventricle size and function Normal right sided pressure Adult Echocardiography Procedure Report Left Ventricle LVEDD (3.7 - 5.6 cm): 3.93 cm LVESD (2.2 - 4.0 cm): 2.65 cm LVIVS thickness (0.6 - 1.2 cm): 0.87 cm LVPW thickness (0.5 - 1.0 cm): 0.74 cm e': 0.11 m/s E - e': 7.22 LVOT Max Gradient: 6.62 mm[Hg] LVOT Area (cm2): 1.29 m/s Peak Velocity (LVOT): 1.29 m/s Mean Velocity (LVOT): 0.77 m/s LVOT Diameter 1.67 cm Left Ventricular Ejection Fraction: 68.62 % Left Atrium LA Volume Index (2D A2C): 30.78 ml/m2 Left Atrium Systolic Dimension: 3.47 cm Mitral Valve MV E to A Ratio: 1.12 MV Max Gradient: MV Mean Gradient: Mitral Valve A-Wave Peak Velocity: 0.73 m/s Mitral Valve E-Wave Peak Velocity: 0.82 m/s Cardiovascular Orifice Area: Right Ventricle RV Internal Diastolic Dimension: 3.18 cm Aorta AO Root Diam: 2.95 cm Ascending Ao Diam: 2.76 cm Aortic Valve AoV Area (Peak Real): 2.10 cm2, 2.10 cm2 AoV Area (VTI): 1.88 cm2, 1.88 cm2 Deceleration [place]: 1.28 m/s2 Pressure Half-Time: 836.62 ms Peak Velocity(Antegrade Flow): 1.34 m/s Peak Gradient(Antegrade Flow): 7.18 mm[Hg] Mean Velocity(Antegrade Flow): 0.93 m/s Mean Gradient(Antegrade Flow): 3.96 mm[Hg] Velocity Time Integral: 29.05 cm Tricuspid Valve Peak Velocity (Regurgitant Flow): 1.87 m/s, 2.09 m/s, 2.29 m/s Peak Velocity: Pulmonic Valve Mean Gradient: 2.31 mm[Hg], 2.05 mm[Hg] Mean Velocity: 0.71 m/s, 0.67 m/s Peak Velocity: 1.00 m/s Peak Gradient: 4.21 mm[Hg], 3.75 mm[Hg] Right Atrium Right Atrium Systolic Pressure: 41.63 ml, 41.63 ml Dictated by: Juanita Paris MD on 06/13/2024 at 19:21 Approved by: Juanita Paris MD on 06/13/2024 at 19:37
== END 2024-06-13 08:46 | disposition home or self-care (01) ==
LOC: CARD 08:46
PROVIDERS: PCP Family Medicine; Visit Provider Nurse Practitioner Family
DX: R00.2 Palpitations (principal); I47.10 Supraventricular tachycardia, unspecified; R42 Dizziness and giddiness; I35.1 Nonrheumatic aortic (valve) insufficiency; G62.9 Polyneuropathy, unspecified; R79.89 Other specified abnormal findings of blood chemistry; G60.9 Hereditary and idiopathic neuropathy, unspecified; Z11.3 Encounter for screening for infections with a predominantly sexual mode of transmission; I70.91 Generalized atherosclerosis; D51.3 Other dietary vitamin B12 deficiency anemia; M79.10 Myalgia, unspecified site; E78.5 Hyperlipidemia, unspecified; G40.909 Epilepsy, unspecified, not intractable, without status epilepticus; D35.2 Benign neoplasm of pituitary gland
CPT/HCPCS: 36415; 84146; 84436; 84443; 84480; 93306

== ENCOUNTER 2024-06-13 08:48 | Outpatient (OUT) | payer BC, SELFPAY ==
[2024-06-13 10:26] LABS: Thyroid Stimulating Hormone 2.015 uIU/mL (0.358-3.740)
[2024-06-14 08:15] LABS: Triiodothyronine (T3) 90 ng/dL (71-180)
[2024-06-14 10:13] LABS: Prolactin 13.5 ng/mL (3.6-25.2)
== END 2024-06-13 08:49 | disposition home or self-care (01) ==
LOC: LAB 08:49
PROVIDERS: PCP Family Medicine; Visit Provider Family Medicine
DX: G62.9 Polyneuropathy, unspecified (principal); R79.89 Other specified abnormal findings of blood chemistry; G60.9 Hereditary and idiopathic neuropathy, unspecified; Z11.3 Encounter for screening for infections with a predominantly sexual mode of transmission; I70.91 Generalized atherosclerosis; D51.3 Other dietary vitamin B12 deficiency anemia; M79.10 Myalgia, unspecified site; E78.5 Hyperlipidemia, unspecified; G40.909 Epilepsy, unspecified, not intractable, without status epilepticus; D35.2 Benign neoplasm of pituitary gland
CPT/HCPCS: 36415; 84146; 84436; 84443; 84480

== ENCOUNTER 2025-06-14 09:24 | Outpatient (OUT) | payer BC, SELFPAY ==
--- OUTSIDE RECORDS SUMMARY | 2025-06-14 09:31 | XMS_ITS | CCD ---
Author Organization [facility] Care Team Providers Care Roper Operator Name Role Phone RON GRACIA Attending Unavailable MOMO HAMPTON Primary Care Unavailable PHYSICIAN, DEFAULT Admitting Unavailable PHYSICIAN, DEFAULT Attending Unavailable PHYSICIAN, DEFAULT Admitting Unavailable PHYSICIAN, DEFAULT Attending Unavailable Aisha Acevedo Unavailable Momo Hampton Unavailable Memo, DO Momo Cervantes. Primary Care Provider DO Momo Hampton. Attending Provider [phone] DR LIZBET CESPEDES V Consulting Unavailable JOSE, [...] MOMO HAMPTON Primary Care Physician DO Momo Hampton. Primary Care Provider DO Momo Hampton. Attending Provider Yury Garcia Admitting Unavailable JoseYury Attending Unavailable JoseYury Referring Unavailable MEMOMOMO Admitting Unavailable MEMOMOMO Attending Unavailable DO Shekhar Rubio Attending Unavailable MOMO HAMPTON Attending Unavailable MEMOMOMO Admitting Unavailable Nima Powers Attending Unavailable Nima Powers Admitting Unavailable DANIELLEROSARIO CASTILLO Attending Unavailable Leroy Storey Attending Unavailable Leroy Storey Admitting Unavailable Leroy Storey Attending Unavailable Memo Momo CODY. Primary Care Provider Eduardo Sommer DO Emergency Provider JACKIE Dyson Admitting Unavailable JACKIE MO Attending Unavailable DANIELLEJOHN CASTILLOROSARIO E Referring Unavailable DANIELLEROSARIO Attending Unavailable DANIELLE, ROSARIO E Admitting Unavailable Dev MOORE Attending Unavailable Dev MOORE Attending Unavailable Jose Yury J Referring Unavailable Jose Yury J Admitting Unavailable JoseMoraYury J Attending Unavailable JACKIE MO Admitting Unavailable JACKIE MO Attending Unavailable Dev MOORE Attending Unavailable MemoMomo kwok MD Primary Care Provider RODERICK DUNLAP Attending Unavailable VISHAL GALAVIZ Attending Unavailable JACKIE MO Attending Unavailable JACKIE MO Attending Unavailable Memo Momo CODY. Primary Care Provider Momo Hampton DO. Attending Provider [phone] Momo Hampton. Attending Unavailable Momo Hampton Admitting Unavailable Momo Hampton Primary Care Unavailable Eduardo Sommer Attending Unavailable Eduardo Sommer Admitting Unavailable Allergies Allergy ClassificationReported Allergen(s)Allergy TypeDate of OnsetReaction(s) Facility (20 sources)DustPropensity to adverse reactionsUnkCranston General Hospital [employer] Other (20 sources)Sulfamethoxazole / TrimethoprimDrug AllergyrasSt. [facility] Hospital [employer] Other (59 sources)Sulfonamides (Antibiotic)Drug allergyhivesWhitman Hospital And Medical Center [employer] Other (20 sources)dogs, cats, moldPropensity to adverse isfzraext93-00-1219Pttgzlh, Unknown ReactionOhiohealth Arthur G.[facility]. [facility], [facility] (6 sources)Sulfonamides (Antibiotic); Translations: [SULFA (SULFONAMIDE ANTIBIOTICS)]Allergy to sauktaqnv36-41-0962Fipk, Rash, hivesOhiohealth Arthur [facility] (2 sources)Sulfonamides (Antibiotic)Drug allergy (disorder)20-55-5835RgdLutheran [facility] (20 sources)Sulfamethoxazole; Translations: [sulfamethoxazole]Drug Allergy 73-54-1886Pfvexozq of skin (disorder)[facility] (3 sources)house dust allergenic extractDrug Wavrkxz98-05-5413Surwuta Reaction [facility] (3 sources)TrimethoprimDrug Zgbcmnj03-48-9523jahtQeoekcegbMemorial Health System [facility] (3 sources)zolpidemDrug Dpvsuaf09-17-0709FoyykulJwyyixewq [facility] (3 sources)Sulfonamides (Antibiotic)Drug Uwuxxuv04-63-5124Jjia, [facility] (1 source)SULFOIL; Translations: [SULFOIL]Propensity to adverse reactions to drug (disorder)03-38-5162RmfhvjkjrkGenesis Hospital Rep[facility] Medications Current Medications MedicationDrug Class(es)DatesSig (Normalized)Sig (Original)ascorbic acid 500 mg oral capsule (20 sources)Vitamin CStart: 23-13-2781wjqp 2 capsules by mouth once dailyStart: 10-18-2023 End: 12-43-1341ggcv 1 capsule by mouth once dailyAscorbic Acid (Vitamin C) 500 mg capsule Discontinued 0 PO Daily October 18, 2023 12:00am October 22, 2024 3:16pm 1 cap by mouth dailyStart: 26-25-4321Esxxzec C 50 mg, Chewed, Daily, 500mg, Refills(s) 0, Prophylaxis Start Date: 05/26/19 Status: Ordered Repeat number: 1Start: 97-78-2267Jtlkwdt C 50 mg, Chewed, Daily, 500mg, Refills(s) 0, Prophylaxis Start Date: 05/26/19 Status: Orderedtake 1 capsule by mouth every twenty-four hoursVitamin C 500 MG 1 capsule Orally daily Activeatomoxetine 40 mg oral capsule (20 sources)Norepinephrine Reuptake InhibitorStart: 98-23-3961avgg 1 capsule by mouth once dailyStart: 02-12-2025 End: 17-65-6753gqgo 1 capsule by mouth once dailyAtomoxetine 40 mg capsule Discontinued 0 .ROUTE .COMPLEX 90 February 12, 2025 9:55am April 29, 2025 9:23am TAKE 1 CAPSULE BY MOUTH EVERY DAYStart: 10-22-2024 End: 15-68-8761aasy 1 capsule by mouth once dailyAtomoxetine 40 mg capsule Discontinued 40 MG PO Daily October 22, 2024 3:12pm February 12, 2025 9:55amStart: 24-80-0034Rghvawuos Oral, qAM, Refills(s) 0 Start Date: 10/14/24 Status: Ordered Repeat number: 1Start: 08-21-2024 End: 49-48-1843ryis 1 capsule by mouth once dailyAtomoxetine 40 mg capsule Discontinued 0 .ROUTE .COMPLEX 90 August 21, 2024 12:46pm October 22, 2024 3:16pm TAKE 1 CAPSULE BY MOUTH EVERY DAYStart: 01-18-2024 End: 31-51-7603ozpl 1 capsule by mouth once dailyAtomoxetine (Strattera) 40 mg capsule Discontinued 40 MG PO Daily July 09, 2024 2:09pm August 21, 2024 12:46pmatorvastatin 20 mg oral tablet (20 sources)HMG-CoA Reductase InhibitorStart: 30-62-0542clsl 1 tablet by mouth once dailycholecalciferol 0.125 mg oral capsule (3 sources)Vitamin DStart: hr dexmethylphenidate hydrochloride 15 mg extended release oral capsule (10 sources)Central Nervous System StimulantStart: 60-50-1117zqnb 1 capsule by mouth every twenty-four hoursFocalin XR 15 MG 1 capsule in the morning Orally Once a day for 30 days Jan, ActiveStart: 72-41-8298waow 1 capsule by mouth every twenty-four hoursFocalin XR 15 MG 1 capsule in the morning Orally Once a day for 30 days December, Skkbwj53 hr dilTIAZem hydrochloride 240 mg extended release oral tablet (6 sources)Calcium Channel BlockerStart: 03-70-0370ayjx 1 capsule by mouth once dailyDiltiazem Hcl 240 mg capsule,extended release 24hr Active 240 MG PO Daily November 24, 2023 12:00amStart: 09-09-2023 End: 30-95-4932mdoa 1 capsule by mouth once dailyDiltiazem Hcl 240 mg capsule,extended release 24hr Discontinued 240 MG PO Daily November 24, 2023 12: 00am April 29, 2025 9:21amDilTIAZem (Eqv-Cardizem CD) 120 mg/24 hours oral capsule, extended release (5 sources)Start: 06-54-0822atha 1 capsule by mouth every hourDilTIAZem (Eqv- Cardizem CD) 120 mg/24 hours oral capsule, extended release Refills(s) 0 Start Date:08/16/23 Status: Ordered Repeat number: 1Start: 23-28-5472DacJKLYfy (Eqv- Cardizem CD) 120 mg/24 hours oral capsule, extended release Refills(s) 0 Start Date:08/16/23 Status: OrderedElderberry preparation (20 sources)Start: 76-95-6182pcchxzwkdx Refill(s) 0 Start Date: 12/20/22 Status: Ordered Repeat number: 1Start: 86-58-9591nncfrfmhjy Refill(s) 0 Start Date: 12/20/22 Status: OrderedElderberry Activeeletriptan 40 mg oral tablet (20 sources)Serotonin-1b and Serotonin-1d Receptor AgonistStart: 58-64-7477ohos 1 tablet by mouth once as neededStart: 05-26-2019 End: 52-13-5110wevonrkcqs (Relpax) 40 MG tablet Indications: Intractable migraine without aura and with status migrainosus TAKE 1 TABLET BY MOUTH NEEDED FOR MIGRAINE, MAY REPEAT IN 2 HOURS. (NO MORE THAN 2 PER FOR HEADACHE, 4 PER WEEK OR 9 PER 90 DAYS) 27 tablet 1 11/26/2024 02/12/2025 Discontinued (Reorder)estradiol 0.1 mg/ml vaginal cream (20 sources)EstrogenStart: 32-68-9011apzfgkgow 0.1 mg/g Vag Crm 1 gm, Vaginal, MonThu, 42.5 gm, Refill(s) 3, [facility], cm, 01/30/25 8:36:00 EDT, Height/Length Dosing, 66.2, kg, 01/30/25 8:36:00 EDT, Weight Dosing Start Date: 01/30/25 Status: Ordered Quantity: 42.5 Unit: g Repeat number: 4 Indications: Postmenopausal atrophic vaginitis;Start: 08-04-9141Hoikf: 11-09-2021 End: 06-30-9011Foljynflr 0.01 % (0.1 mg/gram) cream Discontinued 1 APPLICATOR VAGINAL every month July 23, 2024 4:29pm December 25, 2024 8:38amfluticasone propionate 0.05 mg/actuat metered dose nasal spray (20 sources)CorticosteroidStart: 21-40-7711Fkelu: 94-99-0616uawxcmtdxvh Nasal 0.05 mg/inh [place] Refill(s) 0, Nasal Start Date: 12/20/22 Status: OrderedStart: 79-03-9985ihyj 2 spray(s) nasal route once daily as neededFluticasone Propionate 50 MCG/ACT 2 spray in each nostril Nasally Once a day prn for 30 days Apr, ActiveStart: 72-90-1339cwtc 2 spray(s) nasal route once daily as needed Fluticasone Propionate 50 MCG/ACT 2 spray in each nostril Nasally Once a day prn for 30 days Apr, Activefluticasone 0.05 mg/inh Nasal [place] (13 sources)Start: 08-02-7307jdszbpayomp 0.05 mg/inh Nasal [place] Daily, Refill(s) 0 Start Date: 11/17/20 Status: Ordered Repeat number: 1Start: 86-65-4228nwlzwezdsbz 0.05 mg/inh Nasal [place] Daily, Refill(s) 0 Start Date: 11/17/20 Status: Orderedfolic acid 0.4 mg / vitamin b12 1 mg sublingual tablet (3 sources)Vitamin A88Ywzqvoeht Combinations (B-12) 100-5000 MCG sublingual tablet Daily. Active1 ml galcanezumab-gnlm 120 mg/ml auto-injector (11 sources)Start: 11-24-2023 End: 69-08-1456cghdhd 1 mg by subcutaneous injection every monthhydrOXYzine pamoate 25 mg oral capsule (4 sources)AntihistamineStart: 12-25-2024 End: 54-58-6747fumv 1 capsule by mouth once daily at bedtime as neededibuprofen 200 mg oral tablet (20 sources)Nonsteroidal Anti-inflammatory DrugStart: 42-95-6358rcgo 1 tablet by mouth three times daily as neededStart: 15-05-8460Mineg 200 mg, Oral, 2-3 tabs prn, Refills(s) 0, Pain Start Date: 10/01/15 Status: Ordered Repeat number: 1 Start: 00-03-2262Kddzx 200 mg, Oral, 2-3 tabs prn, Refills(s) 0, Pain Start Date: 10/01/15 Status: Orderedtake 1 tablet by mouth three times daily at mealtime as neededIbuprofen 200 MG 1 tablet with food or milk as needed Orally Three times a day Activelisinopril 2.5 mg oral tablet (20 sources)Angiotensin Converting Enzyme InhibitorStart: 47-37-1599zcfn 1 tablet by mouth once dailylisinopril 2.5 mg Tab See Instructions, tab(s) mg Oral Daily, Refills(s) 0, High blood pressure Start Date: 05/26/19 Status: Ordered Magnesium (20 sources)take 1 tablet by mouth twice dailyMagnesium 500 MG 1 tablet with a meal Orally BID for 30 day(s) Activemagnesium oxide 500 mg oral tablet (16 sources)Start: 65-86-4593evpi 1 tablet by mouth twice dailyStart: 05-26-2019 take 2 tablets by mouth once dailymagnesium oxide 250 mg oral tablet 500 mg = 2 tab(s), Oral, Daily, Refills(s) 0, Prophylaxis Start Date: 05/26/19 Status: Ordered Repeat number: 1metFORMIN hydrochloride 1000 mg oral tablet (20 sources)BiguanideStart: 08-29-4505idyf 1 tablet by mouth twice dailyStart: 02-11-2025 End: 41-36-7191wgqu 1 tablet by mouth twice dailyMetformin 1,000 mg tablet Discontinued 0 .ROUTE .COMPLEX 180 February 11, 2025 12:58pm April 9:23am TAKE ONE TABLET BY MOUTH TWICE A DAYStart: 05-26-2019 End: 95-47-3594hsul 1 tablet by mouth twice dailyMetformin 1,000 mg tablet Discontinued 1000 MG PO Twice daily 180 90 October 18, 2023 4:37pm January 16, 2024 2:20pm24 hr methylphenidate hydrochloride 27 mg extended release oral tablet (10 sources)Central Nervous System StimulantStart: 33-26-1728Yzqag: 12-20-2022 take 1 tablet by mouth once daily in the morningmethylphenidate 27 mg/24 hr ER Tab 30 EA, TAKE 1 TABLET BY MOUTH EVERY DAY IN THE MORNING FOR 30 DAYS, Refills(s) 0 Start Date: 12/20/22 Status: OrderedStart: 40-07-5574yjil 1 tablet by mouth every twenty-four hoursConcerta 27 MG 1 tablet in the morning Orally Once a day for 30 days December, ActiveStart: 05-58-5431muku 1 tablet by mouth every twenty-four hoursConcerta 27 MG 1 tablet in the morning Orally Once a day for 30 days Nov, ActiveStart: 84-78-6821auwf 1 tablet by mouth every twenty-four hoursConcerta 27 MG 1 tablet in the morning Orally Once a day for 30 days Oct, ActivemethylPREDNISolone 4 mg oral tablet (1 source)CorticosteroidStart: 12-20-2022 End: 22-12-4246Yjkshp Dosepack 4 mg Tab = 1 packet(s), Oral, As Directed, as directed on package labeling, X 6 day(s), # 21 tab(s), Refills(s) 0, Pharmacy: [facility]/pharmacy #[id number], 161, cm, 12/20/22 12:08:00 EDT, Height/Length Dosing, 56, kg, 12/20/22 12:08:00 EDT, Weight Dosing Start Date: 12/20/22 Stop Date: 12/26/22 Status: Eraesdk84 hr metoprolol succinate 50 mg extended release oral tablet (2 sources)beta-Adrenergic BlockerStart: 20-76-5489ibxy 1 tablet by mouth once dailyMultivitamin preparation (5 sources)take 1 tablet by mouth once dailyMultivitamin - 1 tablet Orally Once a day ActiveMultivitamin tablet (3 sources)Start: 86-59-8416bnpe 1 tablet by mouth once dailyStart: 10-18-2023 take 1 tablet by mouth once dailyMultivitamin tablet Active 1 TAB PO Daily October 18, 2023 12:00am Complies with drug therapyStart: 29-03-4948wxtt 1 tablet by mouth once dailyMultivitamin tablet Active 1 TAB PO Daily October 18, 2023 12:00amMultivitamins and Minerals (13 sources)Start: 50-92-7273ccvg 1 tablet by mouth once dailyMultivitamins and Minerals 1 tab, Oral, Daily, Refill(s) 0, Prophylaxis Start Date: 05/26/19 Status: Ordered Repeat number: 1Start: 71-27-0915wckw 1 tablet by mouth once dailyMultivitamins and Minerals 1 tab, Oral, Daily, Refill(s) 0, Prophylaxis Start Date: 05/26/19 Status: Orderednaproxen 500 mg delayed release oral tablet (1 source)Nonsteroidal Anti-inflammatory DrugStart: 12-20-2022 End: 99-00-3037xcxq 1 tablet by mouth twice dailynaproxen 500 mg oral enteric coated tablet 500 mg = 1 tab(s), Oral, BID, may sub non ec if needed, X 15 day(s), # 30 tab(s), Refills(s) 0, Pharmacy: [facility]/pharmacy #[id number], 161, cm, 12/20/22 12:08:00 EDT, Height/Length Dosing, 56, kg, 12/20/22 12:08:00 EDT, Weight Dosing Start Date: 12/20/22 Stop Date: 01/04/23 Status: Ordered nitrofurantoin, macrocrystals 25 mg / nitrofurantoin, monohydrate 75 mg oral capsule (4 sources)Nitrofuran AntibacterialStart: 15-73-1722hjxg 1 capsule by mouth every twelve hoursStart: 08-14-2024 End: 05-41-8987vrwl 1 capsule by mouth every twelve hoursNitrofurantoin Monohyd/M-Cryst (Macrobid) 100 mg capsule Discontinued 100 MG PO Q12H 14 7 August 14, 2024 1:00am October 22, 2024 3:15pmterbinafine 250 mg oral tablet (3 sources)Allylamine AntifungalStart: 93-32-0431wvhb 1 tablet by mouth in the morningterbinafine (LamISIL) 250 MG tablet Take 250 mg by mouth in the morning. 03/10/2022 ActivetiZANidine 4 mg oral tablet (8 sources)Central alpha-2 Adrenergic AgonistStart: 07-23-2024 End: 60-94-2734akxi 1 tablet by mouth once daily at bedtime as neededtopiramate 100 mg oral tablet (20 sources)Start: 02-12-2025 End: 98-50-9391isbt 2 tablets by mouth in the morningtopiramate (Topamax) 100 MG tablet Indications: Migraine without aura, intractable, with status migrainosus Take 2 tablets (200 mg) by mouth in the morning and 2 tablets (200 mg) before bedtime. 360 tablet 3 02/12/2025 02/12/2026 ActiveStart: 14-79-1696arte 1 tablet by mouth twice dailyStart: 12-17-2024 End: 53-03-4078huwk 1 tablet by mouth twice dailyTopiramate 200 mg tablet Discontinued 0 .ROUTE .COMPLEX 180 December 17, 2024 5:13pm December 25, 2024 8:38am TAKE 1 TABLET BY MOUTH TWICE A DAYStart: 07-23-2024 End: 58-34-3620anyy 1 tablet by mouth twice dailyTopiramate 200 mg tablet Discontinued 200 MG PO Twice daily 180 90 September 06, 2024 6:10pm December 17, 2024 5:13pmStart: 02-13-2024 End: 48-77-0170bbjs 1 tablet by mouth twice dailyTopiramate 200 mg tablet Discontinued 0 .ROUTE .COMPLEX 180 February 13, 2024 12:37pm July 23, 2024 4:31pm TAKE 1 TABLET BY MOUTH TWICE A DAY FOR 30 DAYSStart: 10-18-2023 End: 21-79-3757dokv 1 tablet by mouth twice dailyTopiramate (Topamax) 200 mg tablet Discontinued 200 MG PO Twice daily 60 November 24, 2023 8:14amJune 2023 1:06pmStart: 77-03-4651dqkh 1 tablet by mouth twice dailyTopamax 200 MG 1 tablet Orally twice daily for 90 day(s) December, ActiveStart: 43-49-2344whdp 2 tablets by mouth twice dailyTopamax 100 mg Tab 200 mg, Oral, BID, Refills(s) 0, Migraine headache Start Date: 05/26/19 Status: Ordered Repeat number: 1 End: 65-32-5219criqidjusf (Topamax) 100 MG tablet topiramate 100 mg tablet 02/12/2025 Discontinued (Reorder)vitamin b12 1 mg oral capsule (20 sources)Vitamin D88Gwfxs: 59-26-5530ejze 1 capsule by mouth once dailyStart: 10-18-2023 End: 28-43-6247Mwatduduyevkly (Vitamin B-12) 3,000 mcg/mL drops Discontinued 3000 MCG SUBLINGUAL October 18, 2023 12:00am July 23, 2024 4:29pmStart: 52-77-1519orya 100 mg by mouth once dailyVitamin B12 1,000 mcg, Oral, Daily, 100mg, Refills(s) 0 Start Date: 05/26/19 Status: Ordered Repeatnumber: 1take 1 mL under the tongue once dailyVitamin B12 3000 MCG/ML 1 ML Sublingual Once a day Activetake 1 mL under the tongue once dailyVitamin B12 3000 MCG/ML 1 ML Sublingual Daily ActiveVitamin C 500 MG (20 sources)take 1 capsule by mouth once dailyVitamin C 500 MG 1 capsule Orally daily ActiveVitamin C 500 MG Orally ActiveVitamin D 125 MCG (5000 UT) (20 sources)Vitamin D 125 MCG (5000 UT) as directed Orally daily ActiveVitamin D 125 MCG (5000 UT) as directed Orally Active Completed/Discontinued Medications MedicationDrug Class(es)DatesSig (Normalized)Sig (Original)[id number] 200 actuat albuterol 0.09 mg/actuat metered dose inhaler (20 sources)beta2-Adrenergic Agonisttake 1 puff(s) by inhalation every four hours as neededAlbuterol Sulfate HFA 108 (90 Base) MCG/ACT 1 puff as needed Inhalation every 4 hrs Not-Takingtake 1 puff(s) by inhalation every four hours as neededAlbuterol Sulfate HFA 108 (90 Base) MCG/ACT 1 puff as needed Inhalation every 4 hrs Not-Zhucoq94 hr amphetamine aspartate 5 mg / amphetamine sulfate 5 mg / dextroamphetamine saccharate 5 mg / dextroamphetamine sulfate 5 mg extended release oral capsule (20 sources)Central Nervous System StimulantStart: 12-20-2022 End: 32-17-5788cxzy 1 capsule by mouth once daily, then take 1 capsule by mouth every twenty-four hoursDextroamphetamine-Amphetamine (Adderall Xr) 20 mg capsule,extended release 24hr Discontinued 20 MG PO Daily October 18, 2023 12:00am January 18, 2024 9:08amStart: 96-48-6589eoue 1 capsule by mouth every twenty-four hoursAmphetamine-Dextroamphet ER 20 MG 1 capsule in the morning Orally Once a day for 30 days Mar, Not-TakingStart: 94-19-3624Rioneuwu XR 20 MG 1 capsule every morning Orally Once a day for 30 days Jan, ActiveStart: 11-95-4319Fitvbrrj XR 20 MG 1 capsule every morning Orally Once a day for 30 days December, ActiveStart: 61-66-7049Namrdjqf XR 20 MG 1 capsule every morning Orally Once a day for 30 days Nov, ActiveStart: 10-09-2021 Adderall XR 20 MG 1 capsule every morning Orally Once a day for 30 days Oct, ActiveStart: 00-86-8906Fwvupgjs XR 20 MG 1 capsule every morning Orally Once a day for 30 days Sep, ActiveStart: 11-51-1315Cdxeujwv XR 20 MG 1 capsule every morning Orally Once a day for 30 days Aug, ActiveStart: 62-09-2216Ystpnvvr XR 20 MG 1 capsule every morning Orally Once a day for 30 days Jul, ActiveStart: 61-74-1181Dshxlkry XR 20 MG 1 capsule every morning Orally Once a day for 30 days Jun, Activecephalexin 500 mg oral capsule (3 sources)Cephalosporin AntibacterialStart: 07-24-2024 End: 84-91-6174aqpv 1 capsule by mouth twice dailyCephalexin 500 mg capsule Discontinued 500 MG PO Twice daily 14 7 July 24, 2024 1:00am October 22, 2024 3:12pmclobetasol propionate 0.5 mg/ml topical cream (19 sources)CorticosteroidStart: 11-24-2023 End: 31-42-4301Bljorxmswb 0.05 % cream Discontinued 1 APPLIC TOPICAL Twice daily as needed July 23, 2024 4:28pm December 25, 2024 8:37amStart: 04-12-2021 clobetasol 0.025% topical cream Topical, BID, Refill(s) 0 Start Date: 11/17/20 Status: Ordered Repeat number: 1eszopiclone 3 mg oral tablet (19 sources)Start: 07-23-2024 End: 87-07-4105mmjj 1 tablet by mouth once daily at bedtimeEszopiclone 3 mg tablet Discontinued 3 MG PO Daily at bedtime January 16, 2025 5:36pm April 15, 2025 1:04pmStart: 02-17-2024 End: 02-74-0192jqpf 1 tablet by mouth once daily at bedtimeEszopiclone 2 mg tablet Discontinued 2 MG PO Daily at bedtime June 13, 2024 3:17pm July 23, 2024 5:42pmfluconazole 150 mg oral tablet (20 sources)Azole AntifungalStart: 37-21-9806Vjabkwqb 150 mg Tab 150 mg = 1 tab(s), Oral, Once, Take 1 tablet today, reserve the second tablet for recurrence of symptoms while on prescribed antibiotic. May be taken for symptoms while on antibiotic, as long as 3 days of pass since the first dose., # 2 tab(s), Refills(s) 0, Pharmacy: [facility]/pharmacy #[id number], 160, cm, 10/14/24 10:31:00 EDT, Height/Length Dosing, 67.5, kg, 10/14/24 10:31:00 EDT, Weight Dosing Start Date: 10/14/24 Status: Ordered Quantity: 2.0 Unit: tab(s) Repeat number: 1 Indications: Candidiasis, unspecified; Acute candidiasis of vulva and vagina; Start: 64-32-8452Efdfsikn 150 mg Tab Oral, Refills(s) 0 Start Date: 12/20/22 Status: OrderedStart: 23-55-4965jsmc 1 tablet by mouth every twenty-four hours Diflucan 150 MG 1 tablet Orally Once a day for 2 day(s) Oct, Active1.5 ml fremanezumab-vfrm 150 mg/ml prefilled syringe (20 sources)inject 1.5 mL by subcutaneous injection every monthAjovy 225 MG/1.5ML 1.5 ml Subcutaneous monthly Not-Takingmontelukast 10 mg oral tablet (20 sources)Leukotriene Receptor AntagonistStart: 12-20-2011 End: 77-67-3576yqvb 1 tablet by mouth once dailyMontelukast (Singulair) 10 mg tablet Discontinued 10 MG PO Daily October 18, 2023 12:00am July 23, 2024 5:42pmpredniSONE 20 mg oral tablet (5 sources)Start: 12-25-2024 End: 71-53-8060Rvjnimfnpq 20 mg tablet Discontinued 0 PO Daily 18 9 December 25, 2024 12:00am January 22, 2025 9:04am 3 tabs x 3 days, 2 tabs x 3 days, 1 tab x 3 daysStart: 13-16-5699kwonapAZIE 20 MG as directed with food or milk Orally 3 poq day x 3 days, 2 po qday x 3 days, 1 po qday x 3 days for 9 day(s) Feb, Activepromethazine hydrochloride 25 mg oral tablet (20 sources)Phenothiazinetake 1 tablet by mouth every four to six hours as needed for nauseaPromethazine HCl 25 MG 1 tablet Orally q 4-6 hrs. prn/nausea for 90 day(s) Not-Takingtake 1 tablet by mouth every four to six hours as needed for nauseaPromethazine HCl 25 MG 1 tablet Orally q 4-6 hrs. prn/nausea for 90 day(s) Not-Takingsuvorexant 10 mg oral tablet (20 sources)Orexin Receptor AntagonistStart: 11-07-2020 End: 59-39-5353zief 1 tablet by mouth once daily at bedtimeSuvorexant 10 mg tablet Discontinued 10 MG PO Daily at bedtime 30 December 12, 2023 1:05pm January 4:02pmtriamcinolone acetonide 40 mg/ml injectable suspension (17 sources)CorticosteroidStart: 37-30-6439Rirvvvs-40 Nov, 40 mg Problems Active Problems Problem ClassificationProblemDateDocumented DateEpisodic/ChronicAbdominal pain (20 sources)Abdominal pain; Translations: [Pain in female pelvis]11-09-2021 EpisodicAllergic reactions (2 sources)Contact dermatitis due to poison aurelia; Translations: [Allergic contact dermatitis due to plants, except food]43-53-0210KsfvpjegGnvnqal disorders (20 sources)Mixed anxiety and depressive disorder; Translations: [Other specified anxiety disorders]ChronicBenign neoplasm of uterus (16 sources)Uterine dipmkrffu06-68-9330SjnyvchrCqnmicmjah associated with dizziness or vertigo (7 sources)Dizziness; Translations: [Dizziness and giddiness]Onset: 08-06-2024 34-19-4480PlpllvyrYogxuemc mellitus without complication (20 sources)Type 2 diabetes mellitus well controlled; Translations: [Type 2 diabetes mellitus without complications]Onset: 09-14-2021 Resolved: 66-30-3090EqincylXikjdzlju of lipid metabolism (20 sources)Hyperlipidemia; Translations: [Pure hypercholesterolemia, unspecified]Onset: [id number] usually diagnosed in infancy, childhood, or adolescence (20 sources)Disorders of attention and motor control; Translations: [Other specified behavioral and emotional disorders with onset usually occurring in childhood and adolescence]Onset: 08-11-2021 Resolved: 40-89-1066BehsdezWztcycwlyu disorders (20 sources)Gastroesophageal reflux disease; Translations: [Gastro-esophageal reflux disease without esophagitis]ChronicGenitourinary symptoms and ill-defined conditions (4 sources)Genuine stress dmvwwiptnjib11-81-3476LojbqokRadujohorkkft symptoms and ill-defined conditions (13 sources)History of urinary tract infection; Translations: [Personal history of urinary (tract) infections]Onset: 06-89-5462TkvlqwbnGzwulkzm; including migraine (20 sources)Migraine without aura, not refractory ; Translations: [Migraine without aura, not intractable, without status migrainosus]Onset: 09-14-2021 Resolved: 92-85-1754SazekhgQvqkg valve disorders (3 sources)Nonrheumatic aortic (valve) insufficiency; Translations: [Nonrheumatic aortic (valve) insufficiency]Onset: 36-58-1069EcdtwsaAkaoj valve disorders (16 sources)Heart -39-6538GzhzqfnzMjvujjsbpeqow and screening for infectious disease (1 source)Encounter for immunizationEpisodicMenopausal disorders (3 sources)Atrophy of vagina; Translations: [Atrophic vaginitis]Onset: 195215-82-9771LpmyxrrVbgalturj of unspecified nature or uncertain behavior (16 sources)Neoplasm of pituitary wordy95-97-5566RxvvpkqzIlmeqex system congenital anomalies (3 sources)Cerebellar disorder; 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]Onset: 369706-84-9716DyfjifgGatzvtneqtc deficiencies (5 sources)Cobalamin deficiency; Translations: [Deficiency of other specified B group vitamins]Onset: 785977-02-3021IyqsyabyYmpix and unspecified benign neoplasm (5 sources)Pituitary adenoma; Translations: [Benign neoplasm of pituitary gland] Onset: 190169-13-4072FsokelsxMlsfx connective tissue disease (5 sources)Spasm of cervical paraspinous muscle; Translations: [Other muscle spasm]Onset: 048102-82-6090PlvxsnsyAmlvj diseases of bladder and urethra (3 sources)Urethral stricture; Translations: [Unspecified urethral stricture, female]Onset: 353513-20-6674XbjfuhoaPryfk ear and sense organ disorders (1 source)Otalgia, left ear; Translations: [Otalgia of left ear]Onset: 67-35-0814IrctvtknTgnpd female genital disorders (1 source)Superficial pain on intercourse; Translations: [Superficial (introital) dyspareunia]Onset: 46-05-8913JytgmfaXnvvo female genital disorders (16 sources)Pgfiqtuvblm50-64-2224ZzaxvqnSmwys lower respiratory disease (20 sources)Nodule of lung; Translations: [Solitary pulmonary nodule]Episodic Other lower respiratory disease (1 source)Other nonspecific abnormal finding of lung fieldEpisodicOther nervous system disorders (16 sources)H/O: xncaasbw56-41-2772ZkinnsbhUahxf nutritional; endocrine; and metabolic disorders (1 source)Overweight in adulthood with body mass index of 25 or more but less than 30; Translations: [Body mass index (BMI) 25.0-25.9, adult]Onset: 08-03-2023 EpisodicOther skin disorders (1 source)Actinic keratosisEpisodicOther upper respiratory disease (20 sources)Seasonal allergy; Translations: [Other seasonal allergic rhinitis] ChronicOther upper respiratory disease (2 sources)Other seasonal allergic rhinitisOnset: 03-25-2022 Resolved: 09-80-0519NyednaoFanffcvs codes; unclassified (20 sources)Sleep apnea; Translations: [Sleep apnea, unspecified]ChronicResidual codes; unclassified (20 sources)Insomnia; Translations: [Insomnia, unspecified]01-40-1265Zhapbuom Residual codes; unclassified (8 sources)Insomnia, unspecifiedOnset: 08-06-2021 Resolved: 05-56-2544EdppuaryTlfspisusil; intervertebral disc disorders; other back problems (1 source)Lumbago with sciatica; Translations: [Lumbago with sciatica, right side]Onset: 63-82-6498KtgzrpryOldsvrpisrlw (1 source)Family hx of ischem heart dis and oth dis of the circ sysOnset: 37-77-8930Tiyhfmzvocev (1 source)Supraventricular tachycardia, unspecified; Translations: [Supraventricular tachycardia, unspecified]Onset: 61-94-9816Kqfsghg tract infections (10 sources)Urinary tract infectious disease; Translations: [Urinary tract infection, site not specified]Onset: 638843-59-3394DabpsrkgFogtz infection (1 source)Viral disease; Translations: [Viral infection, unspecified]Onset: 90-35-9772Wpsbujiu Past or Other Problems Problem ClassificationProblemDateDocumented DateEpisodic/ChronicCardiac dysrhythmias (4 sources)Palpitations; Translations: [Palpitations]Onset: 29-97-0462Avipsfhs Other lower respiratory disease (1 source)Solitary pulmonary noduleOnset: 06-30-2021 Resolved: 71-62-5558EwyxmrpcQtikw lower respiratory disease (1 source)Shortness of breathOnset: 08-27-2021 Resolved: 45-84-6813WqjmzueyThuqi nervous system disorders (3 sources)Ataxic gait; Translations: [Ataxic gait]Onset: 434351-99-7764 EpisodicOther non-traumatic joint disorders (5 sources)Pain in right elbow; Translations: [PAIN IN RIGHT ELBOW]Onset: 03-03-2022 Resolved: 40-83-2217OxjbxjzwNqogr non-traumatic joint disorders (4 sources)Pain in left shoulder; Translations: [PAIN IN LEFT SHOULDER]Onset: 05-91-9457CphysgifItmdl screening for suspected conditions (not mental disorders or infectious disease) (11 sources)Abnormal findings on diagnostic imaging of heart and coronary circulation; Translations: [Encounterfor screening for osteoporosis]Onset: 09-19-2018 Resolved: 77-13-4117LifwaiumCxoshgcz codes; unclassified (1 source)Family history of malignant neoplasm of breast; Translations: [FAMILY HX MALIG NEOPLASM OF BREAST]Onset: 21-62-4695ExajympgMdituplt codes; unclassified (1 source)Family history of malignant neoplasm of trachea, bronchus and lung; Translations: [FAM HX MALIG NEOPLSM TRACH BRON LNG]Onset: 76-44-5357Asbhvlye Unclassified (3 sources)Attention Deficit Disorder 314.00Unclassified (1 source)Supraventricular tachycardia, unspecified; Translations: [Supraventricular tachycardia, unspecified]Onset: 29-00-3873Bxbiv infection (1 source)COVID-19Onset: 08-27-2021 Resolved: 08-27-2021 Results Test NameValueInterpretationReference RangeFacilityAppearance of UrineOrdered By: Momo Hampton on 56-54-8894Zahftbcsgs (U)ClearNormalClearOhiohealth Arthur G.H. Bing, Md, Cancer CenterComment on above:Order Comment: Name Collection Type:: Clean- Voided MidstreamPerformed By: #### UA, CUU #### [facility] [address] [id number] USABilirubin Test strip Ql (U)Ordered By: Momo Hampton on 65-16-9708Biktdxaiq Ql (U)NegativeNegativeOhiohealth Arthur G.H. Bing, Md, Cancer CenterColor of Urine by AutoOrdered By: Momo Hampton on 42-96-8084Qfice (U)Light-yellow NormalYellowOhiohealth Arthur G.H. Bing, Md, Cancer CenterComment on above:Order Comment: Name Collection Type:: Clean-Voided MidstreamPerformed By: #### UA, CUU #### [facility] [address] [place] [address] USAGlucose [Mass/volume] in Urine by Test stripOrdered By: Momo Hampton on 62-93-8331Ceufgnl Test strip (U) [Mass/Vol]Normal mg/dLNormal Ohiohealth Arthur G.[facility]. Bing, Md, Cancer CenterHemoglobin Test strip Ql (U)Ordered By: Momo Memo on 20-99-1128Yxkctprons Ql (U)NegativeNegMercy Health Lorain HospitalKetones [Presence] in Urine by Test stripOrdered By: Momopriya Foleyes on 68-62-5959Tuaztcr Ql (U)NegativeNormalNegMercy Health Lorain Hospital Comment on above:Order Comment: Name Collection Type:: Clean-Voided Midstream Performed By: #### UA, CUU #### [place] [id number] USALeukocyte esterase [Presence] in Urine by Test strip Ordered By: Momo Hampton on 52-71-9920Swzxqvpgt esterase Test strip Ql (U) NegativeKettering Health DaytonComment on above:Order Comment: Name Collection Type:: Clean-Voided MidstreamPerformed By: #### UA, CUU #### [place] [id number] USANitrite Test strip Ql (U)Ordered By: Momopriya Foleyes on 31-52-2763Zkmidkh Ql (U)NegativeNegMercy Health Lorain HospitalProtein Test strip (U) [Mass/Vol]Ordered By: Momo Willsongles on 71-55-8591Ybmnzvd (U) [Mass/Vol]NegativeNegSelect Medical Specialty Hospital - Cantonpecific gravity Test strip (U) [Rel density]Ordered By: Momopriya Hampton on 28-68-9841Wfdzkakz gravity (U) [Rel density]1.0091.001-1.030Ohiohealth Arthur G.H. Bing, Md, Cancer CenterUrinalysison 00-41-8895Nyjncykur,UrineNegativeNormalNegativeThe [facility] Comment on above:Order Comment: Name Collection Type:: Clean-Voided Midstream Performed By: #### UA, CUU #### [place] [id number] USAGlucose Ql (U)NormalNormalNormalThe [facility] Hospital Physician GroupComment on above:Order Comment: Name Collection Type:: Clean-Voided MidstreamPerformed By: #### UA, CUU #### [place] [address] USANitrite,UrineNegativeNormalNegativeThe [facility] Hospital Physician GroupComment on above:Order Comment: Name Collection Type:: Clean-Voided MidstreamPerformed By: #### UA, CUU #### [place] [address] USAOccult Blood,UrineNegativeNormalNegativeThe [facility] Hospital Physician GroupComment on above:Order Comment: Name Collection Type:: Clean- Voided MidstreamResult Comment: PERFORMED BY: [place] [address] PATHOLOGIST ELECTRIC CAR OPERATOR BLAYNE GOULD M.D.Performed By: #### UA, CUU #### [place] [address] USAProtein,UrineNegativeNormalNegativeThe [facility] Physician GroupComment on above:Order Comment: Name Collection Type:: Clean-Voided MidstreamPerformed By: #### UA, CUU #### [place] [address] USASpecificy [place],Urine1.578Qhmaua2.001-1.030The [facility] Physician GroupComment on above:Order Comment: Name Collection Type:: Clean- Voided MidstreamPerformed By: #### UA, CUU #### [place] [address] USAUrobilinogen,UrineNormalNormalNormalThe [facility] Physician GroupComment on above:Order Comment: Name Collection Type:: Clean- Voided MidstreamPerformed By: #### UA, CUU #### [place] [address] USAUrine Cultureon 77-90-9977Bvoukbqe identified Cx Nom (U) >100,000 colonies/ml mixed bacterial skin contaminants including mixed gram negative bacilli - 2 Days * This is a corrected result. * A prior result that was reported as final has been changed. Mixed gram negative bacilli added to final report on 05/02/25 PERFORMED BY: [address] [address] PATHOLOGIST ELECTRIC CAR OPERATOR BLAYNE GOULD M.D.NormalThe [facility] General Hospital Physician GroupComment on above: Performed By: #### UA, CUU #### [facility] [address] [place] [address] USAUrobilinogen Test strip (U) [Mass/Vol]Ordered By: Momo Hampton on 69-75-6838Qwuibzfkvpnw (U) [Mass/Vol]Normal mg/dLNormalOhiohealth Arthur G.H. Bing, Md, Cancer CenterpH of Urine by Test stripOrdered By: Momo Hampton on 22-36-0534tN (U)5.5 [pH]Normal5.0-9.0Ohiohealth Arthur G.[facility]. Bing, Md, Cancer CenterComment on above:Order Comment: Name Collection Type:: Clean-Voided MidstreamPerformed By: #### UA, CUU #### [facility] [address] [place] [address] ZCX57ez [id number] call from patient. Patient states she seen her neurologist recently and he suggested to her to start on a beta emily to help with her migraines. Patient states her neurologist requested x ray equipment mechanic to put her on the beta emily and manage it. Please advise. 02/15/2025 - Patient Call: You and Jackie Mo MD (Newest Message First) View All Conversations on this Encounter Jackie Mo MD to Co (Selected Message) 03/07/25 11:58 PM Stop Cardizem and start her on Toprol-XL 50 mg daily. Let her check her blood pressure twice daily for 2 weeks and send log Advised patient. Script sent to [facility]. Patient verbalized understandingNoal Genesis HospitalTelephoneon [phone] Sue Vega 1970 F Date Provider Department Center 02/15/2025 [id number]-FRSMHGRPDWVIOLET FOLEY T[facility] No family history on fileNormalUniversity of Texas Health Arlington Memorial HospitalAmbulatory Visit Summaryon [id number] Visit SummaryAmbulatory Visit Summary SUE VEGA :1970 Visit Date:01/30/2025 Ambulatory Visit Instructions Your Diagnosis Unspecified urethral stricture, female Recurrent UTI Vaginal atrophy Your Care Team Attending Physician - Dev MOORE MD Primary Care Physician - MOMO HAMPTON DO This Is Your Medications List estradiol topical (estradiol 0.1 mg/g Vag Crm) Contact prescribing physician if questions or concerns ascorbic acid (Vitamin C) atomoxetine (Strattera) atorvastatin (atorvastatin 20 mg Tab) clobetasol topical (clobetasol 0.025% topical cream) cyanocobalamin (Vitamin B12) diltiazem (DilTIAZem (Eqv-Cardizem CD) 120 mg/24 hours oral capsule, extended release) elderberry eletriptan (Relpax 40 mg Tab) fluconazole (Diflucan 150 mg Tab) fluticasone nasal (fluticasone 0.05 mg/inh Nasal [place]) ibuprofen (Advil) magnesium oxide (magnesium oxide 250 mg oral tablet) metformin (metformin 1000 mg Tab) montelukast (Singulair 10 mg Tab) multivitamin with minerals (Multivitamins and Minerals) suvorexant (Belsomra 10 mg oral tablet) topiramate (Topamax 100 mg Tab) Procedures Performed Cystourethroscopy with dilation of urethral stricture (10/31/2024), Angiogram (07/08/2023), Cystoscopy (12/16/2020), Colonoscopy (11/07/2020), breast biopsy, left (11/2018), Cystourethroscopy with dilation of urethral stricture (02/03/2015), robotic assisted hysterectomy, bilateral salpingectomy (), section, D&C - Dilatation and curettage, LUMBAR FUSION, Tonsillectomy. Discharge Vitals Temperature (Tympanic) 18 ???C Heart Rate (Peripheral) 83 Blood Pressure 108/76 Height 160 cm Height 63 in Weight 66.2 kg Weight 145.946 lb BMI 25.86 What to do next Scheduled Follow-Up Appointments Tuesday2025 8:15 AM EST With: Dev MOORE MD Where: [facility] [address] [place] [address]- You Need to Schedule the Following Appointments Follow Up with Dev MOORE MD, URL When: Where: [facility] [address] , [place] [address] [phone] Medications What How Much When Why Instructions Unchanged estradiol topical (estradiol 0.1 mg/ g Vag Crm) 1 Gram Vaginal Tuesday & Vaginal atrophy Send 3 month supply Pickup at [facility]. Unchanged ascorbic acid (Vitamin C) 50 Milligram Chewed Every day 500mg Contact prescribing physician if questions or concerns Unchanged atomoxetine (Strattera) By Mouth Once a day (in the morning) Contact prescribing physician if questions or concerns Unchanged atorvastatin (atorvastatin 20 mg Tab) 1 Tablets By Mouth Every day Contact prescribing physician if questions or concerns Unchanged clobetasol topical (clobetasol 0.025% topical cream) Topical 2 times a day Contact prescribing physician if questions or concerns Unchanged cyanocobalamin (Vitamin B12) 1,000 Microgram By Mouth Every day 100mg Contact prescribingphysician if questions or concerns Unchanged diltiazem (DilTIAZem (Eqv-Cardizem CD) 120 mg/ 24 hours oral capsule, extended release) Contact prescribing physician if questions or concerns Unchanged elderberry Contact prescribing physician if questions or concerns Unchanged eletriptan (Relpax 40 mg Tab) 1 Tablets By Mouth Contact prescribing physician if questions or concerns Unchanged fluconazole (Diflucan 150 mg Tab) 1 Tablets By Mouth Once Vulvovaginal candidiasis Antibiotic-induced yeast infection Take 1 tablet today, reserve the second tablet for recurrence of symptoms while on prescribed antibiotic. May be taken for symptoms while on antibiotic, as long as 3 days of pass since the first dose. Contact prescribing physician if questions or concerns Unchanged fluticasone nasal (fluticasone 0.05 mg/ inh Nasal [place]) Every day Contact prescribing physician if questions or concerns Unchanged ibuprofen (Advil) 200 Milligram By Mouth 2-3 tabs prn Contact prescribing physician if questions or concerns Unchanged magnesium oxide (magnesium oxide 250 mg oral tablet) 2 Tablets By Mouth Every day Contactprescribing physician if questions or concerns Unchanged metformin (metformin 1000 mg Tab) 1 Tablets By Mouth 2 times a day Contact prescribing physician if questions or concerns Unchanged montelukast (Singulair 10 mg Tab) 1 Tablets By Mouth Every day Contact prescribing physician if questions or concerns Unchanged multivitamin with minerals (Multivitamins and Minerals) 1 tab By Mouth Every day Contact prescribing physician if questions or concerns Unchanged suvorexant (Belsomra 10 mg oral tablet) 1 Tablets By Mouth Once a day (at bedtime) Contact prescribing physician if questions or concerns Unchanged topiramate (Topamax 100 mg Tab) 200 Milligram By Mouth 2 times a day Contact prescribing physician if questions or concerns Pharmacy Information [facility] (more content not included)...[facility] HospitalUrology Office/Clinic Noteon [phone] Office/Clinic Note Urology Office/Clinic Note Chief Complaint follow up HPI Staff 3 month follow up to Cysto/UD 10/31/24 Previous DX: Acute Cystitis without Hematuria, Vulvovaginal candidiasis, Antibiotic induced yeast infection. *Estrace cream. Plunge 1 gm vaginally then apply excess cream around the urethra 2 times per week at night. is working well needs refill sent to [facility] mail order denies pain/burning denies visible blood denies flank pain History of Present Illness Tests reviewed: reviewed UA, op note I have reviewed the previous health record information and history for this patient from Dr. Moore. I have reviewed and verified the staff HPI to be accurate for this encounter. Review of Systems PHQ Score Initial Depression Screen Score: 0 SCORE ROS - Provider Constitutional: denies weight loss, denies hot flashes. Eyes: denies eye problems. Gastrointestinal: denies nausea, denies vomiting. Cardiovascular: denies chest pain or angina. Integumentary: no dryness Musculoskeletal: denies musculoskeletal symptoms. ENMT: denies otolaryngeal symptoms. Respiratory: no shortness of breath. Heme/Lymph: denies easy bleeding tendency, denies easy bruising tendency. Psychiatric: no confusion, no anxiety. Genitourinary: See HPI. Physical Exam Vitals & Measurements T: 18 ???C(Tympanic) HR: 83(Peripheral) BP: 108/76 HT: 63 in HT: 160 cm WT: 145.946 lb WT: 66.2 kg BMI: 25.86 General Appearance: alert , no acute distress, well nourished, well developed female. Procedure Operative Information Anesthesia Type: Local Procedure: Local Urethral Dilation Complications: None Surgical risks, benefits, details of the procedure have been explained to the patient. Full informed consent has been obtained. Intraoperative Information Prepped: Patient is brought back to the endoscopy suite. Patient is placed in modified dorso/lithotomy position. Patient prepped in the usual fashion with Betadine solution. 2% Xylocaine Jelly is placed per Urethra. The Urethra is: Tighttissues are less brittle and less atrophic appearing. The Urethra was dilated to: 20-30 Serbian with sounds. Specimens Removed: None Postoperative Information Patient is discharged home. Follow up arranged. Assessment/Plan 1. Unspecified urethral stricture, female (N35.92: Unspecified urethral stricture, female) Last Cysto/UD 10/31/24 - Tight urethra, dilated 20-26 Fr. Pt had IO UD wo complications today. Tolerated well. -F/u in 6 mos for repeat UD 2. Recurrent UTI (N39.0: Urinary tract infection, site not specified) Took Keflex 250mg #30 then Macrobid 100mg #30 after last cysto in October. UA neg. 3. Vaginal atrophy (N95.2: Postmenopausal atrophic vaginitis) S/p Cysto 10/31/24 - No mercy or prolapse. Mild A.V. Using Estrace cream. Cont plunging 1 gm vaginally then apply excess cream around the urethra 2 times per week at night. Refills sent. Follow-up With When Contact Information TERESA JIMENEZ, Dev R, URL [facility] [address] [place] [phone] Additional Instructions: 6 mos UD Patient Education Urethral Dilation Malina Toure, personally scribed for Dr. Moore on 01/30/2025 09:11:25. . Documentation recorded by the scribMalina haro, accurately reflects the services(s) I performed and decisions made by me. Authenticated by Dr. Moore on 01/30/2025 09:14:06. Problem List/Past Medical History Ongoing Abdominal pain in female Diabetes--NIDDM Dyspareunia Female pelvic pain H/O: migraine Heart murmur Hyperlipidemia Pituitary tumor Recurrent UTI Stress incontinence Unspecified urethral stricture, female Uterine fibroids Vaginal atrophy Historical Migraine Procedure/Surgical History Cystourethroscopy with dilation of urethral stricture (10/31/2024), Angiogram (07/08/2023), Cystoscopy (12/16/2020), Colonoscopy (11/07/2020), breast biopsy, left (11/2018), Cystourethroscopy with dilation of urethral stricture (02/03/2015), robotic assisted hysterectomy, bilateral salpingectomy (), section, D&C - Dilatation and curettage, LUMBAR FUSION, Tonsillectomy. Medications Advil, 200 mg, Oral atorvastatin 20 mg Tab, 20 mg= 1 tab(s), Oral, Daily Belsomra 10 mg oral tablet, 10 mg= 1 tab(s), Oral, Once a day (at bedtime) clobetasol 0.025% topical cream, Topical, BID Diflucan 150 mg Tab, 150 mg= 1 tab(s), Oral, Once DilTIAZem (Eqv-Cardizem CD) 120 mg/24 hours oral capsule, extended release elderberry estradiol 0.1 mg/g Vag Crm, 1 gm, Vaginal, MonThu, 3 refills fluticasone 0.05 mg/inh Nasal [place], Daily magnesium oxide 250 mg oral tablet, 500 mg= 2 tab(s), Oral, Daily metformin 1000 mg Tab, 1000 mg= 1 tab(s), Oral, BID Multivitamins and Minerals, 1 tab, Oral, Daily Relpax 40 mg Tab, 40 mg= 1 tab(s), Oral Singulair 10 mg Tab, 10 mg= 1 tab(s), Oral, Daily Strattera, Oral, qAM Topamax 100 mg Tab, 200 mg, Oral (more content not included)...[facility] HospitalComment on above:Result Comment: Electronically Signed By: Dev MOORE MD\.br\Date and Time Signed: 01/30/25 09:14 EDT\.br\Electronically Co-Signed By: Malina Montes.sugar\Date and Time Co-Signed: 01/30/25 09:11 KIT00ix [id number] for patient to return my call.[facility]36on [id number] called with concerns about erratic HR. Says she could feel it beat fast and it went up to 131, then drops down to 60's-70's. While I had her on the phone I had her check her BP since she c/o dizziness. BP was 100/83 with a HR of 95. Patient denies chest pain or SOB. Said she has not missed any doses of diltiazem (240mg daily) and hasn't had caffeine today. Says her eyes are glossy . Apple Watch told her average HR is 108, no alerts of afib. I advised her to go to the ED if HR goes up that high again and doesn't come back down. Any recommendations? Please advise. Thanks.[facility] CenterMA Mamm Screen w/CAD if perf and 3D Bilon 65-80-9417MG Mamm Screen w/CAD if perf and 3D BilExam Date/Time: 12/14/2024 07:35 EDT Reason for Exam: Z12.31 Report IMPRESSION: BIRADS 1 NEGATIVE, NORMAL INTERVAL FOLLOW-UP Follow-up: 12 MONTH RECALL Category B - There are scattered areas of fibroglandular density. Vascular calcifications: Absent. EXAM: MA Mamm Screen w/CAD if perf and 3D Luis DATE: 12/14/2024 7:15 AM CLINICAL HISTORY: Z12.31. COMPARISONS: 09/29/2023, 11/06/2020, and 09/15/2019. TECHNIQUE: Routine full-field digital mammograms and 3D breast tomosynthesis were obtained of both breasts. FINDINGS: There are no developing densities, suspicious microcalcifications, or areas of architectural distortion identified on the current study. No significant changes are identified from the prior studies, given differences in technique and positioning. Biopsy marking clip central left breast. Dense Breast: No. CAD analysis was performed and used in the interpretation. Board Certified Radiologists. Accredited by the ACR and FDA. MAMMOGRAPHY IS VERY IMPORTANT TO YOUR HEALTH. THE CURRENT [employer] GUIDELINES RECOMMENDS ANNUAL MAMMOGRAPHY BEGINNING AT AGE 40. THIS FACILITY UTILIZES A REMINDER SYSTEM TO ENSURE ALL PATIENTS RECEIVE REMINDER NOTIFICATIONS AT THE APPROPRIATE TIME BASED ON THE RECOMMENDATIONS OF THIS EXAM. Report Ordering Provider: Yury Garcia FINAL REPORT Dictated: 12/14/2024 12:13 pm Elieser Bains MD Signed (Electronic Signature): 12/14/2024 12:13 pm Signed by: Elieser Bains MD Transcribed by: XIMENA Technologist: DAVE Assessment: BI-RADS Category 1-Negative Recommendation: Normal interval follow-upJ.W. [facility] Hospital36on [id number] again for PCP to send me her HbA1c results.[facility]36on [id number] lab results from 10/29/2024: MD Anahi Garner MA Total cholesterol and LDL cholesterol are acceptable but she has significantly high triglyceride which is higher than it was last year, check if the patient was actually fasting for this blood test, if no let her repeat this test fasting total 12 hours, if yes lets check HbA1c. Patient states she had her A1c checked a few weeks ago in PCP's office. She thinks it was a 5.5. I LM with PCP's office to obtain result.[facility] CenterTelephoneon [phone] Sue Vega 1970 F Date Provider Department Center 11/19/2024 928-ANAHI ROTHMAN [facility] Erica [facility] No family history on fileNormalUniversBlanchard Valley Health System Bluff[facility] HospitalAmbulatory Visit Summaryon [id number] Visit SummaryAmbulatory Visit Summary SUE VEGA :1970 Visit Date:10/31/2024 Ambulatory Visit Instructions Your Diagnosis Recurrent UTI Vaginal atrophy Stress incontinence Urethral stricture Your Care Team Attending Physician - TERESA JIMENEZ, Dev Johnson Primary Care Physician - MOMO HAMPTON DO This Is Your Medications List cephalexin (Keflex 250 mg Cap) estradiol topical (estradiol 0.1 mg/g Vag Crm) nitrofurantoin (Macrobid 100 mg Cap) Contact prescribing physician if questions or concerns ascorbic acid (Vitamin C) atomoxetine (Strattera) atorvastatin (atorvastatin 20 mg Tab) clobetasol topical (clobetasol 0.025% topical cream) cyanocobalamin (Vitamin B12) diltiazem (DilTIAZem (Eqv-Cardizem CD) 120 mg/24 hours oral capsule, extended release) elderberry eletriptan (Relpax 40 mg Tab) fluconazole (Diflucan 150 mg Tab) fluticasone nasal (fluticasone 0.05 mg/inh Nasal [place]) ibuprofen (Advil) magnesium oxide (magnesium oxide 250 mg oral tablet) metformin (metformin 1000 mg Tab) montelukast (Singulair 10 mg Tab) multivitamin with minerals (Multivitamins and Minerals) suvorexant (Belsomra 10 mg oral tablet) topiramate (Topamax 100 mg Tab) Procedures Performed Cystoscopy (10/31/2024), Angiogram (07/08/2023), Cystoscopy (12/16/2020), Colonoscopy (11/07/2020),breast biopsy, left (11/2018), Cystourethroscopy with dilation of urethral stricture (02/03/2015), robotic assisted hysterectomy, bilateral salpingectomy (02/22/2014), section, D&C - Dilatation and curettage, LUMBAR FUSION, Tonsillectomy. Discharge Vitals Temperature (Temporal Artery) 37 ???C Heart Rate (Peripheral) 73 Respiratory Rate 16 Blood Pressure 111/72 Height 160 cm Height 63 in Weight 67 kg Weight 147.71 lb BMI 26.17 What to do next Scheduled Follow-Up Appointments Tuesday 8:30 AM EDT With: Dev MOORE MD Where: [facility] [address] [place] [address]- You Need to Schedule the Following Appointments Follow Up with Dev MOORE MD, URL When: Where: [facility] [address] [place] [address]- Medications What How Much When Why Instructions New nitrofurantoin (Macrobid 100 mg Cap) 1 Capsules By Mouth Every day Duration: 30 Days Complete Keflex course then start this script. Pickup at [facility]/pharmacy #[id number] Unchanged cephalexin (Keflex 250 mg Cap) 1 Capsules By Mouth Every day Duration: 30 Days do not start until after you finish the Augmentin Unchanged estradiol topical (estradiol 0.1 mg/ g Vag Crm) 1 Gram Vaginal Tuesday & Unchanged ascorbic acid (Vitamin C) 50 Milligram Chewed Every day 500mg Contact prescribing physician if questions or concerns Unchanged atomoxetine (Strattera) By Mouth Once a day (in the morning) Contact prescribing physician if questions or concerns Unchanged atorvastatin (atorvastatin 20 mg Tab) 1 Tablets By Mouth Every day Contact prescribing physician if questions or concerns Unchanged clobetasol topical (clobetasol 0.025% topical cream) Topical 2 times a day Contact prescribing physician if questions or concerns Unchanged cyanocobalamin (Vitamin B12) 1,000 Microgram By Mouth Every day 100mg Contact prescribingphysician if questions or concerns Unchanged diltiazem (DilTIAZem (Eqv-Cardizem CD) 120 mg/ 24 hours oral capsule, extended release) Contact prescribing physician if questions or concerns Unchanged elderberry Contact prescribing physician if questions or concerns Unchanged eletriptan (Relpax 40 mg Tab) 1 Tablets By Mouth Contact prescribing physician if questions or concerns Unchanged fluconazole (Diflucan 150 mg Tab) 1 Tablets By Mouth Once Vulvovaginal candidiasis Antibiotic-induced yeast infection Take 1 tablet today, reserve the second tablet for recurrence of symptoms while on prescribed antibiotic. May be taken for symptoms while on antibiotic, as long as 3 days of pass since the first dose. Contact prescribing physician if questions or concerns Unchanged fluticasone nasal (fluticasone 0.05 mg/ inh Nasal [place]) Every day Contact prescribing physician if questions or concerns Unchanged ibuprofen (Advil) 200 Milligram By Mouth 2-3 tabs prn Contact prescribing physician if questions or concerns Unchanged magnesium oxide (magnesium oxide 250 mg oral tablet) 2 Tablets By Mouth Every day Contactprescribing physician if questions or concerns Unchanged metformin (metformin 1000 mg Tab) 1 Tablets By Mouth 2 times a day Contact prescribing physician if questions or concerns Unchanged montelukast (Singulair 10 mg Tab) 1 Tablets By Mouth Every day Contact prescribing physician if questions or concerns Unchanged multivitamin with minerals (Multivitamins and Minerals) 1 tab By Mouth Every day Contact prescribing physician if questions or concerns Unchanged suvorexant (Belsomra 10 mg oral tablet) (more content not included)... NormalWake Forest Baptist Health [facility] Hospitaler [facility] Tra[facility] CenterUrology Office/Clinic Noteon [id number] Office/Clinic NoteUrology Office/Clinic Note Chief Complaint cystoscopy HPI Staff Cysto/possible UD ABX TAKEN History of Present Illness Tests reviewed: I have reviewed the previous health record information and history for this patient from Darlin Light PA-C. I have reviewed and verified the staff HPI to be accurate for this encounter. Review of Systems PHQ Score Initial Depression Screen Score: 0 SCORE ROS - Provider Constitutional: denies weight loss, denies hot flashes. Eyes: denies eye problems. Gastrointestinal: denies nausea, denies vomiting. Cardiovascular: denies chest pain or angina. Integumentary: no dryness Musculoskeletal: denies musculoskeletal symptoms. ENMT: denies otolaryngeal symptoms. Respiratory: no shortness of breath. Heme/Lymph: denies easy bleeding tendency, denies easy bruising tendency. Psychiatric: no confusion, no anxiety. Genitourinary: See HPI. Physical Exam Vitals & Measurements T: 37 ???C(Temporal Artery) HR: 73(Peripheral) RR: 16 BP: 111/72 HT: 63 in HT: 160 cm WT: 147.71 lb WT: 67 kg BMI: 26.17 General Appearance: alert, no distress, well nourished, well developed female. Procedure Operative Information Anesthesia Type: Local Procedure: Local Cystoscopy with Urethral Dilation Complications: None Surgical risks, benefits, details of the procedure have been explained to the patient. Full informed consent has been obtained. Intraoperative Information Prepped: Patient is brought back to the endoscopy suite. Patient is placed in modified dorso/lithotomy position. Patient prepped in the usual fashion with Betadine solution. 2% Xylocaine Jelly is placed per Urethra. After waiting several minutes, the Cystoscope is introduced. The Urethra is: Tight The Bladder: _Normal, no tumors or stones. Uterine imprint on bladder. No mercy or prolapse. Mild A.V. Trabeculated: None (0) The Ureteral orifices: Show efflux of clear urine The Urethra was dilated to: 20-26 Serbian with sounds. Specimens Removed: None Removal: Cystoscope is removed. The patient tolerated it well. Postoperative Information Patient is discharged home with antibiotic coverage. Follow up arranged. Assessment/Plan YASSINE pt. 1. Recurrent UTI (N39.0: Urinary tract infection, site not specified) Pt had IO cysto/UD today wo complications. Started Keflex 250 mg qd at x 30 ct yesterday. Thought she was only supposed to take one yesterday and one after the procedure today. -Complete Keflex course then start Macrobid 100 mg qd x 30 days. SEs discussed. Sent to [facility]. 2. Vaginal atrophy (N95.2: Postmenopausal atrophic vaginitis) See procedure section. -continue Estrace cream. Plunge 1 gm vaginally then apply excess cream around the urethra 2 times per week at night. Sent to [facility]. 3. Stress incontinence (N39.3: Stress incontinence (female) (male)) No MERCY noted during scope today. 4. Urethral stricture (N35.919: Unspecified urethral stricture, male, unspecified site) See procedure section. Follow up 3 mo UD or sooner if needed. Pt understands and agrees with plan. Follow-up With When Contact Information TERESA JIMENEZ, Dev Johnson, URL [facility] [address], [place] [address]- Additional Instructions: 3 mo UD Patient Education Urethral Dilation Atrophic Vaginitis Kegel Exercises I, Paris Lorenzo, personally scribed for Dr. Moore on 10/31/2024 08:27:19. . Documentation recorded by the scribe, Paris Lorenzo, accurately reflects the services(s) I performed and decisions made by me. Authenticated by Dr. Moore on 10/31/2024 08:30:13. Problem List/Past Medical History Ongoing Abdominal pain in female Diabetes--NIDDM Dyspareunia Female pelvic pain H/O: migraine Heart murmur Hyperlipidemia Pituitary tumor Recurrent UTI Stress incontinence Urethral stricture Uterine fibroids Vaginal atrophy Historical Migraine Procedure/Surgical History Cystoscopy (10/31/2024), Angiogram (07/08/2023), Cystoscopy (12/16/2020), Colonoscopy (11/07/2020),breast biopsy, left (11/2018), Cystourethroscopy with dilation of urethral stricture (02/03/2015), robotic assisted hysterectomy, bilateral salpingectomy (02/22/2014), section, D&C - Dilatation and curettage, LUMBAR FUSION, Tonsillectomy. Medications Advil, 200 mg, Oral atorvastatin 20 mg Tab, 20 mg= 1 tab(s), Oral, Daily Belsomra 10 mg oral tablet, 10 mg= 1 tab(s), Oral, Once a day (at bedtime) clobetasol 0.025% topical cream, Topical, BID Diflucan 150 mg Tab, 150 mg= 1 tab(s), Oral, Once DilTIAZem (Eqv-Cardizem CD) 120 mg/24 hours oral capsule, extended release elderberry estradiol 0.1 mg/g Vag Crm, 1 gm, Vaginal, MonThu, 3 refills fluticasone 0.05 mg/inh Nasal [place], Daily Keflex 250 mg Cap, 250 mg= 1 cap(s), Oral, Daily, 1 refills magnesium oxide 250 mg oral tablet, 500 mg= 2 tab(s), Oral, Daily metformin 1000 mg Tab, 1000 mg= 1 tab(s), Oral, BID (more content not included)...[facility] HospitalComment on above: Result Comment: Electronically Signed By: Dev MOORE MD\.br\Date and Time Signed: 10/31/24 08:30 EDT\.br\Electronically Co-Signed By: Paris Lorenzo\.br\Date and Time Co-Signed: 10/31/24 08:27 EDTALTon [id number] No additional P-5'-P [Catalytic activity/Vol]20 Int._Unit/LNormal6-46[facility] HospitalComment on above:Performed By: #### [id number] #### [facility] [address], [place] [address]XCGsr [id number] [Catalytic activity/Vol]17 Int._Unit/L Normal5-43[facility] HospitalComment on above:Performed By: #### [id number] #### [facility] [address], [place] [address]KWXBCCUIONxepepf By: SYSTEM SYSTEM on [id number] No additional P-5'-P [Catalytic activity/Vol]20 [iU]/dNormal6 - 46 Int._Unit/L Remisol ChemAST [Catalytic activity/Vol]17 [iU]/dNormal5 - 43 Int._Unit/LRemisol ChemCholesterol [Mass/Vol]191 mg/qPSgrmpo540 - 200 mg/dLRemisol ChemCholesterol in HDL [Mass/Vol]42 mg/dLInvalid Interpretation CodeRemisol ChemComment on above:Result Comment: '>= 60 LOW RISK' '<= 40 HIGH RISK'Cholesterol in LDL [Mass/Vol]88 mg/dLNormal<=129mg/dLRemisol ChemCholesterol in VLDL [Mass/Vol]79 mg/dLHigh7 - 40 mg/dLRemisol Chem Triglyceride [Mass/Vol]394 mg/dLHigh<=149mg/dLRemisol ChemLipid Panelon [id number] [Mass/Vol]191 mg/xZAhikou596-416JikqyyLicking Memorial HospitalComment on above:Performed By: #### [id number] #### [facility] [address] [facility], [place] [address]Eksyntdrjoc in HDL [Mass/Vol]42 mg/dLInvalid Interpretation CodeLicking Memorial HospitalComment on above:Result Comment: '>= 60 LOW RISK' '<= 40 HIGH RISK'Performed By: #### [id number] #### [facility] [address], [place] [address]Yaqhzrrwxew in LDL [Mass/Vol]88 mg/dLNormal<=129[facility] HospitalComment on above:Performed By: #### [id number] #### [facility] [address], [place] [address]Mvppjrvmulx in VLDL [Mass/Vol]79 mg/dLHigh7-40[facility] HospitalComment on above:Performed By: #### [id number] #### [facility] [address] [facility], [place] [address]Kmmnbuhryakl [Mass/Vol]394 mg/dLHigh<=149[facility] HospitalComment on above:Performed By: #### [id number] #### [facility] [address] [place], [place] [address]LX Renalon [id number] RenalExam Date/Time: 10/29/2024 07:27 EDT Reason for Exam: recurrent UTI, r/o stones;Other (please specify) Report IMPRESSION: Lower limits of normal for size. No renal calculi are identified. CLINICAL HISTORY: recurrent UTI, r/o stones. COMPARISON: NONE. COMMENT: Right kidney measures 9.2 x 4.0 x 3.8 cm. Left kidney measures 9.0 x 4.5 x 5.5 cm. Kidneys lower limits of normal in size. Both kidneys normal in contour and echogenicity and color flow. No calculi, hydronephrosis, cortical thinning, cystic/solid lesions bilaterally. Ordering Provider: , FINAL REPORT Dictated: 10/29/2024 9:27 am Trey Hernadez MD Signed (Electronic Signature): 10/29/2024 9:27 am Signed by: Trey Hernadez MD Transcribed by: XIMENA Technologist: [facility] HospitalXR Abdomen 1 Viewon [id number] Abdomen 1 ViewExam Date/Time: 10/29/2024 07:30 EDT Reason for Exam: Z87.440;Kidney stone Report IMPRESSION: NONSPECIFIC ABDOMEN. CLINICAL HISTORY: Kidney stone, Z87.440 COMPARISON: NONE. FINDINGS: Gas and copious stool in colon. No diffuse small bowel dilatation or mass effect. No calcifications identified overlying kidneys. Probable phleboliths in pelvis. Remote internal fixation lower lumbar spine. Technical Comments: Ka,r in mGy = na DAP = na Ordering Provider: , FINAL REPORT Dictated: 10/29/2024 9:51 am Trey Hernadez MD Signed (Electronic Signature): 10/29/2024 9:51 am Signed by: Trey Hernadez MD Transcribed by: XIMENA Technologist: [facility] Urineon [id number] identified Cx Nom (U)Microbiology PROCEDURE: Urine Culture [R1] SOURCE: U CleanCatch BODY SITE: COLLECTED DATE/TIME: 10/14/2024 11:27 EDT RECEIVED DATE/TIME: 10/15/2024 13:44 EDT START DATE/TIME: 10/15/2024 13:44 EDT FREE TEXT SOURCE: [place] HOWARD, Leroy Storey PA-C, Leroy M. FINAL REPORTS Final Report [] Verified Date/Time: 10/17/2024 11:13 EDT 70,000 cfu/ml Enterococcus faecalis 100 cfu/ml Mixed skin contaminants SUSCEPTIBILITY RESULTS LEGEND: S=Susceptible, N/R=Not Reported, Blank=Data not available, or drug not advisable or tested, I=Intermediate, ESBL=Extended spectrum beta-lactamase, R=Resistant, TFG=Thymidine-dependent strain, ZENAIDA=Beta-lactamase positive, HAYDEE=mcg/m;(mg/L), S*=Predicted susceptible interp, R*=Predicted resistant interp Entfaeca Antibiotic HAYDEE Dilutn HAYDEE Interp Ampicillin <=2 S Ciprofloxacin <=1 S Daptomycin <=1 S Levofloxacin <=1 S Linezolid <=2 S Nitrofurantoin <=32 S Penicillin 2 S Rifampin <=1 S Tetracycline >8 R Vancomycin <=0.5 S Performing Locations R1: This test was performed at: [facility], [address] [place] [address], [address]- , , LqzhhkZnmlqjJ.W. Ruby Memorial HospitalComment on above:Performed By: #### [id number] #### [facility] [address] [place] [address]Koathws Office/Clinic Noteon [id number] Office/Clinic NoteUrology Office/Clinic Note Chief Complaint acute cystitis HPI Staff 54 year old female referred by Nima Storey PA-C for UTI and yeast infections, 4th one in 3 months Dx: Acute Cystitis without Hematuria, Vulvovaginal candidiasis, Antibiotic induced yeast infection. pt c/o urgency with frequency and leaking. pt is on abx Augmentin for 3 days. pt states this would be third abx, when she finishes an abx the UTI comes back. pt does states she has been out of the estradiol cream for some time. A1c -07/23/24 - 5.2 Review of Systems PHQ Score Initial Depression Screen Score: 2 SCORE no fever, chills, malaise, myalgia. no rash/lesions. no chest pain, palpitations, or SOB. no abdominal pain, nausea, vomiting. Physical Exam Vitals & Measurements T: 37 ???C(Oral) HR: 88(Peripheral) RR: 16 BP: 106/58 HT: 63 in HT: 160 cm WT: 67.4 kg WT: 148.591 lb BMI: 26.33 General: nontoxic, NAD Mouth: moist mucosa Lungs: normal respiratory effort Cardio: regular rate, good distal perfusion Abdomen: nondistended, no suprapubic distention or tenderness, no CVA tenderness Neurologic: Grossly normal Skin: No rashes or suspicious lesions Assessment/Plan nl GFR Aug 2023 1. Recurrent UTI (N39.0: Urinary tract infection, site not specified) UTI Backround: Most recent UTI __saw [facility] CCN 2 days ago. UA shows small leuks. Cx pending. Started on Augmentin x7d and Diflucan x2. This is her 4th round of abx. 07/24/24 - Keflex x 7d 08/14/24 <10k E Coli graham-sensitive tx w Macrobid x 7d 09/24/24 >100k E Coli graham-sensitive tx w Cipro x 7d Every time she is on abx the sx resolve. Then they return a week or two later. UTIs started worsening in July Prior to that averaged UTIs about once a year Abx would always resolve sx and wouldn't return for months Pt???s typical UTI sx include __pain, burning, increased frequency, leakage Contributing factors: Sense of incomplete emptying noPVR _50ml Urinary incontinence yes Fecal incontinence yes Hx stones no Diabetic yes, most recent A1c _5.09 Jul 2024 Immunosuppressed no Post-menopausal/hysterectomy yes no recent medication changes has added salt to diet d/t orthostatic hypotension Hygiene habits - wipes front to back every time: yes; avoids baths/hot tubs: yes; avoids scented AVIONICS SAFETY INSPECTOR products: yes; urinates after sexual activity: n/a stopped having sex since Jul infection worried will make it worse Today we discussed the following methods to decrease frequency of UTIs: -We discussed that there is evidence that herbal supplements may help - cranberry, probiotics, and d-mannose. Pt was provided printed information on this. -We will have pt resume topical estrogen cream. Hx AVIONICS SAFETY INSPECTOR cancer? noReasoning, side effects, risks/benefits discussed. Rx sent to pharmacy. -Will start low dose daily suppressive abx for pt to start immediately after finishing the current Augmentin course. Remain on until Cysto. Further evaluation: -We will check KUB & VANNESSA to rule out stones as contributing factor to UTIs. Will call pt with results. If shows significant stone burden, pt will need appt to discuss tx options. -Will schedule Cysto with possible UD. Will schedule Cysto with UD. The procedure risks, benefits, details, and treatment alternatives have been discussed with the patient. These include bleeding, infection, recurrent scar in over 50%, need for repeat dilation or other procedures, no symptom reliefwith dilation, among others. Full informed consent has been obtained. Will order Local anesthesia. Future UTIs: -Pt advised to contact our office w all future UTI sx so we can monitor urine cx results, treat appropriately (may require extended course abx), and monitor frequency of infections. -Pt advised if develops fever, severe flank pain, vomiting - needs to go to ER. Ordered: E&M of New Patient Moderate 45-59 Min 50012 2. Stress incontinence (N39.3: Stress incontinence (female) (male)) BBSQ 18 poor control. Reassess after UTIs under control. Ordered: E&M of New Patient Moderate 45-59 Min 58241 Orders: cephalexin, 250 mg = 1 cap(s), Oral, Daily, do not start until after you finish the Augmentin, X 30day(s), # 30 cap(s), Refills(s) 1, Pharmacy: [facility]/pharmacy #[id number], 160, cm, 10/16/24 9:26:00 EDT, Height/Length Dosing, 67.4, kg, 10/16/24 9:26:00 EDT, Weight Dosing estradiol topical, 1 gm, Vaginal, MonThu, 42.5 gm, Refill(s) 3, [facility]/pharmacy #[id number], 160, cm, 10/16/24 9:26:00 EDT, Height/Length Dosing, 67.4, kg, 10/16/24 9:26:00 EDT, Weight Dosing 80759 Measure Post Void residual urine and/or bladder capacity by US- non-imaging Urnls Dip Stick Auto w/o Microscopy POC 56109 US Renal XR Abdomen 1 View Follow-up With When Contact Information [facility] [place] [address] [place] [address] Business (1) Additional Instructions: our home care scheduler will be contacting you for follow-up Patient Education Antibioti (more content not included)...[facility] HospitalComment on above:Result Comment: Electronically Signed By: ROSARIO LIGHT PA-C\.sugar\Date and Time Signed: 10/16/2509:23 EDTAmbulatory Visit Summaryon [id number] Visit SummaryAmbulatory Visit Summary BREN VEGAODY Estrellita :1970 Visit Date:10/14/2024 Ambulatory Visit Instructions Your Diagnosis Acute cystitis without hematuria Vulvovaginal candidiasis Antibiotic-induced yeast infection Dysuria Your Care Team Attending Physician - Leroy Storey PA-C Primary Care Physician - MOMO HAMPTON DO This Is Your Medications List amoxicillin-clavulanate (Augmentin 500 mg-125 mg Tab) fluconazole (Diflucan 150 mg Tab) Contact prescribing physician if questions or concerns ascorbic acid (Vitamin C) atomoxetine (Strattera) atorvastatin (atorvastatin 20 mg Tab) clobetasol topical (clobetasol 0.025% topical cream) cyanocobalamin (Vitamin B12) diltiazem (DilTIAZem (Eqv-Cardizem CD) 120 mg/24 hours oral capsule, extended release) elderberry eletriptan (Relpax 40 mg Tab) estradiol topical (estradiol 0.1 mg/g Vag Crm) fluticasone nasal (fluticasone 0.05 mg/inh Nasal [place]) ibuprofen (Advil) magnesium oxide (magnesium oxide 250 mg oral tablet) metformin (metformin 1000 mg Tab) montelukast (Singulair 10 mg Tab) multivitamin with minerals (Multivitamins and Minerals) suvorexant (Belsomra 10 mg oral tablet) topiramate (Topamax 100 mg Tab) Procedures Performed Angiogram (07/08/2023), Cystoscopy (12/16/2020), Colonoscopy (11/07/2020), breast biopsy, left (11/2018), robotic assisted hysterectomy, bilateral salpingectomy (02/22/2014), section, D&C - Dilatation and curettage, LUMBAR FUSION, Tonsillectomy. Discharge Vitals Temperature (Oral) 36.5 ???C Heart Rate (Peripheral) 82 Respiratory Rate 16 Blood Pressure 96/70 Height 160 cm Height 63 in Weight 67.5 kg Weight 148.812 lb BMI 26.37 What to do next You Need to Schedule the Following Appointments Follow Up with MOMO HAMPTON DO, FAM When: Where: [address], [facility] [address] [place] [address]- Medications What How Much When Why Instructions New amoxicillin-clavulanate (Augmentin 500 mg-125 mg Tab) 1 Tablets By Mouth Every 12 hours Acute cystitis without hematuria Duration: 7 Days Pickup at [facility]/pharmacy #[id number] New fluconazole (Diflucan 150 mg Tab) 1 Tablets By Mouth Once Vulvovaginal candidiasis Antibiotic-induced yeast infection Take 1 tablet today, reserve the second tablet for recurrence of symptoms while on prescribed antibiotic. May be taken for symptoms while on antibiotic, as long as 3 days of pass since the first dose. Pickup at [facility]/pharmacy #[id number] Unchanged ascorbic acid (Vitamin C) 50 Milligram Chewed Every day 500mg Contact prescribing physician if questions or concerns Unchanged atomoxetine (Strattera) By Mouth Once a day (in the morning) Contact prescribing physician if questions or concerns Unchanged atorvastatin (atorvastatin 20 mg Tab) 1 Tablets By Mouth Every day Contact prescribing physician if questions or concerns Unchanged clobetasol topical (clobetasol 0.025% topical cream) Topical 2 times a day Contact prescribing physician if questions or concerns Unchanged cyanocobalamin (Vitamin B12) 1,000 Microgram By Mouth Every day 100mg Contact prescribingphysician if questions or concerns Unchanged diltiazem (DilTIAZem (Eqv-Cardizem CD) 120 mg/ 24 hours oral capsule, extended release) Contact prescribing physician if questions or concerns Unchanged elderberry Contact prescribing physician if questions or concerns Unchanged eletriptan (Relpax 40 mg Tab) 1 Tablets By Mouth Contact prescribing physician if questions or concerns Unchanged estradiol topical (estradiol 0.1 mg/ g Vag Crm) 1 Gram Vaginal Tuesday & Contact prescribing physician if questions or concerns Unchanged fluticasone nasal (fluticasone 0.05 mg/ inh Nasal [place]) Every day Contact prescribing physician if questions or concerns Unchanged ibuprofen (Advil) 200 Milligram By Mouth 2-3 tabs prn Contact prescribing physician if questions or concerns Unchanged magnesium oxide (magnesium oxide 250 mg oral tablet) 2 Tablets By Mouth Every day Contactprescribing physician if questions or concerns Unchanged metformin (metformin 1000 mg Tab) 1 Tablets By Mouth 2 times a day Contact prescribing physician if questions or concerns Unchanged montelukast (Singulair 10 mg Tab) 1 Tablets By Mouth Every day Contact prescribing physician if questions or concerns Unchanged multivitamin with minerals (Multivitamins and Minerals) 1 tab By Mouth Every day Contact prescribing physician if questions or concerns Unchanged suvorexant (Belsomra 10 mg oral tablet) 1 Tablets By Mouth Once a day (at bedtime) Contact prescribing physician if questions or concerns Unchanged topiramate (Topamax 100 mg Tab) 200 Milligram By Mouth 2 times a day Contact prescribing physician if questions or concerns Pharmacy Information [facility]/pharmacy #[id number]: [address], [place] [id number] [phone] Allergies sulfamethoxazole (Rash) Problems Ongoing - Any problem that you are currentl (more content not included)...Normal [facility] HospitalAmbulatory Visit SummaryAmbulatory Visit Summary SUE VEGA :1970 Visit Date:10/14/2024 Ambulatory Visit Instructions Your Diagnosis Dysuria Your Care Team Attending Physician - Leroy Storey PA-C Primary Care Physician - MOMO HAMPTON DO This Is Your Medications List Contact prescribing physician if questions or concerns ascorbic acid (Vitamin C) atomoxetine (Strattera) atorvastatin (atorvastatin 20 mg Tab) clobetasol topical (clobetasol 0.025% topical cream) cyanocobalamin (Vitamin B12) diltiazem (DilTIAZem (Eqv-Cardizem CD) 120 mg/24 hours oral capsule, extended release) elderberry eletriptan (Relpax 40 mg Tab) estradiol topical (estradiol 0.1 mg/g Vag Crm) fluticasone nasal (fluticasone 0.05 mg/inh Nasal [place]) ibuprofen (Advil) magnesium oxide (magnesium oxide 250 mg oral tablet) metformin (metformin 1000 mg Tab) montelukast (Singulair 10 mg Tab) multivitamin with minerals (Multivitamins and Minerals) suvorexant (Belsomra 10 mg oral tablet) topiramate (Topamax 100 mg Tab) Procedures Performed Angiogram (07/08/2023), Cystoscopy (12/16/2020), Colonoscopy (11/07/2020), breast biopsy, left (11/2018), robotic assisted hysterectomy, bilateral salpingectomy (02/22/2014), section, D&C - Dilatation and curettage, LUMBAR FUSION, Tonsillectomy. Discharge Vitals Temperature (Oral) 36.5 ???C Heart Rate (Peripheral) 82 Respiratory Rate 16 Blood Pressure 96/70 Height 160 cm Height 63 in Weight 67.5 kg Weight 148.812 lb BMI 26.37 Medications What How Much When Instructions Unchanged ascorbic acid (Vitamin C) 50 Milligram Chewed Every day 500mg Contact prescribing physician if questions or concerns Unchanged atomoxetine (Strattera) By Mouth Once a day (in the morning) Contact prescribing physician if questions or concerns Unchanged atorvastatin (atorvastatin 20 mg Tab) 1 Tablets By Mouth Every day Contact prescribing physician if questions or concerns Unchanged clobetasol topical (clobetasol 0.025% topical cream) Topical 2 times a day Contact prescribing physician if questions or concerns Unchanged cyanocobalamin (Vitamin B12) 1,000 Microgram By Mouth Every day 100mg Contact prescribingphysician if questions or concerns Unchanged diltiazem (DilTIAZem (Eqv-Cardizem CD) 120 mg/ 24 hours oral capsule, extended release) Contact prescribing physician if questions or concerns Unchanged elderberry Contact prescribing physician if questions or concerns Unchanged eletriptan (Relpax 40 mg Tab) 1 Tablets By Mouth Contact prescribing physician if questions or concerns Unchanged estradiol topical (estradiol 0.1 mg/ g Vag Crm) 1 Gram Vaginal Tuesday & Contact prescribing physician if questions or concerns Unchanged fluticasone nasal (fluticasone 0.05 mg/ inh Nasal [place]) Every day Contact prescribing physician if questions or concerns Unchanged ibuprofen (Advil) 200 Milligram By Mouth 2-3 tabs prn Contact prescribing physician if questions or concerns Unchanged magnesium oxide (magnesium oxide 250 mg oral tablet) 2 Tablets By Mouth Every day Contactprescribing physician if questions or concerns Unchanged metformin (metformin 1000 mg Tab) 1 Tablets By Mouth 2 times a day Contact prescribing physician if questions or concerns Unchanged montelukast (Singulair 10 mg Tab) 1 Tablets By Mouth Every day Contact prescribing physician if questions or concerns Unchanged multivitamin with minerals (Multivitamins and Minerals) 1 tab By Mouth Every day Contact prescribing physician if questions or concerns Unchanged suvorexant (Belsomra 10 mg oral tablet) 1 Tablets By Mouth Once a day (at bedtime) Contact prescribing physician if questions or concerns Unchanged topiramate (Topamax 100 mg Tab) 200 Milligram By Mouth 2 times a day Contact prescribing physician if questions or concerns Allergies sulfamethoxazole (Rash) Problems Ongoing - Any [...] you for choosing us for your care. [facility] Medicine Office/Clinic Noteon [id number] Medicine Office/Clinic NoteFaboston lying-in hospital Medicine Office/Clinic Note Chief Complaint UTI symptoms [facility] Staff 54 year old female presents for: UTI and yeast infections, 4th one in 3 months Dysuria: yes Onset: x1 week Symptoms: itching, burning, painful, clear discharge, back pain on right side that went away, urination at night, abdomen pressure OTC used: UTI med and monistat Last UTI: within a month Hx of kidney stones: n/a UA in office documented in chart: Aug 2024 History of Present Illness 54-year-old female presents today for symptoms of a recurrent UTI, patient reports that since the fourth UTI in the past 3 months. Review of previous urine cultures from August and September show UTIwith positive cultures for E. coli. Patient reports today approximately 1 week of dysuria symptoms,itching, burning, as well as a discharge and some mild back pain. Patient believes she also has yeast infection, has had yeast infections previously after antibiotics, which she just been on last month for the previous UTI (ciprofloxacin). Patient denies fevers, chills, immense back pain or flank pain, vomiting or nausea. Patient is requesting to have a referral sent out to urology due to this UTI frequency, reports she has seen urology in the past, Dr. Moore. I have reviewed and verified the staff HPI to be accurate for this encounter. Portions of this record have been created with voice recognition software. Occasional wrong-word or???[id number]??? substitutions may have occurred due to the inherent limitations of voice recognition software. Review of Systems PHQ Score Initial Depression Screen Score: 0 SCORE ROS negative unless otherwise stated in HPI. Physical Exam Vitals & Measurements T: 36.5 ???C(Oral) HR: 82(Peripheral) RR: 16 BP: 96/70 SpO2: 96% HT: 63 in HT: 160 cm WT: 67.5 kg WT: 148.812 lb BMI: 26.37 General: alert, no acute distress Cardiovascular: regular rate and rhythm, normal peripheral perfusion Respiratory: Lungs CTA, respirations non labored Gastrointestinal: soft, non distended, no tenderness, no guarding. Neurological: oriented x 4, LOC appropriate for age, CN II-XII intact, motor strength equal & normal bilaterally, sensation equal & normal bilaterally, speech normalnormal Assessment/Plan On chart review of previous urine cultures from August and September of this year positive for E. coli, will treat with this consideration in mind but will also consider the patient was previously less than a month ago prescribed an oral fluoroquinolone for her previous UTI. Patient does report what she believes to be a vaginal yeast infection, symptoms described consistent with this, we will treat today as well as send a prescription to cover for yeast infection if the prescribed antibiotic were to cause another one. Patient declined to swab for vaginal yeast infection today preferred to just receive treatment. 1. Acute cystitis without hematuria (N30.00: Acute cystitis without hematuria) UA with positive leukocytosis. Will treat with Augmentin twice daily x 7 days. Finish course of ATB. Fluids/rest. Will cx urine and notify of results in 3-5 days. Fu with PCP if not improving over next 3-4 days with ATB or worsening. Patient verbalized understanding of tx plan. Ordered: amoxicillin-clavulanate, 1 tab(s), Oral, q12hr for 7 day(s), 14 tab(s), Refill(s) 0, [facility]/pharmacy #[id number], 160, cm, 10/14/24 10:31:00 EDT, Height/Length Dosing, 67.5, kg, 10/14/24 10:31:00 EDT, Weight Dosing [facility] Internal Ambulatory Referral 2. Vulvovaginal candidiasis (B37.31: Acute candidiasis of vulva and vagina) Patient reports a history of vaginal yeast infections with antibiotic use. Will Rx one-time Diflucan dose, due to to current symptoms as well as very recent antibiotic use history. Educated that sometimes a second dose is needed patient will contact PCP if this is needed, will also be sending 1 extra tablet of fluconazole due to again a prescribed antibiotic in the case that another yeast infection were to present either while taking prescribed antibiotic or after completion. Ordered: fluconazole, 150 mg = 1 tab(s), Oral, Once, Take 1 tablet today, reserve the second tablet for recurrence of symptoms while on prescribed antibiotic. May be taken for symptoms while on antibiotic, aslong as 3 days of pass since the first dose., # 2 tab(s), Refil... 3. Antibiotic-induced yeast infection (B37.9: Candidiasis, unspecified) Patient reports a history of vaginal yeast infections with antibiotic use. Will Rx one-time Diflucan dose. Advised patient not to use unless showing symptoms. May need second dose in 3 to 5 days, contact PCP if this is needed. Patient verbalized understanding of treatment plan. Ordered: fluconazole, 150 mg = 1 tab(s), Oral, Once, Take 1 tablet today, reserve the second tablet for recurrence of symptoms while on prescribed antibiotic. May be taken for symptoms while on antibiotic, aslong as 3 days of pass since the first dose., # 2 tab(s), Refil... Follow-up With (more content not included)...[facility] HospitalComment on above:Result Comment: Electronically Signed By: Raleigh HOWARD, Leroy Billingsley.br\Date and Time Signed: 10/15/2511:29 EDTOffice Visiton [id number]-up visit [id number] Sue Vega 1970 F Date Provider Department Center 10/08/2024 88701-HYJJCSJACKIE MO [facility] No family history on file Level of Service:44681 MD OFFICE/OUTPATIENT ESTABLISHED MOD MDM 30 MIN Reason for Visit and Comments: Dizziness [616138] - Says she's been much better and dizziness has resolved. States she has recurring UTI's and thinks maybe that contributes to dizziness. Denies chest pain and SOB. She's been wearing compression stockings daily and has increased her salt intake. PSVT [Other] Hyperlipidemia [182][facility] Urineon [id number] identified Cx Nom (U)Microbiology PROCEDURE: Urine Culture [R1] SOURCE: U CleanCatch BODY SITE: COLLECTED DATE/TIME: 09/24/2024 15:00 EST RECEIVED DATE/TIME: 09/25/2024 17:39 EST START DATE/TIME: 09/25/2024 17:39 EST FREE TEXT SOURCE: Priya JIMENEZ, Nima Powers MD, Nima Julian FINAL REPORTS Final Report [] Verified Date/Time: 09/27/2024 09:36 EST >100,000 cfu/ml Escherichia coli SUSCEPTIBILITY RESULTS LEGEND: S=Susceptible, N/R=Not Reported, Blank=Data not available, or drug not advisable or tested, I=Intermediate, ESBL=Extended spectrum beta-lactamase, R=Resistant, TFG=Thymidine-dependent strain, ZENAIDA=Beta-lactamase positive, HAYDEE=mcg/m;(mg/L), S*=Predicted susceptible interp, R*=Predicted resistant interp EC Antibiotic HAYDEE Dilutn HAYDEE Interp Ampicillin <=8 S Ampicillin/ <=8/4 S Sulbactam Aztreonam <=4 S Cefazolin <=2 S Cefepime <=2 S Ceftazidime <=1 S Ceftazidime/ <=8 S Avibactam Ceftriaxone <=1 S Cefuroxime <=4 S Ciprofloxacin <=0.25 S Ertapenem <=0.5 S Gentamicin <=2 S Levofloxacin <=0.5 S Meropenem <=1 S Nitrofurantoin <=32 S Piperacillin/ <=8 S Tazobactam Tetracycline <=4 S Tobramycin <=2 S Trimethoprim/ <=2/38 S Sulfa Performing Locations R1: This test was performed at: [facility], [address] [place] [address], [address] [place] [address], MeomwcPkeugnJ.W. Ruby Memorial HospitalComment on above:Performed By: #### [id number] #### [facility] [address] [place] [address] Urineon [id number] identified Cx Nom (U)Microbiology PROCEDURE: Urine Culture [R1] SOURCE: U CleanCatch BODY SITE: COLLECTED DATE/TIME: 08/14/2024 17:50 EST RECEIVED DATE/TIME: 08/14/2024 19:12 EST START DATE/TIME: 08/14/2024 19:12 EST FREE TEXT SOURCE: MOMO HAMPTON DO, DO, SETH M FINAL REPORTS Final Report [] Verified Date/Time: 08/16/2024 09:43 EST 8,000 cfu/ml Escherichia coli 1,000 cfu/ml Mixed skin contaminants SUSCEPTIBILITY RESULTS LEGEND: S=Susceptible, N/R=Not Reported, Blank=Data not available, or drug not advisable or tested, I=Intermediate, ESBL=Extended spectrum beta-lactamase, R=Resistant, TFG=Thymidine-dependent strain, ZENAIDA=Beta-lactamase positive, HAYDEE=mcg/m;(mg/L), S*=Predicted susceptible interp, R*=Predicted resistant interp EC Antibiotic HAYDEE Dilutn HAYDEE Interp Ampicillin <=8 S Ampicillin/ <=8/4 S Sulbactam Aztreonam <=4 S Cefazolin <=2 S Cefepime <=2 S Ceftazidime <=1 S Ceftazidime/ <=8 S Avibactam Ceftriaxone <=1 S Cefuroxime <=4 S Ciprofloxacin <=0.25 S Ertapenem <=0.5 S Gentamicin <=2 S Levofloxacin <=0.5 S Meropenem <=1 S Nitrofurantoin <=32 S Piperacillin/ <=8 S Tazobactam Tetracycline <=4 S Tobramycin <=2 S Trimethoprim/ <=2/38 S Sulfa Performing Locations R1: This test was performed at: [facility], [address] [place] [address], [id number] , [place], KfppinOijgdjSt. Anthony's HospitalComment on above:Performed By: #### [id number] #### [facility] [address] [place] [address]Qpyrpahzgd - Chemistry and Chemistry - challengeOrdered By: SYSTEM SYSTEM on 09-58-4356Hlqzomokr Ql (U)NegativeNegativeCREEK NATION [facility] UA Auto SS Urobilinogen (U) [Mass/Vol]NegativeNegativeCREEK NATION COMMUNITY [facility]OS[facility] UA Auto SSLaboratory - Chemistry and Chemistry - challengeon 06-86-4275Glbbvdm (U) [Mass/Vol]NegativeNegative [facility], Cancer CenterKetones Ql (U)NegativeNegMercy Health Lorain HospitalpH (U)5.5 [pH]5.0-9.0[facility] Specific gravity (U) [Rel density]1.0051.005-1.030[facility] Md, Cancer CenterLaboratory - Specimen informationon 13-56-9537Zkuvmaorun (U)ClearClear [facility], Cancer CenterColor (U)ColorlessAbnormalYellowGreen Cross Hospitalpecimen type Nom (Spec)Clean CatchOhiohealth Arthur G.H. Bing, Md, Cancer CenterLaboratory - Urinalysison 93-88-2999Gqmoitcox esterase Test strip Ql (U)500 Jacob/uL CD:[id number]iMercy Health Lorain Hospital Mucus Ql (Urine sed)NegativeNegMercy Health Lorain HospitalNitrite Ql (U)NegativeNegMercy Health Lorain HospitalLaboratory - Urinalysis Ordered By: SYSTEM SYSTEM on 97-66-5154Yfbdhal Ql (U)NegativeNegativeCREEK NATION COMM[facility] UA Auto SSNo Panel Informationon 85-23-8703Slwne BacteriaTrace [HPF]TraceOhiohealth Arthur G.H. Bing, Md, Cancer CenterUrine Occult BloodTrace mg/dLAbnormalNegMercy Health Lorain HospitalUrine RBC0-3 CD:[id number] Memorial HospitalUrine Squamous Epithelial Cells0-2 CD:[id number] Arthur G.H. Bing, Md, Cancer CenterUrine UKE42-81 CD:[id number]unity Memorial Hospital URINALYSISOrdered By: SYSTEM SYSTEM on 98-21-3930Ojlekyzl Auto Ql (U)Trace /HPF NormalTrace/HPFFT UA Auto SSClarity (U)Clear (08/14/24 5:50 PM)NormalClearFTM UA Auto SSColor (U)Colorless 1 *ABN* (08/14/24 5:50 PM)Invalid Interpretation CodeYellowFT UA Auto SSComment on above:Interpretive Data: Microscopic readings are only performed on those samples that meet specific criteria set forth by [facility].Epithelial cells.squamous Auto (Urine sed) [#/Area]0-2 graded/HPF Invalid Interpretation CodeCREEK NATION COMMUNITY [facility]OSP[facility] UA Auto SSGlucose Ql (U)NegativeNormal Negativemg/dLCREEK NATION COMM[facility]ITY [facility] UA Auto SSHemoglobin Auto test strip (U) [Mass/Vol]Trace mg/dL Invalid Interpretation CodeNegativemg/dLCREEK NATION COMM[facility]ITY [facility]OS[facility] UA Auto SSKetones Auto test strip Ql (U)NegativeNormalNegativemg/dLFT UA Auto SSLeukocyte esterase Auto test strip Ql (U)500 Jacob/uL Jacob/uLInvalid Interpretation CodeNegativeLeu/uLCREEK NATION COMM[facility] UA Auto SSMucus Auto Ql (U)NegativeNormalNegativegraded/LPFFTMC UA Auto SSNitrite Auto test strip Ql (U)NegativeNormalNegativemg/dLFT UA Auto SSpH (U)5.5 *NA* (08/14/24 5:50 PM)Invalid Interpretation Code5.0 - 9.0FT UA Auto SSRBC Ql (U)0-3 graded/HPFNormal0-3graded/HPFFT UA Auto SSSpecific gravity (U) [Rel density] 1.005 *NA* (08/14/24 5:50 PM)Invalid Interpretation Code1.005 - 1.030FT UA Auto SSWBC Auto (Urine sed) [#/Area]31-75 graded/HPFInvalid Interpretation Code0-5graded/HPFFT UA Auto SSURINALYSISOrdered By: Beatrice Kelly on 81-75-6935YZ Spec Desc Clean Catch (08/14/24 5:50 PM)[facility] UA Auto SSUrinalysis with Microon 26-88-4588Cqhfwscg Auto Ql (U)TraceNormalTraceLicking Memorial HospitalComment on above:Performed By: #### [id number] #### [facility] [address] [place], [place] [address]Qiollgzvb Ql (U)NegativeNormalNegativeLicking Memorial HospitalComment on above:Performed By: #### [id number] #### [facility] [address], [place] [address]Wnigyzt (U)ClearNormalClearLicking Memorial HospitalComment on above:Performed By: #### [id number] #### [facility] [address], [place] [address]Flsam (U)ColorlessAbnormalYWooster Community Hospital Comment on above:Result Comment: Microscopic readings are only performed on those samples that meet specific criteria set forth by [facility].Performed By: #### [id number] #### [facility] [address], [place] [address]Chdwnztcnf cells.squamous Auto (Urine sed) [#/Area]0-2Invalid Interpretation CodeLicking Memorial HospitalComment on above:Performed By: #### [id number] #### [facility] [address], [place] [address]Ubbqqjk Ql (U)NegativeNormalNegCenterville Comment on above:Performed By: #### [id number] #### [facility] [address], [place] [address]Uxjhwpmbmj Auto test strip (U) [Mass/Vol]TraceAbnormalNegative [facility] HospitalComment on above:Performed By: #### [id number] #### [facility] [address], [place] [address]Ehkyngo Auto test strip Ql (U)NegativeNormalNegativeLicking Memorial HospitalComment on above:Performed By: #### [id number] #### [facility] [address], [place] [address]Spuxphpza esterase Auto test strip Ql (U)500 Jacob/uLAbnormal NegativeLicking Memorial HospitalComment on above:Performed By: #### [id number] #### [facility] [address] [place] [address]Glyni Auto Ql (U)NegativeNormalNegativeLicking Memorial HospitalComment on above:Performed By: #### [id number] #### [facility] [address] [place] [address]Zhxjosm Auto test strip Ql (U)NegativeNormalNegativeLicking Memorial HospitalComment on above:Performed By: #### [id number] #### [facility] [address] [place] [address]mX (U)5.5 [pH]Invalid Interpretation Code5.0-9.0[facility] HospitalComment on above:Performed By: #### [id number] #### [facility] [address] [place] [address]Zoqgccp Ql (U)[facility] AnsonrmalNegCenterville Comment on above:Performed By: #### [id number] #### [facility] [address] [place] [address]XMH Ql (U)0-4Ofetpj8-3Bfizoc [facility] Trauma CenterComment on above:Performed By: #### [id number] #### [facility] [address], [place] [address]Lygspxcx gravity (U) [Rel density]1.005Invalid Interpretation Code1.005-1.030[facility] HospitalComment on above:Performed By: #### [id number] #### [facility] [address] [place] [address]Ezelcwdbowjp (U) [Mass/Vol]NegativeNormalNegativeFisher R [facility] Shock Trauma CenterComment on above:Performed By: #### [id number] #### [facility] [address], [place] [address]FBU Auto (Urine sed) [#/Area]09-83Yhacliol2-3Ymwcrw [facility] Trauma CenterComment on above:Performed By: #### [id number] #### [facility] [address], [place] [address]Onjl of Urine collection methodClean CatchNormalLicking Memorial HospitalComment on above:Performed By: #### [id number] #### [facility] [address], [place] [address]Xeftpv Visiton 04-87-0202Tetxrs-up [id number] Sue Vega 1970 F Date Provider Department Center 08/06/2024 81657-KLFUSTJACKIE MO CARD [facility] No family history on file Level of Service:90217 MD OFFICE/OUTPATIENT ESTABLISHED MOD [facility] 30 MIN Reason for Visit and Comments: Dizziness [245390] - Went to [facility] 2 weeks ago for dizziness. Workup was normal per patient. Told her she had UTI and gave her antibiotic. She says the dizziness has improved since then. Palpitations [990541] - Saw PCP recently for her 6 month check up and told her he heard PVC's when listening to her heart.NormalUnSamaritan HospitalAlanine aminotransferase [Enzymatic activity/volume] in Serum or PlasmaOrdered By: Eduardo Sommer on 88-59-2523EHL [Catalytic activity/Vol] Alanine aminotransferase [Enzymatic activity/volume] in Serum or Plasma7- [facility], Cancer CenterAlbumin [Mass/volume] in Serum or Plasma by Bromocresol green (BCG) dye binding methoOrdered By: Eduardo Sommer on 36-89-4965Vhmxjlx BCG dye [Mass/Vol]Albumin [Mass/volume] in Serum or Plasma by Bromocresol green (BCG) dye binding metho3.5-5.7FCommunity Memorial HospitalAlkaline phosphatase [Enzymatic activity/volume] in Serum or PlasmaOrdered By: Eduardo Sommer on 10-11-2003PLZ [Catalytic activity/Vol]Alkaline phosphatase [Enzymatic activity/volume] in Serum or Njbmqd38-313SwyzopzijOhiohealth Arthur G.H. Bing, Md, Cancer CenterAppearance of UrineOrdered By: Eduardo Sommer on 28-37-6491Ovuozmlpur (U)Urine appearanceCleOhioHealth Southeastern Medical Center Aspartate aminotransferase [Enzymatic activity/volume] in Serum or PlasmaOrdered By: Eduardo Sommer on 65-64-6825REL [Catalytic activity/Vol]Aspartate aminotransferase [Enzymatic activity/volume] in Serum or Whtwxo98-57ZzeiyxaerOhiohealth Arthur G.H. Bing, Md, Cancer CenterB-Type Natriuretic Peptideon 98-63-6495Xlpmudgjffi peptide B (Bld) [Mass/Vol]13.0 pg/mLNormal5-100[facility] Comment on above:Result Comment: PERFORMED BY: [place] [address] PATHOLOGIST ELECTRIC CAR OPERATOR NERY EDGE M.D.Performed By: #### UA, CUU #### [place] [address] USABacteria [Presence] in Urine by AutomatedOrdered By: Eduardo Sommer on 29-28-4115Mkyzmzas Auto Ql (U)Bacteria [Presence] in Urine by AutomatedNone SeenOhiohealth Arthur G.H. Bing, Md, Cancer CenterBasophils Auto (Bld) [#/Vol]Ordered By: Eduardo Sommer on 51-70-1352Mmcvtklnz (Bld) [#/Vol] Automated basophil count0.0-0.2FCommunity Memorial HospitalBasophils/100 WBC Auto (Bld)Ordered By: Eduardo Sommer on 77-00-6478Puixyipfl/100 WBC (Bld) Automated basophil %.[facility], Cancer CenterBilirubin Test strip Ql (U)Ordered By: Eduardo Sommer on 54-27-2851Nxqzuewto Ql (U)Bilirubin.total [Presence] in Urine by Test stripNegativeOhiohealth Arthur G.[facility], [facility], Cancer Center Bilirubin.total [Mass/volume] in Serum or PlasmaOrdered By: Eduardo Sommer on 94-88-7311Ykmcuowxh [Mass/Vol]Bilirubin.total [Mass/volume] in Serum or Plasma 0.3-1.0[facility], Cancer CenterCalcium [Mass/volume] in Serum or Plasma Ordered By: Eduardo Sommer on 78-04-7468Nmkqxkf [Mass/Vol]Calcium [Mass/volume] in Serum or Plasma8.6-10.3FCommunity Memorial HospitalCarbon dioxide, total [Moles/volume] in Serum or PlasmaOrdered By: Eduardo Sommer on 36-68-8754ZU0 [Moles/Vol]Carbon dioxide, total [Moles/volume] in Serum or Plasma 21.0-31.0[facility], Cancer CenterChloride [Moles/volume] in Serum or PlasmaOrdered By: Eduardo Sommer on 45-14-5610Xggyqfzn [Moles/Vol]Chloride [Moles/volume] in Serum or Tujmql03-496WmvbissbeOhiohealth Arthur G.H. Bing, Md, Cancer CenterColor Auto (U)Ordered By: Eduardo Sommer on 90-54-5179Pcelp (U)Color of Urine by AutoYellowOhiohealth Arthur G.H. Bing, Md, Cancer CenterComplete Blood Count Auto Diffon 98-07-7220Kohhahuke (Bld) [#/Vol]0.1 10*3/uLNormal0.0-0.2The [facility] Physician GroupComment on above:Result Comment: PERFORMED BY: [place] [address] PATHOLOGIST ELECTRIC CAR OPERATOR NERY EDGE M.D.Performed By: #### CBC, MG, PT, PHOS, CMP, PTT #### [place] [address] USABasophils/100 WBC (Bld)0.9 %Normal.The [facility] Physician GroupComment on above:Performed By: #### CBC, MG, PT, PHOS, CMP, PTT #### [place] [address] USAEosinophils (Bld) [#/Vol]0.3 10*3/uLNormal0.0-0.45The [facility] Physician GroupComment on above:Performed By: #### CBC, MG, PT, PHOS, CMP, PTT #### [place] [address] USAEosinophils/100 WBC (Bld)4.3 %Normal.The [facility] Physician GroupComment on above:Performed By: #### CBC, MG, PT, PHOS, CMP, PTT #### [place] [address] USAErythrocyte distribution width (RBC) [Ratio]15.5 %High 11.9-15.3The [facility] Physician GroupComment on above:Performed By: #### CBC, MG, PT, PHOS, CMP, PTT #### [place] [address] USAHematocrit (Bld) [Volume fraction]36.9 %Xkwbax64.0-46.4The [facility] Physician GroupComment on above:Performed By: #### CBC, MG, PT, PHOS, CMP, PTT #### [place] [address] USAHemoglobin (Bld) [Mass/Vol]12.1 g/eMChehsw60.8-15.4The [facility] Physician GroupComment on above:Performed By: #### CBC, MG, PT, PHOS, CMP, PTT #### [place] [address] USALymphocytes (Bld) [#/Vol]1.6 10*3/uLNormal1.00-4.8The [facility] Physician GroupComment on above:Performed By: #### CBC, MG, PT, PHOS, CMP, PTT #### [place] [address] USALymphocytes/100 WBC (Bld)21.1 %Normal.The [facility] Physician GroupComment on above:Performed By: #### CBC, MG, PT, PHOS, CMP, PTT #### [place] [address] USAMCH (RBC) [Entitic mass]26.2 hiLblocz92.7-34.3The [facility] Physician GroupComment on above:Performed By: #### CBC, MG, PT, PHOS, CMP, PTT #### [place] [address] USAMCV (RBC) [Entitic vol]79.9 eYEte31-175Gzt [facility] Physician GroupComment on above:Performed By: #### CBC, MG, PT, PHOS, CMP, PTT #### [place] [address] USAMean Corpuscular HGB Conc32.8 g/wYQhcjzu04.0-35.0The [facility] Physician GroupComment on above:Performed By: #### CBC, MG, PT, PHOS, CMP, PTT #### [place] [address] USAMonocytes (Bld) [#/Vol]0.6 10*3/uLNormal0.0-0.8The [facility] Physician GroupComment on above:Performed By: #### CBC, MG, PT, PHOS, CMP, PTT #### [place] [address] USAMonocytes/100 WBC (Bld)15.81 %Normal0.00-20.00The [facility] Physician GroupComment on above:Performed By: #### CBC, MG, PT, PHOS, CMP, PTT #### [place] [address] USAMonocytes/100 WBC (Bld)8.3 %Normal.The [facility] Physician GroupComment on above:Performed By: #### CBC, MG, PT, PHOS, CMP, PTT #### [place] [address] USANeutrophils (Bld) [#/Vol]4.8 10*3/uLNormal1.8-7.7The [facility] Physician GroupComment on above:Performed By: #### CBC, MG, PT, PHOS, CMP, PTT #### [place] [address] USANeutrophils/100 WBC (Bld)65.4 %Normal.The [facility] Physician GroupComment on above:Performed By: #### CBC, MG, PT, PHOS, CMP, PTT #### [facility] [address] [place] [address] USANRBC%0.1 /100{WBC}Normal0-0.5The [facility] Group Comment on above:Performed By: #### CBC, MG, PT, PHOS, CMP, PTT #### [place] [address] USAPlatelet mean volume (Bld) [Entitic vol]6.6 fLNormal 6.3-10.7The [facility] Physician GroupComment on above:Performed By: #### CBC, MG, PT, PHOS, CMP, PTT #### [place] [address] USAPlatelets (Bld) [#/Vol]332 10*3/hODdjwby849-996Utc [facility] Physician GroupComment on above:Performed By: #### CBC, MG, PT, PHOS, CMP, PTT #### [place] [address] USARBC (Bld) [#/Vol]4.62 10*6/uLNormal3.60-5.00The [facility] Physician GroupComment on above:Performed By: #### CBC, MG, PT, PHOS, CMP, PTT #### [place] [address] USAWBC (Bld) [#/Vol]7.4 10*3/uLNormal3.8-11.6The [facility] Physician GroupComment on above:Performed By: #### CBC, MG, PT, PHOS, CMP, PTT #### [place] [address] USAComprehensive Metabolic Panelon 62-73-2305Wlwyrmh [Mass/Vol]4.4 g/dLNormal3.5-5.7The [facility] Physician GroupComment on above: Performed By: #### CBC, MG, PT, PHOS, CMP, PTT #### [place] [address] USAAlbumin/Globulin [Mass ratio]1.5 {ratio}NormalThe [facility] Physician GroupComment on above:Performed By: #### CBC, MG, PT, PHOS, CMP, PTT #### [facility] [address] [place] [address] USAALP [Catalytic activity/Vol]90 U/MJtsfsq63-320Hfl [facility] Physician GroupComment on above:Performed By: #### CBC, MG, PT, PHOS, CMP, PTT #### [place] [address] USAALT [Catalytic activity/Vol]15 U/LNormal7-52The [facility] Physician GroupComment on above:Performed By: #### CBC, MG, PT, PHOS, CMP, PTT #### [place] [address] USAAnion gap [Moles/Vol]12.7 mmol/LNormal6.0-15.0The [facility] Physician GroupComment on above:Performed By: #### CBC, MG, PT, PHOS, CMP, PTT #### [place] [address] USAAST [Catalytic activity/Vol]17 U/IUuwiaz36-57Com [facility] Physician GroupComment on above:Performed By: #### CBC, MG, PT, PHOS, CMP, PTT #### [place] [address] USABilirubin [Mass/Vol]0.3 mg/dLNormal0.3-1.0The [facility] Physician GroupComment on above:Performed By: #### CBC, MG, PT, PHOS, CMP, PTT #### [place] [address] USACalcium [Mass/Vol]9.2 mg/dLNormal8.6-10.3The [facility] Physician GroupComment on above:Performed By: #### CBC, MG, PT, PHOS, CMP, PTT #### [facility] [address] [place] [address] USAChloride [Moles/Vol]105 mmol/UBdkvvh18-581Hwk [facility] Physician GroupComment on above:Performed By: #### CBC, MG, PT, PHOS, CMP, PTT #### [place] [address] USACO2 [Moles/Vol]24.3 mmol/PTlxfcv37.0-31.0The [facility] Physician GroupComment on above:Performed By: #### CBC, MG, PT, PHOS, CMP, PTT #### [place] [address] USACreatinine [Mass/Vol]0.93 mg/dLNormal0.60-1.20The [facility] Physician GroupComment on above:Performed By: #### CBC, MG, PT, PHOS, CMP, PTT #### [place] [address] USACreatinine Clr Calc Idobevnt33.06NormShorePoint Health Punta Gorda Physician GroupComment on above:Performed By: #### CBC, MG, PT, PHOS, CMP, PTT #### [place] [address] USAGFR/1.73 sq M.predicted MDRD (S/P/Bld) [Vol rate/Area] mL/min/{1.73_m2}NormalThe [facility] Physician GroupComment on above:Performed By: #### CBC, MG, PT, PHOS, CMP, PTT #### [place] [address] USAGlobulin (S) [Mass/Vol]3.0 g/dLNormTrumbull Regional Medical Centere [facility] Physician GroupComment on above:Performed By: #### CBC, MG, PT, PHOS, CMP, PTT #### [place] [address] USAGlucose [Mass/Vol]92 mg/qZGfbkew65-489Nvi [facility] Physician GroupComment on above:Result Comment: Random Glucose Reference Range is dependent on time and content of last meal. Glucose of more than 200 mg/dL in a nonstressed, ambulatory subject supports the diagnosis of Diabetes Mellitus. ADA recommended reference rangePerformed By: #### CBC, MG, PT, PHOS, CMP, PTT #### [address] [place] [address] USAPotassium [Moles/Vol]4.0 mmol/LNormal3.5-5.1The [facility] Physician GroupComment on above:Performed By: #### CBC, MG, PT, PHOS, CMP, PTT #### [place] [address] USAProtein [Mass/Vol]7.4 g/dLNormal6.4-8.9The [facility] Physician GroupComment on above:Performed By: #### CBC, MG, PT, PHOS, CMP, PTT #### [place] [address] USASodium [Moles/Vol]138 mmol/UDeiqua086-516Hpd [facility] Physician GroupComment on above:Performed By: #### CBC, MG, PT, PHOS, CMP, PTT #### [place] [address] USAUrea nitrogen [Mass/Vol]15 mg/dLNormal7-25The [facility] Physician GroupComment on above:Performed By: #### CBC, MG, PT, PHOS, CMP, PTT #### [place] [address] USACreatinine [Mass/volume] in Serum or PlasmaOrdered By: Eduardo Sommer on 25-38-7753Vksquhuutv [Mass/Vol]Creatinine [Mass/volume] in Serum or Plasma0.60-1.20Ohio[facility] Md, Cancer CenterDipstick and Microscopicon 61-14-6976Uqvwjkxfdr (U)ClearNormalClearThe [facility] Physician GroupComment on above:Order Comment: Name Collection Type:: VoidedPerformed By: #### ADDONUAPLUS, CUU #### [place] [address] USABacteria,UrineRareNormalNone SeenThe [facility] Physician GroupComment on above:Order Comment: Name Collection Type:: VoidedPerformed By: #### ADDONUAPLUS, CUU #### [place] [address] USABilirubin,UrineNegativeNormalNegativeHealthpark Medical Center Physician GroupComment on above:Order Comment: Name Collection Type:: Voided Performed By: #### ADDONUAPLUS, CUU #### [place] [address] USAColor (U)ColorlessNormalYellowHealthpark Medical Center Physician GroupComment on above:Order Comment: Name Collection Type:: VoidedPerformed By: #### ADDONUAPLUS, CUU #### [place] [address] USAGlucose Ql (U)NormalNormalNormalThe [facility] Physician GroupComment on above:Order Comment: Name Collection Type:: VoidedPerformed By: #### ADDONUAPLUS, CUU #### [place] [address] USAHyaline Casts,UrineNoneNormal0-8The [facility] Physician GroupComment on above:Order Comment: Name Collection Type:: VoidedPerformed By: #### ADDONUAPLUS, CUU #### [place] [address] USAKetones Ql (U)NegativeNormalNegativeHealthpark Medical Center Physician GroupComment on above:Order Comment: Name Collection Type:: Voided Performed By: #### ADDONUAPLUS, CUU #### [place] [address] USALeukocyte esterase Test strip Ql (U)4+HighNegativeHealthpark Medical Center Physician GroupComment on above:Order Comment: Name Collection Type:: VoidedPerformed By: #### ADDONUAPLUS, CUU #### [place] [id number] USAMucus,UrineRareNormalThe [facility] Physician GroupComment on above:Order Comment: Name Collection Type:: VoidedResult Comment: PERFORMED BY: [place] [address] PATHOLOGIST ELECTRIC CAR OPERATOR NERY EDGE M.D.Performed By: #### ADDONUAPLUS, CUU #### [place] [address] USANitrite,UrineNegativeNormalNegativeThe [facility] Physician GroupComment on above:Order Comment: Name Collection Type:: VoidedPerformed By: #### JAY, CUU #### [place] [address] USANon-Squamous Epithelial Cell,U1 [HPF]HighNone SeenThe [facility] Physician GroupComment on above:Order Comment: Name Collection Type:: VoidedPerformed By: #### ADDGRISPLUS, CUU #### [place] [address] USAOccult Blood,UrineTraceHighNegativeThe [facility] Physician GroupComment on above:Order Comment: Name Collection Type:: VoidedResult Comment: PERFORMED BY: [place] [address] PATHOLOGIST ELECTRIC CAR OPERATOR NERY EDGE M.D.Performed By: #### JAY, CUU #### [place] [address] USApH (U)5.0 [pH]Normal5.0-9.0The [facility] Group Comment on above:Order Comment: Name Collection Type:: VoidedPerformed By: #### JAY, CUU #### [place] [address] USAProtein,UrineNegativeNormalNegativeThe [facility] Physician GroupComment on above:Order Comment: Name Collection Type:: VoidedPerformed By: #### ADDGRISPLUS, CUU #### [place] [address] USARBC,Urine1 [HPF]Normal0-4The [facility] Comment on above:Order Comment: Name Collection Type:: VoidedPerformed By: #### ADDGRISPLUS, CUU #### [place] [address] USASpecificy [place],Urine1.795Dfwnty2.001-1.030The [facility] Physician GroupComment on above:Order Comment: Name Collection Type:: Voided Performed By: #### ADDONUAPLUS, CUU #### [facility] [address] [place] [id number] USASquamous Epithelial Cell,Urine1 [HPF]Normal0-2The [facility] Physician GroupComment on above:Order Comment: Name Collection Type:: VoidedPerformed By: #### ADDONUAPLUS, CUU #### [facility] [address] [place] [address] USAUrobilinogen,UrineNormalNormalNormalThe [facility] Physician GroupComment on above:Order Comment: Name Collection Type:: Voided Performed By: #### ADDONUAPLUS, CUU #### [facility] [address] [place] [address] USAWBC,Urine10 [HPF]High0-4The [facility] Comment on above:Order Comment: Name Collection Type:: VoidedPerformed By: #### ADDONUAPLUS, CUU #### [place] [address] USAECG 12 lead ECGon 34-16-2962WLY 12 lead ECGTRUMBULL [facility] Main [place] [address] [place] [address] Electrocardiograph Report Signed Patient: Sue Vega MR#: [id number] : [id number] Acct:[id number] Age/Sex: 54 / F ADM Date: 07/24/24 Loc: ER Room: Type: [facility] ER Attending Dr: Ordering Provider: Eduardo Sommer DO Date of Service: 07/24/24 ECG/ECG 12 lead ECG: Dizziness Copies to: Test Reason : Blood Pressure : */* mmHG Vent. Rate : 71 BPM Atrial Rate : 71 BPM P-R Int : 154 ms QRS Dur : 68 ms QT Int : 386 ms P-R-T Axes : 63 46 17 degrees QTcB Int : 419 ms Normal sinus rhythm Nonspecific ST abnormality Confirmed by Eduardo Sommer DO ([id number]) on 07/24/2024 3:18:42 PM Referred By: Electronically Signed By: Eduardo Sommer DO Transcribed By: MUS Signed By Eduardo Sommer, 1518NoFormerly [facility] Physician GroupEosinophils Auto (Bld) [#/Vol] Ordered By: Eduardo Sommer on 42-70-2547Oeqzdpkmoky (Bld) [#/Vol]Automated eosinophil count0.0-0.45Ohio[facility] Md, Cancer CenterEosinophils/100 WBC Auto (Bld)Ordered By: Eduardo Sommer on 18-10-8852Hgidyhmuhrw/100 WBC (Bld) Automated eosinophil %.[facility], Cancer CenterEpithelial cells.non- squamous [#/area] in Urine sediment by Automated countOrdered By: Eduardo Sommer on 78-84-2919Hnwwfcdjkq cells.non-squamous Auto (Urine sed) [#/Area] Epithelial cells.non-squamous [#/area] in Urine sediment by Automated countHigh None SeenOhiohealth Arthur G.H. Bing, Md, Cancer CenterEpithelial cells.squamous [#/area] in Urine sediment by Automated countOrdered By: Eduardo Sommer on 07-24-2024 Epithelial cells.squamous Auto (Urine sed) [#/Area]Epithelial cells.squamous [#/area] in Urine sediment by Automated count0-2FCommunity Memorial HospitalErythrocyte distribution width Auto (RBC) [Ratio]Ordered By: Eduardo Sommer on 56-62-9578Rzirhwytdas distribution width (RBC) [Ratio]Erythrocyte distribution width [Ratio] by Automated rizscDbwz14.9-15.3FCommunity Memorial HospitalErythrocytes [#/area] in Urine sediment by Automated countOrdered By: Eduardo Sommer on 28-38-9210JGN Auto (Urine sed) [#/Area]Erythrocytes [#/area] in Urine sediment by Automated count0-4FCommunity Memorial HospitalGlobulin Calc (S) [Mass/Vol]Ordered By: Eduardo Sommer on 07-24-2024 Globulin (S) [Mass/Vol]Serum globulin measurement by calculation (mass/volume) [facility], Cancer CenterGlucose [Mass/volume] in Serum or PlasmaOrdered By: Eduardo Sommer on 06-04-9722Yclpfil [Mass/Vol]Glucose [Mass/volume] in Serum or Ztjdqh22-720NbjuhaxfdOhiohealth Arthur G.H. Bing, Md, Cancer CenterComment on above:ADA recommended reference rangeRandom Glucose Reference Range is dependent on time and content of last meal. Glucose of more than 200 mg/dL in a nonstressed, ambulatory subject supports the diagnosisof Diabetes Mellitus.Glucose [Mass/volume] in Urine by Test stripOrdered By: Eduardo Sommer on 07-24-2024 Glucose Test strip (U) [Mass/Vol]Glucose [Mass/volume] in Urine by Test strip NormalOhiohealth Arthur G.H. Bing, Md, Cancer CenterHematocrit Auto (Bld) [Volume fraction] Ordered By: Eduardo Sommer on 89-83-1631Rfragqreuy (Bld) [Volume fraction] Hematocrit [Volume Fraction] of Blood by Automated count34.0-46.4FCommunity Memorial HospitalHemoglobin Test strip Ql (U)Ordered By: Eduardo Sommer on 82-03-4829Lubriuxfrd Ql (U)Hemoglobin [Presence] in Urine by Test stripHigh NegativeOhiohealth Arthur G.H. Bing, Md, Cancer CenterHemoglobin [Mass/volume] in Blood Ordered By: Eduardo Sommer on 27-31-7105Nwzlemsvxt (Bld) [Mass/Vol]Hemoglobin [Mass/volume] in Blood11.8-15.4FCommunity Memorial HospitalHyaline casts [#/area] in Urine sediment by Automated countOrdered By: Eduardo Sommer on 11-99-5352Arwtydg casts Auto (Urine sed) [#/Area]Hyaline casts [#/area] in Urine sediment by Automated count0-8Ohio[facility] Md, Cancer CenterINR in Platelet poor plasma by Coagulation assayOrdered By: Eduardo Sommer on 95-77-3104KNR Coag (PPP) [Relative time]INR in Platelet poor plasma by Coagulation assay [facility], Md, Cancer CenterComment on above:INR Therapeutic Range A) Pre- and Peroperative OAT started two weeks before surgery. NOT HIP SURGERY: 1.5 - 2.5 HIP SURGERY: 2 - 3B) Primary and secondary prevention of venous THROMBOSIS: 2 - 3C) Active venous thrombosis, pulmonary embolismand prevention of recurrent venous thrombosis: 2 - 3D) Prevention of arterial thromboembolismincluding patients with mechanical heart valves: 3 - 4.5Ketones Test strip Ql (U)Ordered By: Eduardo Sommer on 65-35-5718Zozemgh Ql (U)Ketones [Presence] in Urine by Test stripNegativeMartin General Hospital Regional Medical CenterLeukocyte esterase [Presence] in Urine by Test stripOrdered By: Eduardo Sommer on 53-70-2533Ylxuzyusx esterase Test strip Ql (U)Leukocyte esterase [Presence] in Urine by Test strip HighNegMercy Health Lorain HospitalLeukocytes [#/area] in Urine sediment by Automated countOrdered By: Eduardo Sommer on 46-67-2325GPM Auto (Urine sed) [#/Area]Leukocytes [#/area] in Urine sediment by Automated countHigh 0-4FCommunity Memorial HospitalLeukocytes [#/volume] corrected for nucleated erythrocytes in Blood by Automated counOrdered By: Eduardo Sommer on 11-08-2182QLG corrected for nucl RBC Auto (Bld) [#/Vol]Leukocytes [#/volume] corrected for nucleated erythrocytes in Blood by Automated coun3.8-11.6FCommunity Memorial HospitalLymphocytes Auto (Bld) [#/Vol]Ordered By: Eduardo Sommer on 04-37-6652Hvinyyikcdf (Bld) [#/Vol]Lymphocytes [#/volume] in Blood by Automated count1.00-4.8Ohio[facility], Md, Cancer CenterLymphocytes/100 WBC Auto (Bld)Ordered By: Eduardo Sommer on 82-60-6653Kknipujuklf/100 WBC (Bld) Lymphocytes/100 leukocytes in Blood by Automated count.[facility] HospitalH Auto (RBC) [Entitic mass]Ordered By: Eduardo Sommer on 01-89-1532BIN (RBC) [Entitic mass]MCH [Entitic mass] by Automated count24.7-34.3 [facility] HospitalHC Auto (RBC) [Mass/Vol]Ordered By: Eduardo Sommer on 73-99-1026CBHS (RBC) [Mass/Vol]MCHC [Mass/volume] by Automated count 32.0-35.0[facility] HospitalV Auto (RBC) [Entitic vol]Ordered By: Eduardo Sommer on 57-55-6278JOE (RBC) [Entitic vol]MCV [Entitic volume] by Automated fskrdAql83-406EllqnvcvhOhiohealth Arthur G.H. Bing, Md, Cancer CenterMagnesiumon 07-24-2024 Magnesium [Mass/Vol]2.1 mg/dLNormal1.9-2.7The [facility] Physician GroupComment on above:Result Comment: PERFORMED BY: [address] [address] PATHOLOGIST ELECTRIC CAR OPERATOR NERY EDGE M.D.Performed By: #### CBC, MG, PT, PHOS, CMP, PTT #### [place] [id number] USAMagnesium [Mass/volume] in Serum or PlasmaOrdered By: Eduardo Sommer on 30-49-9018Ahhfrlqsg [Mass/Vol]Magnesium [Mass/volume] in Serum or Plasma1.9-2.7FCommunity Memorial HospitalMonocyte distribution width [Entitic volume] in Blood by AutomatedOrdered By: Eduardo Sommer on 47-78-1768Xyzksuww distribution width Auto (Bld) [Entitic vol]Monocyte distribution width [Entitic volume] in Blood by Automated0.00-20.00Ohio[facility] Md, Cancer CenterMonocytes Auto (Bld) [#/Vol]Ordered By: Eduardo Sommer on 11-50-1378Ddstfsyld (Bld) [#/Vol]Automated blood monocyte count0.0-0.8 [facility], Cancer CenterMonocytes/100 WBC Auto (Bld)Ordered By: Eduardo Sommer on 58-08-7038Ieivbaanp/100 WBC (Bld)Automated monocyte %.[facility], Cancer CenterMucus [Presence] in Urine by AutomatedOrdered By: Eduardo Sommer on 89-04-6848Rkjhx Auto Ql (U)Mucus [Presence] in Urine by Automated [facility] Cancer CenterNatriuretic peptide B [Mass/Vol]Ordered By: Eduardo Sommer on 81-92-3922Krgnfpslvrz peptide B (Bld) [Mass/Vol]BNP ser/plas 5-100Ohio[facility] Md, Cancer CenterNeutrophils Auto (Bld) [#/Vol]Ordered By: Eduardo Sommer on 07-59-8337Tmeujdzbhdh (Bld) [#/Vol]Neutrophils [#/volume] in Blood by Automated count1.8-7.7FCommunity Memorial HospitalNeutrophils/100 WBC Auto (Bld)Ordered By: Eduardo Sommer on 00-03-6458Oivjmkwuexd/100 WBC (Bld)Automated neutrophil %.[facility], Cancer CenterNitrite Test strip Ql (U)Ordered By: Eduardo Sommer on 78-59-4654Aikzlkd Ql (U)Nitrite [Presence] in Urine by Test stripNegativeOhiohealth Arthur G.H. Bing, Md, Cancer CenterNo Panel InformationOrdered By: Eduardo Sommer on 81-32-4899Ocuopghmj GFR (CKD-EPI)> 60.0 mL/MinOhiohealth Arthur G.H. Bing, Md, Cancer CenterPharmacy Creatinine Clearance (Chem 62.06Ohio[facility], Md, Cancer CenterNucleated erythrocytes [Presence] in Blood by Automated countOrdered By: Eduardo Sommer on 08-46-3022Xslcwexuv RBC Auto Ql (Bld)Nucleated erythrocytes [Presence] in Blood by Automated count0-0.5 [facility] Cancer CenterPartial Thromboplastin Timeon 75-85-9741pEMC Coag (Bld) [Time]32.0 sPlpulh34.1-36.5The [facility] Physician GroupComment on above:Result Comment: A hematocrit value greater than 55% may lead to inaccurate results in coagulation testing. Patients having hematocrit values >55% require a special collection tube for coagulation studies. Please contact the laboratory at [phone] for redraw instructions. PERFORMED BY: [address] [place] [address] PATHOLOGIST ELECTRIC CAR OPERATOR NERY EDGE M.D.Performed By: #### CBC, MG, PT, PHOS, CMP, PTT #### [address] [address] USAPhosphate [Mass/volume] in Serum or PlasmaOrdered By: Eduardo Sommer on 49-18-2408Ynxaainjq [Mass/Vol]Phosphate [Mass/volume] in Serum or Plasma2.5-4.5FCommunity Memorial HospitalPhosphoruson 07-24-2024 Phosphate [Mass/Vol]4.2 mg/dLNormal2.5-4.5The [facility] Physician GroupComment on above:Performed By: #### CBC, MG, PT, PHOS, CMP, PTT #### [facility] [address] [place] [address] USAPlatelet mean volume Auto (Bld) [Entitic vol]Ordered By: Eduardo Sommer on 99-28-6293Ocwkdhmm mean volume (Bld) [Entitic vol]Platelet mean volume [Entitic volume] in Blood by Automated count6.3-10.7FCommunity Memorial HospitalPlatelets Auto (Bld) [#/Vol]Ordered By: Eduardo Sommer on 48-21-5140Yfwpvdvyb (Bld) [#/Vol]Platelets [#/volume] in Blood by Automated yusxu835-905XtlmcvlqlOhiohealth Arthur G.H. Bing, Md, Cancer CenterPotassium [Moles/volume] in Serum or PlasmaOrdered By: Edurado Sommer on 48-80-7042Mxbhdogmv [Moles/Vol] Potassium [Moles/volume] in Serum or Plasma3.5-5.1FCommunity Memorial HospitalProtein Test strip (U) [Mass/Vol]Ordered By: Eduardo Smomer on 88-26-6320Ousvhzw (U) [Mass/Vol]Protein [Mass/volume] in Urine by Test strip NegativeOhiohealth Arthur G.H. Bing, Md, Cancer CenterProtein [Mass/volume] in Serum or PlasmaOrdered By: Eduardo Sommer on 66-78-0108Qukqpzo [Mass/Vol]Protein [Mass/volume] in Serum or Plasma6.4-8.9[facility] Prothrombin Time INRon 50-53-8707EPL Coag (PPP) [Relative time]0.9 {INR}Normal [facility] Physician GroupComment on above:Result Comment: INR Therapeutic Range A) Pre- and Peroperative OAT started two weeks before surgery. NOT HIP SURGERY: 1.5 - 2.5 HIP SURGERY: 2 - 3 B) Primary and secondary prevention of venous THROMBOSIS: 2 - 3 C) Active venous thrombosis, pulmonary embolism and prevention of recurrent venous thrombosis: 2 - 3 D) Prevention of arterial thromboembolism including patients with mechanical heart valves: 3 - 4.5Performed By: #### CBC, MG, PT, PHOS, CMP, PTT #### [facility] [address] [id number] USAPT Coag (PPP) [Time]10.4 sNormal9.0-12.9[facility] Physician GroupComment on above:Result Comment: A hematocrit value greater than 55% may lead to inaccurate results in coagulation testing. Patients having hematocrit values >55% require a special collection tube for coagulation studies. Please contact the laboratory at [phone] for redraw instructions.Performed By: #### CBC, MG, PT, PHOS, CMP, PTT #### [facility] [address] [place] [address] USAProthrombin time (PT)Ordered By: Eduardo Sommer on 16-87-9138RQ Coag (PPP) [Time]Prothrombin time (PT)9.0-12.9[facility]. Bing, Md, Cancer CenterComment on above:A hematocrit value greater than 55% may lead to inaccurate results in coagulation testing. Patientshaving hematocrit values >55% require a special collection tube for coagulation studies. Please contact the laboratory at [phone] for redraw instructions.RBC Auto (Bld) [#/Vol]Ordered By: Eduardo Sommer on 83-16-9700UHN (Bld) [#/Vol]Erythrocytes [#/volume] in Blood by Automated count3.60-5.00Green Cross Hospitalerum or plasma albumin/globulin mass ratioOrdered By: Eduardo Sommer on 07-24-2024 Albumin/Globulin [Mass ratio]Serum or plasma albumin/globulin mass ratio Green Cross Hospitalerum or plasma anion gap determinationOrdered By: Eduardo Sommer on 61-86-0494Lqkiu gap [Moles/Vol]Serum or plasma anion gap determination6.0-15.0Green Cross Hospitalodium [Moles/volume] in Serum or PlasmaOrdered By: Eduardo Sommer on 94-93-7121Nsgstt [Moles/Vol] Sodium [Moles/volume] in Serum or Gtpwpf536-817QcbuujzfrOhiohealth Arthur G.H. Bing, Md, Cancer Center Specific gravity Test strip (U) [Rel density]Ordered By: Eduardo Sommer on 39-29-1446Joymufzb gravity (U) [Rel density]Specific gravity of Urine by Test strip1.001-1.030Ohio[facility]. [facility], Md, Cancer CenterTroponin I High Sensitivityon 89-43-5330Ehnrpnoc I High Sensitivity2.6 pg/mLNormal0.0-15.0[facility] Physician GroupComment on above:Result Comment: PERFORMED BY: [facility] [address] [place] [address] PATHOLOGIST ELECTRIC CAR OPERATOR NERY EDGE M.D.Performed By: #### UA, CUU #### [facility] [address] [place] [address] USATroponin I.cardiac [Mass/volume] in Serum or Plasma by Detection limit <= 0.01 ng/Ordered By: Eduardo Sommer on 85-48-2758Rtewzvba I.cardiac DL <= 0.01 ng/mL [Mass/Vol]Troponin I.cardiac [Mass/volume] in Serum or Plasma by Detection limit <= 0.01 ng/0.0-15.0[facility] Md, Cancer CenterUrea nitrogen [Mass/volume] in Serum or PlasmaOrdered By: Eduardo Sommer on 54-32-7066Hyyy nitrogen [Mass/Vol]Urea nitrogen [Mass/volume] in Serum or Plasma03-01Ohio[facility]. [facility], Md, Cancer CenterUrine Cultureon 57-95-4848Htftpkbp identified Cx Nom (U)ORGANISM: Escherichia coli (O:ESCCOL) [place] Count 25,000 Aerobic HYADEE Charge (NMIC56) SUSCEPTIBILITY ORGANISM: O:ESCCOL ANTIBIOTIC INTERPRETATION HAYDEE Amikacin S <16 Amoxacillin/K Clavulanate S <8 Ampicillin S <8 Ampicillin/Sulbactam S <4 Aztreonam S <4 Cefazolin S <2 Cefepime S <2 Ceftazidime S <1 Ceftazidime/Avibactam S <4 Ceftolozane/Tazobactam S <2 Ceftriaxone S <1 Cefuroxime S <4 Ciprofloxacin S <0.25 Ertapenem S <0.5 Gentamicin S <2 Levofloxacin S <0.5 Meropenem S <1 Meropenem/Vaborbactam S <2 Nitrofurantoin S <32 Piperacillin/Tazobactam S <8 Tetracycline S <4 Tigecycline S <2 Tobramycin S <2 Trimethoprim/Sulfamethoxazole S <0.5 S = SUSCEPTIBLE I = INTERMEDIATE R = RESISTANT BLANK = DATA NOT AVAILABLE, OR DRUG NOT ADVISABLE OR TESTED R* = RESISTANCE DUE TO EXTENDED SPECTRUM BETA-LACTAMASES ESBL = EXTENDED SPECTRUM BETA-LACTAMASE TFG = THYMIDINE-DEPENDENT STRAIN ZENAIDA = BETA-LACTAMASE POSITIVE IB = INDUCIBLE BETA-LACTAMASE. APPEARS IN PLACE OF 'S' WITH SPECIES KNOWN TO POSSESS INDUCIBLE BETA-LACTAMASES. POTENTIALLY THEY MAY BECOME RESISTANT TO ALL B-LACTAM DRUGS. PERFORMED BY: [address] [place] [address] PATHOLOGIST ELECTRIC CAR OPERATOR NERY EDGE M.D.NormalHealthpark Medical Center Physician GroupComment on above: Performed By: #### JAY, CUU #### [place] [address] USAUrine cultureOrdered By: Eduardo Sommer on 07-24-2024 Bacteria identified Cx Nom (U)Escherichia coliAbMercy Health Kings Mills HospitalUrobilinogen Test strip (U) [Mass/Vol]Ordered By: Eduardo Sommer on 16-05-7997Piuhkjjoydvi (U) [Mass/Vol]Urobilinogen [Mass/volume] in Urine by Test stripBarnesville HospitalWBC Auto (Bld) [#/Vol]Ordered By: Eduardo Sommer on 65-22-7454FLU (Bld) [#/Vol]Leukocytes [#/volume] in Blood by Automated count3.8-11.6FCommunity Memorial HospitalaPTT in Platelet poor plasma by Coagulation assayOrdered By: Eduardo Sommer on 64-30-0987qATY Coag (PPP) [Time]Activated partial thromboplastin time (aPTT) in platelet poor plasma by coagulation a25.1-36.5FCommunity Memorial HospitalComment on above:A hematocrit value greater than 55% may lead to inaccurate results in coagulation testing. Patientshaving hematocrit values >55% require a special collection tube for coagulation studies. Please contact the laboratory at [phone] for redraw instructions.pH Test strip (U)Ordered By: Eduardo Sommer on 07-24-2024 pH (U)pH of Urine by Test strip5.0-9.0[facility], Md, Cancer CenterOffice Visiton 75-68-2519Jsxgrv-up [id number] Sue Vega 1970 F Date Provider Department Center 05/30/2024 VISHAL ROSENBERG CARD Erica Hos No family history on file Level of Service:23641 MD OFFICE/OUTPATIENT ESTABLISHED MOD MDM 30 MIN Reason for Visit and Comments: Palpitations [251705] SVT [Other]NormalGenesis HospitalMA Mamm Screen w/CAD if perf and 3D Bilon 43-99-0363XA Mamm Screen w/CAD if perf and 3D BilExam Date/Time: 09/29/2023 08:26 EST Reason for Exam: SCREENING Report [facility] [phone] IMPRESSION: BIRADS 1 NEGATIVE, NORMAL INTERVAL FOLLOW-UP [...] VERY IMPORTANT TO YOUR HEALTH. THE CURRENT DJIBOUTIAN [employer]LE[employer] OF [employer] NATIONAL [employer]PREHENSIVE CANCER [...] Elieser Bains MD Transcribed by: XIMENA Technologist: [facility] Assessment: BI-RADS Category 1-Negative Recommendation: Normal interval follow-upJ.W. Ruby Memorial Hospital Consent for Treatmenton 59-93-1649Cjxngsm for Treatment [id number]#1.00TIFSt. Mary's Medical CenterPhysician Orderon 87-26-1597Orhdeujyr Order [id number]#1.00TIFSt. Mary's Medical CenterC Urineon 11-55-4643Epepeqkw identified Cx Nom (U)Microbiology PROCEDURE: Urine Culture [R1] SOURCE: U CleanCatch [...] Locations R1: This test was performed at: [facility], [address] [place] [address], [address] , , WoueyaMhtjzuJ.W. Ruby Memorial HospitalComment on above:Performed By: #### 11338759, 4571234, 1945564, 56073741, 83605845, 07803422 #### [facility] [address] [place] [address]WW Chest Single Viewon 66-67-0421BH Chest Single ViewExam Date/Time: 09/06/2023 19:20 EST Reason for Exam: [...] Ka,r in mGy = n/a DAP = n/aNormalLicking Memorial HospitalBMPon 36-47-6370Cyofa gap [Moles/Vol] 10 mmol/LNormal6-16[facility] Memorial HospitalComment on above:Performed By: #### 39614336, 4477975, 8454174, 16675037, 00985947, 98043802 #### [facility] [address] [place], [place] [address]TPR/Creat Ratio22 No LzwwjHvhe99-31IsahffLicking Memorial Hospital Comment on above:Performed By: #### 22003152, 0400408, 4501291, 42958066, 31344437, 17251102 #### [facility] [address] [place], [place] [address]Qeeymjh [Mass/Vol]8.9 mg/dLNormal8.9-11.1FUniversity Hospitals TriPoint Medical CenterComment on above:Performed By: #### 55358503, 6847366, 2359356, 48585419, 92132553, 15150226 #### [facility] [address] [place], [place] [address]Jtixybca [Moles/Vol]105 mmol/ELgljfc628-239RkcxhdLicking Memorial HospitalComment on above:Performed By: #### 67024794, 6149235, 7329284, 26004215, 08984820, 27610408 #### [facility] [address], [place] [address]UT1 [Moles/Vol]28 mmol/GQafjyh69-59VdxeqaLicking Memorial Hospital Comment on above:Performed By: #### 30600100, 1078969, 8834387, 62090009, 82567232, 76104826 #### [facility] [address], [place] [address]Upvgffjscw [Mass/Vol]1.0 mg/dLNormal0.5-1.3FUniversity Hospitals TriPoint Medical CenterComment on above:Performed By: #### 37786501, 7094434, 0369237, 25971105, 07657036, 05737525 #### [facility] [address], [place] [address]Hptvjzt [Mass/Vol]92 mg/bPOrvwlg21-486FhpwtzLicking Memorial HospitalComment on above:Performed By: #### 40321380, 9551986, 5138732, 02027801, 97290819, 70926041 #### [facility] [address], [place] [address]Nudyctfou [Moles/Vol]3.7 mmol/LNormal3.5-5.3FUniversity Hospitals TriPoint Medical CenterComment on above:Performed By: #### 22026887, 2772396, 1325580, 79586365, 33446069, 88714770 #### [facility] [address], [place] [address]Wrxyax [Moles/Vol]139 mmol/JDtdydn598-440FiqfcbLicking Memorial HospitalComment on above:Performed By: #### 82803480, 7249083, 2400936, 00858448, 34479222, 52652737 #### [facility] [address], [place] [address]Qrgj nitrogen [Mass/Vol]22 mg/dLHigh5-21L[facility] Memorial HospitalComment on above:Performed By: #### 22795147, 1115746, 5507304, 49122804, 73604089, 49479573 #### [facility] [address], [place] [address]CRS w/ Auto Diffon 48-83-8439Pwiooyrl Absolute0.1 E9/LNormal 0.0-0.2FUniversity Hospitals TriPoint Medical CenterComment on above:Performed By: #### 88515063, 1077532, 9063777, 82410960, 41230583, 13041618 #### [facility] [address], [place] [address]Rbjwoazvs/100 WBC (Bld)0.8 %Normal0.0-2.0L[facility] Memorial HospitalComment on above:Performed By: #### 02726061, 5117439, 6113627, 75880362, 00802268, 53160344 #### [facility] [address] [place] [address]Hoq Absolute0.3 E9/LNormal0.0-0.5FUniversity Hospitals TriPoint Medical Center Comment on above:Performed By: #### 86140092, 4286856, 6282315, 21278056, 36439398, 22635137 #### [facility] [address] [place] [address]Tqvvkfpgdhi/100 WBC (Bld)3.9 %Normal0.0-8.0[facility] Memorial HospitalComment on above:Performed By: #### 68976182, 6961867, 8492710, 39089275, 77409021, 86705123 #### [facility] [address], [place] [address]Iqqnmefubos distribution width (RBC) [Ratio]15.1 %High10.9-14.2 [facility] HospitalComment on above:Performed By: #### 18174378, 8321093, 8655933, 66138974, 76013165, 08484747 #### [facility] [address] [place] [address]Nsqqgewcrw (Bld) [Volume fraction]35.0 %Ynhuql17.0-46.0[facility] Memorial HospitalComment on above:Performed By: #### 67481815, 8809758, 3223152, 20468910, 71746741, 20252243 #### [facility] [address], [place] [address]Raccgaohvc (Bld) [Mass/Vol]11.1 g/dLLow12.0-16.0[facility] Memorial HospitalComment on above:Performed By: #### 86753934, 4271372, 6828678, 00643933, 33020644, 79040317 #### [facility] [address], [place] [address]Qtvrh Absolute1.6 E9/LNormal1.0-4.0[facility] Comment on above:Performed By: #### 18379444, 1215207, 1724645, 15643772, 88943956, 16772016 #### [facility] [address] [place], [place] [address]Wkjldzytlnq/100 WBC (Bld)25.6 %Migftw48.0-50.0[facility] Memorial HospitalComment on above:Performed By: #### 43305249, 3814217, 4339237, 02935403, 68757926, 51633956 #### [facility] [address], [place] [address]BDO (RBC) [Entitic mass]25.5 pgLow27.0-34.0[facility] Memorial HospitalComment on above:Performed By: #### 08054549, 0720620, 0836825, 82964981, 13452747, 18755884 #### [facility] [address], [place] [address]GZRS (RBC) [Mass/Vol]31.5 g/fYFpmywf81.4-36.0[facility] HospitalComment on above:Performed By: #### 62725006, 1373781, 9681318, 93985299, 26916550, 55067969 #### [facility] [address] [place] [address]EBO (RBC) [Entitic vol]80.8 aFSazeid59.0-100.0[facility] HospitalComment on above:Performed By: #### 27922287, 9309463, 9428728, 55630732, 79665266, 30101001 #### [facility] [address] [place] [address]Thuo Absolute0.6 E9/LNormal0.2-1.0[facility] Comment on above:Performed By: #### 52948484, 3075742, 6362437, 76999162, 77995619, 98472256 #### [facility] [address] [place] [address]Vdjdkmtal/100 WBC (Bld)9.7 %Normal4.0-14.0[facility] HospitalComment on above:Performed By: #### 89934269, 2165392, 0986482, 94928806, 33392604, 44449611 #### [facility] [address] [place] [address]Dpvmor Absolute3.8 E9/LNormal2.0-7.5FUniversity Hospitals TriPoint Medical Center Comment on above:Performed By: #### 08341025, 8440108, 5594518, 72802266, 53332713, 89235251 #### [facility] [address] [place] [address]Kubhad Auto60.0 %Vpfvvt20.0-75.0[facility] Comment on above:Performed By: #### 35784884, 1842117, 7172903, 24508234, 72250507, 96732762 #### [facility] [address] [place] [address]Tepuspna623.0 E9/WPzchuc644.0-500.0[facility] Comment on above:Performed By: #### 42196369, 4905252, 9629381, 37142405, 83401677, 32217902 #### [facility] [address], [place] [address]Wccvobss mean volume (Bld) [Entitic vol]6.3 fLLow6.4-10.8[facility] HospitalComment on above:Performed By: #### 55491184, 5139099, 2762216, 76232999, 15106251, 20104609 #### [facility] [address], [place] [address]UTB4.4 E12/LNormal4.3-5.9[facility] HospitalComment on above:Performed By: #### 37603389, 6859765, 8985281, 35223291, 70309024, 10452762 #### [facility] [address] [place] [address]EZK0.4 E9/LNormal4.0-11.0[facility] HospitalComment on above:Performed By: #### 87704573, 7588561, 9650436, 58450220, 28562020, 18332211 #### [facility] [address] [place] [address]Snruqeo for Treatmenton 60-87-6207Akfarzy for Treatment [id number] Medical CenterDischarge Instructionson 40-77-4161Enysotack Instructions [id number] County Medical Center Clinical Summaryon 53-27-8359FT Clinical Summary [address] [address] ED Clinical Summary Person Information Name: SUE VEGA [facility] Age: 53 Years : 1970 Sex: Female Language: Eritrean PCP: MOMO HAMPTON DO Marital Status: MRN: Visit Id: Visit Reason: Palpitations; VERY HIGH [...] 09/06/2023 20:48:55 09/06/2023 20:48:55 09/06/2023 20:48:55 AD[address]ESS: [address] [id number] PHYS DOC NOTES: MEDICAL INFORMATION: Prescriptions Given: Medications to Continue with No Changes Other Medications amphetamine-dextroamphetamine (Adderall XR 20 mg Cap-ER) Oral. ascorbic [...] 3. fluticasone nasal (fluticasone 0.05 mg/inh Nasal [place]) every day. fluticasone nasal (fluticasone Nasal 0.05 mg/inh [place]) Nasal. ibuprofen (Advil) 200 Milligram By Mouth. [...] Palpitations Follow up: With: Address: When: MOMO WILLSONGLES [address] [place], [place] [id number] [facility] (1) In 3 days DIAGNOSIS: PalpitationsNormalFisher Atkinson Medical CenterED Note-Physicianon 88-77-5261IB Note-PhysicianBasic Information Time Seen: Shekhar Rubio DO 09/06/2023 [...] and Complexity of Problems Differential Diagnosis: [] [facility] Data External documents reviewed: N/A My [...] with close follow-up with her primary care physician.Discussed return precautions. Patient states understanding agreement this [...] medications Follow-up With When Contact Information MOMO HAMPTON In 3 days [address], [facility] [place] [address]- Business (1) Additional Instructions: Patient Education Palpitations Problem [...] MonThu, 3 refills fluticasone 0.05 mg/inh Nasal [place], Daily fluticasone Nasal 0.05 mg/inh [place] magnesium oxide 250 mg oral tablet, 500 [...] Tobacco Use:., 10/16/2020 Never (more content not included)...J.[facility]. Ruby Memorial HospitalComment on above:Result Comment: Electronically Signed By: Shekhar Rubio DO\.br\Date and Time Signed: 09/06/23 20:35 BRANDYD Patient Education Noteon 22-72-9953KK Patient Education NoteEmermagnolia regional medical centercy Medicine Palpitations Palpitations are feelings that your heartbeat is irregular or is faster than normal. It may feel like your heart is fluttering or skipping a beat. Palpitations may be caused by many things, includingsmoking, caffeine, alcohol, stress, and certain medicines or drugs. Most causes of palpitations arenot serious. However, some palpitations can be a sign of a serious problem. Further tests and a thorough medicalhistory will be done to find the cause [...] pain or shortness of breath with activity, donot continue the activity until you are seen [...] health care provider. General instructions ? Take knlc-zfj-auniopp and prescription medicines only as told by [...] provider. Document Revised: 12/16/2021 Document Reviewed: 12/16/2021 [employer] Patient Education ? 2022 IMScouting.[facility] ED Patient Summaryon 25-00-8989UV Patient Summary [place] [id number] Patient Discharge Instructions Person Information Name: SUE VEGA Age: 53 Years Arrival Date: 09/06/2023 18:41:15 Discharge Diagnosis: Palpitations Primary Care Physician: MOMO HAMPTON DO Provider Information Primary Provider: Ramiro DO, Shekhar S. Advanced Vice President Regulatory:None The exam and treatment you received in the Emergency Department were for an urgent problem and are not intended as complete care. It is important that you follow up with a doctor, nurse practitioner,or physician?s assistant child care teacher for ongoing care. If your symptoms become worse or you do not improve as expected and you are unable to reach your usual health care provider, you should return to the Emergency Department. We are available 24 hours a day. SUE VEGA has been given the following list of patient education materials, prescriptions and follow-up instructions: Follow-up Instructions: With: Address: When: MOMO WILLSONGLES [facility] [address], [facility] [address] [place] [id number] Business (1) In 3 days In the event that this physician does not participate in your insurance network, please consult with your insurance company to find a nearby participating provider. Patient Education Materials: Palpitations A MESSAGE TO ALL PATIENTS REGARDING OPIOIDS PRESCRIPTION OPIOIDS: WHAT YOU NEED TO KNOW Prescription opioids can be used to help relieve mvftfzvu-rw-rjgwcs pain and are often prescribed following a [...] and have fewer risks and side effects. Optionsmay include: ? Pain relievers such as acetaminophen, [...] unused prescription opioids: Find your community drug take- back program or [employer] mail-back program, or flush them down the toilet, following guidance from the Food and Drug Administration (www.fda.gov/Drugs/ResourcesForYou). ? Visit www.cdc.gov/drugoverdose to learn about the risks of opioids abuse and overdose. ? If you believe you may be struggling with addiction, tell your health home care administrator and ask for guidance or call SAMHSA?S National Helpline at 8-638-723-HELP. v Source: US Department of Health and Human Services/Adrianne (more content not included)...NormalFisher R Adams Cow[facility] Shock Trauma CenterMonitor Recordon 40-94-9485Vuwhrbq [id number]#1.00TIFFNormalFisher R Adams Cowley Shock Trauma CenterPT & PTTon 15-37-0682rKZI Coag (PPP) [Time]32.3 second(s)Normal 25.1-36.5Fisher R Adams [facility] Shock Trauma CenterComment on above:Result Comment: Parameter 15 days - 4 weeks 1 - 5 months 6 - 11 months 1 - 5 years 6 - 10 years 11 - 17 years PTT Mean: 35.4 (27.6-45.6) Mean: 33.5 (24.8-40.7) Mean: 32.4 (25.1-40.7) Mean: 31.6 (24.0-39.2) Mean: 31.6 (26.9-38.7) Mean: 31.0 (24.6-38.4) Pediatric Reference ranges were obtained from a study by cecilio Langley al. prepared from 1437 samples obtained at 7 different centers using the same coagulation reagent and instrumentation as [facility]. Currently there are no coagulation studies available worldwide for children to 14 days, andno normal ranges. Heparin therapeutic range (represented by Anti-Factor Xa activity of 0.2 - 0.4 U/mL) corresponds to PTT of 56.6 - 109.0 sec.Performed By: #### 35265260, 0165143, 0636837, 10659215, 17598639, 40733318 #### [facility] [address] [place], [place] [address]RFX Coag (PPP) [Relative time]1.0 {INR}Invalid Interpretation CodeLicking Memorial HospitalComment on above:Result Comment: INR results are specifically intended to assess patients stabilized on long-term Anticoagulation therapy suggested INR?s ?Less Intensive Anticoagulation? 2.0 ? 3.0 Conventional Range 3.0 ? 4.5Performed By: #### 32470429, 0318343, 9570265, 68340588, 20723895, 01512402 #### [facility] [address] [place], [place] [address]RU Coag (PPP) [Time]10.5 second(s)Normal9.4-12.5FUniversity Hospitals TriPoint Medical CenterComment on above:Result Comment: 15 days - 4 weeks 1 - [...] the same coagulation reagent and instrumentation as [facility]. Currently there are no coagulation studies available worldwide for children to 14 days, andno normal ranges.Performed By: #### 71289884, 8539353, 0468816, 36248594, 55079741, 59580678 #### [facility] [address] [place], [place] [address]ZTL With T4fr Reflexon 40-76-4401EGI Qn4.13 m[IU]/LNormal 0.34-5.60[facility] Memorial HospitalComment on above:Performed By: #### 86607389, 2488407, 6816741, 24229227, 77035218, 12530764 #### [facility] [address] [place], [place] [address]Mlqktbep 0 Hr.on 56-09-9307Tllfiwob4.40 pg/mLLow10.10-27.10 [facility] Memorial HospitalComment on above:Result Comment: The 95% CI (Confidence Interval) PPV (Positive Predictive Value) for myocardial infarction in females is 38 pg/mL, in males 51 pg/mL. The results should be used in conjunction with clinical conditions of myocardial infarction. (Access High Sensitivity Troponin I Instructions For Use, Abhijit Charis, March 2018)Performed By: #### 35851336, 2759014, 4398250, 05075243, 69981950, 99937051 #### [facility] [address] [place], [place] [address]SB With Cult Reflexon 35-23-8781Svwrgbua LM Ql (Urine sed)TRACE NormalTraceLicking Memorial HospitalComment on above:Performed By: #### 81291931, 9815236, 8286081, 76763634, 39506025, 88672044 #### [facility] [address] [place], [place] [address]Dezuxkrju Ql (U)NegativeNormalNegativeLicking Memorial HospitalComment on above:Performed By: #### [id number], 7450526, 9064844, 11132146, 05946501, 58215183 #### [facility] [address], [place] [address]Saolnpb (U)CLEARNormalClearLicking Memorial HospitalComment on above:Performed By: #### 19938079, 2655288, 0095399, 41422778, 16750072, 12069401 #### [facility] [address], [place] [address]Kujfb (U)YELLOWNormalYellowLicking Memorial HospitalComment on above:Performed By: #### 46791812, 5173429, 0166391, 77589242, 18199935, 04388867 #### [facility] [address] [place] [address]Zgkqdhxpzq cells.squamous LM.HPF (Urine sed) [#/Area]0-2Normal 0-2Fisher R [facility] Cow[facility] Shock Trauma CenterComment on above:Performed By: #### 43200772, 5927501, 3229398, 52526835, 46747537, 37358971 #### [facility] [address], [place] [address]Jepgmih Test strip (U) [Mass/Vol]NegativeNormalNegativeLicking Memorial HospitalComment on above:Performed By: #### 56592554, 2430216, 3510934, 06173703, 00753073, 42205279 #### [facility] [address], [place] [address]Eubuvuvmym Ql (U)TRACEAbnormalNegCentervilleComment on above:Performed By: #### 13128393, 3727258, 7704568, 19333068, 03574771, 71609929 #### [facility] [address] [place] [address]Laaqzqv (U) [Mass/Vol]NegativeNormalNegativeLicking Memorial HospitalComment on above:Performed By: #### 20751412, 1694239, 5285894, 61032113, 26455913, 11325757 #### [facility] [address] [place] [address]Vhevsqt.plasma/[place].RBC (Bld) [Mass ratio]6-8Spyiex4-6Hucguf R Adams Cowley Shock Trauma CenterComment on above:Performed By: #### 30069678, 9377829, 9557606, 15776783, 85432703, 02828728 #### [facility] [address] [place] [address]Zgrqdia Ql (U)[facility] AnsonrmalNegCenterville Comment on above:Performed By: #### 44729828, 2704648, 7022227, 00404345, 99059279, 06233029 #### [facility] [address] [place] [address]sY (U)6.0 [pH]Invalid Interpretation Code5.0-9.0Licking Memorial HospitalComment on above:Performed By: #### 74220141, 4685718, 8303005, 54177594, 57595406, 37803255 #### [facility] [address] [place] [address]Kdhzybh (U) [Mass/Vol]NegativeNormalNegCentervilleComment on above:Performed By: #### 72740474, 1129444, 8392633, 48261714, 71580682, 89431828 #### [facility] [address] [place] [address]Qorbkwvt gravity (U) [Rel density]1.015Invalid Interpretation Code1.005-1.030Licking Memorial HospitalComment on above:Performed By: #### 71218426, 4486019, 3964507, 32780162, 87945430, 01861639 #### [facility] [address], [place] [address]Mpxk of Urine collection methodClean CatchNormalLicking Memorial HospitalComment on above:Performed By: #### 83776397, 9723593, 5469100, 47368719, 60125639, 95805043 #### [facility] [address], [place] [address]Myoxhcxtmuvi Qn (U)0.2 {Paul'U}/dLNormal0.0-1.0L[facility] Memorial HospitalComment on above:Performed By: #### 45367722, 8455625, 3192833, 27698312, 46800086, 69823823 #### [facility] [address] [place] [address]WOD Auto Ql (U)2+AbnormalNegativeLicking Memorial Hospital Comment on above:Performed By: #### 09260285, 6224647, 5239039, 47941726, 03108850, 35827632 #### [facility] [address] [place] [address]WUM LM.HPF (Urine sed) [#/Area]4-64Tlnhiblf5-8Vkynkj R Adams Cow[facility] Shock Trauma CenterComment on above:Performed By: #### 27990958, 0958672, 0643260, 07634945, 21567967, 85688901 #### [facility] [address] [place] [address]329cUIRcz 53-41-6843kDJX58 mL/min/1.73 z1Spiqax>=59Licking Memorial HospitalComment on above:Order Comment: Order added by Discern Expert. Performed By: #### 59490300, 7499572, 2093667, 21408638, 84981347, 92658377 #### [facility] [address], [place] [address]U9Z HEMOGLOBINon 87-79-9793QfT7a (Bld) [Mass fraction]5.5 % [employer] Other HbA1c (Bld) [Mass fraction]on 43-53-4932O8F HEMOGLOBIN [employer] Other a1c HEMOGLOBINon 02-21-3427HwB8v (Bld) [Mass fraction] 5.4 %[employer] Other HbA1c (Bld) [Mass fraction]on 70-11-0981R1A HEM[employer]GLOBIN [employer] Other CHEMISTRYOrdered By: SYSTEM SYSTEM on 12-18-2022 Albumin [Mass/Vol]4.4 g/dLNormal3.3 - 5.0 gm/dLFTMC RemisolAlbumin/Globulin [Mass ratio]1.6 {ratio}Normal1.1 - 2.2[facility] RemisolALP [Catalytic activity/Vol]72 [iU]/fPqfjcb70 - 98 Int._Unit/LFTMC RemisolALT No additional P-5'-P [Catalytic activity/Vol]28 [iU]/dNormal6 - 46 Int._Unit/LFTMC RemisolAnion gap [Moles/Vol]8 mmol/LNormal6 - 16 mEq/LFTMC RemisolAST [Catalytic activity/Vol]28 [iU]/dNormal 5 - 43 Int._Unit/LFTMC RemisolBilirubin [Mass/Vol]0.2 mg/dLNormal0.0 - 1.1 mg/dL [facility] RemisolCalcium [Mass/Vol]9.2 mg/dLNormal8.9 - 11.1 mg/dLFTMC Remisol Chloride [Moles/Vol]112 mmol/UHqpc151 - 111 mmol/LFTMC RemisolCholesterol [Mass/Vol]161 mg/xSWdipef571 - 200 mg/dLFTMC RemisolCholesterol in HDL [Mass/Vol]73 mg/dLInvalid Interpretation CodeFTMC RemisolCholesterol in LDL [Mass/Vol]68 mg/dLNormal<=129mg/dLFTMC RemisolCholesterol in VLDL [Mass/Vol]19 mg/dLNormal7 - 40 mg/dLFTMC RemisolCO2 [Moles/Vol]26 mmol/VHyjgyc11 - 31 mmol/L [facility] RemisolCreatinine [Mass/Vol]0.7 mg/dLNormal0.5 - 1.3 mg/dLFTMC RemisolFree T4 [Mass/Vol]0.75 ng/dLNormal0.58 - 1.64 ng/dLFTMC RemisolGFR/1.73 sq M.predicted among non-blacks MDRD (S/P/Bld) [Vol rate/Area]103 mL/min/1.73 m2 Normal>=59mL/min/1.73 m2FTMC Chem SGlobulin (S) [Mass/Vol]2.8 g/dLNormal1.4 - 4.0 gm/dLFTMC RemisolGlucose [Mass/Vol]87 mg/jDCcllgn26 - 199 mg/dLFTMC Remisol Potassium [Moles/Vol]3.7 mmol/LNormal3.5 - 5.3 mmol/LFTMC RemisolProlactin [Mass/Vol]14.03 ng/mLNormal2.74 - 19.64 ng/mLFTMC RemisolProtein [Mass/Vol]7.2 g/dLNormal6.0 - 7.8 gm/dLFTMC RemisolSodium [Moles/Vol]142 mmol/WNhbddf837 - 145 mmol/LFTMC RemisolTriglyceride [Mass/Vol]97 mg/dLNormal<=149mg/dLFTMC Remisol TSH Qn2.35 m[IU]/LNormal0.34 - 5.60 mcIU/mLFTMC RemisolUrea nitrogen [Mass/Vol] 14 mg/dLNormal5 - 21 mg/dLFTMC RemisolUrea nitrogen/Creatinine [Mass ratio]20 mg/xrYqbhkb72 - 20[facility] RemisolCHEMISTRYOrdered By: Pebbles Gray on 29-75-7797HjO9n (Bld) [Mass fraction]5.6 %Normal<=5.9%[facility] ChemAutoSSHEMATOLOGY Ordered By: SYSTEM SYSTEM on 91-17-4120Acuzrqcwb/100 WBC (Bld)0.7 %Normal0.0 - 2.0 %[facility] HemeAutoSSBasophils/Leukocytes Auto (Bld) [Pure # fraction]0.0 E9/L Normal0.0 - 0.2 E9/LFTMC HemeAutoSSEosinophils/100 WBC (Bld)5.6 %Normal0.0 - 8.0 %[facility] HemeAutoSSEosinophils/Leukocytes Auto (Bld) [Pure # fraction]0.2 E9/L Normal0.0 - 0.5 E9/LFTMC HemeAutoSSLymphocytes/100 WBC (Bld)24.7 %Qcycty93.0 - 50.0 %[facility] HemeAutoSSLymphocytes/Leukocytes Auto (Bld) [Pure # fraction]1.0 E9/L Normal1.0 - 4.0 E9/LFTMC HemeAutoSSMonocytes/100 WBC (Bld)9.5 %Normal4.0 - 14.0 %[facility] HemeAutoSSMonocytes/Leukocytes Auto (Bld) [Pure # fraction]0.4 E9/LNormal 0.2 - 1.0 E9/LFTMC HemeAutoSSNeutrophils/100 WBC (Bld)59.5 %Jmwitt68.0 - 75.0 % [facility] HemeAutoSSNeutrophils/Leukocytes Auto (Bld) [Pure # fraction]2.5 E9/LNormal 2.0 - 7.5 E9/LFTMC HemeAutoSSHEMATOLOGYOrdered By: Sonia Tomlin on 12-18-2022 Erythrocyte distribution width (RBC) [Ratio]16.9 %High10.9 - 14.2 %[facility] HemeAutoSSHematocrit (Bld) [Volume fraction]34.4 %Vnqnbp85.0 - 46.0 %[facility] HemeAutoSSHemoglobin (Bld) [Mass/Vol]10.9 g/dLLow12.0 - 16.0 gm/dLFTMC HemeAutoSSMCH (RBC) [Entitic mass]25.2 pgLow27.0 - 34.0 pgFTMC HemeAutoSSMCHC (RBC) [Mass/Vol]31.7 g/oPQzaojj85.4 - 36.0 gm/dLFTMC HemeAutoSSMCV (RBC) [Entitic vol]79.5 fLLow80.0 - 100.0 fLFTMC HemeAutoSSPlatelet mean volume (Bld) [Entitic vol]7.2 fLNormal6.4 - 10.8 [facility] HemeAutoSSPlatelets (Bld) [#/Vol] 308.0 E9/HUvvzee111.0 - 500.0 E9/[facility] HemeAutoSSRBC (Bld) [#/Vol]4.3 E12/L Normal4.3 - 5.9 E12/LFTMC HemeAutoSSWBC corrected for nucl RBC Auto (Bld) [#/Vol]4.2 E9/LNormal4.0 - 11.0 E9/[facility]FF[facility] IbydXfmvXJD1M HEMOGLOBINon 01-14-2022 HbA1c (Bld) [Mass fraction]5.5 %[employer] Other HbA1c (Bld) [Mass fraction]on 84-91-1481Z4W HEMOGLOBIN [employer] Other MG MAMM SCREEN 3D LUIS CADon 20-12-5837RX MAMM SCREEN 3D LUIS CADPatient: SUE VEGA Exam Date: 01/14/2022 : 1970 Gender:F Ordering : DR YURY GARCIA [facility] Admission #: [id number] Family : Order #: [id number] CLICK HERE TO VIEW EXAM RADIOLOGY REPORT [...] lung cancer at age 64. LOCATION: [facility] BREAST COMPOSITION: Heterogeneously dense,which may obscure [...] by: Lizbet Cespedes MD on 01/15/2022 at 11:10[facility] HospitalXR DEXA BONE DENSITYon 55-74-6359DU DEXA BONE DENSITYEXAMINATION: XR DEXA BONE DENSITY, 01/14/2022 10:01 AM [...] Electronically authenticated by: LIZBET CESPEDES Date: 2022-01-14 12:06[facility] HospitalQ - PROLACTINon 04-80-7865HEBDHDHXU5.6 ng/mLNormalNorthern [facility] SpecialistComment on above:Order Comment: [facility] Testing performed at: [employer] [facility], [address] [place] [address], [address] [place] [place] [address], [phone], Drawing Tracer: Hamilton Singh MD [facility] Collection Date/Time: [facility] Results Received Date/Time: [facility] Reported Date/Time: FASTING: UNKNOWNResult Comment: Reference Range Males 2.0-18.0 Females Non- 3.0-30.0 10.0-209.0 Postmenopausal 2.0-20.0 Performed By: #### 859X, 746X, 3128 #### [facility] Default [address], [place] [address]B - T3 TOTALon 13-02-5747U8, TOTAL93 ng/xSTrdvzc56-506Volmbcra [facility] SpecialistComment on above:Order Comment: [facility] performed at: [employer] [facility], [address] [place] [address], [address] [place] [address], [phone], Drawing Tracer: Hamilton Singh MD [facility] Collection Date/Time: [facility] Results Received Date/Time: [facility] Reported Date/Time: FASTING: UNKNOWNResult Comment: Your request to have a duplicate copy faxed has been acknowledged. Queued to: [id number] By: #### 859X, 746X, 3128 #### [facility] Default [address] [place] [address]K - TSH and T4,FREEon 73-94-6560Ptbr T4 [Mass/Vol]1.1 ng/dLNormal 0.8-1.8[facility]ern [place] [facility] SpecialistComment on above:Order Comment: [facility] Testing performed at: [facility] [employer] [facility], [address] [place] [address], [address] [place] [address], [address] [place] [address], Drawing Tracer: Hamilton Singh MD [facility] Collection Date/Time: [facility] Results Received Date/Time: [facility] Reported Date/Time: FASTING: UNKNOWNPerformed By: #### 859X, 746X, 3128 #### [facility] Default [address] [place] [address]ADK Qn1.88 m[IU]/LNormal0.40-4.50[facility]mount[facility] centern [place] [employer]in[employer] Comment on above:Order Comment: [facility] Testing performed at: [employer] [facility], [address] [place] [address], [address] [place] [address], [address] [place] [address], Drawing Tracer: Hamilton Singh MD [facility] Collection Date/Time: [facility] Results Received Date/Time: [facility] Reported Date/Time: FASTING: UNKNOWNPerformed By: #### 859X, 746X, 3128 #### [facility] Default [address] [place] [address]R9O HEMOGLOBINon 82-21-4459GoW8x (Bld) [Mass fraction]5.5 %[employer] Other HbA1c (Bld) [Mass fraction]on 52-16-6226O2Z HEMOGLOBIN [employer] Other OBSOLETEon 32-47-3871JPNTGECHWkpuph (ENDPMN) SUE VEGA ([id number]) 1970 F Date Time Provider Department 03/08/21 [...] Chronic migraine [346.71] [G43.719] 06/17/2008 09/23/2008 8.2.5 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*06/17/2008 09/23/2008 13.8 Occipital neuralgia [G52.80] [723.8] [M5*06/17/2008 CERVICALGIA [M54.2] 09/23/2008 SLEEP DISTURBANCE NOS [G47.9] 09/23/2008 1.1 Migraine without aura [346.11] [G43.019] 12/11/2008 BENIGN JALEEL PITUITARY [D35.2, D35.3] 12/11/2008 Diabetes mellitus type 2, controlled, without c*06/05/2009 Insomnia [G47.00] 03/24/2010 Elevated blood pressure [FAN9224] 03/24/2011 Hyperlipidemia [E78.5] 03/24/2011 Pituitary adenoma [D35.2] [...] test Encounter Status:Closed by STALIN GARCÍA on 03/09/21NoKettering Health DaytonCNPNon 24-07-2046FHXDNhhpwtrwr (YARIELN) GARYSUE ANTHONY ([id number]) 1970 F Date Time Provider Department 02/11/21 STALIN GARCÍA During your visit today, we recorded the following information about you: Rosario Briggs 02/11/2021 3:09 PM Signed Received outside labs from Yuriy Duarte Collected/Completed 01/31/21 Scanned directly in to chart from [facility] Available for your review under labs Dated [...] Chronic migraine [346.71] [G43.719] 06/17/2008 09/23/2008 8.2.5 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*06/17/2008 09/23/2008 13.8 Occipital neuralgia [G52.80] [723.8] [M5*06/17/2008 CERVICALGIA [M54.2] 09/23/2008 SLEEP DISTURBANCE NOS [G47.9] 09/23/2008 1.1 Migraine without aura [346.11] [G43.019] 12/11/2008 BENIGN JALEEL PITUITARY [D35.2, D35.3] 12/11/2008 Diabetes mellitus type 2, controlled, without c*06/05/2009 Insomnia [G47.00] 03/24/2010 Elevated blood pressure [WJD7512] 03/24/2011 Hyperlipidemia [E78.5] 03/24/2011 Pituitary adenoma [D35.2] 08/15/2013 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] 10/12/2013 Migraines [G43.909] Diabetes (HCC) [E11.9] Pituitary tumor [D49.7] Pain of right sacroiliac joint [M53.3] 09/15/2015 Bilateral low back pain without sciatica [M54.5]09/15/2015 Dry eye syndrome of bilateral lacrimal glands [*12/19/2015 Hyperprolactinemia (HCC) [E22.1] 05/26/2016 Encounter Status:Closed by ROSARIO BRIGGS on 02/11/21NoKettering Health DaytonCNPNon 56-10-3199DNSDAihopqvct ([facility]) SUE VEGA ([id number]) 1970 F Date Time Provider Department 02/02/21 [facility] During [facility] visit today, we recorded the following information about you: Rosario Ammon 02/02/2021 4:45 PM Signed Received outside labs from Yuriy uDarte Collected/Completed 01/31/21 Scanned directly in to chart [...] Chronic migraine [346.71] [G43.719] 06/17/2008 09/23/2008 8.2.5 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*06/17/2008 09/23/2008 13.8 Occipital neuralgia [G52.80] [723.8] [M5*06/17/2008 CERVICALGIA [M54.2] 09/23/2008 SLEEP DISTURBANCE NOS [G47.9] 09/23/2008 1.1 Migraine without aura [346.11] [G43.019] 12/11/2008 BENIGN JALEEL PITUITARY [D35.2, D35.3] 12/11/2008 Diabetes mellitus type 2, controlled, without c*06/05/2009 Insomnia [G47.00] 03/24/2010 Elevated blood pressure [HCD0874] 03/24/2011 Hyperlipidemia [E78.5] 03/24/2011 Pituitary adenoma [D35.2] 08/15/2013 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] 10/12/2013 Migraines [G43.909] Diabetes (HCC) [E11.9] Pituitary tumor [D49.7] Pain of right sacroiliac joint [M53.3] 09/15/2015 Bilateral low back pain without sciatica [M54.5]09/15/2015 Dry eye syndrome of bilateral lacrimal glands [*12/19/2015 Hyperprolactinemia (HCC) [E22.1] 05/26/2016 Encounter Status:Closed by ROSARIO BRIGGS on 02/02/21[facility] 76-61-2967RGKZGhzqhh TextPomerene Hospital 56-36-3587MLRXAaypuc Visit (ENDPMN) SUE VEGA ([id number]) 1970 F Date Time Provider Department 01/27/21 11:20 AM STALIN GARCÍA ENDN During your visit today, we recorded the [...] No Does patient want to see a Artillery Specialist? No (yes to any of above refer [...] Initial Assessment REQUESTING PHYSICIAN: Roderick Dunlap (Joan) [address] [facility] [phone] My final recommendations will be communicated back [...] Resp 18 [address] 162 (more content not included)...NormalUpper Valley Medical CenterPNon 12-63-4827AWYBTdtihwsdo (ENDN) GARYSUE Estrellita ([id number]) 1970 F Date Time Provider Department 01/27/21 STALIN GARCÍABisi During your visit today, we recorded the following information about you: Rosario Briggs 01/27/2021 2:16 PM Signed Faxed office note to Roderick Dunlap MD at [phone] Allergies As of Date: 01/27/2021 Noted Allergy [...] Chronic migraine [346.71] [G43.719] 06/17/2008 09/23/2008 8.2.5 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*06/17/2008 09/23/2008 13.8 Occipital neuralgia [G52.80] [723.8] [M5*06/17/2008 CERVICALGIA [M54.2] 09/23/2008 SLEEP DISTURBANCE NOS [G47.9] 09/23/2008 1.1 Migraine without aura [346.11] [G43.019] 12/11/2008 BENIGN JALEEL PITUITARY [D35.2, D35.3] 12/11/2008 Diabetes mellitus type 2, controlled, without c*06/05/2009 Insomnia [G47.00] 03/24/2010 Elevated blood pressure [GOP4516] 03/24/2011 Hyperlipidemia [E78.5] 03/24/2011 Pituitary adenoma [D35.2] 08/15/2013 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 Mary HospitalOTHER SURGICAL IMAGE -NBNRon 21-13-3948DDNWJ SURGICAL IMAGE -NBNR Photographic digital images obtained during surgery [id number] Medical Center Vital Signs Date TimeVital SignValuePerforming GkajtaupuAefqnwdb83-07-8236 09:10-0400Body qjszcu552.02 cmSeth Memo DO Work Phone: [facility]09-22-2025 09:10-0400 Body mass index (BMI) [Ratio]26.2 kg/m2Seth Memo DO Work Phone: [facility]09-22-2025 09:10-0400 Body qmvwettpdrg79 [degF]Momo Memo DO Work Phone: [facility]09-22-2025 09:10-0400 Body raexqj56.13 kgSeth Memo DO Work Phone: [phone] [place], [place] 5577109-22-2025 09:10-0400 Diastolic blood ruljzayt85 mm[Hg]Momo Memo DO Work Phone: [phone])[address] [place], [place] 5577109-22-2025 09:10-0400 Heart rate74 /minSeth Memo DO Work Phone: [phone])[address] [place], [place] 5577109-22-2025 09:10-0400 Respiratory rate18 /minSeth Memo DO Work Phone: [phone])[address] [place], [place] 5577109-22-2025 09:10-0400 SaO2% (BldA) [Mass fraction]97 %Momo Memo DO Work Phone: [phone] [place], [place] 5577109-22-2025 09:10-0400 Systolic blood abpxijzr857 mm[Hg]Momo Memo DO Work Phone: [phone] [place], [place] 5577107-08-2025 13:32-0400 Body wqwnye748 cmRoderick Dunlap MD Work Phone: [facility]itagwqqe38[facility]1935 13:32-0400Body mass index (BMI) [Ratio]24.8 kg/m2Roderick Dunlap MD Work Phone: [facility]linDsokyptxnn80-13-5594 13:32-0400Body uiridn28.5 kg Roderick Dunlap MD Work Phone: [phone] [place], [place] [address]Hffvwkefnz60-81-4947 15:00-0400Body tjhopr256.02 cmSeth Memo DO Work Phone: [phone] [place], [place] 5577103-17-2025 15:00-0400 Body mass index (BMI) [Ratio]26.2 kg/m2Seth Memo DO Work Phone: [phone] [place], [place] 5577103-17-2025 15:00-0400 Body lytolcyjoud18.6 [degF]Momo Memo DO Work Phone: [phone] [place], [place] 5577103-17-2025 15:00-0400 Body vxkylu67.13 kgSeth Memo DO Work Phone: [address] [place], [place] 5577103-17-2025 15:00-0400 Diastolic blood mexvpnfu03 mm[Hg]Momo Memo DO Work Phone: [address] [place], [place] 5577103-17-2025 15:00-0400 Heart rate83 /minSeth Memo DO Work Phone: [phone])[address] [place], [place] 5577103-17-2025 15:00-0400 Respiratory rate18 /minSeth Memo DO Work Phone: [phone])[address] [place], [place] 5577103-17-2025 15:00-0400 SaO2% (BldA) [Mass fraction]98 %Momo Memo DO Work Phone: [address] [place], [place] 5577103-17-2025 15:00-0400 Systolic blood zifihbwp127 mm[Hg]Momo Memo DO Work Phone: [phone])[address] [place], [place] 5577112-17-2024 13:20-0500 Diastolic blood aznmgeyw65 mm[Hg]Momo Memo DO Work Phone: [address] [place], [place] 5577112-17-2024 13:20-0500 Heart rate67 /minSeth Memo DO Work Phone: [phone])[address] [place], [place] 5577112-17-2024 13:20-0500 Respiratory rate18 /minSeth Memo DO Work Phone: [phone])[address] [place], [place] 5577112-17-2024 13:20-0500 SaO2% (BldA) [Mass fraction]98 %Momo Memo DO Work Phone: [address] [place], [place] 5577112-17-2024 13:20-0500 Systolic blood xuntvgvz953 mm[Hg]Momo Memo DO Work Phone: [phone])[address] [place], [place] 5577112-17-2024 10:01-0500 Body .02 cmSeth Memo DO Work Phone: [facility]12-17-2024 10:01-0500 Body .2 kgSeth Memo DO Work Phone: [facility]12-17-2024 10:00-0500 Body iraarvjhyjk96.8 [degF]Momo Memo DO Work Phone: [facility]01-09-2024 10:38-0500 Blood Pressure LocationKatellie García [phone]-GtfomC[facility] Phtd41-85-1564 10:38-0500Body ysidbawjvcn46.88 [degF]Suzie García [phone]-UhmuhC[facility] Linz67-61-6204 10:38-0500Diastolic blood okbmjjbl34 mm[Hg]Suzie García 003-1222Kugmtk-BemzgC[facility] Rzcf33-10-9833 10:38-0500Heart rate63 /minSuzie García [phone]-WelomC[facility] Eioz11-24-3982 10:38-1338GnH9% (BldA) [Mass fraction]98 %Suzie García [phone]-NwuokC[facility] Eecu22-30-0314 10:38-0500Systolic blood hfvjefhd929 mm[Hg]Suzie García [phone]-KdhcsC[facility] Sjga10-57-5154 09:22-0500Blood Pressure LocationFRLU DELONG [phone]-GwkeuC[facility] Mdbw23-69-1541 09:22-0500Body hbevtmyqbqn92.7 [degF]KATRINA DELONG 613-3739Rgtpxd-DbtjxCleveland Clinic [facility] Ujpw26-45-0470 09:22-0500Diastolic blood gtxeporo32 mm[Hg]KATRINA DELONG [phone]-AcszlC[facility] Tqep45-38-0054 09:22-0500Heart rate78 /minFRANCJAMILA DELONG 383-7316Cbzfqd-RsmkbC[facility] Ascx29-66-2903 09:22-4248UgL0% (BldA) [Mass fraction]98 %KATRINA DELONG [phone]-OcjslCleveland [facility] Ovvb29-51-9539 09:22-0500Systolic blood eetwvktn446 mm[Hg]KATRINA [facility] [phone]-KujeyC[facility] Qqzz68-17-4119 08:00-0500Body .02 cmSeth Memo Other [employer] Other 12-08-2023 08:00-0500Body mass index (BMI) [Ratio] 24.44 kg/m2Seth Memo Other [employer] Other 12-08-2023 08:00-0500Body fcnveqbwhbj99 [degF]Momo Memo Other [employer] Other 12-08-2023 08:00-0500Body vlaesr82.6 kgSeth Memo Other [employer] Other 12-08-2023 08:00-0500Diastolic blood gsdzzgaf43 mm[Hg] Momo Memo Other [employer] Other 12-08-2023 08:00-0500Respiratory rate20 /minSeth Memo Other [employer] Other 12-08-2023 08:00-5491DsX9% (BldA) [Mass fraction]97 % Momo Memo Other [employer] Other 12-08-2023 08:00-0500Systolic blood conkaxlp510 mm[Hg] Momo Memo Other [employer] Other 10-09-2023 08:15-0400Body lyensh737.02 cmSeth Memo Other [employer] Other 10-09-2023 08:15-0400Body mass index (BMI) [Ratio] 24.44 kg/m2Seth Memo Other [employer] Other 10-09-2023 08:15-0400Body ucbeyotebgl78.9 [degF]Momo Memo Other [employer] Other 10-09-2023 08:15-0400Body fmqluo63.6 kgSeth Memo Other [employer] Other 10-09-2023 08:15-0400Diastolic blood norubuee31 mm[Hg] Momo Memo Other [employer] Other 10-09-2023 08:15-0400Respiratory rate20 /minSeth Memo Other [employer] Other 10-09-2023 08:15-7871QwX4% (BldA) [Mass fraction]99 % Momo Memo Other [employer] Other 10-09-2023 08:15-0400Systolic blood jamlljrc928 mm[Hg] Momo Memo Other [employer] Other 08-28-2023 17:28-0400Blood Pressure LocationLeroy Storey [phone]-EqbbxCleveland [facility] Qwhz84-58-7255 17:28-0400Body tsrrgkikzeo10.52 [degF]Leroy Storey [phone]-EzqrmCleveland [facility] Sfjk63-43-0349 17:28-0400Diastolic blood splveozj99 mm[Hg]Leroy Storey [phone]-UqiroCleveland Clinic [facility] Mpsa75-27-1380 17:28-0400Heart rate76 /minLeroy Storey [phone]-EiwjcCleveland Clinic [facility] Mhqb90-46-7012 17:28-2937YmT1% (BldA) [Mass fraction]99 %Leroy Storey 248-3682Vejmdv-EbkriCleveland Clinic [facility] Xgnz27-40-4601 17:28-0400Systolic blood jodmfpyv471 mm[Hg]Leroy Storey 185-2079Ntosob-LvuosCleveland Clinic [facility] Xhhg81-29-1340 08:00-0400Body ltbogx429.02 cmSeth Memo Other [place] [employer] Other 06-09-2023 08:00-0400Body mass index (BMI) [Ratio] 23.56 kg/m2Seth Memo Other [facility] [employer] Other 06-09-2023 08:00-0400Body cjarvtrhivh12.2 [degF]Momo Memo Other [facility] [employer] Other 06-09-2023 08:00-0400Body csseks14.33 kgSeth Memo Other [place] [employer] Other 06-09-2023 08:00-0400Diastolic blood ayqighlt33 mm[Hg] Momo Memo Other [employer] Other 06-09-2023 08:00-0400Respiratory rate20 /minSeth Memo Other [facility] [employer] Other 06-09-2023 08:00-4763RbB0% (BldA) [Mass fraction]96 % Momo Memo Other [facility] [employer] Other 06-09-2023 08:00-0400Systolic blood rfqlzacf15 mm[Hg] Momo Memo Other [facility] [employer] Other 05-15-2023 12:04-0400Blood Pressure LocationNisha MAT [phone]-BhaspCleveland Clinic [facility] Bvzv99-63-2023 12:04-0400Body yjoimuekzdd90.88 [degF]Nisha RIVERO 491-6209Oincup-EjpfmCleveland Clinic [facility] Flom65-76-6730 12:04-0400Diastolic blood zrdmnzwy24 mm[Hg]Nisha RIVERO 673-3472Awdkbr-XtwgqCleveland Clinic [facility] Ebqh72-96-0653 12:04-0400Heart rate68 /minNisha RIVERO [phone]-SjtbfCleveland Clinic [facility] Uysz69-41-6329 12:04-2051XhZ5% (BldA) [Mass fraction]97 %Nisha RIVERO 432-0659Dxzigv-BpjotCleveland Clinic [facility] Five30-28-2277 12:04-0400Systolic blood mm[Hg]Nisha RIVERO 311-6462Erggfy-HilkeCleveland Clinic [facility] Nypc92-79-8551 10:15-0500Body .02 cmKamal Chaban Other [employer] Other 11-22-2022 10:15-0500Body mass index (BMI) [Ratio] 23.38 kg/m0GlqvsAisha Acevedo Other [employer] Other 11-22-2022 10:15-0500Body trivgkyuabr31.4 [degF]Aisha Acevedo Other [employer] Other 11-22-2022 10:15-0500Body .88 kgAisha Acevedo Other [employer] Other 11-22-2022 10:15-0500Diastolic blood jsvfnsvi12 mm[Hg] Aisha Acevedo Other [employer] Other 11-22-2022 10:15-0500Respiratory rate20 /minAisha Acevedo Other [employer] Other 11-22-2022 10:15-8019MtA9% (BldA) [Mass fraction]100 % Aisha Acevedo Other [employer] Other 11-22-2022 10:15-0500Systolic blood mm[Hg] Aisha Acevedo Other [employer] Other 06-09-2022 09:00-0400Body qnviqc212.02 cmSeth Memo Other [employer] Other 06-09-2022 09:00-0400Body mass index (BMI) [Ratio] 23.03 kg/m2Seth Memo Other [employer] Other 06-09-2022 09:00-0400Body veoxipigeqe85.4 [degF]Momo Memo Other [employer] Other 06-09-2022 09:00-0400Body egzcqb95.97 kgSeth Memo Other [employer] Other 06-09-2022 09:00-0400Diastolic blood gzoalnav13 mm[Hg] Momo Memo Other [employer] Other 06-09-2022 09:00-0400Respiratory rate20 /minSeth Memo Other [employer] Other 06-09-2022 09:00-8126ErQ6% (BldA) [Mass fraction]98 % Momo Memo Other [employer] Other 06-09-2022 09:00-0400Systolic blood anyzajgq20 mm[Hg] Momo Memo Other [employer] Other 02-07-2022 10:00-0500Body tvimgl540.02 cmSeth Memo Other [employer] Other 02-07-2022 10:00-0500Body mass index (BMI) [Ratio] 23.73 kg/m2Seth Memo Other [employer] Other 02-07-2022 10:00-0500Body pokxgomeoxx87.7 [degF]Momo Memo Other [employer] Other 02-07-2022 10:00-0500Body adrind81.78 kgSeth Memo Other [employer] Other 02-07-2022 10:00-0500Diastolic blood vxurcqvf48 mm[Hg] Momo Memo Other [employer] Other 02-07-2022 10:00-0500Respiratory rate20 /minSeth Memo Other [employer] Other 02-07-2022 10:00-2947SaY8% (BldA) [Mass fraction]99 % Momo Memo Other [employer] Other 02-07-2022 10:00-0500Systolic blood aroboxau75 mm[Hg] Momo Memo Other [employer] Other 01-20-2022 11:30-0500Body zpyuna640.02 cmSeth Memo Other [employer] Other 01-20-2022 11:30-0500Body mass index (BMI) [Ratio] 23.56 kg/m2Seth Memo Other [employer] Other 01-20-2022 11:30-0500Body pmafmcoajqi67.2 [degF]Momo Memo Other [employer] Other 01-20-2022 11:30-0500Body syzqwn79.33 kgSeth Memo Other [employer] Other 01-20-2022 11:30-0500Diastolic blood onvrxssx22 mm[Hg] Momo Memo Other [employer] Other 01-20-2022 11:30-0500Respiratory rate20 /minSeth Memo Other [employer] Other 01-20-2022 11:30-4316CqY4% (BldA) [Mass fraction]95 % Momo Memo Other [employer] Other 01-20-2022 11:30-0500Systolic blood jyfgzhjl67 mm[Hg] Momo Memo Other [employer] Other 11-23-2021 10:15-0500Body cydntx193.02 [facility]Lev[facility] Other [employer] Other 11-23-2021 10:15-0500Body mass index (BMI) [Ratio] 23.31 kg/a9Rnvmx [facility] Other [employer] Other 11-23-2021 10:15-0500Body wctijdyzkyu06.8 [degF][facility] Hospitalwanda Acevedo Other [employer] Other 11-23-2021 10:15-0500Body crsbha38.69 kgM[facility] Other [employer] Other 11-23-2021 10:15-0500Diastolic blood rqeeqnvg96 mm[Hg] [facility] Hospitalwanda [facility] Other [employer] Other 11-23-2021 10:15-0500Respiratory rate20 /minKamal Chaban Other [place] [employer] Other 11-23-2021 10:15-8190YtZ6% (BldA) [Mass fraction]99 % Aisha Acevedo Other [employer] Other 11-23-2021 10:15-0500Systolic blood mm[Hg] Aisha Acevedo Other [employer] Other Encounters Encounter DateEncounter TypeCare ProviderFacilityStart: 35-83-0569spgsafawhg Dev Johnson WATERSFacility:PAULINO [place]uskyStart: 04-29-2025 End: 92-73-0343Okghjnrx ReferredMomo Cervantes [facility] Work Phone: Start: 04-29-2025 End: 41-26-2555yrmexrtpziXjgi M. Ruggles Work Phone: [facility] Work Phone: Start: 04-29-2025 End: 47-58-5415Ysasfys encounter procedureSeth Memo Cervantes DO-[facility] Medicine [place] Work Phone: Start: 02-12-2025 End: 97-67-0266Tlidfe flowsRohith Dunlap MD Work Phone: [facility] BM NEUROLOGYStart: 02-12-2025 End: 99-84-1789Ncosuc flowsRohith Dunlap MD Work Phone: [facility] BM NEUROLOGYStart: 02-12-2025 End: 27-42-3196Gryfmb outpatient visit 15 minutesRoderick Dunlap MD Work Phone: [facility] SWS NEUR BComment on above:Migraine without aura, intractable, with status migrainosus (Primary Dx); Pituitary adenoma (HCC); B12 deficiency; Cervical paraspinal muscle spasm; Intractable migraine without aura and with status migrainosusStart: 02-12-2025 End: 30-38-4852hytiwlximuVYYE D BEJNot AvailableStart: 01-30-2025 End: 87-72-5558cuydwgvqsbJaabzsr R WATERSFacility:EU [place]kyStart: 01-30-2025 End: 99-70-6633Wrrgtdt encounter procedureDev MOORE [facility] [place] Start: 12-14-2024 End: 70-29-0937oiaphivlixUsyqro J LampeFacility:FTMCStart: 12-14-2024 End: 88-01-7337Cccbvbk encounter procedureYury Garcia [facility] Start: 10-31-2024 End: 67-47-5781ljwrxevbptMpczkvb R WATERSFacility:EU [place]kyStart: 10-29-2024 End: 23-10-2033efqhsfrctrMRKONIDN E PERRYFacility:FTMCStart: 10-29-2024 End: 34-22-6009Oavveff encounter procedureJENNIFER E DANIELLE [facility] Start: 10-22-2024 End: 08-05-9491pabmdkccapUorw M. Ruggles DO Work Phone: [facility] Work Phone: Start: 10-22-2024 End: 66-30-3468Vddfttj encounter procedureSeth Memo DO Work Phone: [facility] Work Phone: Start: 10-16-2024 End: 01-11-7072jfgadftcygAPZDLWRC E PERRYFacility:EU [place]vueStart: 10-14-2024 End: 54-35-6160eakaqyedtgWyfoe M. DempseyFacility:FTMCStart: 10-14-2024 End: 97-33-7888penphftcznSfxpl M. DempseyFacility:CC Romietart: 10-08-2024 End: 15-20-2416unlllfnswjWAXJUTriHealth Good Samaritan Hospitaltart: 09-24-2024 End: 64-60-7001xbjrvdcxmsHqxxy D KastenFacility:FTMCStart: 09-24-2024 End: 78-77-5990Wjz Drop offJames D Priya [facility] Start: 71-81-1636Jcv-patient / Non-visitSeth Memo DO Work Phone: [facility] Work Phone: Start: 08-14-2024 End: 28-79-1559qmnkhalkrsKAKA M RUGGLESFacility:FTMCStart: 08-14-2024 End: 11-37-0748Esetpjw encounter procedureSETH M MEMO [facility] Start: 08-06-2024 End: 06-46-5629wktdbmjtkgINUWDTriHealth [facility] Samaritan Hospitaltart: 27-45-3195Uuh-patient / Non-visitSeth Memo DO Work Phone: [facility] Work Phone: Start: 07-24-2024 End: 85-55-6638Nwqywwqsl department patient visitSeth Memo DO Work Phone: [facility]-Emer[facility] Work Phone: Start: 05-30-2024 End: 84-97-3965ovjncmfbwzODUIBTC [facility] Hospitaltart: 09-29-2023 End: 75-20-4209ajxvlqqdacMmerck J LampeFacility:FTMCStart: 09-29-2023 End: 98-04-7098Cjxwpix encounter procedureTertra Garcia [facility] Start: 09-06-2023 End: 02-66-8150Uiskkoufx department patient visitDO Shekhar Rubio Facility:FTMCStart: 09-05-2023 End: 06-41-3638jsfhrgwosrJwwt Memo Other [facility] [employer] Other Start: 24-44-8484Olkhngixi encounterSeth NicoleNY[facility] Hospitaltart: 08-16-2023 End: 43-37-6970pnwklsqtduJwcc Memo Other [employer] Other Start: 16-19-8415Zmlkogedz encounterSeth [facility] Hospitaltart: 08-16-2023 End: 71-23-2419Jnbrxlg encounter procedureSuzie García [phone]-RcpspC[facility] Clinic [facility] Start: 08-03-2023 End: 25-29-2463Bzu Drop offMaik Perdomoc [facility] Start: 08-03-2023 End: 33-76-9804Kljjdxg encounter procedureFRLU DELONG [phone]-QzprkC[facility] Clinic [facility] Care Start: 07-15-2023 End: 11-69-6263ymrgovjwsoSdui Memo Other [place] [employer] Other Start: 08-14-8656Vufads outpatient visit 15 minutes Momo NicoleNY[facility]: 06-15-2023 End: 73-23-1031hojzprevibSwur Memo Other [facility] [employer] Other Start: 63-30-2955Ssxrdlyvg encounterSeth RugglesFPG Family [facility] Hospitalrt: 24-95-5168Mtgwaly encounter procedureSeth Memo [facility] Hospitalrt: 05-16-2023 End: 60-40-9157rirzdbdfuwLL Momo M. Memo Work Phone: [place] [employer] Other Start: 05-16-2023 End: 60-53-3217Xwmixwes Referred Momo Memo Work Phone: [facility] [place] Work Phone: Start: 05-09-2023 End: 21-76-2873sbnyajrckpPgte Memo Other [facility] [employer] Other Start: 77-88-7396Pzemkdeaa encounterSeth RugglesFPG [facility] Hospitalrt: 05-05-2023 End: 60-96-1302qtwlhqwgilYhxh Memo Other [facility] [employer] Other Start: 09-85-9074Jlaouktsv encounterSeth RugglesFPG [facility] Hospitalrt: 04-27-2023 End: 15-24-9803mjtxelephuNybe Memo Other [facility] [employer] Other Start: 75-16-0622Qejjwgskz encounterSeth RugglesFPG Family [facility] Hospitalrt: 04-25-2023 End: 83-98-5959wbwuxivkptJhff Memo Other [facility] [employer] Other Start: 11-45-6481Kqonmopil encounterSeth RugglesFPG Family Medicine [facility] Hospitaltart: 04-18-2023 End: 52-43-9708lotyafzngrMsob Memo Other [employer] Other Start: 32-57-8856Dzhtmvvpz encounterSeth RugglesFPG [facility] Hospitaltart: 04-04-2023 End: 50-47-3971Lbbzhfu encounter Gabrielle Storey [phone]-PwsdaCincinnati [facility] Start: 03-18-2023 End: 02-67-7398prujljdoztGrkj Memo Other [employer] Other Start: 44-65-7746Mvmjtdnwb encounterSeth RugglesFPG [facility] Hospitalrt: 02-21-2023 End: 40-01-9905ncbqodtqxsUomv Memo Other [employer] Other Start: 51-90-9735Hqootedqy encounterSeth RugglesFPG [facility] Hospitaltart: 02-07-2023 End: 48-66-4341gysmspdeuaEsip Memo Other [employer] Other Start: 54-59-7519Xwynylety encounterSeth RugglesFPG [facility] Hospitaltart: 01-26-2023 End: 21-56-4175erfgbdxqgtMrwc Memo Other [employer] Other Start: 71-71-3495Ymyhgtouq encounterSeth RugglesFPG [facility]tart: 01-14-2023 End: 42-68-6431lkjccarguxIqry Memo Other [employer] Other Start: 35-24-8021Ifpurj outpatient visit 15 minutes Momo NicoleglesFPG [facility] Hospitaltart: 12-20-2022 End: 18-69-3474Lmfyoty encounter procedureNisha Helen RIVERO [phone]-EesijC[facility] Clinic [facility] Start: 12-18-2022 End: 98-74-3580Zjualnt encounter procedureRODERICK Eliel DUNLAP [facility] Start: 12-07-2022 End: 92-54-8613fwvlfhujloWjwl Memo Other [employer] Other Start: 67-70-2207Yjnuwqfuk encounterSeth RugglesFPG Family [facility] Hospitaltart: 11-22-2022 End: 70-94-4962yzduampvdmLtkf Memo Other [employer] Other Start: 51-90-9510Laxgfsdyo encounterSeth RugglesFPG Family [facility] Hospitaltart: 11-15-2022 End: 88-61-5481Kykhwok encounter procedurePareees Alex MOORE [facility] start: 11-10-2022 End: 81-87-6141dgtovixpqbRwaj Memo Other [employer] Other Start: 71-00-9243Sqlqwhvbx encounterSeth RugglesFPG [facility] Hospitaltart: 32-37-6914uxuqgzwvvqOG MOMO WILLSONAMYESFacility:H1 Start: 10-15-2022 End: 45-87-0225bliwlhoyzbFddd Memo Other [employer] Other Start: 95-61-0816Mqcvctuah encounterSeth RugglesFPG Family [facility]tart: 10-14-2022 End: 05-71-1407ntsuyrbdakXcpe Memo Other [employer] Other Start: 49-03-9289Hxvfeflcd encounterSeth RugglesFPG Family [facility]tart: 10-11-2022 End: 97-33-4710sdevwfvaekOcdf Memo Other [place] [employer] Other Start: 11-16-8737Fijlpbxyu encounterSeth RugglesFPG [facility] Hospitalrt: 09-07-2022 End: 36-52-8147qrragrregjPvms Memo Other [place] [employer] Other Start: 59-49-7908Bkzsbagcu encounterSeth RugglesFPG [facility]tart: 09-06-2022 End: 32-13-9920wfmvycjscoIeoh Memo Other [place] [employer] Other Start: 31-86-1571Gqicywrlw encounterSeth RugglesFPG [facility]rt: 08-19-2022 End: 31-86-9164xyrdaczprfMZ Momo MBryce Memo Work Phone: [facility] Work Phone: Start: 08-19-2022 End: 23-54-5264Iejhovszkl RecurringDO Momo Memo Work Phone: [facility] [place] Work Phone: Start: 08-13-2022 End: 23-04-8912lkafzmeoiqWiwp Memo Other [facility] [employer] Other Start: 92-79-8826Vwcnrfrvr encounterSeth RugglesFPG [facility]tart: 08-11-2022 End: 26-19-3938cigcnxrogmLebh Memo Other [facility] [employer] Other Start: 12-31-8786Ylthrbtia encounterSeth RugglesFPG [facility]tart: 08-06-2022 End: 49-77-6097lsgwoqvzcbJyab Memo Other [place] [employer] Other Start: 68-90-7806Vfjijfgvq encounterSeth RugglesFPG [facility]tart: 08-02-2022 End: 23-02-5222tinvrczznkEO MOMO M RUGGLESFacility:G8Ukise: 07-07-2022 End: 59-04-2008sqakiejoijZrib Memo Other [place] [employer] Other Start: 07-46-5470Wndkagzus encounterSeth RugglesFPG [facility]tart: 06-29-2022 End: 32-49-3395yhqfvmyppvFtiyj Chaban Other [place] [employer] Other Start: 34-65-3567Flqmzi outpatient visit 15 minutes Kamal ChabanFPG Pulmonary DiseaseStart: 06-08-2022 End: 24-74-2349pueiixldwcNrtu Memo Other [place] [employer] Other Start: 96-43-3157Lnbbvetrh encounterSeth RugglesFPG Family [facility]tart: 05-10-2022 End: 76-30-1425kioizicchiCzkq Memo Other [place] [employer] Other Start: 88-57-5314Dozqtaclv encounterSeth RugglesFPG [facility]rt: 04-06-2022 End: 72-13-6867yrwppccvvpQaex Memo Other [facility] [employer] Other Start: 62-65-3580Dxkpjripc encounterSeth RugglesFPG [facility]tart: 03-25-2022 End: 52-65-9759qowgggtqjmKrzt Memo Other [facility] [employer] Other Start: 41-53-4109Mywkwngjx encounterSeth RugglesFPG [facility]rt: 03-11-2022 End: 71-86-9179qhaczwxfkaNwwl Memo Other [facility] [employer] Other Start: 85-78-7252Ibvoabjdf encounterSeth RugglesFPG [facility]rt: 03-05-2022 End: 58-80-0639cwspxspfanHldl Memo Other [facility] [employer] Other Start: 68-99-9748Rgdpxznqb encounterSeth RugglesFPG [facility]rt: 03-04-2022 End: 08-76-3628qpcjdtsfbxYP MOMO M RUGGLESFacility:X8Orolf: 03-03-2022 End: 82-01-3289weibgioctuKzvq Memo Other [place] [employer] Other Start: 05-07-8066Mtnislduc encounterSeth RugglesFPG [facility]tart: 02-09-2022 End: 89-64-9624qpvpkpwyeeWrxk Memo Other [employer] Other Start: 08-09-8331Jbcyogrbe encounterSeth RugglesFPG [facility]rt: 02-02-2022 End: 17-30-3688mbsujmbhueAciw Memo Other [employer] Other Start: 98-35-2602Hggxqorma encounterSeth RugglesFPG [facility]rt: 73-84-9111Qqkozz outpatient visit 15 minutesSeth RugglesFPG [facility]tart: 01-14-2022 End: 07-21-8863mlwzyyettmLV LIZBET V [facility] [employer] Other Start: 01-07-2022 End: 72-12-3193opiqtucranFzry Memo Other [employer] Other Start: 02-73-2761Rhmacpgau encounterSeth RugglesFPG [facility]rt: 12-07-2021 End: 03-40-5666doqykdcqmcXkzf Memo Other [facility] [employer] Other Start: 84-29-6450Xtrmvgynx encounterSeth RugglesFPG [facility]rt: 11-10-2021 End: 74-41-9493kjrypjmtflEhbf Memo Other [employer] Other Start: 62-53-4069Zdqkwmhob encounterSeth RugglesFPG [facility]rt: 10-09-2021 End: 33-52-1795lfelikfmkdKdic Memo Other [employer] Other Start: 37-26-6867Swvrvewds encounterSeth RugglesFPG [facility]rt: 10-02-2021 End: 76-23-7770gjrsgxbtftFivc Memo Other [employer] Other Start: 90-54-3079Sfkeqqvos encounterSeth RugglesFPG [facility]rt: 09-14-2021 End: 60-59-4159nwfhbihqlbRpov Memo Other [place] [employer] Other Start: 37-49-5128Petcxw outpatient visit 25 minutes Momo RugglesFPG Family [facility] Hospitaltart: 08-27-2021 End: 75-33-9026mpdwzsvdfiTlcu Memo Other [facility] [employer] Other Start: 43-35-2676Wfsdxm outpatient visit 15 minutes Momo RugglesFPG [facility]: 08-26-2021 End: 55-36-4755tuuogypoxrTnrh Memo Other [facility] [employer] Other Start: 70-42-9102Xrngamjxl encounterSeth RugglesFPG [facility]: 08-25-2021 End: 86-33-2009vsdupolmxpQkcr Memo Other [facility] [employer] Other Start: 94-17-0310Akuzeibvp encounterSeth RugglesFPG [facility]: 08-11-2021 End: 23-80-3575ddtuinysyaSbis Memo Other [facility] [employer] Other Start: 61-56-1336Fgyrgufhb encounterSeth RugglesFPG [facility]rt: 08-06-2021 End: 79-20-7421sutenmmnfbXiwj Memo Other [facility] [employer] Other Start: 79-55-8121Qhqotwqip encounterSeth RugglesFPG [facility]rt: 06-30-2021 End: 32-35-6348peflwistdtQlvvs Chaban Other [place] [employer] Other Start: 63-20-2453Ephkqd outpatient visit 15 minutes Aisah Shafer Pulmonary DiseaseStart: 11-06-2018 End: 24-45-2334Kzrpdsg encounter procedureDEFAULT PHYSICIANFacility:UTMCStart: 10-30-2018 End: 25-12-8556Ngrsebj encounter procedureDEFAULT PHYSICIANFacility:UTMCStart: 94-03-6131Bccnoac encounter procedureMIKHAIL KIRNUSFacility:1532 Procedures DateProcedureProcedure DetailPerforming ClinicianStart: 57-53-8591Ienelffpgg Yurytra Garcia Start: 76-95-2172Tqmtsnrmgqbvyxfik with dilation of urethral stricturePatrick Sportsy Start: 92-72-8630Uwsbf cultureSeth Memo DO Work Phone: Start: 54-00-2246YqujplndyfhZMSXZTEN DANIELLE Start: 32-80-9037DfrvcskoyfIxcyyzx Sportsy Start: 61-87-5096TpqixrgkrouZwur Bej MD Work Phone: start: 28-01-2630YxcjalugdwyXevszpz MOORE Start: 47-28-2028xjlumy biopsy, leftPatrick MOORE Start: 53-85-0800Lwbmogvyowuvurvpn with dilation of urethral strictureJENNIFER DANIELLE Start: 12-03-5706wdzavgv assisted hysterectomy, bilateral salpingectomyPatrick Sportsy Cesarean sectionPadeaconess health systemk Sportsy Dilation and curettage of uterusPatrick Sportsy Comment on above:L9PVUVJJ FUSIONPatrick Sportsy TonsillectomyPadeaconess health systemk MOORE Plan of Treatment DateCare ActivityDetailAuthorStart: 58-79-4717Yikdoptjp for malignant neoplasm of colonNOMS HealthcareStart: 71-07-4827Qrhfi [facility]tart: 12-59-9764Laiuxdhu identified in Urine by CultureUrine Culture [facility] Hospitaltart: 01-89-9000Szomdrthy vaccinationInfluenza Vaccine (#1)[facility] HealthcareStart: 46-24-9303Vasqgyplx for malignant neoplasm of breastMammogramNOMS HealthcareStart: 06-69-8970Omhcpycps for malignant neoplasm of cervixNOMS HealthcareStart: 18-88-1839Bafuaadaq for malignant neoplasm of cervixPap SmearNOMS HealthcareStart: 48-37-4075Jmufmqwea for malignant neoplasm of colonNOMS HealthcarePatient EducationUrinary Tract Infection, Adult ED [facility] Work Phone: [facility] referralGrant [facility] Work Phone: [facility] Immunizations Immunization DateImmunizationNotesCare WwvfihwgTtisvktp45-36-3718neknhlefr virus vaccine, unspecified formulationFRANCISCO DELONG 502-6925Ketqqf-DubreC[facility] Clinic [facility] Xidf32-59-7634 influenza, injectable, quadrivalent, preservative freeSeth Memo DO Work Phone: [facility]10-09-2023influenza, injectable, quadrivalent, contains preservativeSeth Memo Other [facility]10-29-2022influenza virus vaccine, unspecified formulationFRANCISCO DELONG 468-2054Wxyffu-RqbpdC[facility] Clinic [facility] Sgly80-07-8224 influenza, injectable, quadrivalent, preservative freeSeth Memo Other [facility]08-18-2022zoster vaccine recombinantFRANCISCO DELONG 569-7599Bmwwpc-HqrgxCleveland Clinic [facility] Crti59-21-6085 COVID-19 PfizerCranston [facility] Hospitalban Other [facility]06-17-2022SARS-CoV-2 mRNA (qezurevdpfv-iyty-yspzakr) vaccineFRANCISCO DELONG [phone]-LcjgpC[facility] Eclc91-85-9877 zoster vaccine recombinantFRANCISCO DELONG [phone]-ZjvshC[facility] Crgx26-83-1273Ix not use COVID-19 Pfizer 2 doseSeth Memo Other [phone]-HiyniC[facility] Tgsl67-81-9497 SARS-CoV-2 (COVID-19) Ad26 vaccine, recombinantPatrick MOORE [facility]10-15-2021influenza virus vaccine, unspecified formulationFRANCISCO DELONG [phone]-GkbshC[facility] Cbdj51-18-6025 influenza, injectable, quadrivalent, preservative freeSeth Memo DO Work Phone: [facility]10-15-2021influenza, injectable, quadrivalent, contains preservativeSeth Memo Other [facility]02-24-2021COVID-19 Vaccine Pfizer - [facility]poses [facility] Other [facility]02-03-2021COVID-19 Vaccine Pfizer - [facility]ation Purposes [facility] Other [facility]10-20-2020influenza virus vaccine, unspecified formulationFRANCISCO DELONG [phone]-UjgfhC[facility] Jdps08-18-4357 influenza, injectable, quadrivalent, preservative freeSeth Memo DO Work Phone: [facility]10-09-2019influenza virus vaccine, unspecified formulationFRANCISCO DELONG [phone]-XxjwjCleveland [facility] Spca56-07-8744 influenza, injectable, quadrivalent, preservative freeSeth Memo DO Work Phone: [facility]10-09-2019influenza, injectable, quadrivalent, contains preservativeKamal Chaban Other [facility]10-01-2018influenza, injectable, quadrivalent, contains preservativeKamal Chaban Other [employer] Other [id number] virus vaccine, unspecified formulationFRANCISCO DELONG [phone]-FkyaiC[facility] Isye01-50-6481 influenza, injectable, quadrivalent, preservative freeSeth Memo DO Work Phone: [facility]11-02-2017influenza virus vaccine, unspecified formulationFRANCISCO DELONG [phone]-IydwcC[facility] Bqke94-29-4671 influenza, injectable, quadrivalent, preservative freeSeth Memo DO Work Phone: [facility]11-02-2017influenza, injectable, quadrivalent, contains preservativeKamal Chaban Other [employer] Other [id number] virus vaccine, unspecified formulationFRANCISCO DELONG [phone]-CypioC[facility] Nbbn67-83-8900 influenza, seasonal, injectable, preservative freeSeth Memo DO Work Phone: [facility]11-28-2016 pneumococcal polysaccharide vaccine, 23 valentFRANCISCO DELONG [phone]-NufixC[facility] Tgff27-81-1828 pneumococcal conjugate vaccine, 13 valentKamal Chaban Other [phone]-DqehgC[facility] Kmov23-14-9970 influenza, injectable, quadrivalent, contains preservativeKamal Chaban Other [facility]10-15-2016influenza virus vaccine, unspecified formulationFRANCISCO DELONG [phone]-UkckcC[facility] Xvsi37-73-4984 influenza, injectable, quadrivalent, preservative freeSeth Memo DO Work Phone: [facility] Payers DatePayer CategoryPayerPolicy [id number] Health Insurance [id number] Cross Blue ShieldBCBS Member Subscriber Plan / Payer (Effective 2021-Present) Name: Sue Vega Relation to Subscriber: Spouse Name: RAO VEGA Date of : 1970 (Home) Address: [address] [place] [address] Payer ID: Not onfile Type: Not on file Address: [facility] [id number] [place] [id number] .1.210798.3.57[id number] .1.203150.3.57[id number] 2.16.840.1.383061.3.57[id number] 2..840.1.457312.3.57[id number] 2.16.840.1.173883.3.57[id number] 2.840.1.549826.3.57[id number] 2.840.1.333085.3.57[id number] 2.840.1.614596.3.57[id number] 2.840.1.410597.3.57[id number] 2.840.1.035994.3.57[id number] 2.840.1.319999.3.57[id number] 2.840.1.470878.3.57[id number] 2.840.1.232997.3.57[id number] 2.840.1.394380.3.57[id number] 2.840.1.929033.3.57[id number] 2.840.1.920347.3.57[id number] 2.840.1.376382.3.57[id number] 2..0.1.654107.3.57[id number] 2..840.1.131281.3.57[id number] 2..0.1.624355.3.57[id number] 2..840.1.884133.3.57[id number] 2..0.1.135903.3.579.2.360841-23-7480Ndxn-ynp97550623219-11-7202Sicyprt [id number]-uwnFejb [id number] Social History DateTypeDetailFacilityUnknown if ever smokedNonorth [facility] Other Sex Assigned At [facility] Start: 12-04-7451Ftd Assigned At [facility] Start: 11-17-2020 End: 88-77-7631Pviwgqf smoking statusNever smoked tobacco (finding)[facility] InstituteTobacco smoking statusNeAkron [facility] Convenient CareStart: 11-19-2009 End: 99-10-7234DjoWqbsba (finding)[facility] Tobacco smoking status NHISTobacco smoking consumption [facility] CenterStart: 69-61-7284Ljb assigned at birthNot on [facility] Medical Equipment Procedure CodeEquipment CodeEquipment Original TextEquipment IdentifierDatesTest Strips as directedStart: 56-67-5782Fhbuf Glucose Test StripsStart: 11-24-2023 Blood Glucose Test StripsStart: 42-94-8117Vcvis Glucose Test StripsStart: 11-24-2023 Functional Status UledZjesxypeluNdfabiMwigrksy12-65-9491Vllwtjbdhe StatusN/[facility] Xlxi66-94-1469Ntafrsgzkh StatusN/[facility] Npuu67-38-9689Dhvlwvkkei StatusN/[facility] Lznm17-64-8549Rqqscmxumx StatusN/[facility] Care Clinical Notes 01-27-2021 to 04-29-2025 Note Date & NoaxOkdmOpiytdfv99-19-6941 Evaluation note* Diagnosis Onset Date Resolution Status Admit Date UTI (urinary tract infection) noneactiveSeptember 2024 9:02am [facility] Work Phone: 1(876) 811-812407-08-2025 History of Present illness Narrative* Roderick Dunlap MD - 02/12/2025 1:30 PM EDTAssociated Problem(s): Migraine without aura, intractable, with status migrainosus (Continue current regimen.) Was considering adding a ?-emily in week 4 of galca, but pt's x ray equipment mechanic was considering addingthis for SVT. Encouraged pt to proceed with this and have cardiology control the med. * Roderick Dunlap MD - 02/12/2025 1:30 PM EDTAssociated Problem(s): Pituitary adenoma (HCC) TSH, PRL q December. Change MR pituitary c/s Gd to 2025. - [facility] * Roderick Dunlap MD - 02/12/2025 1:30 PM EDTAssociated Problem(s): B12 deficiency (Continue B12 SL.) * Roderick Dunlap MD - 02/12/2025 1:30 PM EDTAssociated Problem(s): Cervical paraspinal muscle spasm Increase home PT!, incl rotating stretches as prev demonstrated to pt. * Roderick Dunlap MD - 02/12/2025 1:30 PM EDT Images from the original note were not included. Outpatient Progress Note Patient: Sue Vega Dept: Neurology : 1970 Appt Date: 02/12/2025 Prev Appt: Visit date not found Chief Complaint Patient presents with Migraine Appointment Note -- 1 yr Assessment and Plan - Assessment & Plan Migraine without aura, intractable, with status migrainosus (Continue current regimen.) Was considering adding a ?-emily in week 4 of galca, but pt's x ray equipment mechanic was considering addingthis for SVT. Encouraged pt to proceed with this and have cardiology control the med. Pituitary adenoma (HCC) TSH, PRL q December. Change MR pituitary c/s Gd to 2025. - [facility] B12 deficiency (Continue B12 SL.) Cervical paraspinal muscle spasm Increase home PT!, incl rotating stretches as prev demonstrated to pt. No orders of the defined types were placed in this encounter. Follow-Up - Follow up in about 1 year (around 02/12/2026). History of Present Illness, Associated Treatments and Results - Dx MIGRAINE Tx galca 120 + TPM 200/400 + Mg 500 bid + B2 + prn jayda AEs Hx Freq (> 4 h) - 2 d/mo, bifrontal, up to 02/14. Generally appears in week 4 of galca. ... Orig (pre-CGRP) freq - up to daily; also when CGRP stopped by ins co. Imaging Testing Surgery Failed TPM 800 (only partially effective), fluoxetine (?dose) (ineff for dale prev, incr. depression), GBP (?dose) (ineff for dale prev., dizz, somn) ... eletriptan (dizz, jaw pain) ... PREV - frema 225 (stopped by ins) Onset 25, at least Aura none Sx sharp pressure pulsating Loc occipital Assoc nausea vomiting photophobia phonophobia Trigger barometric bright light cervical spasm menses sleep deprivation stress Compl numbness fingers Clust none FHx brother Dx ?PN . B12 Tx B12 SL AEs Hx No complaints. Denies paresthesia, numbness. Onset Semeiology Imaging Testing [facility] (12/2012) - nl Labs - C80=538/8.1 ... was 467/5.2/212/12.1 on po, was 448/6.9/262, 403/5.2/414, was 317 Surgery Failed Dx PIT ADENOMA Tx AEs Hx Rev'd labs. Prev discussed possible need for surgery - however, not yet proceeding with surgery,monitored by neurosurg ([facility] Onset 1996, though orig had PRL ~90s. Semeiology Imaging MR pituitary (12/2022, [facility], c/s Gd) - 5 x 7 x 12 mm . . . . (12/2020, [facility], c/s Gd) rev'd with pt - 5 x 8 x 12 mm . . . . (10/2019, [facility]) - 5 x 5 x 7 mm ... tonsillar ectopia 4 mm . . . . (06/2018, [facility]) - unchanged, 5 x 5 x 6 . . . . . . . (05/2016, [facility]) - 6 mm, unchanged from 2014 . . . . (07/2015, [facility]) - 3 x 6 x 7 mm pit tumor incr . . . . (07/2014, [facility]) - 5 x 5 x 6 mm, unchanged, tonsillar ectopia . . . . (11/2012, [facility]) - tonsilllar ectopia 3 mm Testing 08/2015 TSH 3.40 5.0 H 1.88 2.35 2..63 2.35 PRL 27 17 6.6 14.0 14.9 14.0 (06/2020) - NL cortisol, GH, FSH, LH Surgery Pt was seen (08/2013) by Dr. [place] Muller (nsurg/tumor), again 08/2015, being sent to see cart pusher, no surgery recommended yet. Failed Dx MYOFASCIITIS Tx prn tizanidine 4 (~ 2/w) + home PT AEs Hx No complaints. Onset Semeiology Imaging Testing Surgery Failed Physical Exam - General appearance, mentation, extraocular movements, facial strength and movement, hearing, upper and lower extremity strength and tone, sensation to gross testing, coordination, and gait are normalor at baseline unless noted below. HEENT - ___, unchanged: ___, orig: ___ MS - ___, unchanged: ___, orig: ___ CNN - ___, unchanged: NO nystagmus, orig: ___ Motor - ___, unchanged: ___, orig: ___ Sens - ___, unchanged: NO hyperpathia, allodynia, orig: ___ Reflex - ___, unchanged: ___, orig: ___ Coord - ___, unchanged: ___, orig: ___ Gait - ___, unchanged: Tandem nl, orig: ___ Vestib - ___, unchanged: ___, orig: ___ MSK - Spasm - SCMs mod Tr C mild, unchanged: ___, orig: ___ Other - ___, unchanged: ___, orig: ___ Vital Signs - Visit Vitals Ht 5' 3 Wt 140 lb BMI 24.80 kg/m BSA 1.68 m Review of Systems - . Const: Denies appetite change, fever, chills. Allergy: Denies medication reaction. Ocular: Denies visual acuity change. ENT: Denies hearing change. Endoc: Denies weight loss. Resp: Denies dyspnoea, wheezing. Cardiac: Denies angina, palpitations. GI: Denies nausea, vomiting. Haem: Denies bleeding. : Denies incontinence. MSK: Denies arthralgias, joint oedema. Derm: Denies rash, hair loss. Neuro: Denies ataxia, tremor. Also see HPI for elements of ROS documented therein and for details of positive findings, which shall supersede the foregoing. PMH, PSH, Allergies, FH, SH - No past medical history on file. No past surgical history on file. Allergies Allergen Reactions Sulfa Antibiotics Rash and Unknown No family history on file. Outpatient Encounter Medications as of 02/12/2025 Medication Sig Dispense Refill Belsomra 10 MG tablet Belsomra 10 mg tablet TAKE 1 TABLET BY MOUTH EVERY DAY AT BEDTIME NEEDED FOR 30 DAYS Cobalamin Combinations (B-12) 100-5000 MCG sublingual tablet Daily. dilTIAZem CD (Cardizem CD) 240 MG 24 hr capsule Take 240 mg by mouth in the morning. eletriptan (Relpax) 40 MG tablet TAKE 1 TABLET BY MOUTH NEEDED FOR MIGRAINE, MAY REPEAT IN 2 HOURS. (NO MORE THAN 2 PER FOR HEADACHE, 4 PER WEEK OR 9 PER 90 DAYS) 27 tablet 1 galcanezumab (Emgality) 120 MG/ML auto-injector INJECT 1 ML UNDER THE SKIN MONTHLY 3 mL 1 lisinopril 2.5 MG tablet lisinopril 2.5 mg tablet Take 1 tablet by mouth every day metFORMIN (Glucophage) 1000 MG tablet metformin 1,000 mg tablet montelukast (Singulair) 10 MG tablet Singulair 10 mg tablet Take 1 tablet as needed by oral route. terbinafine (LamISIL) 250 MG tablet Take 250 mg by mouth in the morning. tiZANidine (Zanaflex) 4 MG tablet TAKE 1 TABLET BY MOUTH AT BEDTIME 90 tablet 1 topiramate (Topamax) 100 MG tablet topiramate 100 mg tablet No facility-administered encounter medications on file as of 02/12/2025. Roderick Dunlap M.D. [facility] ? [address] ? [place] [address] ? ? fax Neurology ? Clinical Neurophysiology ? Epilepsy ? Sleep Disorders ? Clinical Informatics documented in this encounterMercy Hospital JoplinRmjzcfzvrf94-11-2522 Hospital Discharge instructions Patient Education 01/30/2025 08:55:39 Urethral Dilation Urethral Dilation Urethral dilation is a procedure to stretch open (dilate) the urethra. The urethra is the tube thatdrains pee (urine) from the bladder out of the body. In females, the urethra opens above the vaginal opening. In males, the urethra opens at the tip of the penis. Urethral dilation is usually done to treat narrowing of the urethra (urethral stricture), which canmake it difficult to pee (urinate). Urethral strictures can be caused by scar tissue, infection, injury, or surgery. Urethral dilation widens the urethra so that you can pee normally. Urethral dilation is done through the opening of the urethra. There are no incisions made during the procedure. Tell a health care provider about: Any allergies you have. All medicines you are taking, including vitamins, herbs, eye drops, creams, and jehs-shv-safkzck medicines. Any problems you or family members have had with anesthesia. Any bleeding problems you have. Any surgeries you have had. Any medical conditions you have. Whether you are or may be . What are the risks? Your health care provider will talk with you about risks. These may include: Bleeding. Infection. A return of urethral stricture, which requires repeating the dilation procedure or more surgery. Damage to the urethra, which may require reconstructive surgery. Allergic reactions to medicines. What happens before the procedure? Medicines Ask your provider about: Changing or stopping your regular medicines. These include any diabetes medicines or blood thinnersyou take. Taking medicines such as aspirin and ibuprofen. These medicines can thin your blood. Do not take them unless your provider tells you to. Taking zhvi-ihk-apkiohc medicines, vitamins, herbs, and supplements. General instructions Follow instructions from your provider about what you may eat and drink. If you will be going home right after the procedure, plan to have a responsible adult: ?Take you home from the hospital or clinic. You will not be allowed to drive. ?Care for you for the time you are told. Ask your provider: ?How your surgery site will be marked. ?What steps will be taken to help prevent infection. These steps may include: ?Removing hair at the surgery site. ?Washing skin with a soap that kills germs. ?Taking antibiotics. What happens during the procedure? An IV may be inserted into one of your veins. You may be given: ?A local anesthetic to numb your urethral opening. This will be applied as a gel that will also lubricate the opening of the urethra. ?A sedative. This helps you relax. ?Anesthesia. This keeps you from feeling pain. It will make you fall asleep for surgery. A thin tube with a light and camera on the end (cystoscope) will be inserted into your urethra. Your urethra will be rinsed (irrigated) with a germ-free (sterile) water solution. Narrow parts of your urethra will be stretched open using a dilator tool. Your surgeon will start with a very thin dilator, then use wider dilators as needed. A thin tube with an inflatable balloon on the tip may be inserted into your urethra. The balloon may be inflated to help stretch your urethra open. The balloon may be coated with a medicine to help the urethra stay open longer. Your urethra will be irrigated. A catheter will be inserted into your bladder at the end of the procedure. The procedure may vary among providers and hospitals. What happens after the procedure? After the procedure, it is common to have: ?Burning pain when peeing. ?Blood in your pee. ?A need to pee frequently. You will be asked to pee before you leave the hospital or clinic. Your pee flow should improve within a few days. You may have a catheter in your bladder for 2 3 days following your procedure. Follow these instructions at home: Medicines Take jqjg-lvb-dqmwicq and prescription medicines only as told by your provider. If you were prescribed antibiotics, take them as told by your provider. Do not stop using the antibiotic even if you start to feel better. Ask your provider if the medicine prescribed to you: ?Requires you to avoid driving or using machinery. ?Can cause constipation. You may need to take these actions to prevent or treat constipation: ?Take hgkn-njv-uivxngr or prescription medicines. ?Eat foods that are high in fiber, such as beans, whole grains, and fresh fruits and vegetables. ?Limit foods that are high in fat and processed sugars, such as fried or sweet foods. General instructions If you were given a sedative during the procedure, it can affect you for several hours. Do not drive or operate machinery until your provider says that it is safe. If you were sent home with a soft tube (catheter) to help keep your urethra open, follow your provider's instructions about how and when to use it. Drink enough fluid to keep your pee pale yellow. Return to your normal activities as told by your provider. Ask your provider what activities are safe for you. Keep all follow-up visits. Your provider will check your healing and adjust your treatment plan as needed. Contact a health care provider if: Your pee is cloudy and smells bad. You develop new bleeding when you pee. You pass blood clots when you pee. You have pain that does not get better with medicine. You have a fever. Your genital area is swollen, bruised, or discolored. This includes: ?The penis, scrotum, and inner thighs for males. ?The outer genital organs (vulva) and inner thighs for females. Get help right away if: You develop new bleeding that does not stop. You cannot pee. Your catheter stops draining pee. You cannot pee after your catheter is removed. These symptoms may be an emergency. Get help right away. Call 911. Do not wait to see if the symptoms will go away. Do not drive yourself to the hospital. This information is not intended to replace advice given to you by your health care provider. Make sure you discuss any questions you have with your health care provider. Document Revised: 05/19/2023 Document Reviewed: 05/19/2023 [employer] Patient Education 2023 IMScouting. Follow Up Care 10/31/2024 08:30:41 With:TERESA JIMENEZ, Dev Johnson, URL Address: [facility] [address] , [place] [address]- [phone] When: Unknown [facility] 06-25-2025 NotePatient Education Urology Urethral Dilation Urethral dilation is a procedure to stretch open (dilate) the urethra. The urethra is the tube thatdrains pee (urine) from the bladder out of the body. In females, the urethra opens above the vaginal opening. In males, the urethra opens at the tip of the penis. Urethral dilation is usually done to treat narrowing of the urethra (urethral stricture), which canmake it difficult to pee (urinate). Urethral strictures can be caused by scar tissue, infection, injury, or surgery. Urethral dilation widens the urethra so that you can pee normally. Urethral dilation is done through the opening of the urethra. There are no incisions made during the procedure. Tell a health care provider about: ??? Any allergies you have. ??? All medicines you are taking, including vitamins, herbs, eye drops, creams, and dkeb-zbm-burcxtm medicines. ??? Any problems you or family members have had with anesthesia. ??? Any bleeding problems you have. ??? Any surgeries you have had. ??? Any medical conditions you have. ??? Whether you are or may be . What are the risks? Your health care provider will talk with you about risks. These may include: ??? Bleeding. ??? Infection. ??? A return of urethral stricture, which requires repeating the dilation procedure or more surgery. ??? Damage to the urethra, which may require reconstructive surgery. ??? Allergic reactions to medicines. What happens before the procedure? Medicines Ask your provider about: ??? Changing or stopping your regular medicines. These include any diabetes medicines or blood thinners you take. ??? Taking medicines such as aspirin and ibuprofen. These medicines can thin your blood. Do not take them unless your provider tells you to. ??? Taking odbp-thh-wkoouqx medicines, vitamins, herbs, and supplements. General instructions ??? Follow instructions from your provider about what you may eat and drink. ??? If you will be going home right after the procedure, plan to have a responsible adult: ? Take you home from the hospital or clinic. You will not be allowed to drive. ? Care for you for the time you are told. ??? Ask your provider: ? How your surgery site will be marked. ? What steps will be taken to help prevent infection. These steps may include: ? Removing hair at the surgery site. ? Washing skin with a soap that kills germs. ? Taking antibiotics. What happens during the procedure? An IV may be inserted into one of your veins. ??? You may be given: ? A local anesthetic to numb your urethral opening. This will be applied as a gel that will also lubricate the opening of the urethra. ? A sedative. This helps you relax. ? Anesthesia. This keeps you from feeling pain. It will make you fall asleep for surgery. ??? A thin tube with a light and camera on the end (cystoscope) will be inserted into your urethra. ??? Your urethra will be rinsed (irrigated) with a germ-free (sterile) water solution. ??? Narrow parts of your urethra will be stretched open using a dilator tool. Your surgeon will start with a very thin dilator, then use wider dilators as needed. ??? A thin tube with an inflatable balloon on the tip may be inserted into your urethra. The balloon may be inflated to help stretch your urethra open. The balloon may be coated with a medicine to help the urethra stay open longer. ??? Your urethra will be irrigated. ??? A catheter will be inserted into your bladder at the end of the procedure. The procedure may vary among providers and hospitals. What happens after the procedure? After the procedure, it is common to have: ? Burning pain when peeing. ? Blood in your pee. ? A need to pee frequently. ??? You will be asked to pee before you leave the hospital or clinic. ??? Your pee flow should improve within a few days. ??? You may have a catheter in your bladder for 2?3 days following your procedure. Follow these instructions at home: Medicines ??? Take cgvc-hdg-rhdnymx and prescription medicines only as told by your provider. ??? If you were prescribed antibiotics, take them as told by your provider. Do not stop using the antibiotic even if you start to feel better. ??? Ask your provider if the medicine prescribed to you: ? Requires you to avoid driving or using machinery. ? Can cause constipation. You may need to take these actions to prevent or treat constipation: ? Take kise-veq-xkqxnfv or prescription medicines. ? Eat foods that are high in fiber, such as beans, whole grains, and fresh fruits and vegetables. ? Limit foods that are high in fat and processed sugars, such as fried or sweet foods. General instructions ??? If you were given a sedative during the procedure, it can affect you for several hours. Do not drive or operate machinery until your provider says that it is safe. ??? If you were sent home with a soft tube (catheter) (more content not included)...[facility]03-26-2025 NotePatient Education Obstetrics and Gynecology Atrophic Vaginitis Atrophic vaginitis is a condition in which the tissues that line the vagina become dry and thin. This condition is most common in women who have stopped having regular menstrual periods (are in menopause). This usually starts when a woman is 45 to 55 years old. That is the time when a woman's estrogen levels begin to decrease. Estrogen is a female hormone. It helps to keep the tissues of the vagina moist. It stimulates the vagina to produce a clear fluid that lubricates the vagina for sex. This fluid also protects the vagina from infection. Lack of estrogen can cause the lining of the vagina to get thinner and dryer. Thevagina may also shrink in size. It may become less elastic. Atrophic vaginitis tends to get worse over time as a woman's estrogen level drops. What are the causes? This condition is caused by the normal drop in estrogen that happens around the time of menopause. What increases the risk? Certain conditions or situations may lower a woman's estrogen level, leading to a higher risk for atrophic vaginitis. You are more likely to develop this condition if: ??? You are taking medicines that block estrogen. ??? You have had your ovaries removed. ??? You are being treated for cancer with radiation or medicines (chemotherapy). ??? You have given or are . ??? You are older than age 50. ??? You smoke. What are the signs or symptoms? Symptoms of this condition include: ??? Pain, soreness, a feeling of pressure, or bleeding during sex (dyspareunia). ??? Vaginal burning, irritation, or itching. ??? Pain or bleeding when a speculum is used in a vaginal exam. ??? Having burning pain while urinating. ??? Vaginal discharge. In some cases, there are no symptoms. How is this diagnosed? This condition is diagnosed based on your medical history and a physical exam. This will include a pelvic exam that checks the vaginal tissues. Though rare, you may also have other tests, including: ??? A urine test. ??? A test that checks the acid balance in your vagina (acid balance test). How is this treated? Treatment for this condition depends on how severe your symptoms are. Treatment may include: ??? Using an cmbf-ywx-tlyfmby vaginal lubricant before sex. ??? Using a long-acting vaginal moisturizer. ??? Using low-dose estrogen for moderate to severe symptoms that do not respond to other treatments. Options include creams, tablets, and inserts (vaginal rings). Before you use a vaginal estrogen, tell your health care provider if you have a history of: ? Breast cancer. ? Endometrial cancer. ? Blood clots. If you are not sexually active and your symptoms are very mild, you may not need treatment. Follow these instructions at home: Medicines ??? Take jvho-tsg-cqvysvu and prescription medicines only as told by your health care provider. ??? Do not use herbal or alternative medicines unless your health care provider says that you can. ??? Use nysz-tic-hfktpyq creams, lubricants, or moisturizers for dryness only as told by your health care provider. General instructions ??? If your atrophic vaginitis is caused by menopause, discuss all of your menopause symptoms and treatment options with your health care provider. ??? Do not douche. ??? Do not use products that can make your vagina dry. These include: ? Scented feminine sprays. ? Scented tampons. ? Scented soaps. ??? Vaginal sex can help to improve blood flow and elasticity of vaginal tissue. If you choose to have sex and it hurts, try using a water-soluble lubricant or moisturizer right before having sex. Contact a health care provider if: ??? Your discharge looks different than normal. ??? Your vagina has an unusual smell. ??? You have new symptoms. ??? Your symptoms do not improve with treatment. ??? Your symptoms get worse. Summary ??? Atrophic vaginitis is a condition in which the tissues that line the vagina become dry and thin. It is most common in women who have stopped having regular menstrual periods (are in menopause). ??? Treatment options include using vaginal lubricants and low-dose vaginal estrogen. ??? Contact a health care provider if your vagina has an unusual smell, or if your symptoms get worse or do not improve after treatment. This information is not intended to replace advice given to you by your health care provider. Make sure you discuss any questions you have with your health care provider. Document Revised: 01/22/2021 Document Reviewed: 01/22/2021 [employer] Patient Education ? 2023 [employer]. Kegel Exercises Kegel exercises can help strengthen your pelvic floor muscles. The pelvic floor is a group of muscles that support your rectum, small intestine, and bladder. In females, pelvic floor muscles also help support the uterus. These muscles help you control the flow of urine (more content not included)...[facility]03-11-2025 NotePatient Education Caregiving Antibiotic Medicine, Adult Antibiotic medicines are used to treat infections caused by bacteria. These medicines do not work for illnesses caused by viruses. Antibiotics work by killing the bacteria that are making you sick, but they can also have serious side effects. Antibiotics must be used safely and only when needed. When do I need to take antibiotics? You may need antibiotics for: ??? A urinary tract infection (UTI). ??? Strep throat. ??? Bacterial sinus infection. ??? Meningitis. ??? Serious lung infections. Your health care provider may start you on antibiotics while you are waiting for test results. Tests may include a culture of the throat, urine, blood, or mucus. Your health care provider may change or stop your antibiotic depending on your test results. When are antibiotics not needed? You do not need antibiotics for most common illnesses. These illnesses may be caused by a virus, not by bacteria. You do not need antibiotics for: ??? The common cold. ??? The flu (influenza). ??? Sore throat. ??? Discolored mucus. ??? Bronchitis. Antibiotics are not always needed for all infections caused by bacteria. Many of these infections clear up on their own. Do not take antibiotics when they are not needed. How long should I take my antibiotic? You must take the entire amount prescribed to you. Take your antibiotics as told by your health care provider. Do not stop taking your antibiotics even if you start to feel better. If you stop takingthem too soon: ??? You may feel sick again. ??? Your infection may get harder to treat. Each course of antibiotics needs a different length of time to work. The length of time may vary from a few days to a few weeks. What if I miss a dose? Try not to miss any doses of medicine. If you miss a dose, call your health care provider or pharmacist for help. Sometimes, it is okay to take the missed dose as soon as possible. Do not take doubleor extra doses. What are the risks of taking antibiotics? Antibiotics can cause: ??? Allergic reactions. ??? Nausea. ??? Yeast infections. ??? Liver problems. Antibiotics can also cause an infection called Clostridioides difficile (C. difficile or C. diff), which causes severe diarrhea. This infection happens when the antibiotics kill the healthy bacteria in your intestines. This allows C. diff to grow. C. diff needs to be treated right away. Let your health care provider know if: ??? You have diarrhea while taking an antibiotic. ??? You have diarrhea after you stop taking an antibiotic. C. diff infection can start weeks after stopping the antibiotic. Taking an antibiotic also puts you at risk for getting sick in the future with bacteria that do notrespond to medicine (antibiotic-resistant infection). Antibiotics can cause bacteria to change so that if the antibiotic is taken again, the medicine cannot kill the bacteria. These infections can bemore serious because they are hard, or sometimes impossible, to treat. Do antibiotics affect control? control pills may not work while you are taking antibiotics. If you are taking control pills: ??? Keep taking them as usual. ??? Use a second form of control, such as a condom, to avoid unwanted . Do this for as long as told by your health care provider. What else should I know about taking antibiotics? Take antibiotics exactly as told. ??? Take the correct amount of medicine at the same time each day. ??? Ask your health care provider: ? How long to wait between doses. ? If you should take your antibiotic with food or water. ? If you should avoid certain foods, drinks, or medicines while taking your antibiotics. ? If you need to watch for any side effects. ??? Use only the antibiotics prescribed to you by your health care provider. Do not use antibioticsprescribed for someone else. ??? Drink a large glass of water when taking your antibiotics unless told otherwise. Drink enough fluid to keep your urine pale yellow. ??? Ask your pharmacist for a dosage syringe, cup, or spoon that correctly measures your antibiotics. ??? Ask your pharmacist or health care provider how to safely get rid of leftover medicine. Follow these instructions at home: ??? Take your antibiotics as told by your health care provider. Do not stop taking your antibioticseven if you start to feel better. ??? Return to your normal activities as told by your health care provider. Ask your health care provider what activities are safe for you. Contact a health care provider if: ??? Your symptoms get worse. ??? You have new joint pain or muscle aches that begin after starting your antibiotic. ??? You have side effects from your antibiotic, such as: ? Stomach pain. ? Diarrhea. ? Nausea. ? White patches in your mouth or throat. Get help right away if: ??? You have sig (more content not included)...[facility] 10-14-2024 NotePatient Education Obstetrics and Gynecology Vaginal Yeast Infection, Adult Vaginal yeast infection is a condition that causes vaginal discharge as well as soreness, swelling,and redness (inflammation) of the vagina. This is a common condition. Some women get this infectionfrequently. What are the causes? This condition is caused by a change in the normal balance of the yeast (Esther) and normal bacteria that live in the vagina. This change causes an overgrowth of yeast, which causes the inflammation. What increases the risk? The condition is more likely to develop in women who: ??? Take antibiotic medicines. ??? Have diabetes. ??? Take control pills. ??? Are . ??? Douche often. ??? Have a weak body defense system (immune system). ??? Have been taking steroid medicines for a long time. ??? Frequently wear tight clothing. What are the signs or symptoms? Symptoms of this condition include: ??? White, thick, creamy vaginal discharge. ??? Swelling, itching, redness, and irritation of the vagina. The lips of the vagina (labia) may beaffected as well. ??? Pain or a burning feeling while urinating. ??? Pain during sex. How is this diagnosed? This condition is diagnosed based on: ??? Your medical history. ??? A physical exam. ??? A pelvic exam. Your health care provider will examine a sample of your vaginal discharge under a microscope. Your health care provider may send this sample for testing to confirm the diagnosis. How is this treated? This condition is treated with medicine. Medicines may be fped-fxe-whlngff or prescription. You maybe told to use one or more of the following: ??? Medicine that is taken by mouth (orally). ??? Medicine that is applied as a cream (topically). ??? Medicine that is inserted directly into the vagina (suppository). Follow these instructions at home: ??? Take or apply ngft-poh-avdcexw and prescription medicines only as told by your health care provider. ??? Do not use tampons until your health care provider approves. ??? Do not have sex until your infection has cleared. Sex can prolong or worsen your symptoms of infection. Ask your health care provider when it is safe to resume sexual activity. ??? Keep all follow-up visits. This is important. How is this prevented? Do not wear tight clothes, such as pantyhose or tight pants. ??? Wear breathable cotton underwear. ??? Do not use douches, perfumed soap, creams, or powders. ??? Wipe from front to back after using the toilet. ??? If you have diabetes, keep your blood sugar levels under control. ??? Ask your health care provider for other ways to prevent yeast infections. Contact a health care provider if: ??? You have a fever. ??? Your symptoms go away and then return. ??? Your symptoms do not get better with treatment. ??? Your symptoms get worse. ??? You have new symptoms. ??? You develop blisters in or around your vagina. ??? You have blood coming from your vagina and it is not your menstrual period. ??? You develop pain in your abdomen. Summary ??? Vaginal yeast infection is a condition that causes discharge as well as soreness, swelling, andredness (inflammation) of the vagina. ??? This condition is treated with medicine. Medicines may be ittb-lrf-ikbbsdi or prescription. ??? Take or apply mouz-fkh-ftgrtdq and prescription medicines only as told by your health care provider. ??? Do not douche. Resume sexual activity or use of tampons as instructed by your health care provider. ??? Contact a health care provider if your symptoms do not get better with treatment or your symptoms go away and then return. This information is not intended to replace advice given to you by your health care provider. Make sure you discuss any questions you have with your health care provider. Document Revised: 10/12/2021 Document Reviewed: 10/12/2021 [employer] Patient Education ? 2023 [employer]. Urinary Tract Infection, Adult A urinary tract infection (UTI) is an infection of any part of the urinary tract. The urinary tractincludes: ??? The kidneys. ??? The ureters. ??? The bladder. ??? The urethra. These organs make, store, and get rid of pee (urine) in the body. What are the causes? This infection is caused by germs (bacteria) in your genital area. These germs grow and cause swelling (inflammation) of your urinary tract. What increases the risk? The following factors may make you more likely to develop this condition: ??? Using a small, thin tube (catheter) to drain pee. ??? Not being able to control when you pee or poop (incontinence). ??? Being female. If you are female, these things can increase the risk: ? Using these methods to prevent : ? A medicine that kills sperm (spermicide). ? A device that blocks sperm (diaphragm). ? Having low levels of a fem (more content not included)...[facility]03-03-2025 NoteUT Cardiology - [facility] Subjective Sue Vega is a 54 y.o. year old female patient being seen for dizziness Patient Active Problem List Diagnosis Insomnia Hyperprolactinemia Hyperlipidemia Elevated blood pressure Dry eye syndrome [...] migrainosus Uterine leiomyoma Nonrheumatic aortic valve insufficiency Tachycardia Paroxysmal SVT (supraventricular tachycardia) Abnormal stress test Attention deficit disorder Dizziness [facility] 10/08/2024 Patient states that she has been doing well. She denies any chest discomfort at rest or with exertion. She denies exertional dyspnea, orthopnea or paroxysmal nocturnal dyspnea. She denies dizziness, syncope or near syncope. She denies palpitations, legs edema or discomfort on exertion. She has been wearing compression stockings and increasing her fluid intake. She reports recurrent UTI which was probably the reason of her dizziness. She reports that her diabetes is under good control 08/06/2024 The patient has a history of aortic regurgitation, SVT noted on event monitor in 2022, hyperlipidemia, type 2 diabetes mellitus, ADHD She states that last week specifically on July 23 she had 2 events of lightheadedness both of them while she was standing she felt as if she going to faint and she had to sit down and it lasted each time about 5 minutes. No syncope. No associated palpitations or chest pain or shortness of breath. She reports that sometimes when she stands up quickly she feels lightheaded. The patient does not drink any caffeine or alcohol. She drinks about 6-8 bottles of 16 zones water a day. She also checked her blood pressure after she sat down and it was 128/76 with heart rate of 98. She checked her glucose and it was 113. She denies being sick or dehydrated for any reason. She denies chest pain or shortness of breath at rest or with exertion. She denies orthopnea or paroxysmal nocturnal dyspnea. She denies legs edema or leg discomfort on exertion. Review of Systems Neurological: Positive for dizziness. All systems were reviewed and they were negative except for the positive findings noted above in the history Past Medical History: Diagnosis Date Diabetes mellitus type 2, controlled, without complications ([facility]) 06/05/2009 Hyperlipidemia 03/24/2011 Nonrheumatic aortic valve insufficiency 06/22/2023 No past surgical history on file. No family history on file. Social History Tobacco Use Smoking status: Never Smokeless tobacco: Never Substance Use Topics Alcohol use: Never Drug use: Never Allergies Allergies Allergen Reactions Sulfa (Sulfonamide Antibiotics) Rash Sulfoil Unknown Medications Current Outpatient Medications: ascorbic acid (Vitamin C) 100 mg tablet, Take 100 mg by mouth in the morning., Disp: , Rfl: atorvastatin (Lipitor) 20 mg tablet, Take 1 tablet (20 mg) by mouth in the morning., Disp: 90 tablet, Rfl: 3 calcium citrate-vitamin D2 250 mg-2.5 mcg (100 unit) tablet, Take 1 tablet by mouth in the morning and at bedtime., Disp: , Rfl: cyanocobalamin/folic acid (vitamin X84-ihyws acid) 1,000-400 mcg lozenge, in the morning., Disp: , Rfl: dilTIAZem CD (Cardizem CD) 240 mg 24 hr capsule, TAKE ONE CAPSULE BY MOUTH EVERY MORNING, Disp: 90 capsule, Rfl: 3 eletriptan (Relpax) 40 mg tablet, 1 tab PRN migraine, may repeat in 2 hours. No more than 2 per LOMBARDO or 4 per week or 9 per 30 days., Disp: , Rfl: Emgality Pen 120 mg/mL auto-injector, INJECT 1 ML MONTHLY, Disp: , Rfl: eszopiclone (Lunesta) 2 mg tablet, Take 2 mg by mouth at bedtime., Disp: , Rfl: magnesium oxide (Mag-Ox) 250 mg magnesium tablet, Take 500 mg by mouth., Disp: , Rfl: metFORMIN (Glucophage) 1,000 mg tablet, Take 1,000 mg by mouth with breakfast and with evening meal., Disp: , Rfl: montelukast (Singulair) 10 mg tablet, Singulair 10 mg tablet Take 1 tablet as needed by oral route., Disp: , Rfl: multivitamin tablet, Take 1 tablet by mouth in the morning., Disp: , Rfl: topiramate (Topamax) 100 mg tablet, Take 200 mg by mouth in the morning and at bedtime., Disp: , Rfl: Objective Visit Vitals BP 102/64 (BP Location: Left arm, Patient Position: Sitting) Pulse 85 (more content not included)...[facility] 08-14-2024 Evaluation + Plan note Diagnostic Tests Pending * Urine Culture 08/14/24 [facility] 12-30-2024 NoteUT Cardiology - [facility] Subjective Sue Vega is a 54 y.o. year old female patient being seen for dizziness Patient Active Problem List Diagnosis Insomnia Hyperprolactinemia [...] migrainosus Uterine leiomyoma Nonrheumatic aortic valve insufficiency Tachycardia Paroxysmal SVT (supraventricular tachycardia) (CMS/HCC) Abnormal stress test Attention deficit disorder HPI The patient has a history of aortic regurgitation, SVT noted on event monitor in 2022, hyperlipidemia, type 2 diabetes mellitus, ADHD She states that last week specifically on July 23 and she had 2 events of lightheadedness both of them while she was standing she felt as if she going to faint and she had to sit down and it lasted each time about 5 minutes. No syncope. No associated palpitations or chest pain or shortness of breath. She reports that sometimes when she stands up quickly she feels lightheaded. The patient does not drink any caffeine or alcohol. She drinks about 6-8 bottles of 16 zones water a day. She also checked her blood pressure after she sat down and it was 128/76 with heart rate of 98. She checked her glucose and it was 113. She denies being sick or dehydrated for any reason. She denies chest pain or shortness of breath at rest or with exertion. She denies orthopnea or paroxysmal nocturnal dyspnea. She denies legs edema or leg discomfort on exertion. ROS All systems were reviewed and they were negative except for the positive findings noted above in the history Past Medical History: Diagnosis Date Diabetes mellitus type 2, controlled, without complications ([facility]) 06/05/2009 Hyperlipidemia 03/24/2011 Nonrheumatic aortic valve insufficiency 06/22/2023 No past surgical history on file. No family history on file. Social History Tobacco Use Smoking status: Never Smokeless tobacco: Never Substance Use Topics Alcohol use: Never Drug use: Never Allergies Allergies Allergen Reactions Sulfa (Sulfonamide Antibiotics) Rash Sulfoil Unknown Medications Current Outpatient Medications: ascorbic acid (Vitamin C) 100 mg tablet, Take 100 mg by mouth in the morning., Disp: , Rfl: atorvastatin (Lipitor) 20 mg tablet, Take 1 tablet (20 mg) by mouth in the morning., Disp: 90 tablet, Rfl: 3 calcium citrate-vitamin D2 250 mg-2.5 mcg (100 unit) tablet, Take 1 tablet by mouth in the morning and at bedtime., Disp: , Rfl: cyanocobalamin/folic acid (vitamin J24-xelqd acid) 1,000-400 mcg lozenge, in the morning., Disp: , Rfl: dilTIAZem CD (Cardizem CD) 240 mg 24 hr capsule, TAKE ONE CAPSULE BY MOUTH EVERY MORNING, Disp: 90 capsule, Rfl: 3 eletriptan (Relpax) 40 mg tablet, 1 tab PRN migraine, may repeat in 2 hours. No more than 2 per LOMBARDO or 4 per week or 9 per 30 days., Disp: , Rfl: Emgality Pen 120 mg/mL auto-injector, INJECT 1 ML MONTHLY, Disp: , Rfl: eszopiclone (Lunesta) 2 mg tablet, Take 2 mg by mouth at bedtime., Disp: , Rfl: magnesium oxide (Mag-Ox) 250 mg magnesium tablet, Take 500 mg by mouth., Disp: , Rfl: metFORMIN (Glucophage) 1,000 mg tablet, Take 1,000 mg by mouth with breakfast and with evening meal., Disp: , Rfl: montelukast (Singulair) 10 mg tablet, Singulair 10 mg tablet Take 1 tablet as needed by oral route., Disp: , Rfl: multivitamin tablet, Take 1 tablet by mouth in the morning., Disp: , Rfl: topiramate (Topamax) 100 mg tablet, Take 200 mg by mouth in the morning and at bedtime., Disp: , Rfl: Objective Visit Vitals BP 118/70 (BP Location: Left arm, Patient Position: Sitting) Pulse 73 Ht 1.6 m (5' 3 ) Wt 68.5 kg (151 lb) SpO2 99% BMI 26.75 kg/m??? OB Status Hysterectomy Smoking Status Never BSA 1.74 m??? Physical exam: GENERAL: alert and oriented x3, well developed, in no acute distress. HEAD: atraumatic, normocephalic. EYES: AUDRA, EOMI. NECK: trachea midline, no JVD present, no carotid bruits present. CARDIAC: S1, S2 present. RRR. No murmur, rubs, or gallops. RESPIRATORY: CTAB, no increased effort of breathing, no rales, rhonchi, or wheezing. ABDOMEN: soft, nontender, nondistended. EXTREMITIES: no lower extremit (more content not included)...[facility]10-23-2024 NoteCardiovascular Medicine [facility] SUBJECTIVE Chief Complaint Patient presents with Palpitations SVT Sue Vega is a 54 y.o. female here for follow-up. HPI PMHx: AO valve regurg, DM type II, HLD 05/30/2024 She has recently has noticed her palpitations have worsened for the past week. Can last an hour or so then resolve. Feels like her heart is racing. Accompanied sx's of dizziness. She has had some increased stress at work. She had her BP and HR taken at work and she was told her BP and HR were okay. She takes a multivitamin and magnesium supplement daily. She notes she also drinks Gatorade usually daily. Wants to try to start Strattera for ADHD. Denies c/o CP, dyspnea, orthopnea, PND, LE edema, syncope. Patient Active [...] migrainosus Uterine leiomyoma Nonrheumatic aortic valve insufficiency Tachycardia Paroxysmal SVT (supraventricular tachycardia) (CMS/HCC) Abnormal stress test Attention deficit disorder Past Medical History: Diagnosis Date Diabetes mellitus type 2, controlled, without complications (CMS/HCC) 06/05/2009 Hyperlipidemia 03/24/2011 Nonrheumatic aortic valve insufficiency 06/22/2023 No family history on file. Social History Tobacco Use Smoking status: Never Smokeless tobacco: Never Substance Use Topics Alcohol use: Never Drug use: Never Allergies Allergen Reactions Sulfa (Sulfonamide Antibiotics) Rash Sulfoil Unknown ROS Cardiovascular: Positive for irregular heartbeat and palpitations ( racing ). Neurological: Positive for light-headedness. All other systems reviewed and are negative. OBJECTIVE Visit Vitals BP 114/74 (BP Location: Left arm, Patient Position: Sitting) Pulse 78 Ht 1.6 m (5' 3 ) Wt 67.6 kg (149 lb) SpO2 98% BMI 26.39 kg/m??? OB Status Hysterectomy Smoking Status Never BSA 1.73 m??? Medications: Current Outpatient Medications: ascorbic acid (Vitamin C) 100 mg tablet, Take 100 mg by mouth in the morning., Disp: , Rfl: calcium citrate-vitamin D2 250 mg-2.5 mcg (100 unit) tablet, Take 1 tablet by mouth in the morning and at bedtime., Disp: , Rfl: cyanocobalamin/folic acid (vitamin C83-eppqs acid) 1,000-400 mcg lozenge, in the morning., Disp: , Rfl: dilTIAZem CD (Cartia XT) 240 mg 24 hr capsule, Take 1 capsule (240 mg) by mouth in the morning., Disp: 90 capsule, Rfl: 3 eletriptan (Relpax) 40 mg tablet, 1 tab PRN migraine, may repeat in 2 hours. No more than 2 per LOMBARDO or 4 per week or 9 per 30 days., Disp: , Rfl: Emgality Pen 120 mg/mL auto-injector, INJECT 1 ML MONTHLY, Disp: , Rfl: eszopiclone (Lunesta) 2 mg tablet, Take 2 mg by mouth at bedtime., Disp: , Rfl: fluticasone (Flonase) 50 mcg/actuation [...] needed by oral route., Disp: , Rfl: multivitamin tablet, Take 1 tablet by mouth in the morning., Disp: , Rfl: tiZANidine (Zanaflex) 4 mg tablet, Take 4 mg by mouth every 6 (six) hours if needed for muscle spasms., Disp: , Rfl: topiramate (Topamax) 100 mg tablet, Take 200 mg by mouth in the morning and at bedtime., Disp: , Rfl: atorvastatin (Lipitor) 20 mg tablet, Take 1 tablet (20 mg) by mouth in the morning., Disp: 90 tablet, Rfl: 3 Belsomra 10 mg tablet, TAKE 1 TABLET BY MOUTH EVERY DAY AT BEDTIME NEEDED FOR 30 DAYS, Disp: , Rfl: Physical Exam Vitals reviewed. Constitutional: Appearance: Normal appearance. She is normal weight. HENT: Head: Normocephalic and atraumatic. Right Ear: External ear normal. Left Ear: External ear normal. Eyes: Extraocular Movements: Extraocular movements intact. Conjunctiva/sclera: Conjunctivae normal. Pupils: Pupils are equal, round, and reactive to light. Neck: Vascular: No carotid bruit. Cardiovascular: Rate and Rhythm: Normal rate and regular rhythm. Pulse (more content not included)...[facility] 05-30-2024 NotePatient here c/o lightheadedness last week and racing heartbeats. Says this week she's felt fine. She thinks it's anxiety related as this usually happens at work. Sometimes feels racing when she lies down. PCP would like to start her on Strattera but would like cardiology's blessing prior to her starting it. Thyroid function was checked in January 2024. Patient denies chest pain and SOB. Review of Systems Cardiovascular: Positive for irregular heartbeat and palpitations ( racing ). Neurological: Positive for light-headedness. All other systems reviewed and are negative.[facility] 09-05-2023 Evaluation note* Encounter Date Diagnosis Assessment Notes Treatment Notes Treatment Clinical Notes Aug, Attention deficit disorder (ICD- 10 - F98.8) [employer] Other 01-09-2024 Hospital Discharge instructions Patient Education [...] Follow these instructions at home: Medicines Take wapp-rke-xklqfmr and prescription medicines only as told by your health care provider. Ask your health care provider if the medicine prescribed to you: ?Requires you to avoid driving or using heavy machinery. ?Can cause constipation. You may need to take these actions to prevent or treat constipation: ?Drink enough fluid to keep your urine pale yellow. ?Take dhij-jft-ogqpptp or prescription medicines. ?Eat foods that are [...] provider. Document Revised: 11/16/2019 Document Reviewed: 09/06/2019 [employer] Patient Education 2022 IMScouting. Follow Up Care 08/16/2023 09:27:09 With:Suzie García CNP Address: When: only if needed [facility] 01-09-2024 Evaluation note* Encounter Date Diagnosis Assessment Notes Treatment Notes Treatment Clinical Notes Aug, Insomnia (ICD-10 - G47.00) [facility] [employer] [facility] Other 12-27-2023 Hospital Discharge instructions Patient Education 08/03/2023 09:56:59 Upper Respiratory Infection, Adult, Hzyh-ul-Hhqr Upper Respiratory Infection, Adult An upper respiratory [...] medicines to help relieve symptoms, such as: Zheq-uam-ayjojsx cold medicines. Medicines to reduce coughing (cough [...] and other clear broths. General instructions Take ffjg-dom-waqoqdx and prescription medicines only as told by [...] cannot use soap and water, use hand roller inspector and mender. Avoid touching your mouth, face, eyes, or [...] get better within 7 10 days. Take bkbc-wdk-pqowwdy and prescription medicines only as told by your doctor. This information is not intended to replace advice given to you by your health care provider. Make sure you discuss any questions you have with your health care provider. Document Revised: 02/24/2022 Document Reviewed: 02/24/2022 [employer] Patient Education 2022 IMScouting. Follow Up Care 08/03/2023 08:09:22 With:MOMO HAMPTON DO [facility] Address: [address] [place] [address]- When: Unknown [facility] 12-08-2023 Evaluation note* Encounter Date Diagnosis Assessment Notes Treatment Notes Treatment Clinical Notes Jul, Diabetes type 2, controlled (ICD -10 - E11.9) Jul,ttention deficit disorder (ICD-10 - F98.8)[facility] Jul,OtherThe goal for diabetes is always to maintain an A1c below 7.0, and to be compliant with medication. Of course continue to monitor diet and increase exercise is always suggested. We will continue to monitor. [facility] Other 11-08-2023 Evaluation note* Encounter Date Diagnosis Assessment Notes Treatment Notes Treatment Clinical Notes Jun, Attention deficit disorder (ICD- 10 - F98.8) [facility] Other 10-09-2023 Evaluation note* Encounter Date Diagnosis Assessment Notes Treatment Notes Treatment Clinical Notes May, Flu vaccine need (ICD-10 - Z23) May,ctinic keratosis (ICD-10 - L57.0)See procedure note [employer] Other 09-18-2023 Evaluation note* Encounter Date Diagnosis Assessment Notes Treatment Notes Treatment Clinical Notes Apr, Seasonal allergies (ICD-10 - J30 .2) [employer] [facility] Other 09-11-2023 Evaluation note* Encounter Date Diagnosis Assessment Notes Treatment Notes Treatment Clinical Notes Apr, Attention deficit disorder (ICD- 10 - F98.8) [facility] Other 08-28-2023 Hospital Discharge instructions Patient Education [...] instructions at home: Medicines Take or apply lggl-kti-rtfdoqr and prescription medicines only as told by [...] provider. Document Revised: 02/29/2020 Document Reviewed: 03/01/2020 [employer] Patient Education 2022 [employer]MScouting. Follow Up Care 04/04/2023 17:04:30 With:MOMO HAMPTON DO, [facility] Address[address] [place] [address]- When: Unknown [facility] 08-11-2023 Evaluation note* Encounter Date Diagnosis Assessment Notes Treatment Notes Treatment Clinical Notes Mar, Attention deficit disorder (ICD- 10 - F98.8) [facility] [employer] [facility] Other 07-17-2023 Evaluation note* Encounter Date Diagnosis Assessment Notes Treatment Notes Treatment Clinical Notes Feb, Attention deficit disorder (ICD- 10 - F98.8) [facility] [employer] [facility] Other 07-03-2023 Evaluation note* Encounter Date Diagnosis Assessment Notes Treatment Notes Treatment Clinical Notes Feb, Insomnia (ICD-10 - G47.00) [employer] Other 06-21-2023 Evaluation note* Encounter Date Diagnosis Assessment Notes Treatment Notes Treatment Clinical Notes Jan, Attention deficit disorder (ICD- 10 - F98.8) [employer] Other 06-09-2023 Evaluation note* Encounter Date Diagnosis Assessment Notes Treatment Notes Treatment Clinical Notes Jan, Diabetes type 2, controlled (ICD -10 - E11.9) Jan,OtherThe goal for diabetes is always to maintain an A1c below 7.0, and to be compliant with medication. Of course continue to monitor diet and increase exercise is always suggested. We will continue to monitor. [facility] Other 05-15-2023 Hospital Discharge instructions Patient Education 12/20/2022 12:50:20 Sciatica, Wdhj-cp-Bqwg Sciatica Sciatica is pain, weakness, tingling, or [...] Follow these instructions at home: Medicines Take zqde-zdf-aftqggt and prescription medicines only as told by your doctor. Ask your doctor if the medicine prescribed to you: ?Requires you to avoid driving or using heavy machinery. ?Can cause trouble pooping (constipation). You may need to take these steps to prevent or treat trouble pooping: ?Drink enough fluids to keep your pee (urine) pale yellow. ?Take mmpe-mps-cojtkpm or prescription medicines. ?Eat foods that are [...] provider. Document Revised: 08/13/2019 Document Reviewed: 08/13/2019 [employer] Patient Education 2022 IMScouting. Follow Up Care 12/20/2022 11:22:57 With:MOMO HAMPTON DO, [facility] Address: [address] [place] [address] [address]- When: Unknown [facility] 05-13-2023 Evaluation + Plan note Diagnostic Tests Pending * T3 Total 12/18/22 [facility]05-02-2023 Evaluation note* Encounter Date Diagnosis Assessment Notes Treatment Notes Treatment Clinical Notes December, Attention Deficit Disorder (ICD9 -CM - 314.00) [facility] Other 04-10-2023 Hospital Discharge instructions Patient Education [...] the coronavirus come from? In July 2019, [place] told the World Health Organization (WHO) of several cases of lung disease (human respiratory illness). These cases were linked to an open seafood and livestock market in the [facility]. The link to the seafood and [...] and virus naming World Health Organization (WHO): www.who.int/emergencies/diseases/dzxim-xiwrnwkhyro-9165/technical-g uidance/imyrtl-zkj-kugserynjiz-disease-(covid-2019)-vks-jdr-goffo-twlw-lebflz-el Who is at risk for complications from [...] relieve his or her symptoms by using bbss-lpk-ukgrxzu medicines that treat sneezing, coughing, and runny [...] water are not available, use alcohol-based hand roller inspector and mender. Avoid touching your face, mouth, nose, or [...] Prevention (CDC): www.cdc.gov/coronavirus/2019-ncov/travelers/index.html World Health Organization (WHO): www.who.int/emergencies/diseases/zsuqz-xsldnesfgdy-1435/travel-advice Know the risks and take action to [...] water are not available, use alcohol-based hand roller inspector and mender. Cough or sneeze into a tissue, sleeve, [...] in hot, soapy water or use a forensic medical examiner. Air-dry your dishes. Wash laundry in hot [...] Health Organization (WHO) Information and news updates: www.who.int/emergencies/diseases/rzynp-oushmemlvhu-6253 Coronavirus health topic: www.who.int/health-topics/coronavirus Questions and answers on COVID-19: www.who.int/news-room/q-a-detail/e-d-amtvqhfnjijfa Global tracker: who.iKoa.Authentic Response Citizen [place] Academy of Pediatrics (AAP) Information for families: www.healthychildren.org/[place]/health-issues/conditions/chest-lungs/Pages /7464-Gwgqw-Mmvzegkwzze.aspx The coronavirus situation is changing rapidly. Check [...] 11/20/2019 Document Revised: 11/20/2019 Document Reviewed: 11/20/2019 [employer] Patient Education 2020 IMScouting. Follow Up Care 11/09/2021 17:07:47 With:TERESA JIMENEZ, Dev Johnson, URL Address: [facility] [address] , [place] [address]- When: Unknown [facility] 04-05-2023 Evaluation note* Encounter Date Diagnosis Assessment Notes Treatment Notes Treatment Clinical Notes Nov, Insomnia (ICD-10 - G47.00) Nov,ttention Deficit Disorder (ICD9-CM - 314.00) [employer] Other 03-09-2023 Evaluation note* Encounter Date Diagnosis Assessment Notes Treatment Notes Treatment Clinical Notes Oct, Attention Deficit Disorder (ICD9 -CM - 314.00) [employer] Other 03-06-2023 Evaluation note* Encounter Date Diagnosis Assessment Notes Treatment Notes Treatment Clinical Notes Oct, Attention deficit disorder (ICD- 10 - F98.8) [employer] Other 01-31-2023 Evaluation note* Encounter Date Diagnosis Assessment Notes Treatment Notes Treatment Clinical Notes Aug, Migraine without aur a and without status migrainosus, not intractable (ICD-10 - G43.009) [employer] Other 01-30-2023 Evaluation note* Encounter Date Diagnosis Assessment Notes Treatment Notes Treatment Clinical Notes Aug, Attention deficit disorder (ICD- 10 - F98.8) [employer] Other 01-04-2023 Evaluation note* Encounter Date Diagnosis Assessment Notes Treatment Notes Treatment Clinical Notes Aug, Insomnia (ICD-10 - G47.00) [employer] Other 12-30-2022 Evaluation note* Encounter Date Diagnosis Assessment Notes Treatment Notes Treatment Clinical Notes Jul, Attention deficit disorder (ICD- 10 - F98.8) [employer] Other 12-26-2022 NotePROCEDURE: XR SHOULDER LT 2V or > HISTORY: Pain of left shoulder joint after falling COMPARISON: None. FINDINGS: BONES:No fracture, acute abnormality, or significant arthropathy. SOFT TISSUES:No visible soft tissue swelling. EFFUSION:None visible. OTHER: Negative. IMPRESSION: 1. No acute bone abnormality or significant degenerative changes. Electronically authenticated by: GOLDEN ZAVALA Date: 2022-08-02 16:[address] [place], [place] [address]11-30-2022 Evaluation note* Encounter Date Diagnosis Assessment Notes Treatment Notes Treatment Clinical Notes Jun, Attention deficit disorder (ICD- 10 - F98.8) [employer] Other 11-22-2022 Evaluation note* Encounter Date Diagnosis Assessment Notes Treatment Notes Treatment Clinical Notes Jun, Lung nodules (ICD-10 - R91.8) Discussed CT findings, the stability noted over 2-year follow-up, and asked her to report any new onset and persistent respiratory symptoms including persistent cough, low-grade fevers, night sweats,hemoptysis, pleuritic pain, etc. otherwise no need for routine CT at this point will follow-up as needed [employer] Other 11-01-2022 Evaluation note* Encounter Date Diagnosis Assessment Notes Treatment Notes Treatment Clinical Notes Jun, Attention deficit disorder (ICD- 10 - F98.8) [employer] Other 10-03-2022 Evaluation note* Encounter Date Diagnosis Assessment Notes Treatment Notes Treatment Clinical Notes May, Insomnia (ICD-10 - G47.00) [employer] Other 10-03-2022 Evaluation note* Encounter Date Diagnosis Assessment Notes Treatment Notes Treatment Clinical Notes May, Insomnia (ICD-10 - G47.00) May,ttention deficit disorder (ICD-10 - F98.8) [employer] Other 08-18-2022 Evaluation note* Encounter Date Diagnosis Assessment Notes Treatment Notes Treatment Clinical Notes Mar, Seasonal allergies (ICD-10 - J30 .2) [employer] Other 07-29-2022 NotePROCEDURE: XR ELBOW RT MIN 3 VIEWS HISTORY: Pain of right elbow joint since falling 3 days ago COMPARISON: None. FINDINGS: BONES:No fracture, acute abnormality, or significant arthropathy. SOFT TISSUES:No visible soft tissue swelling. EFFUSION:None visible. OTHER: Negative. IMPRESSION: 1. No acute bone abnormality. Electronically authenticated by: GOLDEN ZAVALA Date: 2022-03-05 08:14[facility]07-27-2022 Evaluation note* Encounter Date Diagnosis Assessment Notes Treatment Notes Treatment Clinical Notes Feb, Right elbow pain (ICD-10 - M25.5 21) [employer] Other 07-05-2022 Evaluation note* Encounter Date Diagnosis Assessment Notes Treatment Notes Treatment Clinical Notes Feb, Insomnia (ICD-10 - G47.00) [employer] Other 06-28-2022 Evaluation note* Encounter Date Diagnosis Assessment Notes Treatment Notes Treatment Clinical Notes Jan, Attention deficit disorder (ICD- 10 - F98.8) [employer] Other 06-09-2022 Evaluation note* Encounter Date Diagnosis Assessment Notes Treatment Notes Treatment Clinical Notes Jan, Diabetes type 2, controlled (ICD -10 - E11.9) Jan,therThe goal for diabetes is always to maintain an A1c below 7.0, and to be compliant with medication. Of course continue to monitor diet and increase exercise is always suggested. We will continue to monitor. [facility] [employer] [facility] Other 06-02-2022 Evaluation note* Encounter Date Diagnosis Assessment Notes Treatment Notes Treatment Clinical Notes Jan, Attention deficit disorder (ICD- 10 - F98.8) [employer] Other 05-02-2022 Evaluation note* Encounter Date Diagnosis Assessment Notes Treatment Notes Treatment Clinical Notes December, Attention deficit disorder (ICD- 10 - F98.8) [employer] [facility] Other 04-05-2022 Evaluation note* Encounter Date Diagnosis Assessment Notes Treatment Notes Treatment Clinical Notes Nov, Attention deficit disorder (ICD- 10 - F98.8) [employer] Other 03-04-2022 Evaluation note* Encounter Date Diagnosis Assessment Notes Treatment Notes Treatment Clinical Notes Oct, Attention deficit disorder (ICD- 10 - F98.8) [employer] Other 02-25-2022 Evaluation note* Encounter Date Diagnosis Assessment Notes Treatment Notes Treatment Clinical Notes Sep, Migraine without aur a and without status migrainosus, not intractable (ICD-10 - G43.009) [employer] Other 02-07-2022 Evaluation note* Encounter Date Diagnosis Assessment Notes Treatment Notes Treatment Clinical Notes Sep, Diabetes type 2, controlled (ICD -10 - E11.9) Continued excellent control. No other change today. Sep,ttention deficit disorder (ICD-10 - F98.8) E Rx sent. No other change today. Sep,Migraine without aura and without status migrainosus, not intractable (ICD-10 - G43.009) Pt to call Neuro for review of site reaction with migraine injection. I do not know if there is a potential for site reaction issues with this medication. This is something that really needs to be discussed with neurology. She voices agreement and understanding. Sep,therThe goal for diabetes is always to maintain an A1c below 7.0, and to be compliant with medication. Of course continue to monitor diet and increase exercise is always suggested. We will continue to monitor. [employer] Other 01-20-2022 Evaluation note* Encounter Date Diagnosis Assessment Notes Treatment Notes Treatment Clinical Notes Aug, COVID (ICD-10 - U07.1) She wonders how long this is going to potentially last, this shortness of breath. I described the patient that this is very unclear, and could last for days if not weeks. Aug,hortness of breath (ICD-10 - R06.02) Lengthy discussion with patient today. Certainly I feel that the ER did an excellent job with theirwork-up. Therefore, since her work is ok with surgical mask (vs N95) then will write note to allow just that - continue with albuterol moving forward. Certainly call with any change. Any further significant shortness of breath, especially if sudden onset, would necessitate return to the ER. [facility] [employer] [facility] Other 01-04-2022 Evaluation note* Encounter Date Diagnosis Assessment Notes Treatment Notes Treatment Clinical Notes Aug, Attention deficit disorder (ICD- 10 - F98.8) [employer] Other 12-30-2021 Evaluation note* Encounter Date Diagnosis Assessment Notes Treatment Notes Treatment Clinical Notes Jul, Insomnia (ICD-10 - G47.00) [employer] Other 11-23-2021 Evaluation note* Encounter Date Diagnosis Assessment Notes Treatment Notes Treatment Clinical Notes Jun, Nodule of right lung (ICD-10 - R 91.1) Discussed CT findings at length again today, we we will obtain another follow-up CT in a year and if that shows no change she will need no further routine surveillance CT testing. [employer] Other 06-22-2021 NoteHNO ID: [id number] Author: Stalin García MD Service: ? Author Type: Physician Type: Progress Notes Filed: 01/27/2021 12:00 PM Note Text: Endocrinology Pituitary Initial Assessment REQUESTING PHYSICIAN: Roderick Dunlap (DrIbrahima) [address] [place] [address] My final recommendations will be communicated back [...] suggesting pituitary mi (more content not included)... [facility] No data available for this section [facility] evaluation + Plan note Future Appointments Appointment Date:10/31/2024 07:45:00 AM Scheduled Provider:Dev MOORE MD Location:[facility] Appointment Type:URO Procedure 15 min [facility] Evaluation + Plan note Future Appointments Appointment Date:01/30/2025 08:30:00 AM Scheduled Provider:Dev MOORE MD Location:[facility] Appointment Type:URO Procedure 15 min [facility] Evaluation + Plan note Future Appointments Appointment Date:08/14/2025 08:15:00 AM Scheduled Provider:Dev MOORE MD Location:[facility] Appointment Type:URO Office Visit [facility] Evaluation noteNo InformationNort NXT-ID Other Evaluation noteNo assessment information available [facility] Work Phone: evaluation note* Diagnosis Onset Date Resolution Status Admit Date Diabetes type 2, controlled acuteMarch 2024 2:52pm [facility] Work Phone: Evymbation note* Diagnosis Intractable migraine without aura and with status migrainosus- Primary Pituitary adenoma (HCC) Benign neoplasm of pituitary gland and craniopharyngeal duct (pouch) B12 deficiency Cerebellar tonsillar ectopia (HCC) Abnormal blood chemistry Other abnormal blood chemistry Migraine without aura, intractable, with status migrainosus- Primary Pituitary adenoma (HCC) Benign neoplasm of pituitary gland and craniopharyngeal duct (pouch) B12 deficiency Cervical paraspinal muscle spasm Spasm of muscle Intractable migraine without aura and with status migrainosus Migraine without aura, intractable, with status migrainosus- Primary Pituitary adenoma (HCC) Benign neoplasm of pituitary gland and craniopharyngeal duct (pouch) B12 deficiency Cervical paraspinal muscle spasm Spasm of muscle Cerebellar tonsillar ectopia (HCC) Intractable migraine without aura and with status migrainosus Migraine without aura, intractable, with status migrainosus- Primary Pituitary adenoma (HCC) Benign neoplasm of pituitary gland and craniopharyngeal duct (pouch) B12 deficiency Cervical paraspinal muscle spasm Spasm of muscle Intractable migraine without aura and with status migrainosus documented in this encounter [facility] general Narrative - Reported* Type Description Date Medical History DM II Medical HistoryADDMedical HistoryMigrainesMedical HistoryDepressionMedical HistoryBrain Tumor - PitutaryMedical HistoryHyperCholMedical HistoryHypothyroid Medical Historyheart murmur and dysrhythmiaSurgical HistoryHeel Spur - [id number] Surgical HistoryBack [id number] HistoryTonsilschildhoodSurgical History KATIE - ovaries [id number]/2014Surgical HistoryD&CSurgical Historyspine surgery Hospitalization HistoryBack SurgeryHospitalization [id number] [facility] [employer] [facility] Other History general Narrative - Reported* Type Description Date Medical History DM II Medical HistoryADDMedical HistoryMigrainesMedical HistoryDepressionMedical HistoryBrain Tumor - PitutaryMedical HistoryHyperCholMedical HistoryHypothyroid Medical Historyheart murmur and dysrhythmiaMedical Historycovid urgical HistoryHeel Spur - [id number] HistoryBack [id number] History TonsilschildhoodSurgical HistoryTAH - ovaries hcijmr29/2014Surgical HistoryD&C Surgical Historyspine surgeryHospitalization HistoryBack SurgeryHospitalization [id number] [facility] Other Hospital Discharge instructions No data available for this section [facility] note No data available for this section [facility] reason for referral (narrative)No reason for referral information availableGrant Hospital Work Phone: Summary Purpose Family History No Family History Records Found Relationship Condition Age at Onset Recorded Date/T cesar father History of stroke Unknown Heart diseaseUnknownDeceasedUnknownFamily history of mental disorderUnknown motherHistory of strokeUnknownMalignant neoplasmUnknownDiabetes mellitusUnknown HypertensionUnknown Advance Directives No Advanced Directives Records Found Advance Directive Response Recorded Date/ Time Advance Directives No October 31 12:49pm Chief Complaint and Reason for Visit Chief Complaint L shoulder pain Chief Complaint Admit Date lightheaded July 24, 2024 9:45am Amb Documentation July 25, 2024 8:39am 3 month October 22, 2024 2:5 2pm Reason for Visit Admit Date Diabetes type 2, controlled October 22, 2024 2:52pm Chief Complaint Admit Date Right side pain, possible uti April 29, 2025 9:02am Reason for Visit Admit Date UTI (urinary tract infection) April 29, 2025 9:02am Additional Source Comments INFORMATION SOURCE (unrecogn ized section and content) DATE CREATED AUTHOR 09/26/2018 [facility] DATE CREATED AUTHOR AUTHOR'S ORGANIZ ATION 11/09/2018 [facility] DATE CREATED AUTHOR AUTHOR'S ORGANIZ ATION 09/01/2021 [facility] DATE CREATED AUTHOR AUTHOR'S ORGANIZ ATION 12/01/2021 [facility] [employer] DATE CREATED AUTHOR AUTHOR'S ORGANIZ ATION 11/12/2022 [facility] DATE CREATED AUTHOR AUTHOR'S ORGANIZ ATION 08/20/2024 [facility] DATE CREATED AUTHOR AUTHOR'S ORGANIZ ATION 09/27/2024 [facility] DATE CREATED AUTHOR AUTHOR'S ORGANIZ ATION 10/18/2024 [facility] DATE CREATED AUTHOR AUTHOR'S ORGANIZ ATION 10/20/2024 [facility] DATE CREATED AUTHOR AUTHOR'S ORGANIZ ATION 10/29/2024 [facility] DATE CREATED AUTHOR AUTHOR'S ORGANIZ ATION 11/03/2024 [facility] DATE CREATED AUTHOR AUTHOR'S ORGANIZ ATION 02/01/2025 [facility] DATE CREATED AUTHOR AUTHOR'S ORGANIZ ATION 02/16/2025 [facility] DATE CREATED AUTHOR AUTHOR'S ORGANIZ ATION 03/15/2025 [facility] DATE CREATED AUTHOR AUTHOR'S ORGANIZ ATION 05/02/2025 [facility] REASON FOR VISIT (unrecogniz ed section and content) ReasonCommentsMigraine Care Teams (unrecognized sec tion and content) Team Status: Active Member Role Status Dates Momo Hampton DO Primary Care Provider Active Team Status: Inactive Member Role Status Dates Momo Hampton DO Primary Care Provider, Attending Provider Active Team Status: Inactive Member Role Status Dates Momo Hampton DO Primary Care Provider Active Start: July 24, 2024 End: July 24, 2024Elsa Deluca ProviderActiveStart: July 24, 2024 End: July 24, 2024 Team Status: Active Member Role Status Dates Momo Hampton DO Primary Care Provider Active Start: July 25, 2024 Timothy Harrington ProviderActiveStart: July 25, 2024 Team Status: Active Member Role Status Dates Momo Hampton DO Primary Care Provid er, Attending Provider Active Start: August 14, 2024 Team Status: Inactive Member Role Status Dates Momo Hampton DO Primary Care Provid er, Attending Provider Active Start: October 22, 2024 End: October 22, 2024Team MemberRelationshipSpecialtyStart DateEnd Date Momo Hampton MD PCP - GeneralFamily Medicine01/18/23Team MemberRelationshipSpecialtyStart DateEnd Date Momo Hampton MD PCP - [facility]01/18/23 Team Status: Inactive Member Role Status Dates Momo Hampton DO Primary Care Provider Active Start: April 29, 2025 End: April 29, 2025Momo Hampton DOAttending ProviderActiveStart: April 29, 2025 End: April 29, 2025 Team Status: Inactive Member Role Status Dates Momo Hampton DO Attending Provider Active S tart: April 29, 2025 End: April 29, 2025 Goals (unrecognized section and content) Goals may [...] BE BASED ON THE PRIMARY CLINICAL RECORDS. [facility] [employer] [facility]. provides no warranty or guarantee of the accuracy or completeness of information in this document.
--- NOTE | 2025-06-14 09:45 | CA_ITS ---
Patient Name: KWAKU VEGA MR#: [id number] : 1970 Exam Date: 06/14/2025 Ordering Doctor: DR. JACKIE PARIS M.D. ECHOCARDIOGRAM REPORT PROCEDURE: CA ECHO DOPPLER COMPLETE INDICATIONS: Nonrheumatic aortic valve insufficiency COMPARISON: None. DESCRIPTION: COMPLETE ECHOCARDIOGRAM Real-time transthoracic echocardiography with 2D, M-mode, spectral and color flow Doppler performed. QUALITY: Technical quality was good. LEFT VENTRICLE: Normal chamber size. Normal left ventricular wall thickness. Global left ventricular systolic function is normal without wall motion abnormalities. Calculated left ventricular ejection fraction is 70%. LV EF: DIASTOLIC: Normal diastolic function. ATRIAL SEPTUM: Visually appears intact LEFT ATRIUM: Normal chamber size. RIGHT ATRIUM: Normal chamber size. RIGHT VENTRICLE: Normal chamber size. Normal right ventricular systolic function. TRICUSPID VALVE: Normal mobility and thickness. No stenosis with trivial to mild regurgitation. No evidence of pulmonary hypertension. RVSP 26mmHg. MITRAL VALVE: Normal mobility and thickness. No evidence of mitral valve stenosis. There is no mitral annular calcification. No mitral regurgitation. AORTIC VALVE: Normal trileaflet appearance. No visible sclerosis. Normal leaflet mobility. No evidence of aortic valve stenosis. Mild aortic regurgitation. AORTIC ROOT: Normal diameter and appearance.Measuring 2.9cm. PULMONIC VALVE: Normal thickness and mobility. No stenosis. Mild regurgitation. PERICARDIUM: No evidence of pericardial effusion. IVC: Collapes with inspirations. Normal size. PLEURA: CONCLUSION: Normal left ventricle cavity size, wall thickness, and systolic function without wall motion abnormalities, ejection fraction 70% Normal left ventricle diastolic function Normal right ventricle size and systolic function Normal right-sided pressure, RVSP 26 mmHg Mild aortic regurgitation Trivial to mild tricuspid regurgitation Mild pulmonary regurgitation Adult Echocardiography Procedure Report Left Ventricle LVEDD (3.7 - 5.6 cm): 4.52 cm LVESD (2.2 - 4.0 cm): 2.57 cm LVIVS thickness (0.6 - 1.2 cm): 0.57 cm LVPW thickness (0.5 - 1.0 cm): 0.80 cm e': 0.13 m/s E - e': 5.98 LVOT Max Gradient: 6.34 mm[Hg] LVOT Area (cm2): 1.26 m/s Peak Velocity (LVOT): 1.26 m/s Mean Velocity (LVOT): 0.80 m/s LVOT Diameter 1.86 cm Left Ventricular Ejection Fraction: 70.07 % Left Atrium LA Volume Index (2D A2C): 26.64 ml/m2 Left Atrium Systolic Dimension: 3.71 cm Mitral Valve MV E to A Ratio: 0.95 Mitral Valve A-Wave Peak Velocity: 0.80 m/s Mitral Valve E-Wave Peak Velocity: 0.77 m/s Right Ventricle RV Internal Diastolic Dimension: 2.69 cm Aorta AO Root Diam: 2.87 cm Ascending Ao Diam: 2.96 cm Aortic Valve AoV Area (Peak Real): 2.44 cm2, 2.44 cm2 AoV Area (VTI): 2.31 cm2, 2.31 cm2 Deceleration [place]: 2.02 m/s2 Pressure Half-Time: 570.25 ms Peak Velocity(Antegrade Flow): 1.40 m/s Peak Gradient(Antegrade Flow): 7.87 mm[Hg] Mean Velocity(Antegrade Flow): 0.92 m/s Mean Gradient(Antegrade Flow): 3.92 mm[Hg] Velocity Time Integral: 31.02 cm Tricuspid Valve Peak Velocity (Regurgitant Flow): 1.93 m/s, 2.05 m/s, 2.40 m/s Pulmonic Valve Mean Gradient: 1.61 mm[Hg], 1.70 mm[Hg] Mean Velocity: 0.58 m/s, 0.62 m/s Peak Velocity: 0.84 m/s, 0.73 m/s Peak Gradient: 2.14 mm[Hg], 2.82 mm[Hg], 2.82 mm[Hg] Right Atrium Right Atrium Systolic Pressure: 35.71 ml, 35.71 ml Dictated by: Jackie Paris MD on 06/14/2025 at 17:52 Approved by: Jackie Paris MD on 06/14/2025 at 17:58
== END 2025-06-14 09:25 | disposition home or self-care (01) ==
LOC: CARD 09:26
PROVIDERS: PCP Family Medicine; Visit Provider Internal Medicine Cardiovascular Disease
DX: I35.1 Nonrheumatic aortic (valve) insufficiency (principal)
CPT/HCPCS: 93306